=== PATIENT | female | born 1945 | race Caucasian/White ===

== ENCOUNTER 2017-09-06 18:35 | Emergency (ER) | payer MEDICARE, OTHER, SELFPAY | END 2017-09-06 20:39 | disposition home or self-care (01) | PROVIDERS: Emergency Provider Emergency Medicine; PCP Internal Medicine; Visit Provider Emergency Medicine | DX: S20.219A Contusion of unspecified front wall of thorax, initial encounter (principal); W22.8XXA Striking against or struck by other objects, initial encounter | CPT/HCPCS: 71010; 71045; 80053; 81003; 82150; 83690; 83735; 84484; 85025; 85610; 85730; 93005; 93010; 99058; 99284 ==

== ENCOUNTER → 2017-11-24 09:29 | Outpatient (CLI) | payer MEDICARE, OTHER, SELFPAY ==
--- NOTE | 2017-11-24 | DI.RAD.S_ITS ---
PROCEDURE: XR CHEST 2V INDICATIONS: COUGH TECHNIQUE: 2 views of the chest were acquired. [facility]2017, 19[facility]08[facility], 04/08/2017, 16:46[facility] CHEST 2 [facility], 08/24/2014, 20:48. FINDINGS: Surgical changes and devices: Sternotomy wires, surgical clips upper anterior sternal notch area on the left. Lungs and pleura: No pleural effusions or pneumothorax. Lungs are clear. Mediastinum: Mediastinal contours are normal. Heart size is normal. Bones and chest wall: No suspicious bony abnormalities. Soft tissues appear unremarkable. IMPRESSION: Postsurgical changes with sternotomy as discussed above, no pneumonia found. Relatively large lung volumes, possibly reflecting COPD but aggressive inspiratory effort also could produce this appearance. Dictated by: Dayron Sweeney M.D. on 11/24/2017 at 9:53 Approved by: Dayron Sweeney M.D. on 11/24/2017 at 9:54
[2017-11-24 11:00] LABS: Add Manual Diff / Slide Review NO; Basophils Percent Auto 1.2 % (0-2); Eosinophils Percent Auto 4.3 % (2-4); Hemoglobin 13.1 g/dL (12.0-16.0); Mean Corpuscular HGB Conc 33.5 % (30-36); Mean Corpuscular Hemoglobin 29.8 PG (26-34); Mean Corpuscular Volume 89.1 fL (80-100); Monocytes Percent Auto 9.1 % (3-14); Neutrophils Absolute Auto 3600 /uL (3000-5900); Neutrophils Percent Auto 60.4 % (50-75); Platelet Count 232 X10^3/uL (150-400); Red Blood Cell Count 4.38 X10^6/uL (4.0-5.2)
[2017-11-24 11:20] LABS: Alanine Aminotransferase 26 IU/L (9-52); Albumin 4.2 g/dL (3.5-5.0); Albumin Globulin Ratio 1.4 (1.0-2.8); Alkaline Phosphatase 75 U/L (38-126); Aspartate Aminotransferase 25 IU/L (14-36); Bilirubin Total 0.6 mg/dL (0.2-1.3); Blood Urea Nitrogen 12 mg/dL (7-17); Calcium 9.1 mg/dL (8.4-10.2); Carbon Dioxide 28 mmol/L (22-32); Chloride 103 mmol/L (98-107); Estimated Glomerular Filt Rate > 60.0 mL/min (>60); Globulin 3.1 g/dL (1.7-4.1); Glucose 100 mg/dL (80-110); HEMOLYSIS < 15 (0-50); Potassium 4.2 mmol/L (3.4-5.1); Sodium 142 mmol/L (137-145); Total Protein 7.3 g/dL (6.3-8.2)
[2017-11-24 11:49] LABS: Thyroid Stimulating Hormone 0.99 uIU/mL (0.47-4.68)
== END ==
PROVIDERS: PCP Internal Medicine; Visit Provider Internal Medicine
DX: R05 Cough (principal); I10 Essential (primary) hypertension; E78.00 Pure hypercholesterolemia, unspecified
CPT/HCPCS: 36415; 71046; 80053; 84443; 85025

== ENCOUNTER → 2018-01-12 07:44 | Outpatient (CLI) | payer MEDICARE, OTHER, SELFPAY ==
--- NOTE | 2018-01-12 | DI.US.S_ITS ---
PROCEDURE: US THYROID INDICATIONS: THYROID NODULE TECHNIQUE: Real-time scanning was performed of the thyroid gland, with image documentation. COMPARISON: [facility], US, THYROID, 10/15/2015, 14:32. FINDINGS: Right: Right thyroid lobe measures 3.6 x 1.8 x 1.4 cm in size. At least 2 nodules are again seen in lower pole of right thyroid lobe measures up to 9 mm in size unchanged from previous study. Left: Left thyroid lobe measures 4.3 x 1.7 x 1.5 cm in size. Numerous left thyroid lobe nodules are again seen with the largest one seen in upper pole of left thyroid lobe measures 9 mm in size, also unchanged from previous study. Isthmus: Isthmus measures 3 mm in thickness. No gross abnormality is seen. IMPRESSION: Multiple subcentimeter bilateral thyroid nodules as described above, unchanged in size and appearance since 2016 study. Dictated by: aLm Ann M.D. on 01/12/2018 at 12:47 Approved by: Lam Ann M.D. on 01/12/2018 at 12:50
== END ==
PROVIDERS: Family Provider Internal Medicine; PCP Internal Medicine; Visit Provider Internal Medicine
DX: E04.2 Nontoxic multinodular goiter (principal)
CPT/HCPCS: 76536

== ENCOUNTER → 2018-02-01 09:54 | Outpatient (CLI) | payer MEDICARE, OTHER, SELFPAY ==
--- NOTE | 2018-02-01 | DI.ECHO.S_ITS ---
[facility]---------+ [facility] +---------+ : : [address] [place] : : : : [id number] : : : : Phone: [phone] Echocardiogram Report + + :Name: MAYA MORENO Study Date: 02/01/2018 Height: 62 in : :[facility] Exam Location: IS Weight: 114 lb : : Gender: Female BSA: 1.5 m2 : :: 1945 Age: 72 yrs BP: 125/70 mmHg: :Reason For Study: Hypertension : :Ordering Physician: Daja : :Jayshree Performed By: Sisi Page : + + Interpretation Summary There is borderline concentric left ventricular hypertrophy. The ejection fraction is estimated to be 60-65%. There is mild to moderate tricuspid regurgitation. The right ventricular systolic pressure is estimated at 21 mmHg assuming a right atrial pressure of 3 mm Hg. Procedure: A two-dimensional transthoracic echocardiogram with color flow and Doppler was performed. The study quality was technically good. Comparison is made with the echocardiogram of 06/10/2015. The patient was in normal sinus rhythm during the exam. Left Ventricle: There is borderline concentric left ventricular hypertrophy. The left ventricle is normal in size. The ejection fraction is estimated to be 60-65%. Left ventricular wall motion is normal. Right Ventricle: The right ventricle is normal in size and function. Atria: The left atrium is moderately dilated. The right atrium is borderline dilated. There is no Doppler evidence for an interatrial shunt. Mitral Valve: The mitral valve is normal in structure and function. There is trace mitral regurgitation. Aortic Valve: The aortic valve is trileaflet. The aortic valve opens well. The aortic valve is slightly calcified. There is no hemodynamically significant valvular aortic stenosis. There is trace aortic regurgitation. Tricuspid Valve: The tricuspid valve is normal in structure and function. There is mild to moderate tricuspid regurgitation. The right ventricular systolic pressure is estimated at 21 mmHg assuming a right atrial pressure of 3 mm Hg. Pulmonic Valve: The pulmonic valve is not well visualized. There is a trace or physiologic amount of pulmonic regurgitation. Great Vessels: The aortic root is normal size. The ascending aorta is normal in size. The aortic arch is normal in size. The pulmonary artery is not well visualized, but is probably normal size. The IVC is of normal diameter and collapses greater than 50% with a sniff. This suggests a low right atrial pressure of 3 mm Hg. Pericardium/ Pleura There is no pericardial effusion. There is no pleural effusion. MMode/2D Measurements & Calculations LVIDd: 3.7 cm LVOT diam: 2.0 cm LVIDs: 2.0 cm Ao root diam: 3.2 cm FS: 45.6 % asc Aorta Diam: 2.8 cm EPSS: 0.50 cm Ao Arch Diam (Prox Trans): 3.2 cm IVSd: 0.68 cm LVPWd: 0.89 cm LV milton. diameter/BSA (cm/m^2): 2.4 LV sys. diameter/BSA (cm/m^2): 1.3 LA A2 area: 23.1 cm2 RA long axis: 4.5 cm LA A4 area: 18.9 cm2 RA area: 15.7 cm2 LA length (vol): 5.2 cm RA vol: 46.7 ml LA vol: 71.3 ml RA : 31.0 ml/m2 LA vol index: 47.3 ml/m2 IVC diam: 1.3 cm RVD1 (basal): 3.2 cm TAPSE: 1.9 cm Doppler Measurements & Calculations Ao V2 max: 137.2 cm/sec LVOT Max Tj: 100.4 cm/sec Ao V2 mean: 98.0 cm/sec LV V1 max P.0 mmHg Ao max P.5 mmHg LV V1 VTI: 20.3 cm Ao mean P.2 mmHg MAKI(I,D): 2.5 cm2 Ao V2 VTI: 26.1 cm MAKI(V,D): 2.3 cm2 sev ratio: 0.78 MAKI indexed to BSA (cm^2/m^2): 1.7 MV E max tj: 53.5 cm/sec TR max tj: 213.4 cm/sec MV A max tj: 63.1 cm/sec TR max P.2 mmHg MV E/A: 0.85 PA V2 max: 73.1 cm/sec Med Peak E' Tj: 5.9 cm/sec PA V2 mean: 47.6 cm/sec E/E' med: 9.1 PA mean P.1 mmHg Lat Peak E' Tj: 9.2 cm/sec PA Accel Time: 0.14 sec E/E' lat: 5.8 E/e' average: 7.5 MV dec time: 0.31 sec MV P1/2t: 92.6 msec MV P1/2t max tj: 53.1 cm/sec MVA(P1/2t): 2.4 cm2 Reading Physician:05:19 PM
[2018-02-01 11:17] LABS: Cholesterol 150 mg/dL (140-199); HDL Cholesterol 49 mg/dL (40-60); LDL Cholesterol Calculated 90 mg/dL (<100); Triglycerides 56 mg/dL (35-150)
== END ==
PROVIDERS: Family Provider Internal Medicine; PCP Internal Medicine; Visit Provider Internal Medicine
DX: I07.1 Rheumatic tricuspid insufficiency (principal); I11.9 Hypertensive heart disease without heart failure; E78.5 Hyperlipidemia, unspecified
CPT/HCPCS: 36415; 80061; 93306

== ENCOUNTER 2018-02-22 13:00 | Emergency (ER) | payer MEDICARE, OTHER, SELFPAY ==
[2018-02-22 13:16] VITALS: BP 163/84; PULSE 87; RESP 17; TEMP 36.6; O2SAT 94; BMI 21.0
--- NOTE | 2018-02-22 13:26 | DI.RAD.S_ITS ---
PROCEDURE: XR CHEST 1V INDICATIONS: chest pain TECHNIQUE: One view of the chest was acquired. COMPARISON: [facility], CR, XR CHEST 2V, 11/24/2017, 9:41. FINDINGS: Surgical changes and devices: Postoperative changes related to prior median sternotomy are evident. Electronic apparatus is seen overlying the anterior left chest. Clips within the right upper quadrant are suggestive of prior cholecystectomy. Lungs and pleura: No pleural effusions or pneumothorax. Lungs are clear. Mediastinum: Mediastinal contours appear normal. Heart size is normal. Bones and chest wall: No suspicious bony lesions. Overlying soft tissues appear unremarkable. IMPRESSION: No acute cardiopulmonary process is evident. Dictated by: Esau Lewis M.D. on 02/22/2018 at 13:09 Approved by: Esau Lewis M.D. on 02/22/2018 at 13:09
--- NOTE | 2018-02-22 13:47 | DI.US.S_ITS ---
PROCEDURE: US CAROTID DOPPLER BI INDICATIONS: HISTORY STENT TECHNIQUE: Color and pulse Doppler interrogation was performed of both carotid systems, with image documentation and velocity measurements. COMPARISON: None. FINDINGS: Stenosis calculations are based on SRU (Society of Radiologists in Ultrasound) criteria. The flow velocities and the arterial waveforms are normal within both carotid arterial systems. A left proximal internal carotid artery stent is seen. The estimated degree of internal carotid artery stenosis is less than 50%. Antegrade flow is confirmed within both vertebral arteries. IMPRESSION: No hemodynamically significant stenosis is seen. There is a left proximal internal carotid artery stent again seen. Dictated by: Mehran Diaz M.D. on 02/22/2018 at 13:48 Approved by: Mehran Diaz M.D. on 02/22/2018 at 13:49
--- NOTE | 2018-02-22 13:56 | PC.NURSE ---
Pt denies pain at this time. Pt states she feels weak & tired. pt denies anyy other symptoms at this time.
[2018-02-22 13:59] LABS: Add Manual Diff / Slide Review NO; Basophils Percent Auto 0.9 % (0-2); Eosinophils Percent Auto 2.5 % (2-4); Hematocrit 37.9 % (36-46); Hemoglobin 13.1 g/dL (12.0-16.0); Lymphocytes Percent Auto 23.2 % (25-40); Mean Corpuscular HGB Conc 34.7 % (30-36); Mean Corpuscular Hemoglobin 30.3 PG (26-34); Mean Corpuscular Volume 87.4 fL (80-100); Monocytes Percent Auto 9.4 % (3-14); Neutrophils Absolute Auto 3200 /uL (3000-5900); Platelet Count 195 X10^3/uL (150-400); Red Blood Cell Count 4.34 X10^6/uL (4.0-5.2); Red Cell Distribution Width 14.1 % (11.6-14.8)
[2018-02-22 14:05] LABS: INR 1.1 (0.9-1.3)
[2018-02-22 14:08] LABS: PTT Partial Thromboplastin Tim 23 SECONDS (26.4-36.2)
[2018-02-22 14:09] LABS: Alanine Aminotransferase 32 IU/L (9-52); Albumin 4.4 g/dL (3.5-5.0); Albumin Globulin Ratio 1.5 (1.0-2.8); Alkaline Phosphatase 71 U/L (38-126); Aspartate Aminotransferase 25 IU/L (14-36); BUN Creatinine Ratio 21.7 (6-22); Bilirubin Total 0.5 mg/dL (0.2-1.3); Blood Urea Nitrogen 13 mg/dL (7-17); Calcium 9.3 mg/dL (8.4-10.2); Carbon Dioxide 30 mmol/L (22-32); Chloride 102 mmol/L (98-107); Creatine Kinase 40 U/L (30-135); Estimated Glomerular Filt Rate > 60.0 mL/min (>60); Globulin 2.9 g/dL (1.7-4.1); Glucose 129 mg/dL (80-110); HEMOLYSIS 19 (0-50); Lipase 79 U/L (23-300); Sodium 140 mmol/L (137-145); Total Protein 7.3 g/dL (6.3-8.2)
[2018-02-22 14:10] VITALS: BP 121/67; PULSE 77; RESP 75; O2SAT 98
[2018-02-22 14:21] LABS: Troponin I < 0.012 ng/mL (0.01-0.034)
--- NOTE | 2018-02-22 14:36 | ED.DIZZY ---
HPI - Dizziness General Chief Complaint: Syncope Stated Complaint: blacked out, h/o of heart/neuro problems Time Seen by Provider: 02/22/18 13:30 Source: patient Mode of arrival: ambulatory Limitations: no limitations History of Present Illness HPI Narrative: 72-year-old female with long complicated cardiac and vascular history presents to the emergency department today a brief episode the sense of impending doom and near syncope that happened a few hours ago. She states that she was working in her bathroom and had a sudden onset very nonspecific complaints but she felt terrible, briefly. She denies that she had provocation or palliation of her symptoms. She denies any chest pain or shortness of breath. She denies blurred vision or any focal neurologic findings such as numbness, tingling or weakness. Her vascular surgeon sent her here for evaluation. Her symptoms had long since resolved prior to her arrival MD complaint: near syncope Onset (ago): hour(s) Timing: sudden onset Description: near-syncope History of similar episodes: No History of trauma: No Severity: moderate Relieving factors: nothing Exacerbating factors: nothing Associated symptoms: denies other symptoms Related Data Home Medications Medication Instructions Recorded Confirmed aspirin 81 mg PO DAILY #0 02/03/09 02/22/18 clopidogrel 75 mg PO Q DAY #0 02/03/09 02/22/18 atorvastatin [Lipitor] 20 mg PO Q DAY #0 02/23/13 02/22/18 losartan [Cozaar] 100 mg PO QDAY #0 tab 02/23/13 02/22/18 multivitamin 1 tab PO QDAY #0 tab 02/23/13 02/22/18 amlodipine 5 mg tablet 5 mg PO DAILY 01/19/18 02/22/18 Allergies Allergy/AdvReac Type Severity Reaction Status Date / Time erythromycin base Allergy Mild Verified 02/22/18 13:16 [ERYTHROMYCIN BASE] prochlorperazine Allergy Mild Verified 02/22/18 13:16 [PROCHLORPERAZINE] oxycodone [OXYCODONE] Allergy Unknown Verified 02/22/18 13:16 Review of Systems Review of Systems All systems reviewed & are unremarkable except as noted in HPI and below Constitutional Denies chills, Denies fever(s), Denies lethargy and Denies weakness Eyes Denies change in vision, Denies eye discharge, Denies irritation and Denies loss of vision ENT Ears, Nose, Mouth, and Throat: Denies change in voice, Denies neck pain and Denies sore throat Cardiovascular Denies chest pain, Denies irregular heart rhythm, Denies lightheadedness, Denies palpitations, Denies dyspnea, Denies dyspnea on exertion and Denies orthopnea Comments: Near syncope, sense doom Respiratory Denies cough, Denies dyspnea, Denies dyspnea on exertion and Denies wheezing Gastrointestinal Gastrointestinal: Denies abdominal pain, Denies change in bowel habits, Denies diarrhea, Denies nausea and Denies vomiting Genitourinary Denies hematuria, Denies flank pain, Denies urinary incontinence and Denies urinary urgency Musculoskeletal Denies neck pain Integumentary/Breasts Denies pruritus, Denies erythema, Denies rash and Denies wounds Neurologic Denies confusion, Denies loss of vision and Denies weakness Psychiatric Denies anxiety, Denies confusion, Denies depression, Denies homicidal ideation and Denies suicidal ideation Endocrine Denies palpitations Hematologic/Lymphatic Denies easy bruising Allergic/Immunologic Denies wheezing PFSH Medical History Carotid artery disease (Chronic) Heart disease (Chronic) Hypertension (Chronic) Multinodular thyroid (Chronic) SVT (supraventricular tachycardia) (Chronic) Stroke (Resolved) Surgical History History of cholecystectomy (Resolved) History of eye surgery (Resolved) History of left common carotid artery stent placement (Resolved) History of surgery (Resolved 05/05/08) Social History Smoking Status: Never smoker Exam Narrative Exam Narrative: GENERAL: This is a well-nourished, well-developed patient, in mild distress. HEAD: Atraumatic. Normocephalic. No temporal or scalp tenderness. EYES: Pupils equal round and reactive. Extraocular motions intact. No scleral icterus. No injection or drainage. ENT: Nose without bleeding, purulent drainage or septal hematoma. Throat without erythema, tonsillar hypertrophy or exudate. Uvula midline. Airway patent. NECK: Trachea midline. No JVD or lymphadenopathy. Supple, nontender, no meningeal signs. CARDIOVASCULAR: Regular rate and rhythm without murmurs, gallops, or rubs. RESPIRATORY: Clear to auscultation. Breath sounds equal bilaterally. No wheezes, rales, or rhonchi. GASTROINTESTINAL: Abdomen soft, non-tender, nondistended. No hepato-splenomegaly, or palpable masses. No guarding. EXTREMITIES: No clubbing, cyanosis, or edema. No joint tenderness, effusion, or edema noted. BACK: Nontender without deformity or crepitance. No flank tenderness. NEURO: AOx3. SKIN: No rash or erythema. Initial Vital Signs Initial Vital Signs: Vital Signs Temperature 97.9 F 02/22/18 13:16 Pulse Rate 87 02/22/18 13:16 Respiratory Rate 17 02/22/18 13:16 Blood Pressure 163/84 H 02/22/18 13:16 Pulse Oximetry 94 02/22/18 13:16 Scores HEART Score Heart Score history: Slightly Suspicious Heart Score EKG: Normal Heart Score Age: > or = 65 years old Heart Score risk factors: > 3 risk factors or hx of atherosclerotic disease Heart Score troponin: < or = to normal limit Heart Score Total: 4 Course Orders Ordered: ED Orders 02/22/18 13:26 XR chest 1V Stat 02/22/18 13:47 US carotid doppler BI Stat Complete Blood Count AUTO DIFF Stat Comprehensive Metabolic Panel Stat Lipase Stat Partial Thromboplastin Time Stat Prothrombin Time INR Stat Troponin & CK Cardiac Panel Stat 02/22/18 15:40 Troponin I Stat 02/22/18 15:41 EKG-12 Lead Stat 02/22/18 16:05 CT angio chest PE protocol Stat Vital Signs - 8 hr 02/22/18 14:10 02/22/18 17:05 Pulse Rate 77 80 Respiratory Rate 75 H 20 Blood Pressure [Left Arm] 121/67 132/64 Pulse Oximetry 98 94 MDM - Dizziness Differential Diagnosis Likely adverse reaction to drug, benign paroxysmal positional vertigo, orthostatic hypotension, vertebral basilar insufficiency, cerebrovascular accident, acute vestibular neuronitis and transient cerebral ischemia Medical Records Attestation: I reviewed the patient's medical records. Lab Data Attestation: I reviewed the patient's lab results. Result diagrams: 02/22/18 13:47 02/22/18 13:47 Lab Results 02/22/18 02/22/18 02/22/18 Range/Units 13:47 13:47 13:47 WBC 5.0 (4.5-11.0) X10^3/uL RBC 4.34 (4.0-5.2) X10^6/uL Hgb 13.1 (12.0-16.0) g/dL Hct 37.9 (36-46) % MCV 87.4 (80-100) fL MCH 30.3 (26-34) PG MCHC 34.7 (30-36) % RDW 14.1 (11.6-14.8) % Plt Count 195 (150-400) X10^3/uL Neut % (Auto) 64.0 (50-75) % Lymph % (Auto) 23.2 L (25-40) % [place] % (Auto) 9.4 (3-14) % Eos % (Auto) 2.5 (2-4) % Baso % (Auto) 0.9 (0-2) % Neut # (Auto) 3200 (9277-0799) /uL PT 12.0 (10.1-12.7) SECONDS INR 1.1 (0.9-1.3) APTT 23 L (26.4-36.2) SECONDS Sodium 140 (137-145) mmol/L Potassium 4.0 (3.4-5.1) mmol/L Chloride 102 (98-107) mmol/L Carbon Dioxide 30 (22-32) mmol/L BUN 13 (7-17) mg/dL Creatinine 0.60 (0.52-1.04) mg/dL Estimated GFR > 60.0 (>60) mL/min BUN/Creatinine Ratio 21.7 (6-22) Glucose 129 H (80-110) mg/dL Calcium 9.3 (8.4-10.2) mg/dL Total Bilirubin 0.5 (0.2-1.3) mg/dL AST 25 (14-36) IU/L ALT 32 (9-52) IU/L Alkaline Phosphatase 71 (38-126) U/L Total Creatine Kinase 40 (30-135) U/L CK-MB (CK-2) TNP CK-MB (CK-2) Rel Index TNP Troponin I < 0.012 (0.01-0.034) ng/mL Total Protein 7.3 (6.3-8.2) g/dL Albumin 4.4 (3.5-5.0) g/dL Globulin 2.9 (1.7-4.1) g/dL Albumin/Globulin Ratio 1.5 (1.0-2.8) Lipase 79 (23-300) U/L 02/22/18 Range/Units 15:40 WBC (4.5-11.0) X10^3/uL RBC (4.0-5.2) X10^6/uL Hgb (12.0-16.0) g/dL Hct (36-46) % MCV (80-100) fL MCH (26-34) PG MCHC (30-36) % RDW (11.6-14.8) % Plt Count (150-400) X10^3/uL Neut % (Auto) (50-75) % Lymph % (Auto) (25-40) % [place] % (Auto) (3-14) % Eos % (Auto) (2-4) % Baso % (Auto) (0-2) % Neut # (Auto) (2364-7831) /uL PT (10.1-12.7) SECONDS INR (0.9-1.3) APTT (26.4-36.2) SECONDS Sodium (137-145) mmol/L Potassium (3.4-5.1) mmol/L Chloride (98-107) mmol/L Carbon Dioxide (22-32) mmol/L BUN (7-17) mg/dL Creatinine (0.52-1.04) mg/dL Estimated GFR (>60) mL/min BUN/Creatinine Ratio (6-22) Glucose (80-110) mg/dL Calcium (8.4-10.2) mg/dL Total Bilirubin (0.2-1.3) mg/dL AST (14-36) IU/L ALT (9-52) IU/L Alkaline Phosphatase (38-126) U/L Total Creatine Kinase (30-135) U/L CK-MB (CK-2) CK-MB (CK-2) Rel Index Troponin I < 0.012 (0.01-0.034) ng/mL Total Protein (6.3-8.2) g/dL Albumin (3.5-5.0) g/dL Globulin (1.7-4.1) g/dL Albumin/Globulin Ratio (1.0-2.8) Lipase (23-300) U/L Imaging Data Carotid Doppler: Radiologist's impression: [address] [address] Ultrasound Report Signed Patient: Yi Seay#: [id number] : 5Acct:[id number] Age/Sex: 72 / FDate of Service: 02/22/18 Loc: ED Accession Number: [id number] Procedure: US carotid doppler BI Ordering Provider: Ata Schuler D.O. PROCEDURE: US CAROTID DOPPLER BI INDICATIONS: HISTORY STENT TECHNIQUE: Color and pulse Doppler interrogation was performed of both carotid systems, with image documentation and velocity measurements. COMPARISON: None. FINDINGS: Stenosis calculations are based on SRU (Society of Radiologists in Ultrasound) criteria. The flow velocities and the arterial waveforms are normal within both carotid arterial systems. A left proximal internal carotid artery stent is seen. The estimated degree of internal carotid artery stenosis is less than 50%. Antegrade flow is confirmed within both vertebral arteries. IMPRESSION: No hemodynamically significant stenosis is seen. There is a left proximal internal carotid artery stent again seen. Dictated by: Mehran Diaz M.D. on 02/22/2018 at 13:48 Approved by: Mehran Diaz M.D. on 02/22/2018 at 13:49 CT scan - chest: Radiologist's impression: [place] [address] CT Scan Report Signed Patient: Yi Seay JMR#: [id number] : 5Acct:[id number] Age/Sex: 72 / FDate of Service: 02/22/18 Loc: ED Accession Number: [id number] Procedure: CT angio chest PE protocol Ordering Provider: Ata Schuler D.O. PROCEDURE: CT ANGIO CHEST PE PROTOCOL INDICATIONS: near syncope, chest pressure, hx cardiac/vascular TECHNIQUE: After the administration of intravenous contrast, 2 mm thick sections acquired from the pulmonary apices to the posterior costophrenic angles. 3-dimensional maximum intensity projection (MIP) coronal and sagittal reformats were then acquired through the thorax. For radiation dose reduction, the following was used: automated exposure control, adjustment of mA and/or kV according to patient size. COMPARISON: None. FINDINGS: Image quality: Excellent. Pulmonary arteries: Pulmonary arteries are normal in size, and demonstrate no intraluminal filling defects to suggest central pulmonary embolism. Lungs and pleura: Atelectasis is noted in the dependent portion of the lungs. Small calcified granulomas noted in the lungs compatible sequela prior granulomatous disease. No pleural effusions or pneumothorax. Central and peripheral airways are patent. Mediastinum: Heart size is normal, without pericardial effusion. Atherosclerotic calcifications noted in the coronary vasculature. No mediastinal or hilar adenopathy. Calcified mediastinal and right hilar lymph nodes noted compatible sequela prior granulomatous disease. Thoracic aorta is normal in caliber and enhancement. Scattered atherosclerotic calcifications noted in the aorta. Esophagus is normal in caliber, without hiatal hernia. Bones and chest wall: Median sternotomy wires are noted. Temporary heart monitor noted in the anterior chest wall. No suspicious bony lesions. Ribs and thoracic spine appear intact throughout. Thyroid gland contains a 1.1 cm hypoattenuating nodule in the right lobe.. No axillary or supraclavicular adenopathy. Abdomen: Gallbladder surgically absent. 3.2 cm left renal cyst is noted. Visualized upper abdominal solid organs appear normal in the early arterial phase of enhancement. IMPRESSION: 1. No pulmonary embolus. 2. No lung consolidation. 3. No pleural effusions. 4. Atherosclerosis including left coronary vasculature. 5. 1.1 cm right thyroid nodule. Recommend thyroid ultrasound when clinically feasible for definitive characterization. Dictated by: Ana Laura Barahona MD, PhD on 02/22/2018 at 16:30 Approved by: Ana Laura Barahona MD, PhD on 02/22/2018 at 16:36 ECG Data Attestation: I personally reviewed and interpreted this ECG as follows: Prior ECG tracings: not available for review MDM Narrative Medical decision making narrative: Patient has been asymptomatic for multiple hours, including the entire duration of her stay. Her symptoms only lasted a few seconds and though dramatic have not returned. She has multiple troponins which are unremarkable and EKG is demonstrating no concerning rhythm abnormalities or ischemic change. She has had imaging of her carotids as well as angiography of the chest which are unremarkable. I have discussed this case with a timber management specialist representing her group whom after discussion of history, physical and diagnostic findings soler equally comfortable allowing this patient to go home. She is already wearing a Zio patch. Patient has had extensive bedside teaching with significant time spent on return precautions. Patient has a medical background and is quite comfortable with these instructions and verbalizes her understanding. She has had her questions answered to her apparent satisfaction Discharge Plan Departure Patient Disposition: Home Clinical Impression: Near syncope Discharge Date/Time: 02/22/18 17:39 Interventions: ED Discharge Assessment Last Done: 02/22/18 17:38 Instructions: DI for Syncope in Adults (Fainting) Activity Restrictions/Additional Instructions: *You have been diagnosed with [ near syncope ] *What to do: *Take medications as directed *Follow up with your primary care provider in 2-3 days, call for an appointment. Let them know you were seen in the Emergency Department and that we ask that you be seen in follow up *Return to ER if you should have any new, worsening or concerning symptoms Prescriptions: No Action clopidogrel 75 mg Tablet 75 mg PO Q DAY Qty: 0 RF: 0 aspirin 81 mg Tablet,Delayed Release (Dr/Ec) 81 mg PO DAILY Qty: 0 RF: 0 losartan [Cozaar] 100 MG tablet 100 mg PO QDAY Qty: 0 RF: 0 atorvastatin [Lipitor] 20 MG tablet 20 mg PO Q DAY Qty: 0 RF: 0 multivitamin Tablet 1 tab PO QDAY Qty: 0 RF: 0 amlodipine 5 mg tablet 5 mg PO DAILY RF: 0 Referrals: Javier Yung MD [Primary Care Provider] - Daja Martell MD [Physician] -
--- NOTE | 2018-02-22 14:39 | ED_ITS ---
HPI - Dizziness General Chief Complaint: Syncope Stated Complaint: blacked out, h/o of heart/neuro problems Time Seen by Provider: 02/22/18 13:30 Source: patient Mode of arrival: ambulatory Limitations: no limitations History of Present Illness HPI Narrative: 72-year-old female with long complicated cardiac and vascular history presents to the emergency department today a brief episode the sense of impending doom and near syncope that happened a few hours ago. She states that she was working in her bathroom and had a sudden onset very nonspecific complaints but she felt terrible, briefly. She denies that she had provocation or palliation of her symptoms. She denies any chest pain or shortness of breath. She denies blurred vision or any focal neurologic findings such as numbness, tingling or weakness. Her vascular surgeon sent her here for evaluation. Her symptoms had long since resolved prior to her arrival MD complaint: near syncope Onset (ago): hour(s) Timing: sudden onset Description: near-syncope History of similar episodes: No History of trauma: No Severity: moderate Relieving factors: nothing Exacerbating factors: nothing Associated symptoms: denies other symptoms Related Data Home Medications Medication Instructions Recorded Confirmed aspirin 81 mg PO DAILY #0 02/03/09 02/22/18 clopidogrel 75 mg PO Q DAY #0 02/03/09 02/22/18 atorvastatin [Lipitor] 20 mg PO Q DAY #0 02/23/13 02/22/18 losartan [Cozaar] 100 mg PO QDAY #0 tab 02/23/13 02/22/18 multivitamin 1 tab PO QDAY #0 tab 02/23/13 02/22/18 amlodipine 5 mg tablet 5 mg PO DAILY 01/19/18 02/22/18 Allergies Allergy/AdvReac Type Severity Reaction Status Date / Time erythromycin base Allergy Mild Verified 02/22/18 13:16 [ERYTHROMYCIN BASE] prochlorperazine Allergy Mild Verified 02/22/18 13:16 [PROCHLORPERAZINE] oxycodone [OXYCODONE] Allergy Unknown Verified 02/22/18 13:16 Review of Systems Review of Systems All systems reviewed & are unremarkable except as noted in HPI and below Constitutional Denies chills, Denies fever(s), Denies lethargy and Denies weakness Eyes Denies change in vision, Denies eye discharge, Denies irritation and Denies loss of vision ENT Ears, Nose, Mouth, and Throat: Denies change in voice, Denies neck pain and Denies sore throat Cardiovascular Denies chest pain, Denies irregular heart rhythm, Denies lightheadedness, Denies palpitations, Denies dyspnea, Denies dyspnea on exertion and Denies orthopnea Comments: Near syncope, sense doom Respiratory Denies cough, Denies dyspnea, Denies dyspnea on exertion and Denies wheezing Gastrointestinal Gastrointestinal: Denies abdominal pain, Denies change in bowel habits, Denies diarrhea, Denies nausea and Denies vomiting Genitourinary Denies hematuria, Denies flank pain, Denies urinary incontinence and Denies urinary urgency Musculoskeletal Denies neck pain Integumentary/Breasts Denies pruritus, Denies erythema, Denies rash and Denies wounds Neurologic Denies confusion, Denies loss of vision and Denies weakness Psychiatric Denies anxiety, Denies confusion, Denies depression, Denies homicidal ideation and Denies suicidal ideation Endocrine Denies palpitations Hematologic/Lymphatic Denies easy bruising Allergic/Immunologic Denies wheezing PFSH Medical History Carotid artery disease (Chronic) Heart disease (Chronic) Hypertension (Chronic) Multinodular thyroid (Chronic) SVT (supraventricular tachycardia) (Chronic) Stroke (Resolved) Surgical History History of cholecystectomy (Resolved) History of eye surgery (Resolved) History of left common carotid artery stent placement (Resolved) History of surgery (Resolved 05/05/08) Social History Smoking Status: Never smoker Exam Narrative Exam Narrative: GENERAL: This is a well-nourished, well-developed patient, in mild distress. HEAD: Atraumatic. Normocephalic. No temporal or scalp tenderness. EYES: Pupils equal round and reactive. Extraocular motions intact. No scleral icterus. No injection or drainage. ENT: Nose without bleeding, purulent drainage or septal hematoma. Throat without erythema, tonsillar hypertrophy or exudate. Uvula midline. Airway patent. NECK: Trachea midline. No JVD or lymphadenopathy. Supple, nontender, no meningeal signs. CARDIOVASCULAR: Regular rate and rhythm without murmurs, gallops, or rubs. RESPIRATORY: Clear to auscultation. Breath sounds equal bilaterally. No wheezes , rales, or rhonchi. GASTROINTESTINAL: Abdomen soft, non-tender, nondistended. No hepato-splenomegaly , or palpable masses. No guarding. EXTREMITIES: No clubbing, cyanosis, or edema. No joint tenderness, effusion, or edema noted. BACK: Nontender without deformity or crepitance. No flank tenderness. NEURO: AOx3. SKIN: No rash or erythema. Initial Vital Signs Initial Vital Signs: Vital Signs Temperature 97.9 F 02/22/18 13:16 Pulse Rate 87 02/22/18 13:16 Respiratory Rate 17 02/22/18 13:16 Blood Pressure 163/84 H 02/22/18 13:16 Pulse Oximetry 94 02/22/18 13:16 Scores HEART Score Heart Score history: Slightly Suspicious Heart Score EKG: Normal Heart Score Age: > or = 65 years old Heart Score risk factors: > 3 risk factors or hx of atherosclerotic disease Heart Score troponin: < or = to normal limit Heart Score Total: 4 Course Orders Ordered: ED Orders 02/22/18 13:26 XR chest 1V Stat 02/22/18 13:47 US carotid doppler BI Stat Complete Blood Count AUTO DIFF Stat Comprehensive Metabolic Panel Stat Lipase Stat Partial Thromboplastin Time Stat Prothrombin Time INR Stat Troponin & CK Cardiac Panel Stat 02/22/18 15:40 Troponin I Stat 02/22/18 15:41 EKG-12 Lead Stat 02/22/18 16:05 CT angio chest PE protocol Stat Vital Signs - 8 hr 02/22/18 14:10 02/22/18 17:05 Pulse Rate 77 80 Respiratory Rate 75 H 20 Blood Pressure [Left Arm] 121/67 132/64 Pulse Oximetry 98 94 MDM - Dizziness Differential Diagnosis Likely adverse reaction to drug, benign paroxysmal positional vertigo, orthostatic hypotension, vertebral basilar insufficiency, cerebrovascular accident, acute vestibular neuronitis and transient cerebral ischemia Medical Records Attestation: I reviewed the patient's medical records. Lab Data Attestation: I reviewed the patient's lab results. Result diagrams: 02/22/18 13:47 02/22/18 13:47 Lab Results 02/22/18 02/22/18 02/22/18 Range/Units 13:47 13:47 13:47 WBC 5.0 (4.5-11.0) X10^3/uL RBC 4.34 (4.0-5.2) X10^6/uL Hgb 13.1 (12.0-16.0) g/dL Hct 37.9 (36-46) % MCV 87.4 (80-100) fL MCH 30.3 (26-34) PG MCHC 34.7 (30-36) % RDW 14.1 (11.6-14.8) % Plt Count 195 (150-400) X10^3/uL Neut % (Auto) 64.0 (50-75) % Lymph % (Auto) 23.2 L (25-40) % [place] % (Auto) 9.4 (3-14) % Eos % (Auto) 2.5 (2-4) % Baso % (Auto) 0.9 (0-2) % Neut # (Auto) 3200 (5956-6978) /uL PT 12.0 (10.1-12.7) SECONDS INR 1.1 (0.9-1.3) APTT 23 L (26.4-36.2) SECONDS Sodium 140 (137-145) mmol/L Potassium 4.0 (3.4-5.1) mmol/L Chloride 102 (98-107) mmol/L Carbon Dioxide 30 (22-32) mmol/L BUN 13 (7-17) mg/dL Creatinine 0.60 (0.52-1.04) mg/dL Estimated GFR > 60.0 (>60) mL/min BUN/Creatinine Ratio 21.7 (6-22) Glucose 129 H (80-110) mg/dL Calcium 9.3 (8.4-10.2) mg/dL Total Bilirubin 0.5 (0.2-1.3) mg/dL AST 25 (14-36) IU/L ALT 32 (9-52) IU/L Alkaline Phosphatase 71 (38-126) U/L Total Creatine Kinase 40 (30-135) U/L CK-MB (CK-2) TNP CK-MB (CK-2) Rel Index TNP Troponin I < 0.012 (0.01-0.034) ng/mL Total Protein 7.3 (6.3-8.2) g/dL Albumin 4.4 (3.5-5.0) g/dL Globulin 2.9 (1.7-4.1) g/dL Albumin/Globulin Ratio 1.5 (1.0-2.8) Lipase 79 (23-300) U/L 02/22/18 Range/Units 15:40 WBC (4.5-11.0) X10^3/uL RBC (4.0-5.2) X10^6/uL Hgb (12.0-16.0) g/dL Hct (36-46) % MCV (80-100) fL MCH (26-34) PG MCHC (30-36) % RDW (11.6-14.8) % Plt Count (150-400) X10^3/uL Neut % (Auto) (50-75) % Lymph % (Auto) (25-40) % [place] % (Auto) (3-14) % Eos % (Auto) (2-4) % Baso % (Auto) (0-2) % Neut # (Auto) (6337-2713) /uL PT (10.1-12.7) SECONDS INR (0.9-1.3) APTT (26.4-36.2) SECONDS Sodium (137-145) mmol/L Potassium (3.4-5.1) mmol/L Chloride (98-107) mmol/L Carbon Dioxide (22-32) mmol/L BUN (7-17) mg/dL Creatinine (0.52-1.04) mg/dL Estimated GFR (>60) mL/min BUN/Creatinine Ratio (6-22) Glucose (80-110) mg/dL Calcium (8.4-10.2) mg/dL Total Bilirubin (0.2-1.3) mg/dL AST (14-36) IU/L ALT (9-52) IU/L Alkaline Phosphatase (38-126) U/L Total Creatine Kinase (30-135) U/L CK-MB (CK-2) CK-MB (CK-2) Rel Index Troponin I < 0.012 (0.01-0.034) ng/mL Total Protein (6.3-8.2) g/dL Albumin (3.5-5.0) g/dL Globulin (1.7-4.1) g/dL Albumin/Globulin Ratio (1.0-2.8) Lipase (23-300) U/L Imaging Data Carotid Doppler: Radiologist's impression: [address] [address] Ultrasound Report Signed Patient: Yi Seay#: [id number] : 5Acct:[id number] Age/Sex: 72 / FDate of Service: 02/22/18 Loc: ED Accession Number: [id number] Procedure: US carotid doppler BI Ordering Provider: Ata Schuler D.O. PROCEDURE: US CAROTID DOPPLER BI INDICATIONS: HISTORY STENT TECHNIQUE: Color and pulse Doppler interrogation was performed of both carotid systems, with image documentation and velocity measurements. COMPARISON: None. FINDINGS: Stenosis calculations are based on SRU (Society of Radiologists in Ultrasound) criteria. The flow velocities and the arterial waveforms are normal within both carotid arterial systems. A left proximal internal carotid artery stent is seen. The estimated degree of internal carotid artery stenosis is less than 50%. Antegrade flow is confirmed within both vertebral arteries. IMPRESSION: No hemodynamically significant stenosis is seen. There is a left proximal internal carotid artery stent again seen. Dictated by: Mehran Diaz M.D. on 02/22/2018 at 13:48 Approved by: Mehran Diaz M.D. on 02/22/2018 at 13:49 CT scan - chest: Radiologist's impression: [place] [address] CT Scan Report Signed Patient: Yi Seay JMR#: [id number] : 5Acct:[id number] Age/Sex: 72 / FDate of Service: 02/22/18 Loc: ED Accession Number: [id number] Procedure: CT angio chest PE protocol Ordering Provider: Ata Schuler D.O. PROCEDURE: CT ANGIO CHEST PE PROTOCOL INDICATIONS: near syncope, chest pressure, hx cardiac/vascular TECHNIQUE: After the administration of intravenous contrast, 2 mm thick sections acquired from the pulmonary apices to the posterior costophrenic angles. 3-dimensional maximum intensity projection (MIP) coronal and sagittal reformats were then acquired through the thorax. For radiation dose reduction, the following was used: automated exposure control, adjustment of mA and/or kV according to patient size. COMPARISON: None. FINDINGS: Image quality: Excellent. Pulmonary arteries: Pulmonary arteries are normal in size, and demonstrate no intraluminal filling defects to suggest central pulmonary embolism. Lungs and pleura: Atelectasis is noted in the dependent portion of the lungs. Small calcified granulomas noted in the lungs compatible sequela prior granulomatous disease. No pleural effusions or pneumothorax. Central and peripheral airways are patent. Mediastinum: Heart size is normal, without pericardial effusion. Atherosclerotic calcifications noted in the coronary vasculature. No mediastinal or hilar adenopathy. Calcified mediastinal and right hilar lymph nodes noted compatible sequela prior granulomatous disease. Thoracic aorta is normal in caliber and enhancement. Scattered atherosclerotic calcifications noted in the aorta. Esophagus is normal in caliber, without hiatal hernia. Bones and chest wall: Median sternotomy wires are noted. Temporary heart monitor noted in the anterior chest wall. No suspicious bony lesions. Ribs and thoracic spine appear intact throughout. Thyroid gland contains a 1.1 cm hypoattenuating nodule in the right lobe.. No axillary or supraclavicular adenopathy. Abdomen: Gallbladder surgically absent. 3.2 cm left renal cyst is noted. Visualized upper abdominal solid organs appear normal in the early arterial phase of enhancement. IMPRESSION: 1. No pulmonary embolus. 2. No lung consolidation. 3. No pleural effusions. 4. Atherosclerosis including left coronary vasculature. 5. 1.1 cm right thyroid nodule. Recommend thyroid ultrasound when clinically feasible for definitive characterization. Dictated by: Ana Laura Barahona MD, PhD on 02/22/2018 at 16:30 Approved by: Ana Laura Barahona MD, PhD on 02/22/2018 at 16:36 ECG Data Attestation: I personally reviewed and interpreted this ECG as follows: Prior ECG tracings: not available for review MDM Narrative Medical decision making narrative: Patient has been asymptomatic for multiple hours, including the entire duration of her stay. Her symptoms only lasted a few seconds and though dramatic have not returned. She has multiple troponins which are unremarkable and EKG is demonstrating no concerning rhythm abnormalities or ischemic change. She has had imaging of her carotids as well as angiography of the chest which are unremarkable. I have discussed this case with a senior data developer representing her group whom after discussion of history, physical and diagnostic findings soler equally comfortable allowing this patient to go home. She is already wearing a Zio patch. Patient has had extensive bedside teaching with significant time spent on return precautions. Patient has a medical background and is quite comfortable with these instructions and verbalizes her understanding. She has had her questions answered to her apparent satisfaction Discharge Plan Departure Patient Disposition: Home Clinical Impression: Near syncope Discharge Date/Time: 02/22/18 17:39 Interventions: ED Discharge Assessment Last Done: 02/22/18 17:38 Instructions: DI for Syncope in Adults (Fainting) Activity Restrictions/Additional Instructions: *You have been diagnosed with [ near syncope ] *What to do: *Take medications as directed *Follow up with your primary care provider in 2-3 days, call for an appointment. Let them know you were seen in the Emergency Department and that we ask that you be seen in follow up *Return to ER if you should have any new, worsening or concerning symptoms Prescriptions: No Action clopidogrel 75 mg Tablet 75 mg PO Q DAY Qty: 0 RF: 0 aspirin 81 mg Tablet,Delayed Release (Dr/Ec) 81 mg PO DAILY Qty: 0 RF: 0 losartan [Cozaar] 100 MG tablet 100 mg PO QDAY Qty: 0 RF: 0 atorvastatin [Lipitor] 20 MG tablet 20 mg PO Q DAY Qty: 0 RF: 0 multivitamin Tablet 1 tab PO QDAY Qty: 0 RF: 0 amlodipine 5 mg tablet 5 mg PO DAILY RF: 0 Referrals: Javier Yung MD [Primary Care Provider] - Daja Martell MD [Physician] -
--- NOTE | 2018-02-22 16:05 | DI.CT.S_ITS ---
PROCEDURE: CT ANGIO CHEST PE PROTOCOL INDICATIONS: near syncope, chest pressure, hx cardiac/vascular TECHNIQUE: After the administration of intravenous contrast, 2 mm thick sections acquired from the pulmonary apices to the posterior costophrenic angles. 3-dimensional maximum intensity projection (MIP) coronal and sagittal reformats were then acquired through the thorax. For radiation dose reduction, the following was used: automated exposure control, adjustment of mA and/or kV according to patient size. COMPARISON: None. FINDINGS: Image quality: Excellent. Pulmonary arteries: Pulmonary arteries are normal in size, and demonstrate no intraluminal filling defects to suggest central pulmonary embolism. Lungs and pleura: Atelectasis is noted in the dependent portion of the lungs. Small calcified granulomas noted in the lungs compatible sequela prior granulomatous disease. No pleural effusions or pneumothorax. Central and peripheral airways are patent. Mediastinum: Heart size is normal, without pericardial effusion. Atherosclerotic calcifications noted in the coronary vasculature. No mediastinal or hilar adenopathy. Calcified mediastinal and right hilar lymph nodes noted compatible sequela prior granulomatous disease. Thoracic aorta is normal in caliber and enhancement. Scattered atherosclerotic calcifications noted in the aorta. Esophagus is normal in caliber, without hiatal hernia. Bones and chest wall: Median sternotomy wires are noted. Temporary heart monitor noted in the anterior chest wall. No suspicious bony lesions. Ribs and thoracic spine appear intact throughout. Thyroid gland contains a 1.1 cm hypoattenuating nodule in the right lobe.. No axillary or supraclavicular adenopathy. Abdomen: Gallbladder surgically absent. 3.2 cm left renal cyst is noted. Visualized upper abdominal solid organs appear normal in the early arterial phase of enhancement. IMPRESSION: 1. No pulmonary embolus. 2. No lung consolidation. 3. No pleural effusions. 4. Atherosclerosis including left coronary vasculature. 5. 1.1 cm right thyroid nodule. Recommend thyroid ultrasound when clinically feasible for definitive characterization. Dictated by: Ana Laura Barahona MD, PhD on 02/22/2018 at 16:30 Approved by: Ana Laura Barahona MD, PhD on 02/22/2018 at 16:36
[2018-02-22 16:09] LABS: Troponin I < 0.012 ng/mL (0.01-0.034)
[2018-02-22 17:05] VITALS: BP 132/64; PULSE 80; RESP 20; O2SAT 94
== END 2018-02-22 17:39 | disposition home or self-care (01) ==
PROVIDERS: Emergency Provider Emergency Medicine; PCP Internal Medicine
DX: R55 Syncope and collapse (principal)
CPT/HCPCS: 36415; 36591; 71045; 71275; 80053; 82550; 83690; 84484; 85025; 85610; 85730; 93005; 93880; 99283; 99285; Q9967

== ENCOUNTER → 2018-05-16 12:34 | Outpatient (CLI) | payer MEDICARE, OTHER, SELFPAY ==
[2018-05-16 13:12] LABS: C-Reactive Protein Quant 1.4 mg/dL (<1.0)
[2018-05-16 13:13] LABS: Erythrocyte Sedimentation Rate 31 MM/HR (0-20)
== END ==
PROVIDERS: Family Provider Internal Medicine; PCP Internal Medicine; Visit Provider Surgery Vascular Surgery
DX: H53.452 Other localized visual field defect, left eye (principal); H53.8 Other visual disturbances
CPT/HCPCS: 36415; 85651; 86140

== ENCOUNTER → 2018-07-02 12:56 | Outpatient (CLI) | payer MEDICARE, OTHER, SELFPAY ==
[2018-07-02 14:11] LABS: C-Reactive Protein Quant < 0.5 mg/dL (<1.0)
== END ==
PROVIDERS: PCP Internal Medicine; Visit Provider Ophthalmology Neuro-ophthalmology
DX: H54.7 Unspecified visual loss (principal)
CPT/HCPCS: 36415; 86140

== ENCOUNTER → 2018-07-03 09:39 | Outpatient (CLI) | payer MEDICARE, OTHER, SELFPAY ==
[2018-07-03 12:01] LABS: Erythrocyte Sedimentation Rate 6 MM/HR (0-20)
== END ==
PROVIDERS: PCP Internal Medicine; Visit Provider Ophthalmology Neuro-ophthalmology
DX: H54.7 Unspecified visual loss (principal)
CPT/HCPCS: 85651

== ENCOUNTER 2018-07-03 21:49 | Emergency (ER) | payer MEDICARE, OTHER, SELFPAY ==
[2018-07-03 21:55] VITALS: BP 169/77; PULSE 67; RESP 15; TEMP 37.1; O2SAT 98; BMI 21.9
--- NOTE | 2018-07-03 23:00 | ED_ITS ---
HPI - Skin/Abscess/Foreign Bdy General Chief complaint: Skin/Abscess/Foreign Body Stated complaint: soreness in back of head Time Seen by Provider: 07/03/18 22:29 Source: patient Mode of arrival: ambulatory Limitations: no limitations History of Present Illness HPI narrative: Patient is a 72-year-old female who presents with extremely sensitive scalp and hair. She says it has been ongoing for the last 4 days ev aniya time she touches her scalp removed her hair she has extreme pain. His her daughter noticed some redness. She has no facial pain is or new visual changes. She says that she has had some right visual changes which she has been seen by a neuro auto body builder apprentice for any times in [place]. She denies any changes in this. She also has was being worked up for temporal arteritis. She actually had ESR and CRP drawn at this hospital yesterday and today. She has not had any fever or chills. Related Data Home Medications Medication Instructions Recorded Confirmed aspirin 81 mg PO DAILY #0 02/03/09 02/22/18 clopidogrel 75 mg PO Q DAY #0 02/03/09 02/22/18 atorvastatin [Lipitor] 20 mg PO Q DAY #0 02/23/13 02/22/18 losartan [Cozaar] 100 mg PO QDAY #0 tab 02/23/13 02/22/18 multivitamin 1 tab PO QDAY #0 tab 02/23/13 02/22/18 amlodipine 5 mg tablet 5 mg PO DAILY 01/19/18 02/22/18 Allergies Allergy/AdvReac Type Severity Reaction Status Date / Time erythromycin base Allergy Mild Verified 07/03/18 21:59 [ERYTHROMYCIN BASE] prochlorperazine Allergy Mild Verified 07/03/18 21:59 [PROCHLORPERAZINE] oxycodone [OXYCODONE] Allergy Unknown Verified 07/03/18 21:59 Review of Systems Review of Systems GENERAL: Denies chills, fatigue, malaise, fever, sweats, travel HEENT: Denies sinus pain, ear pain, sore throat, difficulty swallowing, neck pain RESPIRATORY: Denies dyspnea, cough, wheezing, hemoptysis, sputum. CARDIOVASCULAR: Denies chest pain, palpitations, orthopnea, edema GASTROINTESTINAL: Denies nausea, vomiting, abdominal pain, diarrhea, constipation, melena. : Denies dysuria, frequency, incontinence, hematuria, urinary retention, flank pain. MUSCULOSKELETAL: Denies weakness, joint pain, or bony pain SKIN: Extremely sensitive scalp NEUROLOGIC: Denies weakness, dizziness, headache, numbness, change in speech, confusion PSYCHIATRIC: No concerning psychosocial issues. 12 point review of systems is negative except for those stated above and HPI PFSH Medical History Carotid artery disease (Chronic) Heart disease (Chronic) Hypertension (Chronic) Multinodular thyroid (Chronic) SVT (supraventricular tachycardia) (Chronic) Stroke (Resolved) Surgical History History of cholecystectomy (Resolved) History of eye surgery (Resolved) History of left common carotid artery stent placement (Resolved) History of surgery (Resolved 05/05/08) Social History Smoking Status: Never smoker Social History Smoking Status: Never smoker Exam Initial Vital Signs Initial Vital Signs: Vital Signs Temperature 98.7 F 07/03/18 21:55 Pulse Rate 67 07/03/18 21:55 Respiratory Rate 15 07/03/18 21:55 Blood Pressure 169/77 H 07/03/18 21:55 Pulse Oximetry 98 07/03/18 21:55 Const General: cooperative and well developed Nutritional Appearance: well nourished Orientation: alert, awake and oriented x3 HENMT Head: normal to inspection, No hematoma, No laceration, No scalp lesion, scalp tenderness ( extremely sensitive scalp to palpation and movement of hair. No rash, ) and No temporal artery tenderness Nose: external nose normal Eyes General: appearance normal, both eyes and all related structures Neck Neck: normal visual inspection Chest Chest: normal inspection of the chest Resp Effort & Inspection: normal respiratory effort, able to speak in complete sentences and no respiratory distress Auscultation: clear to auscultation bilaterally, no rales, no rhonchi and no wheezes Cardio Rate: regular rate Rhythm: regular rhythm Heart Sounds: no click, no gallops, no murmurs and no rubs Pulses: normal peripheral pulses Skin General: no rashes or lesions noted, No dry skin, No ecchymosis, No erythema, No purpura and No warm Lesions: no lesions Rashes: rash noted Hair: normal Neuro General: alert, oriented x3, gait normal and no focal motor deficits Speech: speech normal Course Vital Signs - 8 hr 07/03/18 21:55 07/03/18 23:14 Temperature 98.7 F Pulse Rate 67 76 Respiratory Rate 15 16 Blood Pressure 169/77 H 177/86 H Pulse Oximetry 98 99 MDM - Skin/Abscess/Foreign Bdy Lab Data Attestation: I reviewed the patient's lab results. CRP from 07/02/2018 less than 5, ESR from 07/03/2018 6 previously 31 MDM Narrative Medical decision making narrative: I suspect that due to patient's high sensitivity she may be the early stages of shingles though I have looked at her scalp I do not see any erythema or vesicles yet. Patient is offered Tylenol or ibuprofen for pain however she refuses at this time. She is not tender over her temporal arteries and does not have elevated inflammatory markers at this time I have very low suspicion for temporal arteritis. patient is extremely worried she has been unimmunized grandchild at home with 6 years old. Long discussion about how it is transferred is in contagiousness. All questions answered to the best of my ability. Patient is also given information. Patient is afebrile does not appear toxic or septic. Discharge Plan Departure Patient Disposition: Home Clinical Impression: Scalp irritation Discharge Date/Time: 07/03/18 23:16 Interventions: ED Discharge Assessment Last Done: 07/03/18 23:14 Instructions: Shingles Activity Restrictions/Additional Instructions: *You have been diagnosed with Scalp irritation *What to do: at this time I do not see signs of infection or shingles though I do suspect shingles may be coming. If this is shingles expect to see a rash on scalp and or face in the next 5-7 days. if you do developed a rash you will require medication *Continue to take medications as directed Tylenol 650 mg every 4-6 hours if needed for pain ibuprofen 600 mg every 8 hr if needed for pain *Follow up with your primary care provider in 2-3 days *Return to ER if you should have rash, worsening pain, change in headaches or vision or any new, worsening or concerning symptoms Prescriptions: No Action clopidogrel 75 mg Tablet 75 mg PO Q DAY Qty: 0 RF: 0 aspirin 81 mg Tablet,Delayed Release (Dr/Ec) 81 mg PO DAILY Qty: 0 RF: 0 losartan [Cozaar] 100 MG tablet 100 mg PO QDAY Qty: 0 RF: 0 atorvastatin [Lipitor] 20 MG tablet 20 mg PO Q DAY Qty: 0 RF: 0 multivitamin Tablet 1 tab PO QDAY Qty: 0 RF: 0 amlodipine 5 mg tablet 5 mg PO DAILY RF: 0 Referrals: Javier Yung MD [Primary Care Provider] -
[2018-07-03 23:14] VITALS: BP 177/86; PULSE 76; RESP 16; O2SAT 99
== END 2018-07-03 23:16 | disposition home or self-care (01) ==
PROVIDERS: Emergency Provider Emergency Medicine; PCP Internal Medicine
DX: R23.8 Other skin changes (principal)
CPT/HCPCS: 85651; 99283

== ENCOUNTER → 2018-07-16 11:00 | Outpatient (CLI) | payer MEDICARE, OTHER, SELFPAY ==
--- NOTE | 2018-07-16 | DI.RAD.S_ITS ---
PROCEDURE: XR KNEE RT 3V INDICATIONS: KNEE PAIN TECHNIQUE: 3 views of the knee were acquired. COMPARISON: None. FINDINGS: Bones: No fractures or dislocations. No suspicious bony lesions. Degenerative spurring. Joint space is not well visualized Soft tissues: No joint effusion. No suspicious soft tissue calcifications. IMPRESSION: Mild degenerative changes as above Dictated by: Noah Downey M.D. on 07/16/2018 at 12:46 Approved by: Noah Downey M.D. on 07/16/2018 at 12:47
--- NOTE | 2018-07-16 | DI.RAD.S_ITS ---
PROCEDURE: XR KNEE LT 3V INDICATIONS: KNEE PAIN TECHNIQUE: 3 views of the knee were acquired. COMPARISON: None. FINDINGS: Bones: No fractures or dislocations. No suspicious bony lesions. Degenerative spurring and subchondral sclerosis with mild narrowing of the medial joint space. Soft tissues: No joint effusion. No suspicious soft tissue calcifications. IMPRESSION: Mild left knee joint degeneration. Dictated by: Noah Downey M.D. on 07/16/2018 at 12:45 Approved by: Noah Downey M.D. on 07/16/2018 at 12:46
== END ==
PROVIDERS: PCP Internal Medicine; Visit Provider Internal Medicine
DX: M25.562 Pain in left knee (principal); M25.561 Pain in right knee; M17.0 Bilateral primary osteoarthritis of knee
CPT/HCPCS: 73562

== ENCOUNTER 2018-10-04 13:30 | Outpatient (RCR) | payer MEDICARE, OTHER, SELFPAY ==
--- NOTE | 2018-09-20 17:39 | ST.OPIE ---
Provider Information Visit Care Team Role Provider Type Javier Yung MD Primary Care Provider Physician Specialty: Internal Medicine Address: [address] [place] [address], [id number] Email: Curt Perkins MD Attending Provider Physician Specialty: Ear, Nose, Throat Address: [address] [place] [address], [id number] Email: Speech-Language Pathology Initial Evaluation HOURLY SHIFT Voice Resonance Evaluation Start: 09/20/18 15:05 Freq: Status: Active Protocol: Document 09/20/18 15:16 LNK (Rec: 09/20/18 15:26 LNK [id number]) Voice and Resonance Assessment Session Time Visit Start Time 13:30 Visit Stop Time 14:25 Total Visit Minutes 55 Next Note Type Next Note Type Re-Evaluation Referral Referring Physician Dr. Perkins Reason for Referral Laryngospasm Setting Setting Outpatient Care Patient History General Information Pt presented for a voice assessment at the referral of Dr. Perkins. Dr. Perkins had evaluated the pt and diagnosed laryngospasm. 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 He discussed LPR with the pt who, at the time adamantly denied the possibility of reflux. Dr Perkins offered the pt literature on reflux and encouraged her to read the handout. During our interview the pt described a complicated medical history that included her CTA. She also described GI history that occurred when she lived in [place] when she was in her early 60s'. Her doctor at the time (GI specialist, Dr. Jeong) assessed her for excessive burping and had discussed reflux at that time. The pt also noted that in her 50s she had been diagnosed with a hiatal hernia. Regarding her current symptoms, the pt described her spasm as sudden airway obstruction and hoarseness not related to eating or drinking. She described that she could not breath despite clearing her throat several times. Upon further questioning, the pt describes her voice as not my voice, hoarse and rough. She further noted that she feels a 'burning sensation with recent pain in her throat . She also admitted that after researching her symptoms, she is convinced she has LPR. Pt reported that she investigated the medications(PPIs) that Dr. Perkins had listed in his handout. She explained that she has not taken these medications because she believes that interfere with her baby aspirin and Plavix. She did, however, start taking Pepsid and/or Mylanta but she is worried about side effect of diarrhea. Hearing Auditory History WFL Previous Therapy Previous Speech-Language Therapy No Oral Motor Assessment Source: [place] [employer] (MAGDIEL). Oral-Motor Assessment Informal observation of OM structures and function indicated skills to be WFL Subjective Subjective Pt appeared a bit anxious. She was very talkative as she described her medical history. The entire session was used to review her medical history and observations of her vocal characteristics. - Laryngeal Performance CAPE-V Overall Severity 60% Roughness 80% Breathiness 15% Strain 80% Pitch 66% Low pitch Loudness 50% Normal Resonance? Yes Additional Features Diplophonia Glottal Benitez Other Features Observed very frequent throat clearing - some aggressive clearing observed Muscle Tension Assessment Muscle Tension Assessment Other Muscle Tension Assessment Comments pt sitting forward, with shoulders and neck tension observed Breath Support Speaks on Room Air Yes Postural Alignment Neck Static Shoulders Both High Voice Pitch Range Norms: Women (100-300 Hz) Men (70-250 Hz) Fundamental Frequency Norms: Women (Mean: 225 Hz; Range: 155-334 Hz) Men ( Mean: 128 Hz; Range: 85-196 Hz) Paradoxical Vocal Fold Movement No Indications Resonance Oral Resonance Normal Other Observations Aggressive Personality Throat Clearing Findings Findings Moderate Impairment Observations Yi Seay presented with a medical history and clinical observation consistent with reflux, more likely LPR. Symptoms she listed/demonstrated included, throat-clearing, frequent burping, hx of hiatal hernia, greater throat-clearing in a reclined position at night, laryngospasm (likely secondary to reflux) and burning sensation with pain in her throat area. Pt's voice was observed to be harsh (rough and hoarse) as well as strained. This may be a compensatory strategy she has learned in response to her unilateral vocal fold paralysis. It may also be a response to the LPR in that the vocal folds are irritated by the LPR/acidic mist. A referral to a GI specialist for further evaluation is strongly recommended. - Recommendations Treatment Recommended Yes Treatment Frequency/Duration Vocal therapy may be indicated following assessment and treatment by GI. Therapy Recommendations Referral to GI for GERD/LPR evaluation Follow up with speech pathology following GI Referrals Referrals GI Patient/Caregiver Education Patient/Family Education Described results of evaluation Patient Understanding
--- NOTE | 2018-09-21 13:00 | ST.OPIE ---
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 Perkins Reason for Referral Laryngospasm Setting Setting Outpatient Care Patient History General Information Pt presented for a voice assessment at the referral of Dr. Perkins. Dr. Perkins had evaluated the pt and diagnosed laryngospasm. 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 He discussed LPR with the pt who, at the time adamently denied the possibility of reflux. Dr Grey offerred the pt literature on reflux and encouraged her to read the handout. During our interview the pt described a complicated medical history that included her CTA. She also described GI history that occurred when she lived in [facility] in her early 60s'. Her doctor at the time (GI specialist, Dr. Jeong) assessed her for excessive burping and had discussed reflux at that time. The pt also noted that in her 50s she had been diagnosed with a hiatal hernia. Regardng her current symptoms, the pt described her spasm as sudden airway obstruction and hoarseness not related to eating or drinking. She described that she could not breath despite clearing her throat several times. Upon further questioning, the pt describes her voice as not my voice, hoarse and rough. She further noted that she feels a 'burning sensation with recent pain in her throat . She also admitted that after researching her symptomolgy, she is convinced she has LPR. Pt reported that she investigated the medications(PPIs) that Dr. Perkins had listed in his handout. She explsined that she has not taken these medications because she believes that interfere with her baby aspirin and Plavix. She did, however, start taking Pepsid and/or Mylanta but she is worried about side effect of diarrhea. Hearing Auditory History WFL Previous Therapy Previous Speech-Language Therapy No Oral Motor Assessment Source: [employer] [employer] (MAGDIEL). Oral-Motor Assessment Informal observation of OM structures and function indicated skills to be WFL Subjective Subjective Pt appeared a bit anxious. She was very talkative as she described her medical history. The entire session was used to review her medical history and observations of her vocal characteristics. - Laryngeal Performance CAPE-V Overall Severity 60% Roughness 80% Breathiness 15% Strain 80% Pitch 66% Low pitch Loudness 50% Normal Resonance? Yes Additional Features Diplophonia Glottal Benitez Other Features Observed very frequent throat clearing - some aggressive clearing observed Muscle Tension Assessment Muscle Tension Assessment Other Muscle Tension Assessment Comments pt sitting forward, with shoulders and neck tension observed Breath Support Speaks on Room Air Yes Postural Alignment Neck Static Shoulders Both High Voice Pitch Range Norms: Women (100-300 Hz) Men (70-250 Hz) Fundamental Frequency Norms: Women (Mean: 225 Hz; Range: 155-334 Hz) Men ( Mean: 128 Hz; Range: 85-196 Hz) Paradoxical Vocal Fold Movement No Indications Resonance Oral Resonance Normal Other Observations Aggressive Personality Throat Clearing Findings Findings Moderate Impairment Observations Yi Seay presented with a medical history and clinical observarion consistent with reflux, more likely LPR. Symptoms she listed/demonstrated included, throat-clearing, frequent burping, hx of hiatal hernia, greater throat-clearing in a reclined position at night, laryngospasm (likely secondary to reflux) and burning sensation with pain in her throat area. Pt's voice was observed to be harsh (rough and hoarse) as well as strained. This may be a compensatory strategy she has learned in response to her unilateral vocal fold paralysis. It may also be a response to the LPR in that the vocal folds are irritated by the LPR/acidic mist. A referral to a GI specialist for further evaluation is strongly recommended. - Recommendations Treatment Recommended Yes Treatment Frequency/Duration Vocal therapy may be indicated following assessment and treatment by GI. Therapy Recommendations Referral to GI for GERD/LPR evaluation Follow up with speech pathology following GI Referrals Referrals GI Patient/Caregiver Education Patient/Family Education Described results of evaluation Patient Understanding
--- NOTE | 2018-10-04 16:47 | ST.OPRE ---
Care Team Visit Care Team Role Provider Type Javier Yung MD Primary Care Provider Physician Specialty: Internal Medicine Address: [address] [place] [address], [id number] Email: Curt Perkins MD Attending Provider Physician Specialty: Ear, Nose, Throat Address: [address] [place] [address], [id number] Email: Speech-Language Pathology Evaluation/Summary GROUP PRODUCT MANAGER Clinical Instructor Line Start: 10/04/18 16:04 Freq: Status: Active Protocol: Document 10/04/18 16:05 LNK (Rec: 10/04/18 16:07 LNK [id number]) Clinical Instructor Signature Clinical Instructor Clinical Instructor Yes: Kailyn Mendoza, PhD , [facility]-GROUP PRODUCT MANAGER GROUP PRODUCT MANAGER Voice Resonance Evaluation Start: 09/20/18 15:05 Freq: Status: Active Protocol: Document 10/04/18 15:03 MG (Rec: 10/04/18 15:14 MG [id number]) Voice and Resonance Assessment Session Time Visit Start Time 13:30 Visit Stop Time 14:25 Total Visit Minutes 55 Next Note Type Next Note Type Re-Evaluation Referral Referring Physician Dr. Perkins Reason for Referral Laryngospasm Setting Setting Outpatient Care Patient History General Information Pt presented for a voice assessment at the referral of Dr. Perkins. Dr. Perkins had evaluated the pt and diagnosed laryngospasm. 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 He discussed LPR with the pt who, at the time adamantly denied the possibility of reflux. Dr Perkins offered the pt literature on reflux and encouraged her to read the handout. During our interview the pt described a complicated medical history that included her CTA. She also described GI history that occurred when she lived in [place] when she was in her early 60s'. Her doctor at the time (GI specialist, Dr. Jeong) assessed her for excessive burping and had discussed reflux at that time. The pt also noted that in her 50s she had been diagnosed with a hiatal hernia. Regarding her current symptoms, the pt described her spasm as sudden airway obstruction and hoarseness not related to eating or drinking. She described that she could not breath despite clearing her throat several times. Upon further questioning, the pt describes her voice as not my voice, hoarse and rough. She further noted that she feels a 'burning sensation with recent pain in her throat . She also admitted that after researching her symptomology, she is convinced she has LPR. Pt reported that she investigated the medications(PPIs) that Dr. Perkins had listed in his handout. She explained that she has not taken these medications because she believes that interfere with her baby aspirin and Plavix. She did, however, start taking Pepsid and/or Mylanta but she is worried about side effect of diarrhea. Hearing Auditory History WFL - Yi wears bilateral hearing aids. Previous Therapy Previous Speech-Language Therapy No Oral Motor Assessment Source: [place] [employer] (MAGDIEL). Oral-Motor Assessment Informal observation of OM structures and function indicated skills to be WFL. Subjective Subjective Pt appeared a bit anxious. Discussed episodes of not being able to breath. Inquired about next steps, strategies, and plan of care going forward. - Laryngeal Performance Voice Handicap Index Function Subtotal 18 Physical Subtotal 18 Emotional Subtotal 9 Total Score 45 Severity Moderate (31-60) Maximum Phonation Time MPT Norms: Women (15-25) Men (25-35) Loudness (50-60 dB); Speaking Rate: Oral Reading of Sentences (190 Words Per Minute); Oral Reading of Paragraphs (160-170 WPM); Speaking Rate in Conversation (150-250 WPM) Maximum Phonation Time 13.2 Maximum Phonation Time Adequate for Speech Jitter/Shimmer Norms: Jitter (Less than or equal to 1.040% - Frequency) Norms: Shimmer (Less than or equal to 3.810% - Amplitude) Jitter 2.59 Shimmer 7.26 Pitch Gruver Pitch Gruver Reduced Range Pitch Gruver Comments Pitch Gruver range from 109-322 while singing is noted to be reduced. Pitch while reading range from 67-614 is noted to be WFL. Muscle Tension Assessment Muscle Tension Assessment Other Muscle Tension Assessment Comments pt sitting forward, with shoulders and neck tension observed Breath Support Speaks on Room Air Yes Postural Alignment Neck Static Shoulders Both High Voice Pitch Range Norms: Women (100-300 Hz) Men (70-250 Hz) Fundamental Frequency Norms: Women (Mean: 225 Hz; Range: 155-334 Hz) Men ( Mean: 128 Hz; Range: 85-196 Hz) Voice Pitch Mildly Low Voice Loudness Normal Voice Phonatory-based Quality Harsh Hoarse Fundamental Frequency 180.3 Hz Paradoxical Vocal Fold Movement No Indications Resonance Oral Resonance Normal Other Observations Aggressive Personality Throat Clearing Findings Findings Moderate Impairment Observations Yi Seay presented with a medical history and clinical observation consistent with reflux, more likely LPR. Symptoms she listed/demonstrated included, throat-clearing, frequent burping, hx of hiatal hernia, greater throat-clearing in a reclined position at night, laryngospasm (likely secondary to reflux) and burning sensation with pain in her throat area. Pt's voice was observed to be harsh (rough and hoarse) as well as strained. This may be a compensatory strategy she has learned in response to her unilateral vocal fold paralysis. It may also be a response to the LPR in that the vocal folds are irritated by the LPR/acidic mist. A referral to a GI specialist for further evaluation is strongly recommended. - Recommendations Treatment Recommended Yes Treatment Frequency/Duration Vocal therapy may be indicated following assessment and treatment by GI. Therapy Recommendations Referral to GI for GERD/LPR evaluation Follow up with speech pathology following GI evaluation and acid management . Referrals Referrals GI Patient/Caregiver Education Patient/Family Education Described results of evaluation Patient Understanding
--- NOTE | 2018-12-10 17:50 | ST.OPDS ---
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 ENVIRONMENTAL CONSTRUCTION ENGINEER Clinical Instructor Line Start: 10/04/18 16:04 Freq: Status: Active Protocol: Document 10/04/18 16:05 LNK (Rec: 10/04/18 16:07 LNK [id number]) Clinical Instructor Signature Clinical Instructor Clinical Instructor Yes: Kailyn Mendoza, PhD , [facility]-ENVIRONMENTAL CONSTRUCTION ENGINEER ENVIRONMENTAL CONSTRUCTION ENGINEER Treatment Note Start: 09/20/18 15:05 Freq: Status: Active Protocol: Document 12/10/18 17:39 LNK (Rec: 12/10/18 17:48 LNK [id number]) Speech Pathology Treatment Note Visit Type Note Type Discharge Summary General Information General Information Pt was seen 2x for voice evaluation and therapy. She was initially referred by Dr. Perkins. Pt has not been seen since 10/04/18. No further appointments were made. Pt appeared a bit anxious. She was very talkative as she described her medical history. The entire session was used to review her medical history and observations of her vocal characteristics. 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 Vocal therapy was defered until the pt saw her GI specialist. She was seen 1x more then she was discharged from therapy Plan Provided Patient/Caregiver Instruction Other Therapy Recommendations Discharge from Speech Therapy
== END 2018-12-14 14:05 | disposition home or self-care (01) ==
LOC: SP 13:30
PROVIDERS: PCP Internal Medicine; Visit Provider Otolaryngology
DX: J38.5 Laryngeal spasm (principal)
CPT/HCPCS: 92520; 92524

== ENCOUNTER → 2018-10-26 07:55 | Outpatient (CLI) | payer MEDICARE, OTHER, SELFPAY ==
--- NOTE | 2018-10-26 | DI.US.S_ITS ---
PROCEDURE: US SOFT TISSUE HEAD AND NECK INDICATIONS: UNSPECIFIED VOICE/RESONANCE DISORDER TECHNIQUE: Real-time scanning was performed of the neck region of interest, with image documentation. COMPARISON: None. FINDINGS: No neck abnormality seen sonographically. IMPRESSION: 1. No sonographic neck abnormality seen bilaterally. If indicated, contrast-enhanced soft tissue neck CT could be performed. Dictated by: Rajesh SINGH Interpreted: Ayana Montanez MD on 10/26/2018 at 8:54 Approved by: Ayana Montanez M.D. on 10/26/2018 at 11:42
== END ==
PROVIDERS: PCP Internal Medicine; Visit Provider Physician Assistant
DX: R49.9 Unspecified voice and resonance disorder (principal)
CPT/HCPCS: 76536

== ENCOUNTER 2018-12-14 10:36 | Emergency (ER) | payer MEDICARE, OTHER, SELFPAY ==
[2018-12-14 10:48] VITALS: BP 197/113; PULSE 80; RESP 19; TEMP 36.9; O2SAT 100; BMI 19.6
--- NOTE | 2018-12-14 10:51 | ED.CHESTPAIN ---
HPI - Chest Pain General Chief Complaint: Chest Pain Stated Complaint: not feeling good Time Seen by Provider: 12/14/18 10:46 Source: patient Mode of arrival: ambulatory Limitations: no limitations History of Present Illness HPI narrative: Patient is a 73-year-old very anxious female presenting with not feeling well. She said she was eating her breakfast she only took 1 of her blood pressure medications losartan this morning and she felt like something was happening in her head. She is shaking quite uncontrollably. Demanding that she take her home blood pressure medication including Norvasc aspirin and Plavix. He does have a history of a left carotid endarterectomy with stent. She has no weakness in any of her extremities no numbness or tingling no speech difficulty no facial drooping no visual changes. She denies any chest pain or heart palpitations. She is afraid that something is happening in her brain. She denies nausea vomiting or shortness of breath. Duration: constant Related Data Home Medications Medication Instructions Recorded Confirmed aspirin 81 mg PO DAILY #0 02/03/09 12/14/18 clopidogrel 75 mg PO DAILY #0 02/03/09 12/14/18 atorvastatin [Lipitor] 20 mg PO DAILY #0 02/23/13 12/14/18 losartan [Cozaar] 100 mg PO DAILY #0 tab 02/23/13 12/14/18 multivitamin 1 tab PO QDAY #0 tab 02/23/13 12/14/18 Calcium 1 tab PO DAILY 12/14/18 12/14/18 amlodipine 2.5 mg PO BID 12/14/18 12/14/18 Allergies Allergy/AdvReac Type Severity Reaction Status Date / Time erythromycin base Allergy Mild Verified 07/07/18 09:31 [ERYTHROMYCIN BASE] prochlorperazine Allergy Mild Verified 07/07/18 09:31 [PROCHLORPERAZINE] Review of Systems Review of Systems ROS Unobtainable: All systems reviewed & are unremarkable except as noted in HPI and below Constitutional Denies chills, Denies fatigue, Denies fever(s), Reports headache(s), Denies lethargy and Denies weakness Eyes Denies change in vision, Denies eye discharge, Denies irritation and Denies loss of vision ENT Ears, Nose, Mouth, and Throat: Denies change in voice, Reports headache(s), Denies neck pain and Denies sore throat Cardiovascular Denies chest pain, Denies lightheadedness, Denies dyspnea and Denies dyspnea on exertion Respiratory Denies cough, Denies dyspnea, Denies dyspnea on exertion and Denies wheezing Gastrointestinal Gastrointestinal: Denies abdominal pain, Denies change in bowel habits, Denies diarrhea, Denies nausea and Denies vomiting Genitourinary Denies hematuria, Denies flank pain, Denies urinary incontinence and Denies urinary urgency Musculoskeletal Denies neck pain Integumentary/Breasts Denies pruritus, Denies erythema, Denies rash and Denies wounds Neurologic Denies confusion, Reports headache(s), Denies loss of vision and Denies weakness Psychiatric Denies anxiety, Denies confusion, Denies depression, Denies homicidal ideation and Denies suicidal ideation Endocrine Denies fatigue and Denies flushing Allergic/Immunologic Denies wheezing [facility] Medical History Carotid artery disease (Chronic) Heart disease (Chronic) Hypertension (Chronic) Multinodular thyroid (Chronic) SVT (supraventricular tachycardia) (Chronic) Stroke (Resolved) Surgical History History of cholecystectomy (Resolved) History of eye surgery (Resolved) History of left common carotid artery stent placement (Resolved) History of surgery (Resolved 05/05/08) Social History Smoking Status: Never smoker Social History Smoking Status: Never smoker Exam Initial Vital Signs Initial Vital Signs: Vital Signs Temperature 98.4 F 12/14/18 10:48 Pulse Rate 80 12/14/18 10:48 Respiratory Rate 19 12/14/18 10:48 Blood Pressure 197/113 H 12/14/18 10:48 Pulse Oximetry 100 12/14/18 10:48 GENERAL: Very anxious elderly female obviously shaking and in no acute distress. HEENT: Head atraumatic,EOMI, pupils reactive, face symmetric, CARDIOVASCULAR: Regular rate and rhythm without murmurs, rubs or gallops. RESPIRATORY: Breath sounds equal bilaterally, no wheezes rales or rhonchi. ABDOMEN: Soft, nontender. Normoactive bowel sounds all 4 quadrants. No guarding or rebound. EXTREMITIES: Normal range of motion, no clubbing or edema. Neurovascularly intact NEUROLOGICAL: Alert and oriented x4.Normal gait and speech. Cranial nerves II through XII grossly intact. Good [id number], good [id number], strength equal bilaterally, no dysarthria or aphasia, sensation in tact to soft touch bilaterally, no visual changes, no facial droop SKIN: Warm, dry, no laceration, no petechiae, no rashes or lesions. Scores NIH Stroke Scale Level of Conciousness: Alert, keenly responsive Ask month/age: Answers both questions correctly. Open/close eyes, close hand: Performs both tasks correctly Best gaze horizontal: Normal Visual soler: No visual loss Facial palsy: Normal symetrical movement Left arm drift: No drift for full 10 sec Right arm drift: No drift for full 10 sec Left leg drift: No drift for full 10 sec Right leg drift: No drift for full 10 sec Limb ataxia: Absent Sensory on face/arms/legs: Normal, no sensory loss Best language: No aphasia, normal Dysarthria: Normal Extinction or inattention: No abnormality Total NIH Stroke scale score: 0 Course Orders Ordered: ED Orders 12/14/18 10:41 EKG-12 Lead Routine 12/14/18 10:45 Complete Blood Count AUTO DIFF Stat Comprehensive Metabolic Panel Stat Lipase Stat Partial Thromboplastin Time Stat Prothrombin Time INR Stat Troponin & CK Cardiac Panel Stat 12/14/18 11:02 CT head/brain wo con Stat XR chest 1V Stat Discontinued Medications Sodium Chloride (Normal Saline 0.9%) 1,000 mls @ 150 mls/hr IV CONT JT Last Infusion: 12/14/18 12:06 Dose: 0 mls/hr Admin: 12/14/18 11:42 Dose: 150 mls/hr Vital Signs - 8 hr 12/14/18 12:00 12/14/18 12:11 Pulse Rate 70 73 Respiratory Rate 19 18 Blood Pressure 130/60 Blood Pressure [Left Arm] 153/64 H Pulse Oximetry 100 95 MDM - Chest Pain Lab Data Attestation: I reviewed the patient's lab results. Result diagrams: 12/14/18 10:45 12/14/18 10:45 Lab Results 12/14/18 12/14/18 12/14/18 Range/Units 10:45 10:45 10:45 WBC 6.1 (4.5-11.0) X10^3/uL RBC 4.51 (4.0-5.2) X10^6/uL Hgb 13.5 (12.0-16.0) g/dL Hct 39.4 (36-46) % MCV 87.3 (80-100) fL MCH 29.9 (26-34) PG MCHC 34.2 (30-36) % RDW 13.8 (11.6-14.8) % Plt Count 194 (150-400) X10^3/uL Neut % (Auto) 47.2 L (50-75) % Lymph % (Auto) 38.6 (25-40) % Nance % (Auto) 8.8 (3-14) % Eos % (Auto) 4.2 H (2-4) % Baso % (Auto) 1.2 (0-2) % Neut # (Auto) 2900 (1459-8668) /uL Lymph # (Auto) 2400 (2312-2189) /uL Nance # (Auto) 500 (0-900) /uL Eos # (Auto) 300 (0-450) /uL Baso # (Auto) 100 (0-100) /uL PT 12.1 (10.1-12.7) SECONDS INR 1.1 (0.9-1.3) APTT 31 D (26.4-36.2) SECONDS Sodium 138 (137-145) mmol/L Potassium 3.9 (3.4-5.1) mmol/L Chloride 101 (98-107) mmol/L Carbon Dioxide 26 (22-32) mmol/L BUN 10 (7-17) mg/dL Creatinine 0.60 (0.52-1.04) mg/dL Estimated GFR > 60.0 (>60) mL/min BUN/Creatinine Ratio 16.7 (6-22) Glucose 158 H (80-110) mg/dL Calcium 9.1 (8.4-10.2) mg/dL Total Bilirubin 0.6 (0.2-1.3) mg/dL AST 27 (14-36) IU/L ALT 20 (9-52) IU/L Alkaline Phosphatase 90 (38-126) U/L Total Creatine Kinase 47 (30-135) U/L CK-MB (CK-2) TNP CK-MB (CK-2) Rel Index TNP Troponin I < 0.012 (0.01-0.034) ng/mL Total Protein 7.7 (6.3-8.2) g/dL Albumin 4.5 (3.5-5.0) g/dL Globulin 3.2 (1.7-4.1) g/dL Albumin/Globulin Ratio 1.4 (1.0-2.8) Lipase 82 (23-300) U/L Imaging Data CT scan - head: Radiologist's impression: PROCEDURE: CT HEAD/BRAIN WO CON INDICATIONS: headache HTN TECHNIQUE: Noncontrast 4.5 mm thick angled axial sections acquired from the foramen magnum to the vertex, with coronal and sagittal reformats. For radiation dose reduction, the following was used: automated exposure control, adjustment of mA and/or kV according to patient size. COMPARISON: [facility], CT, HEAD WITHOUT CONTRAST, 04/08/2017, 17:05. FINDINGS: Image quality: Excellent. CSF spaces: Basal cisterns are patent. No extra-axial fluid collections. The ventricles are symmetric in size and shape. Brain: No intracranial bleeds or masses. There is mild cerebral volume loss for age, with resultant ventricular and sulcal prominence. There are mild periventricular and deep white matter chronic small vessel ischemic changes. There is intracranial internal carotid artery atherosclerosis. Partially visualized endovascular stent noted in the high cervical left internal carotid artery Skull and face: Calvarium and visualized facial bones appear intact, without suspicious lesions. Sinuses: Scattered mucosal thickening noted in the ethmoid air cells bilaterally. The mastoids are clear. IMPRESSION: No acute intracranial disease process. Dictated by: Ana Laura Barahona MD, PhD on 12/14/2018 at 11:26 Chest x-ray: Radiologist's impression: PROCEDURE: XR CHEST 1V INDICATIONS: chest pain TECHNIQUE: One view of the chest was acquired. COMPARISON: [facility], CR, XR CHEST 1V, 02/22/2018, 13:29. [facility], CR, XR CHEST 2V, 11/24/2017, 9:41. FINDINGS: Surgical changes and devices: Sternotomy wires, presumed prior CABG. Lungs and pleura: Lungs are clear. No pleural effusions or pneumothorax. Mediastinum: Mediastinal contours appear normal. Heart size is normal. Bones and chest wall: No suspicious bony lesions. Overlying soft tissues appear unremarkable. IMPRESSION: Sternotomy wires, no acute disease, no source of no chest pain is found. Dictated by: Dayron Sweeney M.D. on 12/14/2018 at 11:34 ECG Data Attestation: I personally reviewed and interpreted this ECG as follows: Prior ECG tracings: available for review Interpretation: Normal sinus rhythm rate [address] changes no T-wave inversions right bundle-branch block noted similar from previous MDM Narrative Medical decision making narrative: Patient's blood pressure decreased significantly overall her symptoms have improved drastically. Head CT is negative. She says that she was eating breakfast at [facility] she got very full and nauseous and got herself worked up. She at no time had any chest pain. I strongly recommended that she have a repeat troponin however patient is adamant that is not her heart and that she feels ready and able to go home. No history of coronary artery disease. She did take her aspirin and Plavix after results of head CT. I discussed all findings with the patient and daughter, Education has been performed regarding treatment plan, diagnosis, warning signs and symptoms and all concerns have been addressed. Verbally agree with and understood all of the above. Discharge Plan Departure Patient Disposition: Home Clinical Impression: Anxiety Discharge Date/Time: 12/14/18 12:12 Interventions: ED Discharge Assessment Last Done: 12/14/18 12:11 Instructions: DI for Atypical Chest Pain Activity Restrictions/Additional Instructions: *You have been diagnosed with anxiety *What to do: At this time head CT is negative no signs or symptoms consistent with stroke. Any heart issues have not yet been ruled out, it was recommended to have repeat blood work. If you should what further evaluation or a should have any further chest pain or nausea or shortness of breath with exertion is strongly recommended he return to the emergency department immediately for further evaluation *Continue to take medications as directed *Follow up with your primary care provider in 2-3 days *Return to ER if you should have chest pain, shortness of breath, headache, weakness, numbness, tingling, confusion, facial droop or any new, worsening or concerning symptoms Prescriptions: No Action clopidogrel 75 mg Tablet 75 mg PO DAILY Qty: 0 RF: 0 aspirin 81 mg Tablet,Delayed Release (Dr/Ec) 81 mg PO DAILY Qty: 0 RF: 0 losartan [Cozaar] 100 MG tablet 100 mg PO DAILY Qty: 0 RF: 0 atorvastatin [Lipitor] 20 MG tablet 20 mg PO DAILY Qty: 0 RF: 0 multivitamin Tablet 1 tab PO QDAY Qty: 0 RF: 0 amlodipine 2.5 mg tablet 2.5 mg PO BID RF: 0 Calcium 1 tab PO DAILY RF: 0 Referrals: Javier Yung MD [Primary Care Provider] -
--- NOTE | 2018-12-14 10:54 | PC.NURSE ---
Pt extremely anxious. States feels like throat is closing. Ekg done. MD at bedside
--- NOTE | 2018-12-14 11:02 | DI.CT.S_ITS ---
PROCEDURE: CT HEAD/BRAIN WO CON INDICATIONS: headache HTN TECHNIQUE: Noncontrast 4.5 mm thick angled axial sections acquired from the foramen magnum to the vertex, with coronal and sagittal reformats. For radiation dose reduction, the following was used: automated exposure control, adjustment of mA and/or kV according to patient size. COMPARISON: [facility], CT, HEAD WITHOUT CONTRAST, 04/08/2017, 17:05. FINDINGS: Image quality: Excellent. CSF spaces: Basal cisterns are patent. No extra-axial fluid collections. The ventricles are symmetric in size and shape. Brain: No intracranial bleeds or masses. There is mild cerebral volume loss for age, with resultant ventricular and sulcal prominence. There are mild periventricular and deep white matter chronic small vessel ischemic changes. There is intracranial internal carotid artery atherosclerosis. Partially visualized endovascular stent noted in the high cervical left internal carotid artery Skull and face: Calvarium and visualized facial bones appear intact, without suspicious lesions. Sinuses: Scattered mucosal thickening noted in the ethmoid air cells bilaterally. The mastoids are clear. IMPRESSION: No acute intracranial disease process. Dictated by: Ana Laura Barahona MD, PhD on 12/14/2018 at 11:26 Approved by: Ana Laura Barahona MD, PhD on 12/14/2018 at 11:33
--- NOTE | 2018-12-14 11:02 | DI.RAD.S_ITS ---
PROCEDURE: XR CHEST 1V INDICATIONS: chest pain TECHNIQUE: One view of the chest was acquired. COMPARISON: [facility], CR, XR CHEST 1V, 02/22/2018, 13:29. [facility], CR, XR CHEST 2V, 11/24/2017, 9:41. FINDINGS: Surgical changes and devices: Sternotomy wires, presumed prior CABG. Lungs and pleura: Lungs are clear. No pleural effusions or pneumothorax. Mediastinum: Mediastinal contours appear normal. Heart size is normal. Bones and chest wall: No suspicious bony lesions. Overlying soft tissues appear unremarkable. IMPRESSION: Sternotomy wires, no acute disease, no source of no chest pain is found. Dictated by: Dayron Sweeney M.D. on 12/14/2018 at 11:34 Approved by: Dayron Sweeney M.D. on 12/14/2018 at 11:34
[2018-12-14 11:17] LABS: Add Manual Diff / Slide Review NO; Basophils Absolute Auto 100 /uL (0-100); Basophils Percent Auto 1.2 % (0-2); Eosinophils Absolute Auto 300 /uL (0-450); Eosinophils Percent Auto 4.2 % (2-4); Hematocrit 39.4 % (36-46); Hemoglobin 13.5 g/dL (12.0-16.0); Lymphocytes Absolute Auto 2400 /uL (1100-4500); Lymphocytes Percent Auto 38.6 % (25-40); Mean Corpuscular HGB Conc 34.2 % (30-36); Mean Corpuscular Hemoglobin 29.9 PG (26-34); Mean Corpuscular Volume 87.3 fL (80-100); Monocytes Absolute Auto 500 /uL (0-900); Monocytes Percent Auto 8.8 % (3-14); Neutrophils Absolute Auto 2900 /uL (1500-7000); Neutrophils Percent Auto 47.2 % (50-75); Platelet Count 194 X10^3/uL (150-400); Red Blood Cell Count 4.51 X10^6/uL (4.0-5.2); Red Cell Distribution Width 13.8 % (11.6-14.8); White Blood Cell Count 6.1 X10^3/uL (4.5-11.0)
[2018-12-14 11:18] LABS: INR 1.1 (0.9-1.3); Prothrombin Time 12.1 SECONDS (10.1-12.7)
[2018-12-14 11:20] LABS: Alanine Aminotransferase 20 IU/L (9-52); Albumin 4.5 g/dL (3.5-5.0); Albumin Globulin Ratio 1.4 (1.0-2.8); Alkaline Phosphatase 90 U/L (38-126); Aspartate Aminotransferase 27 IU/L (14-36); BUN Creatinine Ratio 16.7 (6-22); Bilirubin Total 0.6 mg/dL (0.2-1.3); Blood Urea Nitrogen 10 mg/dL (7-17); Calcium 9.1 mg/dL (8.4-10.2); Carbon Dioxide 26 mmol/L (22-32); Chloride 101 mmol/L (98-107); Creatine Kinase 47 U/L (30-135); Estimated Glomerular Filt Rate > 60.0 mL/min (>60); Globulin 3.2 g/dL (1.7-4.1); Glucose 158 mg/dL (80-110); HEMOLYSIS 27 (0-50); Lipase 82 U/L (23-300); Potassium 3.9 mmol/L (3.4-5.1); Sodium 138 mmol/L (137-145); Total Protein 7.7 g/dL (6.3-8.2)
[2018-12-14 11:21] LABS: PTT Partial Thromboplastin Tim 31 SECONDS (26.4-36.2)
[2018-12-14 11:32] LABS: Troponin I < 0.012 ng/mL (0.01-0.034)
[2018-12-14] MEDS: SODIUM CHLORIDE 0.9% 1,000 ML 150 ML IV (11:42)
--- NOTE | 2018-12-14 11:46 | ED_ITS ---
HPI - Chest Pain General Chief Complaint: Chest Pain Stated Complaint: not feeling good Time Seen by Provider: 12/14/18 10:46 Source: patient Mode of arrival: ambulatory Limitations: no limitations History of Present Illness HPI narrative: Patient is a 73-year-old very anxious female presenting with not feeling well. She said she was eating her breakfast she only took 1 of her blood pressure medications losartan this morning and she felt like something was happening in her head. She is shaking quite uncontrollably. Demanding that she take her home blood pressure medication including Norvasc aspirin and Plavix. He does have a history of a left carotid endarterectomy with stent. She has no weakness in any of her extremities no numbness or tingling no speech difficulty no facial drooping no visual changes. She denies any chest pain or heart palpitations. She is afraid that something is happening in her brain. She denies nausea vomiting or shortness of breath. Duration: constant Related Data Home Medications Medication Instructions Recorded Confirmed aspirin 81 mg PO DAILY #0 02/03/09 12/14/18 clopidogrel 75 mg PO DAILY #0 02/03/09 12/14/18 atorvastatin [Lipitor] 20 mg PO DAILY #0 02/23/13 12/14/18 losartan [Cozaar] 100 mg PO DAILY #0 tab 02/23/13 12/14/18 multivitamin 1 tab PO QDAY #0 tab 02/23/13 12/14/18 Calcium 1 tab PO DAILY 12/14/18 12/14/18 amlodipine 2.5 mg PO BID 12/14/18 12/14/18 Allergies Allergy/AdvReac Type Severity Reaction Status Date / Time erythromycin base Allergy Mild Verified 07/07/18 09:31 [ERYTHROMYCIN BASE] prochlorperazine Allergy Mild Verified 07/07/18 09:31 [PROCHLORPERAZINE] Review of Systems Review of Systems ROS Unobtainable: All systems reviewed & are unremarkable except as noted in HPI and below Constitutional Denies chills, Denies fatigue, Denies fever(s), Reports headache(s), Denies lethargy and Denies weakness Eyes Denies change in vision, Denies eye discharge, Denies irritation and Denies loss of vision ENT Ears, Nose, Mouth, and Throat: Denies change in voice, Reports headache(s), Denies neck pain and Denies sore throat Cardiovascular Denies chest pain, Denies lightheadedness, Denies dyspnea and Denies dyspnea on exertion Respiratory Denies cough, Denies dyspnea, Denies dyspnea on exertion and Denies wheezing Gastrointestinal Gastrointestinal: Denies abdominal pain, Denies change in bowel habits, Denies diarrhea, Denies nausea and Denies vomiting Genitourinary Denies hematuria, Denies flank pain, Denies urinary incontinence and Denies urinary urgency Musculoskeletal Denies neck pain Integumentary/Breasts Denies pruritus, Denies erythema, Denies rash and Denies wounds Neurologic Denies confusion, Reports headache(s), Denies loss of vision and Denies weakness Psychiatric Denies anxiety, Denies confusion, Denies depression, Denies homicidal ideation and Denies suicidal ideation Endocrine Denies fatigue and Denies flushing Allergic/Immunologic Denies wheezing [facility] Medical History Carotid artery disease (Chronic) Heart disease (Chronic) Hypertension (Chronic) Multinodular thyroid (Chronic) SVT (supraventricular tachycardia) (Chronic) Stroke (Resolved) Surgical History History of cholecystectomy (Resolved) History of eye surgery (Resolved) History of left common carotid artery stent placement (Resolved) History of surgery (Resolved 05/05/08) Social History Smoking Status: Never smoker Social History Smoking Status: Never smoker Exam Initial Vital Signs Initial Vital Signs: Vital Signs Temperature 98.4 F 12/14/18 10:48 Pulse Rate 80 12/14/18 10:48 Respiratory Rate 19 12/14/18 10:48 Blood Pressure 197/113 H 12/14/18 10:48 Pulse Oximetry 100 12/14/18 10:48 GENERAL: Very anxious elderly female obviously shaking and in no acute distress. HEENT: Head atraumatic,EOMI, pupils reactive, face symmetric, CARDIOVASCULAR: Regular rate and rhythm without murmurs, rubs or gallops. RESPIRATORY: Breath sounds equal bilaterally, no wheezes rales or rhonchi. ABDOMEN: Soft, nontender. Normoactive bowel sounds all 4 quadrants. No guarding or rebound. EXTREMITIES: Normal range of motion, no clubbing or edema. Neurovascularly int act NEUROLOGICAL: Alert and oriented x4.Normal gait and speech. Cranial nerves II through XII grossly intact. Good [id number], good [id number], strength equal bilaterally, no dysarthria or aphasia, sensation in tact to soft touch bilaterally, no visual changes, no facial droop SKIN: Warm, dry, no laceration, no petechiae, no rashes or lesions. Scores NIH Stroke Scale Level of Conciousness: Alert, keenly responsive Ask month/age: Answers both questions correctly. Open/close eyes, close hand: Performs both tasks correctly Best gaze horizontal: Normal Visual soler: No visual loss Facial palsy: Normal symetrical movement Left arm drift: No drift for full 10 sec Right arm drift: No drift for full 10 sec Left leg drift: No drift for full 10 sec Right leg drift: No drift for full 10 sec Limb ataxia: Absent Sensory on face/arms/legs: Normal, no sensory loss Best language: No aphasia, normal Dysarthria: Normal Extinction or inattention: No abnormality Total NIH Stroke scale score: 0 Course Orders Ordered: ED Orders 12/14/18 10:41 EKG-12 Lead Routine 12/14/18 10:45 Complete Blood Count AUTO DIFF Stat Comprehensive Metabolic Panel Stat Lipase Stat Partial Thromboplastin Time Stat Prothrombin Time INR Stat Troponin & CK Cardiac Panel Stat 12/14/18 11:02 CT head/brain wo con Stat XR chest 1V Stat Discontinued Medications Sodium Chloride (Normal Saline 0.9%) 1,000 mls @ 150 mls/hr IV CONT JT Last Infusion: 12/14/18 12:06 Dose: 0 mls/hr Admin: 12/14/18 11:42 Dose: 150 mls/hr Vital Signs - 8 hr 12/14/18 12:00 12/14/18 12:11 Pulse Rate 70 73 Respiratory Rate 19 18 Blood Pressure 130/60 Blood Pressure [Left Arm] 153/64 H Pulse Oximetry 100 95 MDM - Chest Pain Lab Data Attestation: I reviewed the patient's lab results. Result diagrams: 12/14/18 10:45 12/14/18 10:45 Lab Results 12/14/18 12/14/18 12/14/18 Range/Units 10:45 10:45 10:45 WBC 6.1 (4.5-11.0) X10^3/uL RBC 4.51 (4.0-5.2) X10^6/uL Hgb 13.5 (12.0-16.0) g/dL Hct 39.4 (36-46) % MCV 87.3 (80-100) fL MCH 29.9 (26-34) PG MCHC 34.2 (30-36) % RDW 13.8 (11.6-14.8) % Plt Count 194 (150-400) X10^3/uL Neut % (Auto) 47.2 L (50-75) % Lymph % (Auto) 38.6 (25-40) % [place] % (Auto) 8.8 (3-14) % Eos % (Auto) 4.2 H (2-4) % Baso % (Auto) 1.2 (0-2) % Neut # (Auto) 2900 (1051-8275) /uL Lymph # (Auto) 2400 (0011-1512) /uL [place] # (Auto) 500 (0-900) /uL Eos # (Auto) 300 (0-450) /uL Baso # (Auto) 100 (0-100) /uL PT 12.1 (10.1-12.7) SECONDS INR 1.1 (0.9-1.3) APTT 31 D (26.4-36.2) SECONDS Sodium 138 (137-145) mmol/L Potassium 3.9 (3.4-5.1) mmol/L Chloride 101 (98-107) mmol/L Carbon Dioxide 26 (22-32) mmol/L BUN 10 (7-17) mg/dL Creatinine 0.60 (0.52-1.04) mg/dL Estimated GFR > 60.0 (>60) mL/min BUN/Creatinine Ratio 16.7 (6-22) Glucose 158 H (80-110) mg/dL Calcium 9.1 (8.4-10.2) mg/dL Total Bilirubin 0.6 (0.2-1.3) mg/dL AST 27 (14-36) IU/L ALT 20 (9-52) IU/L Alkaline Phosphatase 90 (38-126) U/L Total Creatine Kinase 47 (30-135) U/L CK-MB (CK-2) TNP CK-MB (CK-2) Rel Index TNP Troponin I < 0.012 (0.01-0.034) ng/mL Total Protein 7.7 (6.3-8.2) g/dL Albumin 4.5 (3.5-5.0) g/dL Globulin 3.2 (1.7-4.1) g/dL Albumin/Globulin Ratio 1.4 (1.0-2.8) Lipase 82 (23-300) U/L Imaging Data CT scan - head: Radiologist's impression: PROCEDURE: CT HEAD/BRAIN WO CON INDICATIONS: headache HTN TECHNIQUE: Noncontrast 4.5 mm thick angled axial sections acquired from the foramen magnum to the vertex, with coronal and sagittal reformats. For radiation dose reduction, the following was used: automated exposure control, adjustment of mA and/or kV according to patient size. COMPARISON: [facility], CT, HEAD WITHOUT CONTRAST, 04/08/2017, 17:05. FINDINGS: Image quality: Excellent. CSF spaces: Basal cisterns are patent. No extra-axial fluid collections. The ventricles are symmetric in size and shape. Brain: No intracranial bleeds or masses. There is mild cerebral volume loss for age, with resultant ventricular and sulcal prominence. There are mild periventricular and deep white matter chronic small vessel ischemic changes. There is intracranial internal carotid artery atherosclerosis. Partially visualized endovascular stent noted in the high cervical left internal carotid artery Skull and face: Calvarium and visualized facial bones appear intact, without suspicious lesions. Sinuses: Scattered mucosal thickening noted in the ethmoid air cells bilaterally. The mastoids are clear. IMPRESSION: No acute intracranial disease process. Dictated by: Ana Laura Barahona MD, PhD on 12/14/2018 at 11:26 Chest x-ray: Radiologist's impression: PROCEDURE: XR CHEST 1V INDICATIONS: chest pain TECHNIQUE: One view of the chest was acquired. COMPARISON: [facility], CR, XR CHEST 1V, 02/22/2018, 13:29. [facility], CR, XR CHEST 2V, 11/24/2017, 9:41. FINDINGS: Surgical changes and devices: Sternotomy wires, presumed prior CABG. Lungs and pleura: Lungs are clear. No pleural effusions or pneumothorax. Mediastinum: Mediastinal contours appear normal. Heart size is normal. Bones and chest wall: No suspicious bony lesions. Overlying soft tissues appear unremarkable. IMPRESSION: Sternotomy wires, no acute disease, no source of no chest pain is found. Dictated by: Dayron Sweeney M.D. on 12/14/2018 at 11:34 ECG Data Attestation: I personally reviewed and interpreted this ECG as follows: Prior ECG tracings: available for review Interpretation: Normal sinus rhythm rate [address] changes no T-wave inversions right bundle-branch block noted similar from previous MDM Narrative Medical decision making narrative: Patient's blood pressure decreased significantly overall her symptoms have improved drastically. Head CT is negative. She says that she was eating breakfast at [employer] she got very full and nauseous and got herself worked up. She at no time had any chest pain. I strongly recommended that she have a repeat troponin however patient is adamant that is not her heart and that she feels ready and able to go home. No history of coronary artery disease. She did take her aspirin and Plavix after results of head CT. I discussed all findings with the patient and daughter, Education has been performed regarding treatment plan, diagnosis, warning signs and symptoms and all concerns have been addressed. Verbally agree with and understood all of the above. Discharge Plan Departure Patient Disposition: Home Clinical Impression: Anxiety Discharge Date/Time: 12/14/18 12:12 Interventions: ED Discharge Assessment Last Done: 12/14/18 12:11 Instructions: DI for Atypical Chest Pain Activity Restrictions/Additional Instructions: *You have been diagnosed with anxiety *What to do: At this time head CT is negative no signs or symptoms consistent with stroke. Any heart issues have not yet been ruled out, it was recommended to have repeat blood work. If you should what further evaluation or a should have any further chest pain or nausea or shortness of breath with exertion is strongly recommended he return to the emergency department immediately for fu rther evaluation *Continue to take medications as directed *Follow up with your primary care provider in 2-3 days *Return to ER if you should have chest pain, shortness of breath, headache, weakness, numbness, tingling, confusion, facial droop or any new, worsening or concerning symptoms Prescriptions: No Action clopidogrel 75 mg Tablet 75 mg PO DAILY Qty: 0 RF: 0 aspirin 81 mg Tablet,Delayed Release (Dr/Ec) 81 mg PO DAILY Qty: 0 RF: 0 losartan [Cozaar] 100 MG tablet 100 mg PO DAILY Qty: 0 RF: 0 atorvastatin [Lipitor] 20 MG tablet 20 mg PO DAILY Qty: 0 RF: 0 multivitamin Tablet 1 tab PO QDAY Qty: 0 RF: 0 amlodipine 2.5 mg tablet 2.5 mg PO BID RF: 0 Calcium 1 tab PO DAILY RF: 0 Referrals: Javier Yung MD [Primary Care Provider] -
[2018-12-14 12:00] VITALS: BP 153/64; PULSE 70; RESP 19; O2SAT 100
[2018-12-14 12:11] VITALS: BP 130/60; PULSE 73; RESP 18; O2SAT 95
== END 2018-12-14 12:12 | disposition home or self-care (01) ==
PROVIDERS: Emergency Provider Emergency Medicine; PCP Internal Medicine
DX: F41.9 Anxiety disorder, unspecified (principal); R51 Headache; I10 Essential (primary) hypertension; Z79.01 Long term (current) use of anticoagulants; Z95.5 Presence of coronary angioplasty implant and graft
CPT/HCPCS: 36591; 70450; 71045; 80053; 82550; 83690; 84484; 85025; 85610; 85730; 93005; 99283; 99285

== ENCOUNTER → 2019-02-16 08:33 | Outpatient (CLI) | payer MEDICARE, OTHER, SELFPAY ==
[2019-02-16 10:07] LABS: Alanine Aminotransferase 25 IU/L (9-52); Albumin 4.2 g/dL (3.5-5.0); Albumin Globulin Ratio 1.5 (1.0-2.8); Alkaline Phosphatase 91 U/L (38-126); Aspartate Aminotransferase 24 IU/L (14-36); Bilirubin Total 0.6 mg/dL (0.2-1.3); Blood Urea Nitrogen 12 mg/dL (7-17); Calcium 9.4 mg/dL (8.4-10.2); Carbon Dioxide 27 mmol/L (22-32); Chloride 104 mmol/L (98-107); Cholesterol 142 mg/dL (140-199); Estimated Glomerular Filt Rate > 60.0 mL/min (>60); Globulin 2.8 g/dL (1.7-4.1); Glucose 101 mg/dL (80-110); HDL Cholesterol 45 mg/dL (40-60); HEMOLYSIS < 15 (0-50); LDL Cholesterol Calculated 66 mg/dL (<100); Potassium 4.2 mmol/L (3.4-5.1); Sodium 139 mmol/L (137-145); Triglycerides 155 mg/dL (35-150)
[2019-02-16 10:38] LABS: Thyroid Stimulating Hormone 1.27 uIU/mL (0.47-4.68)
== END ==
PROVIDERS: PCP Internal Medicine; Visit Provider Internal Medicine
DX: I10 Essential (primary) hypertension (principal); E78.00 Pure hypercholesterolemia, unspecified; E87.6 Hypokalemia; M35.3 Polymyalgia rheumatica
CPT/HCPCS: 36415; 80053; 80061; 84443

== ENCOUNTER → 2019-03-13 13:57 | Outpatient (CLI) | payer MEDICARE, OTHER, SELFPAY ==
--- NOTE | 2019-03-13 14:00 | DIET.PN ---
Dietary Progress Note Assessment: Diagnosed c GERD in November, started protonix 1w ago, expressed strongly not wanting to continue this medication r/t side effects. 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 Nutrition Diagnosis: undesirable food choices r/t burping and reflux secondary to new onset unmanaged GERD c esophagitis aeb pt enjoys pasta in cooked tomato sauce, occasionally waits too long to eat leading to overeating, and has difficulty recalling usual food pattern. Interventions: Educated pt with handout on foods which tend to aggrevate GERD, techniques to reduce overnight sx including exercise, waiting 3 hours after a meal to lay down, elevating head of bed, avoiding aggravating foods after 4pm and potentially cutting out specific foods identified as triggers. Instructed pt on anti-inflammatory diet with meal options to help with overall body inflammation including moderate amounts of MUFA fats, 7-10 servings F/V per day and relaxation exercises. Pt will keep a 2 week food log to associate sx with potential trigger foods. Pt was eager for a restrictive diet plan as she read online foods which should be avoided. We worked together to identify potential trigger foods for her with the knowledge that not all foods known to aggravate GERD need to be avoided at all costs. Pt will avoid likely triggering foods after 4pm and will stop eating by 7pm as she generally goes to sleep at 11pm. Monitoring/Evaluations: Pt will schedule f/u as necessary for additional support.
== END ==
PROVIDERS: PCP Internal Medicine; Visit Provider Internal Medicine
DX: K21.0 Gastro-esophageal reflux disease with esophagitis (principal); Z71.3 Dietary counseling and surveillance; E78.00 Pure hypercholesterolemia, unspecified
CPT/HCPCS: 97802

== ENCOUNTER → 2019-04-25 09:25 | Outpatient (CLI) | payer MEDICARE, OTHER, SELFPAY ==
[2019-04-25 11:10] LABS: Magnesium 2.2 mg/dL (1.6-2.3)
[2019-04-25 11:52] LABS: Vitamin B12 631 pg/mL (239-931)
== END ==
PROVIDERS: PCP Internal Medicine; Visit Provider Internal Medicine
DX: K21.0 Gastro-esophageal reflux disease with esophagitis (principal); I67.89 Other cerebrovascular disease; M15.0 Primary generalized (osteo)arthritis; M35.3 Polymyalgia rheumatica; I10 Essential (primary) hypertension
CPT/HCPCS: 36415; 82607; 83735

== ENCOUNTER 2019-05-23 21:22 | Emergency (ER) | payer MEDICARE, OTHER, SELFPAY ==
--- NOTE | 2019-05-23 21:30 | DI.RAD.S_ITS ---
PROCEDURE: XR CHEST 1V INDICATIONS: chest pain TECHNIQUE: One view of the chest was acquired. COMPARISON: [facility], CR, XR CHEST 1V, 12/14/2018, 11:10. FINDINGS: Surgical changes and devices: Remote midline sternotomy Lungs and pleura: Lungs are clear. No pleural effusions or pneumothorax. Mediastinum: Mediastinal contours appear normal. Heart size is normal. Bones and chest wall: No suspicious bony lesions. Overlying soft tissues appear unremarkable. IMPRESSION: No evidence acute pulmonary process. Dictated by: Daniel Pollard M.D. on 05/23/2019 at 22:11 Approved by: Daniel Pollard M.D. on 05/23/2019 at 22:12
[2019-05-23 21:39] VITALS: BP 159/77; PULSE 103; RESP 22; TEMP 37.2; O2SAT 100; BMI 21.4
[2019-05-23 21:40] LABS: Add Manual Diff / Slide Review NO; Basophils Absolute Auto 100 /uL (0-100); Basophils Percent Auto 1.2 % (0-2); Eosinophils Absolute Auto 400 /uL (0-450); Eosinophils Percent Auto 5.6 % (2-4); Hematocrit 38.3 % (36-46); Hemoglobin 13.3 g/dL (12.0-16.0); Lymphocytes Absolute Auto 3000 /uL (1100-4500); Lymphocytes Percent Auto 42.6 % (25-40); Mean Corpuscular HGB Conc 34.6 % (30-36); Mean Corpuscular Hemoglobin 30.3 PG (26-34); Mean Corpuscular Volume 87.7 fL (80-100); Monocytes Absolute Auto 700 /uL (0-900); Monocytes Percent Auto 9.9 % (3-14); Neutrophils Absolute Auto 2800 /uL (1500-7000); Neutrophils Percent Auto 40.7 % (50-75); Platelet Count 212 X10^3/uL (150-400); Red Blood Cell Count 4.37 X10^6/uL (4.0-5.2); Red Cell Distribution Width 13.4 % (11.6-14.8)
[2019-05-23 21:44] LABS: Alanine Aminotransferase 25 IU/L (<35); Albumin 4.5 g/dL (3.5-5.0); Albumin Globulin Ratio 1.5 (1.0-2.8); Alkaline Phosphatase 97 U/L (38-126); Aspartate Aminotransferase 31 IU/L (14-36); BUN Creatinine Ratio 18.6 (6-22); Bilirubin Total 0.3 mg/dL (0.2-1.3); Blood Urea Nitrogen 13 mg/dL (7-17); Calcium 9.3 mg/dL (8.4-10.2); Carbon Dioxide 26 mmol/L (22-32); Chloride 100 mmol/L (98-107); Creatine Kinase 60 U/L (30-135); Estimated Glomerular Filt Rate > 60.0 mL/min (>60); Glucose 137 mg/dL (80-110); HEMOLYSIS 32 (0-50); Lipase 157 U/L (23-300); Potassium 3.4 mmol/L (3.4-5.1); Sodium 136 mmol/L (137-145); Total Protein 7.5 g/dL (6.3-8.2)
[2019-05-23] MEDS: SODIUM CHLORIDE 0.9% 1,000 ML 150 ML IV (21:51)
[2019-05-23 21:56] LABS: Troponin I < 0.012 ng/mL (0.01-0.034)
[2019-05-23 22:04] LABS: B Type Natriuretic Peptide < 100 (<100)
[2019-05-23 22:32] VITALS: BP 117/68; PULSE 76; RESP 19; O2SAT 99
[2019-05-23 23:52] VITALS: BP 115/64; PULSE 71; O2SAT 99
--- NOTE | 2019-05-24 04:18 | ED_ITS ---
HPI - SOB/Dyspnea General Chief Complaint: Shortness of Breath/Dyspnea Stated Complaint: SOB Time Seen by Provider: 05/23/19 21:25 Source: patient and EMS Mode of arrival: EMS Limitations: no limitations History of Present Illness HPI Narrative: 73-year-old female nonsmoker with history of GERD and hypertension presents with a chief complaint of a sudden onset difficulty swallowing, choking and difficulty breathing started suddenly after drinking some hot chocolate peppermint. She states that she felt like she could not take a deep breath in the symptoms lasted perhaps a 1/2 hour and had largely resolved prior to her arrival. She denies chest pain and is not dizzy nor weak or lightheaded. She denies any palpitations. She denies provocation, palliation or radiation of her symptoms. She states that she has a chronic history of reflux and has recently had an EGD noting Brooks goodman MD Complaint: shortness of breath Onset (ago): minute(s) Severity: mild Consistency/Duration: intermittent and now resolved Relieving factors: nothing Exacerbating factors: inspiration Associated symptoms: sputum production Treatment prior to arrival: none Related Data Home Medications Medication Instructions Recorded Confirmed aspirin 81 mg PO DAILY #0 02/03/09 12/14/18 clopidogrel 75 mg PO DAILY #0 02/03/09 12/14/18 atorvastatin [Lipitor] 20 mg PO DAILY #0 02/23/13 12/14/18 losartan [Cozaar] 100 mg PO DAILY #0 tab 02/23/13 12/14/18 multivitamin 1 tab PO QDAY #0 tab 02/23/13 12/14/18 Calcium 1 tab PO DAILY 12/14/18 12/14/18 amlodipine 2.5 mg PO BID 12/14/18 12/14/18 Allergies Allergy/AdvReac Type Severity Reaction Status Date / Time erythromycin base Allergy Mild Verified 07/07/18 09:31 [ERYTHROMYCIN BASE] prochlorperazine Allergy Mild Verified 07/07/18 09:31 [PROCHLORPERAZINE] Review of Systems Constitutional Constitutional: Denies chills, Denies fatigue, Denies fever(s), Denies frequent falls, Denies lethargy and Denies weakness Eyes Eyes: Denies change in vision, Denies eye discharge, Denies irritation and Denies loss of vision ENT Ears, Nose, Mouth, and Throat: Denies change in voice, Denies dizziness, Denies neck pain, Denies sore throat and Denies throat swelling Comments: choking sensation with difficulty catching a fullbreath Cardiovascular Cardiovascular: Denies chest pain, Denies irregular heart rhythm, Denies lightheadedness, Denies palpitations, Denies dyspnea, Denies dyspnea on exertion and Denies orthopnea Respiratory Respiratory: Denies cough, Denies dyspnea, Denies dyspnea on exertion and Denies wheezing Gastrointestinal Gastrointestinal: Denies abdominal pain, Denies change in bowel habits, Denies diarrhea, Denies nausea and Denies vomiting Genitourinary Genitourinary: Denies hematuria, Denies flank pain, Denies urinary incontinence and Denies urinary urgency Musculoskeletal Musculoskeletal: Denies back pain, Denies muscle weakness, Denies neck pain, Denies numbness and Denies tingling Integumentary/Breasts Skin/Breast: Denies pruritus, Denies erythema, Denies rash and Denies wounds Neurologic Neurologic: Denies behavioral changes, Denies confusion, Denies dizziness, Denies frequent falls, Denies loss of vision, Denies numbness, Denies tingling and Denies weakness Psychiatric Psychiatric: Denies anxiety, Denies behavioral changes, Denies confusion, Denies depression, Denies homicidal ideation and Denies suicidal ideation Endocrine Endocrine: Denies fatigue, Denies flushing and Denies palpitations Hematologic/Lymphatic Hematologic/Lymphatic: Denies easy bruising Allergic/Immunologic Allergic/Immunologic: Denies urticaria, Denies throat swelling and Denies wheezing Patient History Medical History Carotid artery disease (Chronic) Heart disease (Chronic) Hypertension (Chronic) Multinodular thyroid (Chronic) Stroke (Resolved) SVT (supraventricular tachycardia) (Chronic) Surgical History History of cholecystectomy (Resolved) History of eye surgery (Resolved) History of left common carotid artery stent placement (Resolved) History of surgery (Resolved 05/05/08) Social History Smoking Status: Never smoker Smoking Status: Never smoker alcohol intake frequency: 0-2 drinks per day Substance Use Type: does not use Exam Narrative Exam Narrative: GENERAL: [73] year old patient appears stated age. Well- nourished, well-developed patient, in mild distress. HEAD: Atraumatic. Normocephalic. EYES: Pupils equal round and reactive. Extraocular motions intact. No scleral icterus. No injection or drainage. ENT: Nose without bleeding, purulent drainage. Throat without erythema, tonsillar hypertrophy or exudate. Airway patent. Frequently coughing and clearing her through, which she says has become chronic for her for many months. NECK: Trachea midline. Non tender CARDIOVASCULAR: Regular rate and rhythm without murmurs, gallops, or rubs. RESPIRATORY: Clear to auscultation. Breath sounds equal bilaterally. No wheezes, rales, or rhonchi. GASTROINTESTINAL: Abdomen soft, non-tender, nondistended. EXTREMITIES: No edema or joint tenderness. BACK: Nontender without deformity or crepitance. No flank tenderness. NEURO: AOx3. SKIN: No rash or erythema of visible areas Initial Vital Signs Initial Vital Signs: Vital Signs Temperature 98.9 F 05/23/19 21:39 Pulse Rate 103 H 05/23/19 21:39 Respiratory Rate 22 05/23/19 21:39 Blood Pressure 159/77 H 05/23/19 21:39 Pulse Oximetry 100 05/23/19 21:39 Course Course Course Narrative: patient largely asymptomatic for duration of her stay. Exam, labs, EKG, and CXR all very reassuring. I strongly encouraged a repeat troponin at the 3 hour alejandra and despite discussion of risks and benefits she insisted on leaving because she felt so good. She understand that she may return immediately for any worsening or concerning symptoms. Orders Ordered: ED Orders 05/23/19 21:15 B Type Natriuretic Peptide Stat Complete Blood Count AUTO DIFF Stat Comprehensive Metabolic Panel Stat Lipase Stat Troponin & CK Cardiac Panel Stat 05/23/19 21:29 EKG-12 Lead Stat 05/23/19 21:30 XR chest 1V Stat Discontinued Medications Aspirin (Aspirin Chew) 324 mg PO NOW ONE Stop: 05/23/19 21:31 Last Admin: 05/23/19 21:48 Dose: Not Given Documented by: ELY Sodium Chloride (Normal Saline 0.9%) 1,000 mls @ 150 mls/hr IV CONT JT Last Infusion: 05/23/19 23:52 Dose: 0 mls/hr Documented by: Admin: 05/23/19 21:51 Dose: 150 mls/hr Documented by: ELY Vital Signs Vital signs: Vital Signs - 8 hr 05/23/19 21:39 05/23/19 22:32 05/23/19 23:52 Temperature 98.9 F Pulse Rate 103 H 76 71 Respiratory Rate 22 19 Blood Pressure 159/77 H 115/64 Blood Pressure [Left Arm] 117/68 Pulse Oximetry 100 99 99 MDM - SOB/Dyspnea Lab Data Result diagrams: 05/23/19 21:15 05/23/19 21:15 Labs: Lab Results 05/23/19 05/23/19 Range/Units 21:15 21:15 WBC 7.0 (4.5-11.0) X10^3/uL RBC 4.37 (4.0-5.2) X10^6/uL Hgb 13.3 (12.0-16.0) g/dL Hct 38.3 (36-46) % MCV 87.7 (80-100) fL MCH 30.3 (26-34) PG MCHC 34.6 (30-36) % RDW 13.4 (11.6-14.8) % Plt Count 212 (150-400) X10^3/uL Neut % (Auto) 40.7 L (50-75) % Lymph % (Auto) 42.6 H (25-40) % [place] % (Auto) 9.9 (3-14) % Eos % (Auto) 5.6 H (2-4) % Baso % (Auto) 1.2 (0-2) % Neut # (Auto) 2800 (3206-7973) /uL Lymph # (Auto) 3000 (8270-3209) /uL [place] # (Auto) 700 (0-900) /uL Eos # (Auto) 400 (0-450) /uL Baso # (Auto) 100 (0-100) /uL Sodium 136 L (137-145) mmol/L Potassium 3.4 (3.4-5.1) mmol/L Chloride 100 (98-107) mmol/L Carbon Dioxide 26 (22-32) mmol/L BUN 13 (7-17) mg/dL Creatinine 0.70 (0.52-1.04) mg/dL Estimated GFR > 60.0 (>60) mL/min BUN/Creatinine Ratio 18.6 (6-22) Glucose 137 H (80-110) mg/dL Calcium 9.3 (8.4-10.2) mg/dL Total Bilirubin 0.3 (0.2-1.3) mg/dL AST 31 (14-36) IU/L ALT 25 (<35) IU/L Alkaline Phosphatase 97 (38-126) U/L Total Creatine Kinase 60 (30-135) U/L CK-MB (CK-2) TNP CK-MB (CK-2) Rel Index TNP Troponin I < 0.012 (0.01-0.034) ng/mL B-Natriuretic Peptide < 100 (<100) Total Protein 7.5 (6.3-8.2) g/dL Albumin 4.5 (3.5-5.0) g/dL Globulin 3.0 (1.7-4.1) g/dL Albumin/Globulin Ratio 1.5 (1.0-2.8) Lipase 157 (23-300) U/L MDM Narrative Medical decision making narrative: Multiple etiologies for patient's symptoms considered including: [Ischemic cardiac disease versus GERD versus esophageal spasm versus choking episode versus other] Patient's symptoms improved or duration of stay with above-stated therapies. Findings and discharge diagnosis discussed with patient/family followed by verbalization of understanding Return precautions discussed with patient/family whom verbalize understanding. Discharge Plan Departure Patient Disposition: Home Clinical Impression: Abdominal pain, acute, epigastric Discharge Date/Time: 05/23/19 23:54 Instructions: DI for Abdominal Pain-Adult Activity Restrictions/Additional Instructions: *You have been diagnosed with [acute epigastric pain resolved, most likely GERD or esophageal spasm but cardiac considered] *What to do: *Take medications as directed *Follow up with your primary care provider in 2-3 days, call for an appointment. Let them know you were seen in the Emergency Department and that we ask that you be seen in follow up *Return to ER if you should have any new, worsening or concerning symptoms Prescriptions: No Action clopidogrel 75 mg Tablet 75 mg PO DAILY Qty: 0 RF: 0 aspirin 81 mg Tablet,Delayed Release (Dr/Ec) 81 mg PO DAILY Qty: 0 RF: 0 losartan [Cozaar] 100 MG tablet 100 mg PO DAILY Qty: 0 RF: 0 atorvastatin [Lipitor] 20 MG tablet 20 mg PO DAILY Qty: 0 RF: 0 multivitamin Tablet 1 tab PO QDAY Qty: 0 RF: 0 amlodipine 2.5 mg tablet 2.5 mg PO BID RF: 0 Calcium 1 tab PO DAILY RF: 0 Referrals: Javier Yung MD [Primary Care Provider] -
== END 2019-05-23 23:54 | disposition home or self-care (01) ==
PROVIDERS: Emergency Provider Emergency Medicine; PCP Internal Medicine
DX: R06.00 Dyspnea, unspecified (principal); R10.13 Epigastric pain; I10 Essential (primary) hypertension
CPT/HCPCS: 71045; 80053; 82550; 83690; 83880; 84484; 85025; 93005; 96360; 96361; 99284; 99285

== ENCOUNTER 2019-08-09 21:00 | Emergency (ER) | payer MEDICARE, OTHER, SELFPAY ==
[2019-08-09 21:05] VITALS: BP 187/97; PULSE 117; RESP 18; TEMP 36.7; O2SAT 100
--- NOTE | 2019-08-09 21:08 | DI.RAD.S_ITS ---
PROCEDURE: XR CHEST 1V INDICATIONS: chest pain TECHNIQUE: One view of the chest was acquired. COMPARISON: [facility], CR, XR CHEST 1V, 05/23/2019, 21:35. FINDINGS: Surgical changes and devices: Multiple median sternotomy wires are intact. Surgical clips in the lower neck are again noted. Lungs and pleura: Lungs are clear. Stable appearance of chronic interstitial prominence. No pleural effusions or pneumothorax. Mediastinum: Mediastinal contours appear normal. Heart size is normal. Bones and chest wall: No suspicious bony lesions. Overlying soft tissues appear unremarkable. IMPRESSION: Stable radiographic evaluation of the chest without acute cardiopulmonary abnormalities or focal airspace disease. Dictated by: Uday Davis M.D. on 08/09/2019 at 21:53 Approved by: Uday Davis M.D. on 08/09/2019 at 21:56
--- NOTE | 2019-08-09 21:16 | PC.NURSE ---
patient ambulated self into ED. reports two days of increasing chest pressure, states it is hard to take a full breath. Patient is noticably concerned about her contdition causing her to tremble in anxiety and causing difficulty tracking triage questions. Her thinking is tangential and piece meal. She is answering questions in short disconnected pieces. Patient placed on monitor, ekg performed, IV placed with labs drawn. Provider aware.
[2019-08-09 21:19] LABS: Add Manual Diff / Slide Review NO; Basophils Absolute Auto 0 /uL (0-100); Basophils Percent Auto 0.3 % (0-2); Eosinophils Absolute Auto 0 /uL (0-450); Hematocrit 39.9 % (36-46); Hemoglobin 13.5 g/dL (12.0-16.0); Lymphocytes Absolute Auto 1700 /uL (1100-4500); Lymphocytes Percent Auto 19.1 % (25-40); Mean Corpuscular HGB Conc 33.8 % (30-36); Mean Corpuscular Hemoglobin 30.1 PG (26-34); Monocytes Absolute Auto 200 /uL (0-900); Neutrophils Absolute Auto 7100 /uL (1500-7000); Neutrophils Percent Auto 78.6 % (50-75); Platelet Count 258 X10^3/uL (150-400); Red Blood Cell Count 4.48 X10^6/uL (4.0-5.2); Red Cell Distribution Width 14.2 % (11.6-14.8)
[2019-08-09 21:25] LABS: Prothrombin Time 11.7 SECONDS (10.1-12.7)
[2019-08-09 21:28] LABS: PTT Partial Thromboplastin Tim 27 SECONDS (26.4-36.2)
[2019-08-09] MEDS: MAG HYDROX/ALUMINUM/SIMETH SUS 40 ML, LIDOCAINE VISCOUS 2% 15 ML PO (21:44)
[2019-08-09 21:46] LABS: Magnesium 2.2 mg/dL (1.6-2.3)
[2019-08-09 21:47] LABS: Albumin Globulin Ratio 1.4 (1.0-2.8); Alkaline Phosphatase 119 U/L (38-126); Aspartate Aminotransferase 45 IU/L (14-36); BUN Creatinine Ratio 27.4 (6-22); Bilirubin Total 0.4 mg/dL (0.2-1.3); Blood Urea Nitrogen 17 mg/dL (7-17); Calcium 9.9 mg/dL (8.4-10.2); Carbon Dioxide 21 mmol/L (22-32); Chloride 98 mmol/L (98-107); Creatine Kinase 116 U/L (30-135); Estimated Glomerular Filt Rate > 60.0 mL/min (>60); Globulin 3.5 g/dL (1.7-4.1); Glucose 343 mg/dL (80-110); HEMOLYSIS < 15 (0-50); Lipase 130 U/L (23-300); Potassium 3.6 mmol/L (3.4-5.1); Sodium 133 mmol/L (137-145); Total Protein 8.5 g/dL (6.3-8.2)
[2019-08-09 21:55] LABS: Alanine Aminotransferase 36 IU/L (<35); D Dimer < 200 ng/mL (<230)
[2019-08-09 21:56] LABS: NT-proBNP (BNP-Adult 18+) 266 pg/mL (<125)
--- NOTE | 2019-08-09 21:56 | PC.NURSE ---
patient refused ativan, provider notified.
[2019-08-09 21:59] LABS: Troponin I < 0.012 ng/mL (0.01-0.034)
--- NOTE | 2019-08-09 21:59 | ED.CHESTPAIN ---
HPI - Chest Pain General Chief Complaint: Chest Pain Stated Complaint: CHEST PAIN Time Seen by Provider: 08/09/19 21:11 Source: patient Mode of arrival: Ambulatory Limitations: no limitations History of Present Illness HPI narrative: CC: The patient is a 73-year-old female who was signed in is having chest pain. However, the patient is vehemently denying that she is having any chest pain. She is complaining that she is short of breath and cannot did a deep enough good breath. She states that it has gradually gotten worse all day today. As she is stating that she is very short of breath she is on room air and her oxygen saturation monitor reveals that she is 100% saturated. She states that she is exhausted and worn out and has no energy. During the exam she is signing breathing deeply and hyperventilating. She it appears mildly agitated and extremely anxious. She denies any pain on deep breathing or coughing. She denies any significant cough or sputum production. She complains of discomfort a crossed her thoracic back which is chronic. She denies any fall or injury. Her discomfort is dull and achy. She admits to a history of hypertension but denies diabetes mellitus pancreatitis myocardial infarction or asthma. She states that she had questionable coronary artery bypass graft surgery and open heart surgery after complications of an ablation for atrial fibrillation in 2013. She denies any fever chills sweats headache cough chest pain palpitations dizziness nausea vomiting diarrhea or urinary symptoms. She complains that she has had sore throat and shortness of breath and backache. She does not smoke cigarettes drink alcohol or use any drugs. Related Data Home Medications Medication Instructions Recorded Confirmed aspirin 81 mg PO DAILY #0 02/03/09 08/09/19 clopidogrel 75 mg PO DAILY #0 02/03/09 08/09/19 atorvastatin [Lipitor] 20 mg PO DAILY #0 02/23/13 08/09/19 losartan [Cozaar] 100 mg PO DAILY #0 tab 02/23/13 08/09/19 multivitamin 1 tab PO QDAY #0 tab 02/23/13 08/09/19 Calcium 1 tab PO DAILY 12/14/18 08/09/19 amlodipine 2.5 mg PO BID 12/14/18 08/09/19 Previous Rx's Medication Instructions Recorded cyclobenzaprine 10 mg PO TID PRN #15 tab 08/10/19 naproxen [Naprosyn] 500 mg PO BID PRN #20 tab 08/10/19 Allergies Allergy/AdvReac Type Severity Reaction Status Date / Time erythromycin base Allergy Mild Verified 08/09/19 21:09 [ERYTHROMYCIN BASE] prochlorperazine Allergy Mild Verified 08/09/19 21:09 [PROCHLORPERAZINE] Review of Systems Review of Systems Narrative: Review of systems are negative except for those mentioned in the history of present illness. Patient History Medical History Carotid artery disease (Chronic) Heart disease (Chronic) Hypertension (Chronic) Multinodular thyroid (Chronic) Stroke (Resolved) SVT (supraventricular tachycardia) (Chronic) Surgical History History of cholecystectomy (Resolved) History of eye surgery (Resolved) History of left common carotid artery stent placement (Resolved) History of surgery (Resolved 05/05/08) Social History Smoking Status: Never smoker Smoking Status: Never smoker alcohol intake frequency: 0-2 drinks per day Substance Use Type: does not use Exam Narrative Exam Narrative: PHYSICAL EXAM: CONSTITUTIONAL: Awake, Alert, Oriented, mildly agitated hyperventilating and very anxious. HEAD: AT/NC EENT: PERRL, FROM of eyes, no discharge, No epistaxis or nasal drainage Oral mucosa is moist and pink, posterior pharynx is without erythema or exudate. NECK: Supple, no obvious JVD, Trachea is midline without stridor, no palpable LN . SPINE: No gross deformity, no palpable tenderness of the cervical, thoracic, lumbar or sacral spine. No CVA tenderness. THORAX: No deformity, retractions, chest wall tenderness,. No tenderness to palpation over the ribs of the posterior thorax. LUNGS: Clear with symmetrical breath sounds . There is no appreciable wheezing or rhonchi appreciated. The patient is hyperventilating and sighing. HEART: Normal heart tones, regular rhythm and rate without murmur. ABDOMEN: Soft, non-tender, without guarding, rebound, rigidity or palpable mass. EXTREMITIES: No edema, cyanosis, deformity or tenderness. SKIN: No rash, bruising, petechiae or purpura. NEURO: Awake, alert, oriented, conversive, cranial nerves II-XII are symmetrical and normal, moves all 4 extremities and is ambulatory. Throughout the patient's hospitalization she declined Ativan on multiple medications to make her feel more comfortable. However at as she calmed down arm her symptoms resolved. Initial Vital Signs Initial Vital Signs: Vital Signs Temperature 98.1 F 08/09/19 21:05 Pulse Rate 117 H 08/09/19 21:05 Respiratory Rate 18 08/09/19 21:05 Blood Pressure 187/97 H 08/09/19 21:05 Pulse Oximetry 100 08/09/19 21:05 Course Course Course Narrative: 215. The patient's blood gases reveal that her pH is 7.442. Her pCO2 is 28.0 is with respiratory alkalosis. Her PO2 on room air is 102. Her oxygen saturation is 98%. The patient is acutely hyperventilating and she refused the Ativan. 1 mg of Ativan was ordered for the patient. 2202: The patient's chest x-ray by my review reveals no acute cardiopulmonary pathology. There is evidence of a previous sternotomy surgery with sternal wires in place. 2220 The radiologist read the patient's chest x-ray is stable radiograph of the chest without any acute cardiopulmonary pathology or airspace disease. The patient's troponin is normal at less than 0.012. 2311 the patient's 2nd troponin remains pending at this time. She is having no discomfort. She declined the Flexeril and Toradol for her back discomfort. She however said she would take oral medicines when she is discharged for any discomfort. She told this to the nurse. 0000 her repeat 2nd troponin is less than 0.012. The patient is much improved and will be discharged home. She will be given a prescription for Naprosyn 500 mg twice a day with meals and cyclobenzaprine 5 mg 3 times a day as needed for muscle spasms. Orders Ordered: Discontinued Medications Al Hydrox/Mg Hydrox/Simethicone 40 ml/ Lidocaine HCl 15 ml 0 ml PO NOW ONE Stop: 08/09/19 21:33 Last Admin: 08/09/19 21:44 Dose: 55 ml Documented by: HUSSEIN Cyclobenzaprine HCl (Flexeril) 10 mg PO NOW ONE Stop: 08/09/19 22:56 Ketorolac Tromethamine (Toradol) 15 mg IV NOW ONE Stop: 08/09/19 22:56 Lorazepam (Ativan) 1 mg IV NOW ONE Stop: 08/09/19 21:33 Vital Signs Vital signs: Vital Signs - 8 hr 08/09/19 21:05 08/09/19 22:50 08/09/19 23:31 Temperature 98.1 F Pulse Rate 117 H 72 75 Respiratory Rate 18 18 Blood Pressure 187/97 H Blood Pressure [Left Arm] 135/64 140/69 Pulse Oximetry 100 99 MDM - Chest Pain Medical Records Data Attestation: I reviewed the patient's medical records. Lab Data Attestation: I reviewed the patient's lab results. Result diagrams: 08/09/19 21:10 08/09/19 21:10 Labs: Lab Results 08/09/19 08/09/19 08/09/19 Range/Units 21:10 21:10 21:10 WBC 9.0 (4.5-11.0) X10^3/uL RBC 4.48 (4.0-5.2) X10^6/uL Hgb 13.5 (12.0-16.0) g/dL Hct 39.9 (36-46) % MCV 89.0 (80-100) fL MCH 30.1 (26-34) PG MCHC 33.8 (30-36) % RDW 14.2 (11.6-14.8) % Plt Count 258 (150-400) X10^3/uL Neut % (Auto) 78.6 H (50-75) % Lymph % (Auto) 19.1 L (25-40) % [place] % (Auto) 2.0 L (3-14) % Eos % (Auto) 0.0 L (2-4) % Baso % (Auto) 0.3 (0-2) % Neut # (Auto) 7100 H (3450-6380) /uL Lymph # (Auto) 1700 (2183-0957) /uL [place] # (Auto) 200 (0-900) /uL Eos # (Auto) 0 (0-450) /uL Baso # (Auto) 0 (0-100) /uL PT 11.7 (10.1-12.7) SECONDS INR 1.0 (0.9-1.3) APTT 27 D (26.4-36.2) SECONDS D-Dimer (<230) ng/mL ABG pH (7.35-7.45) ABG pCO2 (35-45) mmHg ABG pO2 (80-100) mmHg ABG HCO3 (22-26) mmol/L ABG Total CO2 (21-31) mmol/L ABG O2 Saturation (95-100) % ABG Base Excess (-2-2) mmol/L FiO2 Sodium 133 L (137-145) mmol/L Potassium 3.6 (3.4-5.1) mmol/L Chloride 98 (98-107) mmol/L Carbon Dioxide 21 L (22-32) mmol/L BUN 17 (7-17) mg/dL Creatinine 0.62 (0.52-1.04) mg/dL Estimated GFR > 60.0 (>60) mL/min BUN/Creatinine Ratio 27.4 H (6-22) Glucose 343 H (80-110) mg/dL Calcium 9.9 (8.4-10.2) mg/dL Magnesium (1.6-2.3) mg/dL Total Bilirubin 0.4 (0.2-1.3) mg/dL AST 45 H (14-36) IU/L ALT 36 H (<35) IU/L Alkaline Phosphatase 119 (38-126) U/L Total Creatine Kinase 116 (30-135) U/L CK-MB (CK-2) 1.63 (<2.37) ng/mL CK-MB (CK-2) Rel Index 1.4 L (1.5-5.0) % Troponin I < 0.012 (0.01-0.034) ng/mL NT-Pro-B Natriuret Pep (<125) pg/mL Total Protein 8.5 H (6.3-8.2) g/dL Albumin 5.0 (3.5-5.0) g/dL Globulin 3.5 (1.7-4.1) g/dL Albumin/Globulin Ratio 1.4 (1.0-2.8) Lipase 130 (23-300) U/L 08/09/19 08/09/19 08/09/19 Range/Units 21:10 21:10 21:42 WBC (4.5-11.0) X10^3/uL RBC (4.0-5.2) X10^6/uL Hgb (12.0-16.0) g/dL Hct (36-46) % MCV (80-100) fL MCH (26-34) PG MCHC (30-36) % RDW (11.6-14.8) % Plt Count (150-400) X10^3/uL Neut % (Auto) (50-75) % Lymph % (Auto) (25-40) % [place] % (Auto) (3-14) % Eos % (Auto) (2-4) % Baso % (Auto) (0-2) % Neut # (Auto) (1071-3572) /uL Lymph # (Auto) (2709-1015) /uL [place] # (Auto) (0-900) /uL Eos # (Auto) (0-450) /uL Baso # (Auto) (0-100) /uL PT (10.1-12.7) SECONDS INR (0.9-1.3) APTT (26.4-36.2) SECONDS D-Dimer < 200 (<230) ng/mL ABG pH 7.44 (7.35-7.45) ABG pCO2 28.0 L (35-45) mmHg ABG pO2 102 H (80-100) mmHg ABG HCO3 19 L (22-26) mmol/L ABG Total CO2 20 L (21-31) mmol/L ABG O2 Saturation 98 (95-100) % ABG Base Excess -5.0 L (-2-2) mmol/L FiO2 21 Sodium (137-145) mmol/L Potassium (3.4-5.1) mmol/L Chloride (98-107) mmol/L Carbon Dioxide (22-32) mmol/L BUN (7-17) mg/dL Creatinine (0.52-1.04) mg/dL Estimated GFR (>60) mL/min BUN/Creatinine Ratio (6-22) Glucose (80-110) mg/dL Calcium (8.4-10.2) mg/dL Magnesium 2.2 (1.6-2.3) mg/dL Total Bilirubin (0.2-1.3) mg/dL AST (14-36) IU/L ALT (<35) IU/L Alkaline Phosphatase (38-126) U/L Total Creatine Kinase (30-135) U/L CK-MB (CK-2) (<2.37) ng/mL CK-MB (CK-2) Rel Index (1.5-5.0) % Troponin I (0.01-0.034) ng/mL NT-Pro-B Natriuret Pep 266 H (<125) pg/mL Total Protein (6.3-8.2) g/dL Albumin (3.5-5.0) g/dL Globulin (1.7-4.1) g/dL Albumin/Globulin Ratio (1.0-2.8) Lipase (23-300) U/L 03/20/20 Range/Units 23:20 WBC (4.5-11.0) X10^3/uL RBC (4.0-5.2) X10^6/uL Hgb (12.0-16.0) g/dL Hct (36-46) % MCV (80-100) fL MCH (26-34) PG MCHC (30-36) % RDW (11.6-14.8) % Plt Count (150-400) X10^3/uL Neut % (Auto) (50-75) % Lymph % (Auto) (25-40) % [place] % (Auto) (3-14) % Eos % (Auto) (2-4) % Baso % (Auto) (0-2) % Neut # (Auto) (7613-4959) /uL Lymph # (Auto) (8777-3670) /uL [place] # (Auto) (0-900) /uL Eos # (Auto) (0-450) /uL Baso # (Auto) (0-100) /uL PT (10.1-12.7) SECONDS INR (0.9-1.3) APTT (26.4-36.2) SECONDS D-Dimer (<230) ng/mL ABG pH (7.35-7.45) ABG pCO2 (35-45) mmHg ABG pO2 (80-100) mmHg ABG HCO3 (22-26) mmol/L ABG Total CO2 (21-31) mmol/L ABG O2 Saturation (95-100) % ABG Base Excess (-2-2) mmol/L FiO2 Sodium (137-145) mmol/L Potassium (3.4-5.1) mmol/L Chloride (98-107) mmol/L Carbon Dioxide (22-32) mmol/L BUN (7-17) mg/dL Creatinine (0.52-1.04) mg/dL Estimated GFR (>60) mL/min BUN/Creatinine Ratio (6-22) Glucose (80-110) mg/dL Calcium (8.4-10.2) mg/dL Magnesium (1.6-2.3) mg/dL Total Bilirubin (0.2-1.3) mg/dL AST (14-36) IU/L ALT (<35) IU/L Alkaline Phosphatase (38-126) U/L Total Creatine Kinase (30-135) U/L CK-MB (CK-2) (<2.37) ng/mL CK-MB (CK-2) Rel Index (1.5-5.0) % Troponin I < 0.012 (0.01-0.034) ng/mL NT-Pro-B Natriuret Pep (<125) pg/mL Total Protein (6.3-8.2) g/dL Albumin (3.5-5.0) g/dL Globulin (1.7-4.1) g/dL Albumin/Globulin Ratio (1.0-2.8) Lipase (23-300) U/L ECG Data Attestation: I personally reviewed and interpreted this ECG as follows: Interpretation: The patient's EKG obtained on August 08 at 21:0 5:47 a.m. reveals atrial fibrillation with a rapid ventricular rate of 116. QRS is slightly prolonged. QTC is 431 milliseconds , left axis deviation. The patient has a lot artifact and noise in the baseline. The patient has of right bundle branch block type pattern with ST segment depressions in leads V1 V2 and V3 V4 and V5 which may be rate dependent. A repeat EKG will be obtained when her rate has slowed down. 2331 The patient's 2nd EKG obtained at 11:11 p.m.: 1 9 reveals a sinus rhythm with a [place] interval of 196. Her QTC is slightly prolonged at 475 milliseconds. She has a left axis deviation. She has a right bundle branch block. Her heart rate has significantly slowed from admission. She has an inverted T-wave in lead III flat T-waves in lead AVF inverted T-wave in V1 no other diagnostic ST segment changes. Her EKG has significantly improved. Discharge Plan Departure Patient Disposition: Home Clinical Impression: Shortness of breath, Back pain of thoracolumbar region, Acute hyperventilation, Acute anxiety Discharge Date/Time: 08/10/19 00:24 Instructions: DI for Atypical Chest Pain, DI for Hyperventilation, DI for Thoracic Back Pain Activity Restrictions/Additional Instructions: 1. Your laboratory chemistries were negative for D-dimer showing a blood clot in your chest or injury to your heart. This 2 serial troponins were negative. Your chest x-ray was negative as well as the rest of your laboratory chemistries. You need to be re-evaluated by your family physician in 48-72 hours. 2. If you develop worsening pain discomfort shortness of breath you need to return to the emergency department. 3. Take the Naprosyn 500 mg twice a day with your meals for any pain and discomfort. For any tightness spasms muscle cramps in your back take the cyclobenzaprine 5 mg 3 times a day. 4. If you develop racing of your heart, palpitations, associated with chest pain and worsening shortness of breath, dizziness, passing-out you need to return to the emergency department or proceed to the nearest emergency department were you are. Prescriptions: New naproxen [Naprosyn] 500 mg tablet 500 mg PO BID PRN (Reason: pain) Qty: 20 RF: 0 cyclobenzaprine 5 mg tablet 10 mg PO TID PRN (Reason: muscle spasm) Qty: 15 RF: 0 No Action clopidogrel 75 mg Tablet 75 mg PO DAILY Qty: 0 RF: 0 aspirin 81 mg Tablet,Delayed Release (Dr/Ec) 81 mg PO DAILY Qty: 0 RF: 0 losartan [Cozaar] 100 MG tablet 100 mg PO DAILY Qty: 0 RF: 0 atorvastatin [Lipitor] 20 MG tablet 20 mg PO DAILY Qty: 0 RF: 0 multivitamin Tablet 1 tab PO QDAY Qty: 0 RF: 0 amlodipine 2.5 mg tablet 2.5 mg PO BID RF: 0 Calcium 1 tab PO DAILY RF: 0 Referrals: Javier Yung MD [Primary Care Provider] - ED Sign-out [facility] ED Attending Cosaaronature Attestation: I was immediately available in the department for consultation. This documentation has been reviewed and I agree with assessment and plan. Supervised by Bronson Quiñones MD
[2019-08-09 22:02] LABS: pH ABG 7.44 (7.35-7.45)
[2019-08-09 22:02] LABS: CKMB % Relative Index 1.4 % (1.5-5.0); Creatine Kinase MB 1.63 ng/mL (<2.37)
[2019-08-09 22:03] LABS: Fractionated Inspired Oxygen 21; HCO3 ABG 19 mmol/L (22-26); Oxygen Saturation ABG 98 % (95-100); PO2 ABG 102 mmHg (80-100); TCO2 ABG 20 mmol/L (21-31)
--- NOTE | 2019-08-09 22:15 | PC.NURSE ---
patient states she does not want the ativan. She reports the GI cocktail is making it feel like her throat is numb and she is concerned due to previous throat surgeries. Provider notified and aware.
[2019-08-09 22:50] VITALS: BP 135/64; PULSE 72
[2019-08-09 23:31] VITALS: BP 140/69; PULSE 75; RESP 18; O2SAT 99
--- NOTE | 2019-08-09 23:45 | PC.NURSE ---
patient refused flexeril and toradol. Stated they would be ok taking them a po prescriptions for home. Provider notified and aware.
[2019-08-09 23:56] LABS: Troponin I < 0.012 ng/mL (0.01-0.034)
[2019-08-10 00:22] VITALS: BP 141/72; PULSE 72; RESP 16; O2SAT 99
== END 2019-08-10 00:24 | disposition home or self-care (01) ==
PROVIDERS: Emergency Provider Emergency Medicine; PCP Internal Medicine
DX: R06.02 Shortness of breath (principal); M54.5 Low back pain; R06.4 Hyperventilation; F41.9 Anxiety disorder, unspecified; R07.89 Other chest pain; I48.20 Chronic atrial fibrillation, unspecified
CPT/HCPCS: 36415; 36600; 71045; 80053; 82550; 82553; 82805; 83690; 83735; 83880; 84484; 85025; 85379; 85610; 85730; 93005; 99284; J2060

== ENCOUNTER → 2019-08-16 11:42 | Outpatient (CLI) | payer MEDICARE, OTHER, SELFPAY ==
[2019-08-16 12:26] LABS: Add Manual Diff / Slide Review NO; Basophils Absolute Auto 100 /uL (0-100); Basophils Percent Auto 1.1 % (0-2); Eosinophils Absolute Auto 200 /uL (0-450); Eosinophils Percent Auto 2.6 % (2-4); Hematocrit 39.4 % (36-46); Hemoglobin 13.4 g/dL (12.0-16.0); Lymphocytes Absolute Auto 1300 /uL (1100-4500); Lymphocytes Percent Auto 21.1 % (25-40); Mean Corpuscular Hemoglobin 30.3 PG (26-34); Mean Corpuscular Volume 89.1 fL (80-100); Monocytes Absolute Auto 600 /uL (0-900); Monocytes Percent Auto 9.1 % (3-14); Neutrophils Absolute Auto 4100 /uL (1500-7000); Neutrophils Percent Auto 66.1 % (50-75); Platelet Count 236 X10^3/uL (150-400); Red Blood Cell Count 4.42 X10^6/uL (4.0-5.2); Red Cell Distribution Width 13.8 % (11.6-14.8); White Blood Cell Count 6.2 X10^3/uL (4.5-11.0)
[2019-08-16 12:38] LABS: Alanine Aminotransferase 22 IU/L (<35); Albumin 4.5 g/dL (3.5-5.0); Albumin Globulin Ratio 1.4 (1.0-2.8); Alkaline Phosphatase 91 U/L (38-126); Aspartate Aminotransferase 29 IU/L (14-36); BUN Creatinine Ratio 22.4 (6-22); Bilirubin Total 0.4 mg/dL (0.2-1.3); Blood Urea Nitrogen 15 mg/dL (7-17); Calcium 9.9 mg/dL (8.4-10.2); Carbon Dioxide 29 mmol/L (22-32); Chloride 102 mmol/L (98-107); Cholesterol 163 mg/dL (140-199); Estimated Glomerular Filt Rate > 60.0 mL/min (>60); Globulin 3.2 g/dL (1.7-4.1); Glucose 96 mg/dL (80-110); HDL Cholesterol 45 mg/dL (40-60); HEMOLYSIS < 15 (0-50); LDL Cholesterol Calculated 93 mg/dL (<100); Magnesium 2.1 mg/dL (1.6-2.3); Potassium 4.3 mmol/L (3.4-5.1); Sodium 138 mmol/L (137-145); Total Protein 7.7 g/dL (6.3-8.2); Triglycerides 125 mg/dL (35-150)
[2019-08-16 13:26] LABS: Vitamin B12 777 pg/mL (239-931)
== END ==
PROVIDERS: PCP Internal Medicine; Referring Provider Internal Medicine; Visit Provider Internal Medicine
DX: I67.89 Other cerebrovascular disease (principal); M15.0 Primary generalized (osteo)arthritis; M35.3 Polymyalgia rheumatica; I10 Essential (primary) hypertension
CPT/HCPCS: 36415; 80053; 80061; 82607; 83735; 85025

== ENCOUNTER → 2019-08-17 08:37 | Outpatient (CLI) | payer MEDICARE, OTHER, SELFPAY ==
[2019-08-17 10:32] LABS: Adenovirus F 40/41 Not Detected (Not Detect); Astrovirus Not Detected (Not Detect); Campylobacter Not Detected (Not Detect); Clostridium difficile toxin AB Not Detected (Not Detect); Cryptosporidium Not Detected (Not Detect); Cyclospora cayetanensis Not Detected (Not Detect); Entamoeba histolytica Not Detected (Not Detect); Enteroaggregative E.coli Not Detected (Not Detect); Enteropathogenic E.coli Not Detected (Not Detect); Enterotoxigenic E.coli It/st Not Detected (Not Detect); Giardia lamblia Not Detected (Not Detect); Norovirus GI/GII Not Detected (Not Detect); Plesiomonsa shigelloides Not Detected (Not Detect); Rotavirus A Not Detected (Not Detect); Salmonella Not Detected (Not Detect); Sapovirus Not Detected (Not Detect); Shiga-like toxin-prod E.coli Not Detected (Not Detect); Shigella/Enteroinvasive E.coli Not Detected (Not Detect); Vibrio Not Detected (Not Detect); Vibrio cholerae Not Detected (Not Detect); Yersinia enterocolitica Not Detected (Not Detect)
[2019-08-18 11:43] LABS: Fats, Neutral Normal (.); Fats, Total Normal (.)
== END ==
PROVIDERS: PCP Internal Medicine; Referring Provider Internal Medicine Gastroenterology; Visit Provider Internal Medicine Gastroenterology
DX: R19.5 Other fecal abnormalities (principal)
CPT/HCPCS: 82705; 87177; 87205; 87329; 87507

== ENCOUNTER 2019-09-14 17:04 | Emergency (ER) | payer MEDICARE, OTHER, SELFPAY ==
[2019-09-14 17:18] VITALS: BP 118/82; PULSE 94; RESP 16; TEMP 36.9; O2SAT 100; BMI 21.9
[2019-09-14 17:31] LABS: Add Manual Diff / Slide Review NO; Basophils Absolute Auto 0 /uL (0-100); Basophils Percent Auto 0.3 % (0-2); Eosinophils Absolute Auto 100 /uL (0-450); Eosinophils Percent Auto 1.1 % (2-4); Hematocrit 39.6 % (36-46); Hemoglobin 13.6 g/dL (12.0-16.0); Lymphocytes Absolute Auto 1000 /uL (1100-4500); Mean Corpuscular HGB Conc 34.4 % (30-36); Mean Corpuscular Hemoglobin 30.8 PG (26-34); Mean Corpuscular Volume 89.4 fL (80-100); Monocytes Absolute Auto 400 /uL (0-900); Monocytes Percent Auto 3.9 % (3-14); Neutrophils Absolute Auto 8300 /uL (1500-7000); Neutrophils Percent Auto 84.7 % (50-75); Platelet Count 230 X10^3/uL (150-400); Red Blood Cell Count 4.43 X10^6/uL (4.0-5.2); Red Cell Distribution Width 13.8 % (11.6-14.8); White Blood Cell Count 9.8 X10^3/uL (4.5-11.0)
--- NOTE | 2019-09-14 17:35 | ED_ITS ---
HPI - Abdominal Pain <Samantha EasonKALPESH - Last Filed: 09/14/19 21:40> General Chief Complaint: Abdominal Pain Stated Complaint: diarrhea,vomiting Time Seen by Provider: 09/14/19 17:18 Source: patient Mode of arrival: Ambulatory History of Present Illness HPI narrative: 73yo female with a history of Schatzki's ring, GERD, and HTN, presents emergency department for an episode of projectile vomiting about 45 minutes ago. She states she woke up having 4-5 episodes of diarrhea this morning and then ?out of nowhere ?, she projectile vomited about 5 times. Patient states I do not have a fever but I feel like an burning up ?. She denies being in contact with any other sick contacts. She does live with her s on and children. Patient denies any abdominal pain but feels like her abdomen has been distended for the past week. She states she has been seen by a allergist/pediatric pulmonologist and diagnosed with Schatzki's ring after a scope. She has was put on Prilosec which she has taken this morning. After she was treated for this, she developed a bout of diarrhea a few weeks ago, stool samples were taken which she was told were negative. Her diarrhea spontaneously resolved before this incident. Her primary care provider call the emergency department reporting that she was anxious about derick COVID-19. She denies any contact with confirmed positives. Patient states ?this came on suddenly and I usually do not get sick. Patient denies any other sick contacts with similar symptoms. Patient also denies chills, chest pain, shortness of breath, abdominal pain, nausea at this time, dizziness, or any other concerns. Related Data Home Medications Medication Instructions Recorded Confirmed aspirin 81 mg PO DAILY #0 02/03/09 09/14/19 clopidogrel 75 mg PO DAILY #0 02/03/09 09/14/19 atorvastatin [Lipitor] 20 mg PO DAILY #0 02/23/13 08/09/19 losartan [Cozaar] 100 mg PO DAILY #0 tab 02/23/13 09/14/19 multivitamin 1 tab PO QDAY #0 tab 02/23/13 08/09/19 Calcium 1 tab PO DAILY 12/14/18 08/09/19 amlodipine 2.5 mg PO BID 12/14/18 09/14/19 Previous Rx's Medication Instructions Recorded cyclobenzaprine 10 mg PO TID PRN #15 tab 08/10/19 naproxen [Naprosyn] 500 mg PO BID PRN #20 tab 08/10/19 ondansetron 4 mg PO Q6H PRN #14 tab 09/14/19 Allergies Allergy/AdvReac Type Severity Reaction Status Date / Time erythromycin base Allergy Mild Verified 09/14/19 17:21 [ERYTHROMYCIN BASE] prochlorperazine Allergy Mild Verified 09/14/19 17:21 [PROCHLORPERAZINE] Review of Systems <KALPESH Morton - Last Filed: 09/14/19 21:40> Review of Systems Narrative: REVIEW OF SYSTEMS: GENERAL: Denies fever, chills, malaise, or wt. loss. HENT: No head trauma or sore throat. EYES: No vision changes. CARDIOVASCULAR: No chest pain, palpitations, or orthopnea. RESPIRATORY: No shortness of breath or cough. GASTROINTESTINAL: Complains vomiting and abdominal bloating, see HPI GENITOURINARY: No flank pain or dysuria. MUSCULOSKELETAL: No pain, weakness, or trauma. INTEGUMENTARY: No rash, lesions, or pruritus. NEURO: No headaches. PSYCH: No behavior or mood changes. Patient History <KALPESH Morton - Last Filed: 09/14/19 21:40> Social History Smoking Status: Never smoker Smoking Status: Never smoker alcohol intake frequency: 0-2 drinks per day Substance Use Type: does not use Exam <KALPESH Morton - Last Filed: 09/14/19 21:40> Initial Vital Signs Initial Vital Signs: Vital Signs Temperature 98.4 F 09/14/19 17:18 Pulse Rate 94 H 09/14/19 17:18 Respiratory Rate 16 09/14/19 17:18 Blood Pressure 118/82 09/14/19 17:18 Pulse Oximetry 100 09/14/19 17:18 PHYSICAL EXAMINATION: GENERAL: Well groomed, alert, and cooperative. Answers questions promptly and appropriately. Vital signs noted. HENT: Normocephalic, atraumatic. Hearing intact. Oral mucosa is pink and moist. EYES: Conjunctiva pink, sclera white, no periorbital swelling. CARDIOVASCULAR: S1 and S2 sounds normal. Regular rate and rhythm, no murmurs, clicks, or bruits. No pedal edema. RESPIRATORY: Normal respiratory rate, trachea midline, airway patent. No stridor, nasal flaring or accessory muscle use. Lungs are clear in all soler without wheeze, rhonchi, or crackles. GASTROINTESTINAL: Bowel sounds normoactive. Abdomen is soft and non-tender. No organomegaly, no palpable masses. GENITALURINARY: No flank tenderness. MUSCULOSKELETAL: Normal gait and coordination. Equal tone and mass bilaterally. EXTREMITIES: CMS intact, no pedal edema. SKIN: Warm, dry, soft, appropriate color for ethnicity. No lesions, rashes, or wounds to visualized areas. NEURO: Alert and Oriented X 3. Good coordination. No ataxia, or sensory deficits, or cognitive issues. PSYCH: Appropriate affect and mood. <Lucas Powell DO - Last Filed: 09/14/19 21:53> Initial Vital Signs Initial Vital Signs: Vital Signs Temperature 98.4 F 09/14/19 17:18 Pulse Rate 94 H 09/14/19 17:18 Respiratory Rate 16 09/14/19 17:18 Blood Pressure 118/82 09/14/19 17:18 Pulse Oximetry 100 09/14/19 17:18 Course <KALPESH Morton - Last Filed: 09/14/19 21:40> Course Course Narrative: 1956: Re-evaluated patient, patient reports ?I still feel icky stating that maite arreaga feels like she has to throw up but I do not have anything left to vomit. Patient has not vomited since she was admitted to the emergency department. She refused Zofran, Protonix, and a GI cocktail. Patient states ?I would like you to check a magnesium level because sometimes my magnesium is low. Explained to patient that this would not cause vomiting it would not change our plan of care. Patient states she is having some epigastric burning. After much discussion, patient agreed to try p.o. Zofran and a p.o. trial with crackers. We discussed her labs were non-remarkable. 2049: Patient was feeling better after Zofran, was able to eat crackers and drink water without vomiting. Requesting to be discharged. Orders Ordered: ED Orders 09/14/19 17:15 Complete Blood Count AUTO DIFF Stat Comprehensive Metabolic Panel Stat Lactate (Lactic Acid) Stat Lipase Stat Partial Thromboplastin Time Stat Prothrombin Time INR Stat 09/14/19 17:22 EKG-12 Lead Stat 09/14/19 17:42 Troponin & CK Cardiac Panel Stat Discontinued Medications Al Hydrox/Mg Hydrox/Simethicone 20 ml/ Lidocaine HCl 15 ml 0 ml PO NOW ONE Stop: 09/14/19 18:50 Last Admin: 09/14/19 20:10 Dose: Not Given Documented by: MICHAEL Sodium Chloride (Normal Saline 0.9%) 1,000 mls @ 1,000 mls/hr IV BOLUS ONE Stop: 09/14/19 18:32 Last Infusion: 09/14/19 19:16 Dose: 0 mls/hr Documented by: Admin: 09/14/19 17:44 Dose: 1,000 mls/hr Documented by: MICHAEL Ondansetron HCl (Zofran) 4 mg IV NOW ONE Stop: 09/14/19 17:22 Last Admin: 09/14/19 17:50 Dose: Not Given Documented by: MICHAEL Ondansetron HCl (Zofran Odt) 4 mg SL NOW ONE Stop: 09/14/19 19:52 Last Admin: 09/14/19 19:55 Dose: 4 mg Documented by: MICHAEL Ondansetron HCl (Zofran Odt Prepack) 1 bottle MISC SEEINSTR ONE Stop: 09/14/19 20:47 Last Admin: 09/14/19 20:49 Dose: Not Given Documented by: JACKY Consultations Consultation #1: Patient staffed with Dr. Powell, discussed testing, laboratory results, plan of care, conversation she had with patient. Discussed patient was resistant to medications. Discussed that her condition does not indicate a need for the CT scan. Vital Signs Vital signs: Vital Signs - 8 hr 09/14/19 17:18 09/14/19 18:30 09/14/19 19:55 Temperature 98.4 F Pulse Rate 94 H 82 Respiratory Rate 16 16 Blood Pressure 118/82 Blood Pressure [Right Arm] 151/66 H 151/66 H Pulse Oximetry 100 98 09/14/19 19:59 Temperature Pulse Rate Respiratory Rate Blood Pressure Blood Pressure [Right Arm] 141/67 H Pulse Oximetry <Lucas Powell, - Last Filed: 04/25/20 21:53> Orders Ordered: ED Orders 09/14/19 17:15 Complete Blood Count AUTO DIFF Stat Comprehensive Metabolic Panel Stat Lactate (Lactic Acid) Stat Lipase Stat Partial Thromboplastin Time Stat Prothrombin Time INR Stat 09/14/19 17:22 EKG-12 Lead Stat 09/14/19 17:42 Troponin & CK Cardiac Panel Stat Discontinued Medications Al Hydrox/Mg Hydrox/Simethicone 20 ml/ Lidocaine HCl 15 ml 0 ml PO NOW ONE Stop: 09/14/19 18:50 Last Admin: 09/14/19 20:10 Dose: Not Given Documented by: MICHAEL Sodium Chloride (Normal Saline 0.9%) 1,000 mls @ 1,000 mls/hr IV BOLUS ONE Stop: 09/14/19 18:32 Last Infusion: 09/14/19 19:16 Dose: 0 mls/hr Documented by: Admin: 09/14/19 17:44 Dose: 1,000 mls/hr Documented by: MICHAEL Ondansetron HCl (Zofran) 4 mg IV NOW ONE Stop: 09/14/19 17:22 Last Admin: 09/14/19 17:50 Dose: Not Given Documented by: MICHAEL Ondansetron HCl (Zofran Odt) 4 mg SL NOW ONE Stop: 09/14/19 19:52 Last Admin: 09/14/19 19:55 Dose: 4 mg Documented by: MICHAEL Ondansetron HCl (Zofran Odt Prepack) 1 bottle MISC SEEINSTR ONE Stop: 09/14/19 20:47 Last Admin: 09/14/19 20:49 Dose: Not Given Documented by: JACKY Vital Signs Vital signs: Vital Signs - 8 hr 09/14/19 17:18 09/14/19 18:30 09/14/19 19:55 Temperature 98.4 F Pulse Rate 94 H 82 Respiratory Rate 16 16 Blood Pressure 118/82 Blood Pressure [Right Arm] 151/66 H 151/66 H Pulse Oximetry 100 98 09/14/19 19:59 Temperature Pulse Rate Respiratory Rate Blood Pressure Blood Pressure [Right Arm] 141/67 H Pulse Oximetry MDM - Abdominal Pain <KALPESH Morton - Last Filed: 09/14/19 21:40> Medical Records Attestation: I reviewed the patient's medical records. Lab Data Attestation: I reviewed the patient's lab results. Result diagrams: 09/14/19 17:15 09/14/19 17:15 Labs: Lab Results 09/14/19 09/14/19 09/14/19 Range/Units 17:15 17:15 17:15 WBC 9.8 (4.5-11.0) X10^3/uL RBC 4.43 (4.0-5.2) X10^6/uL Hgb 13.6 (12.0-16.0) g/dL Hct 39.6 (36-46) % MCV 89.4 (80-100) fL MCH 30.8 (26-34) PG MCHC 34.4 (30-36) % RDW 13.8 (11.6-14.8) % Plt Count 230 (150-400) X10^3/uL Neut % (Auto) 84.7 H (50-75) % Lymph % (Auto) 10.0 L (25-40) % [place] % (Auto) 3.9 (3-14) % Eos % (Auto) 1.1 L (2-4) % Baso % (Auto) 0.3 (0-2) % Neut # (Auto) 8300 H (1615-2675) /uL Lymph # (Auto) 1000 L (8695-1176) /uL [place] # (Auto) 400 (0-900) /uL Eos # (Auto) 100 (0-450) /uL Baso # (Auto) 0 (0-100) /uL PT 12.1 (10.1-12.7) SECONDS INR 1.0 (0.9-1.3) APTT 24 L D (26.4-36.2) SECONDS Sodium 133 L (137-145) mmol/L Potassium 4.8 (3.4-5.1) mmol/L Chloride 101 (98-107) mmol/L Carbon Dioxide 23 (22-32) mmol/L BUN 14 (7-17) mg/dL Creatinine 0.69 (0.52-1.04) mg/dL Estimated GFR > 60.0 (>60) mL/min BUN/Creatinine Ratio 20.3 (6-22) Glucose 114 H (80-110) mg/dL Lactate (0.7-2.1) mmol/L Calcium 9.3 (8.4-10.2) mg/dL Total Bilirubin 0.8 (0.2-1.3) mg/dL AST TNP ALT 22 (<35) IU/L Alkaline Phosphatase 89 (38-126) U/L Total Creatine Kinase (30-135) U/L CK-MB (CK-2) CK-MB (CK-2) Rel Index Troponin I (0.01-0.034) ng/mL Total Protein 8.3 H (6.3-8.2) g/dL Albumin 4.5 (3.5-5.0) g/dL Globulin 3.8 (1.7-4.1) g/dL Albumin/Globulin Ratio 1.2 (1.0-2.8) Lipase 134 (23-300) U/L 09/14/19 09/14/19 Range/Units 17:15 17:42 WBC (4.5-11.0) X10^3/uL RBC (4.0-5.2) X10^6/uL Hgb (12.0-16.0) g/dL Hct (36-46) % MCV (80-100) fL MCH (26-34) PG MCHC (30-36) % RDW (11.6-14.8) % Plt Count (150-400) X10^3/uL Neut % (Auto) (50-75) % Lymph % (Auto) (25-40) % [place] % (Auto) (3-14) % Eos % (Auto) (2-4) % Baso % (Auto) (0-2) % Neut # (Auto) (3447-3378) /uL Lymph # (Auto) (6378-1096) /uL [place] # (Auto) (0-900) /uL Eos # (Auto) (0-450) /uL Baso # (Auto) (0-100) /uL PT (10.1-12.7) SECONDS INR (0.9-1.3) APTT (26.4-36.2) SECONDS Sodium (137-145) mmol/L Potassium (3.4-5.1) mmol/L Chloride (98-107) mmol/L Carbon Dioxide (22-32) mmol/L BUN (7-17) mg/dL Creatinine (0.52-1.04) mg/dL Estimated GFR (>60) mL/min BUN/Creatinine Ratio (6-22) Glucose (80-110) mg/dL Lactate 1.7 (0.7-2.1) mmol/L Calcium (8.4-10.2) mg/dL Total Bilirubin (0.2-1.3) mg/dL AST ALT (<35) IU/L Alkaline Phosphatase (38-126) U/L Total Creatine Kinase 74 (30-135) U/L CK-MB (CK-2) TNP CK-MB (CK-2) Rel Index TNP Troponin I < 0.012 (0.01-0.034) ng/mL Total Protein (6.3-8.2) g/dL Albumin (3.5-5.0) g/dL Globulin (1.7-4.1) g/dL Albumin/Globulin Ratio (1.0-2.8) Lipase (23-300) U/L Point of care testing: Urine Dip Bedside Urine Glucose Negative Bedside Urine Bilirubin - Negative Bedside Urine Ketone - Negative Urine Specific Uneeda 1.015 Bedside Urine Occult Blood - Negative Bedside Urine pH 6.0 Bedside Urine Protein - Negative Bedside Urine Urobilinogen - Negative Bedside Urine Nitrite - Negative Bedside Urine Leukocytes - Negative Esterase ECG Data Interpretation: Normal sinus rhythm, rate 79, WI interval 170, QTC 458. No ST elevation or ST depression. No T-wave abnormality. No acute changes. Right bundle branch block noted. EKG also viewed by Dr. Quiñones. [facility] Narrative Medical decision making narrative: 73-year-old female with a history of anxiety and GERD, presents emergency department for sudden onset of vomiting with a few episodes of diarrhea previously today. Patient's laboratory work is non-remarkable other than slightly decreased sodium of 133 before administration of fluids. Lactate 1.6 before administration of fluids. Patient initially denied ondansetron but reported feeling much better after she agreed to taking sublingual ondansetron. She did not vomit in the emergency department, remained hemodynamically stable, abdominal exam was nontender, and patient was able to eat crackers and water without vomiting. Patient was tested for coronavirus due to increasing concerns and sudden onset of symptoms. She was informed she received test results in 2-6 days. I suspect patient's symptoms are most likely caused by viral gastroenteritis or food poisoning due to the nature of symptoms without abdominal pain, or elevated white blood cell count or other systemic symptoms such as fever tachycardia. Less likely acute abdominal etiology due to reasons listed above. No CT indicated due to lack of pain and resolution of symptoms with minimal intervention. Additionally, multiple conversations with patient feel that she had a lot of anxiety. She requested magnesium testing, informed that this will not cause vomiting or change plan of care and is not warranted at this time. Patient understood. I spoke with patient explaining that I had very little concern for gallbladder, pancreatitis, liver, or kidney dysfunction due to normal labs and lack of pain or other symptoms. Patient understood. Patient was given a prescription for Zofran, she was encouraged to follow up with her primary care provider in the next few weeks for further evaluation. She was given very strict return precautions for new or worsening symptoms such as pain, uncontrollable vomiting, high fevers, or any other concerns. Patient agreed to plan of care verbalized understanding. <Lucas Powell, DO - Last Filed: 09/14/19 21:53> Lab Data Labs: Lab Results 09/14/19 09/14/19 09/14/19 Range/Units 17:15 17:15 17:15 WBC 9.8 (4.5-11.0) X10^3/uL RBC 4.43 (4.0-5.2) X10^6/uL Hgb 13.6 (12.0-16.0) g/dL Hct 39.6 (36-46) % MCV 89.4 (80-100) fL MCH 30.8 (26-34) PG MCHC 34.4 (30-36) % RDW 13.8 (11.6-14.8) % Plt Count 230 (150-400) X10^3/uL Neut % (Auto) 84.7 H (50-75) % Lymph % (Auto) 10.0 L (25-40) % [place] % (Auto) 3.9 (3-14) % Eos % (Auto) 1.1 L (2-4) % Baso % (Auto) 0.3 (0-2) % Neut # (Auto) 8300 H (5871-2970) /uL Lymph # (Auto) 1000 L (3846-8776) /uL [place] # (Auto) 400 (0-900) /uL Eos # (Auto) 100 (0-450) /uL Baso # (Auto) 0 (0-100) /uL PT 12.1 (10.1-12.7) SECONDS INR 1.0 (0.9-1.3) APTT 24 L D (26.4-36.2) SECONDS Sodium 133 L (137-145) mmol/L Potassium 4.8 (3.4-5.1) mmol/L Chloride 101 (98-107) mmol/L Carbon Dioxide 23 (22-32) mmol/L BUN 14 (7-17) mg/dL Creatinine 0.69 (0.52-1.04) mg/dL Estimated GFR > 60.0 (>60) mL/min BUN/Creatinine Ratio 20.3 (6-22) Glucose 114 H (80-110) mg/dL Lactate (0.7-2.1) mmol/L Calcium 9.3 (8.4-10.2) mg/dL Total Bilirubin 0.8 (0.2-1.3) mg/dL AST TNP ALT 22 (<35) IU/L Alkaline Phosphatase 89 (38-126) U/L Total Creatine Kinase (30-135) U/L CK-MB (CK-2) CK-MB (CK-2) Rel Index Troponin I (0.01-0.034) ng/mL Total Protein 8.3 H (6.3-8.2) g/dL Albumin 4.5 (3.5-5.0) g/dL Globulin 3.8 (1.7-4.1) g/dL Albumin/Globulin Ratio 1.2 (1.0-2.8) Lipase 134 (23-300) U/L 09/14/19 09/14/19 Range/Units 17:15 17:42 WBC (4.5-11.0) X10^3/uL RBC (4.0-5.2) X10^6/uL Hgb (12.0-16.0) g/dL Hct (36-46) % MCV (80-100) fL MCH (26-34) PG MCHC (30-36) % RDW (11.6-14.8) % Plt Count (150-400) X10^3/uL Neut % (Auto) (50-75) % Lymph % (Auto) (25-40) % [place] % (Auto) (3-14) % Eos % (Auto) (2-4) % Baso % (Auto) (0-2) % Neut # (Auto) (9341-3232) /uL Lymph # (Auto) (0960-4927) /uL [place] # (Auto) (0-900) /uL Eos # (Auto) (0-450) /uL Baso # (Auto) (0-100) /uL PT (10.1-12.7) SECONDS INR (0.9-1.3) APTT (26.4-36.2) SECONDS Sodium (137-145) mmol/L Potassium (3.4-5.1) mmol/L Chloride (98-107) mmol/L Carbon Dioxide (22-32) mmol/L BUN (7-17) mg/dL Creatinine (0.52-1.04) mg/dL Estimated GFR (>60) mL/min BUN/Creatinine Ratio (6-22) Glucose (80-110) mg/dL Lactate 1.7 (0.7-2.1) mmol/L Calcium (8.4-10.2) mg/dL Total Bilirubin (0.2-1.3) mg/dL AST ALT (<35) IU/L Alkaline Phosphatase (38-126) U/L Total Creatine Kinase 74 (30-135) U/L CK-MB (CK-2) TNP CK-MB (CK-2) Rel Index TNP Troponin I < 0.012 (0.01-0.034) ng/mL Total Protein (6.3-8.2) g/dL Albumin (3.5-5.0) g/dL Globulin (1.7-4.1) g/dL Albumin/Globulin Ratio (1.0-2.8) Lipase (23-300) U/L Point of care testing: Urine Dip Bedside Urine Glucose Negative Bedside Urine Bilirubin - Negative Bedside Urine Ketone - Negative Urine Specific [place] 1.015 Bedside Urine Occult Blood - Negative Bedside Urine pH 6.0 Bedside Urine Protein - Negative Bedside Urine Urobilinogen - Negative Bedside Urine Nitrite - Negative Bedside Urine Leukocytes - Negative Esterase Discharge Plan Departure Patient Disposition: Home Clinical Impression: Vomiting Qualifiers: Vomiting type: unspecified Vomiting Intractability: non-intractable Nausea presence: without nausea Qualified Code(s): R11.11 - Vomiting without nausea Discharge Date/Time: 09/14/19 20:51 Instructions: DI for Vomiting -- Adult Activity Restrictions/Additional Instructions: Thank you for entrusting me with your care today. As discussed, your laboratory work is reassuring, your sodium was low initially like it has been the past at 133. We have given you a L saline which increases your sodium. Your liver, kidney, and pancreas enzymes are within normal limits. Your symptoms are most likely caused by a virus or food poisoning. I prescribed you Zofran, this will help with nausea. Please take this if you feel nauseated or vomited again. I recommend following up with your primary care provider in the next few days for re-evaluation if symptoms continue. Return emergency department for any new or worsening symptoms such as severe pain, uncontrollable vomiting, high fevers, syncope, or any other concerns. [facility] [place]. You have been tested for COVID-19. This test may take 2-6 days for results to return, we will call you with these results. Please remain in quarantine with self isolation at home for 3 days after your symptoms have completely resolved. Drink lots of fluids, take Tylenol for fever, get extra rest, clean all surfaces, cover your cough, wash your hands frequently, and avoid sharing any personal items. If you need to seek medical care, please call the clinic or the emergency department before your arrival. Prescriptions: New ondansetron 4 mg tablet,disintegrating 4 mg PO Q6H PRN (Reason: nausea and vomiting) Qty: 14 RF: 0 No Action clopidogrel 75 mg Tablet 75 mg PO DAILY Qty: 0 RF: 0 aspirin 81 mg Tablet,Delayed Release (Dr/Ec) 81 mg PO DAILY Qty: 0 RF: 0 losartan [Cozaar] 100 MG tablet 100 mg PO DAILY Qty: 0 RF: 0 atorvastatin [Lipitor] 20 MG tablet 20 mg PO DAILY Qty: 0 RF: 0 multivitamin Tablet 1 tab PO QDAY Qty: 0 RF: 0 amlodipine 2.5 mg tablet 2.5 mg PO BID RF: 0 Calcium 1 tab PO DAILY RF: 0 naproxen [Naprosyn] 500 mg tablet 500 mg PO BID PRN (Reason: pain) Qty: 20 RF: 0 cyclobenzaprine 5 mg tablet 10 mg PO TID PRN (Reason: muscle spasm) Qty: 15 RF: 0 Referrals: Javier Yung MD [Primary Care Provider] - <Lucas Powell, - Last Filed: 09/14/19 21:53> Cosign ED Attending Cosignature Attestation: Dr Powell Co-Sign Statement: I was available for consultation during this patient's emergency department visit. This chart is signed by myself for administrative purposes only. I did not have direct contact with this patient during this visit. They were seen independently by the APC.
[2019-09-14 17:37] LABS: Prothrombin Time 12.1 SECONDS (10.1-12.7)
[2019-09-14 17:39] LABS: PTT Partial Thromboplastin Tim 24 SECONDS (26.4-36.2)
[2019-09-14 17:41] LABS: Alanine Aminotransferase 22 IU/L (<35); Albumin 4.5 g/dL (3.5-5.0); Albumin Globulin Ratio 1.2 (1.0-2.8); Alkaline Phosphatase 89 U/L (38-126); BUN Creatinine Ratio 20.3 (6-22); Bilirubin Total 0.8 mg/dL (0.2-1.3); Blood Urea Nitrogen 14 mg/dL (7-17); Calcium 9.3 mg/dL (8.4-10.2); Carbon Dioxide 23 mmol/L (22-32); Chloride 101 mmol/L (98-107); Estimated Glomerular Filt Rate > 60.0 mL/min (>60); Globulin 3.8 g/dL (1.7-4.1); Glucose 114 mg/dL (80-110); Lactate (Lactic Acid) 1.7 mmol/L (0.7-2.1); Lipase 134 U/L (23-300); Potassium 4.8 mmol/L (3.4-5.1); Sodium 133 mmol/L (137-145); Total Protein 8.3 g/dL (6.3-8.2)
[2019-09-14] MEDS: SODIUM CHLORIDE 0.9% 1,000 ML 1000 ML IV (17:44)
[2019-09-14 17:45] LABS: HEMOLYSIS 102 (0-50)
--- NOTE | 2019-09-14 17:54 | PC.NURSE ---
patient requesting COVID 19 test. Swab collected
[2019-09-14 17:55] LABS: Creatine Kinase 74 U/L (30-135)
[2019-09-14 18:08] LABS: Troponin I < 0.012 ng/mL (0.01-0.034)
[2019-09-14 18:30] VITALS: BP 151/66; PULSE 82; RESP 16; O2SAT 98
[2019-09-14 19:55] VITALS: BP 151/66
[2019-09-14] MEDS: ONDANSETRON 4 MG ODT SL (19:55)
[2019-09-14 19:59] VITALS: BP 141/67
[2019-09-18 11:08] LABS: COVID19 Sendout Not Detected (Not Detected)
== END 2019-09-14 20:51 | disposition home or self-care (01) ==
PROVIDERS: Emergency Provider Nurse Practitioner; PCP Internal Medicine
DX: R11.10 Vomiting, unspecified (principal); F41.9 Anxiety disorder, unspecified; I10 Essential (primary) hypertension; R19.7 Diarrhea, unspecified
CPT/HCPCS: 36415; 80053; 81003; 82550; 83605; 83690; 84484; 85025; 85610; 85730; 87635; 93005; 93010; 96360; 96361; 99284

== ENCOUNTER → 2019-09-30 09:35 | Outpatient (CLI) | payer MEDICARE, OTHER, SELFPAY ==
[2019-09-30 10:37] LABS: BUN Creatinine Ratio 23.3 (6-22); Blood Urea Nitrogen 14 mg/dL (7-17); Calcium 9.1 mg/dL (8.4-10.2); Carbon Dioxide 28 mmol/L (22-32); Chloride 104 mmol/L (98-107); Estimated Glomerular Filt Rate > 60.0 mL/min (>60); Glucose 99 mg/dL (80-110); HEMOLYSIS < 15 (0-50); Potassium 3.9 mmol/L (3.4-5.1); Sodium 137 mmol/L (137-145)
[2019-09-30 11:37] LABS: Free T4, Direct Thyroxine 0.91 ng/dL (0.78-2.19)
[2019-09-30 11:51] LABS: Thyroid Stimulating Hormone 1.31 uIU/mL (0.47-4.68)
== END ==
PROVIDERS: PCP Internal Medicine; Referring Provider Internal Medicine; Visit Provider Internal Medicine
DX: R60.0 Localized edema (principal)
CPT/HCPCS: 36415; 80048; 84439; 84443

== ENCOUNTER 2019-10-16 12:26 | Emergency (ER) | payer MEDICARE, OTHER, SELFPAY ==
[2019-10-16] VITALS (10 sets, daily range): BP systolic 124–176; BP diastolic 65–92; PULSE 68–104; RESP 16–27; TEMP 37.1; O2SAT 95–100
--- NOTE | 2019-10-16 12:42 | DI.RAD.S_ITS ---
PROCEDURE: XR CHEST 1V INDICATIONS: palpitations TECHNIQUE: One view of the chest was acquired. COMPARISON: [facility], CR, XR CHEST 1V, 08/09/2019, 21:23. [facility], CR, XR CHEST 1V, 05/23/2019, 21:35. 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 Surgical clips in the left thyroid region.. Lungs and pleura: Lungs are clear. No pleural effusions or pneumothorax. Mediastinum: Mediastinal contours appear normal. Heart size is normal. Bones and chest wall: No suspicious bony lesions. Overlying soft tissues appear unremarkable. IMPRESSION: No pneumonia found. No cardiomegaly or CHF seen. Sternotomy wires, probable prior thyroid surgery on the left. Dictated by: Dayron Sweeney M.D. on 10/16/2019 at 13:37 Approved by: Dayron Sweeney M.D. on 10/16/2019 at 13:37
[2019-10-16 12:50] LABS: Add Manual Diff / Slide Review NO; Basophils Absolute Auto 100 /uL (0-100); Basophils Percent Auto 1.5 % (0-2); Eosinophils Absolute Auto 300 /uL (0-450); Eosinophils Percent Auto 3.8 % (2-4); Hematocrit 38.4 % (36-46); Hemoglobin 13.3 g/dL (12.0-16.0); Lymphocytes Absolute Auto 2600 /uL (1100-4500); Lymphocytes Percent Auto 38.2 % (25-40); Mean Corpuscular HGB Conc 34.7 % (30-36); Mean Corpuscular Hemoglobin 30.7 PG (26-34); Mean Corpuscular Volume 88.5 fL (80-100); Monocytes Absolute Auto 600 /uL (0-900); Monocytes Percent Auto 9.7 % (3-14); Neutrophils Absolute Auto 3100 /uL (1500-7000); Neutrophils Percent Auto 46.8 % (50-75); Platelet Count 235 X10^3/uL (150-400); Red Blood Cell Count 4.34 X10^6/uL (4.0-5.2); Red Cell Distribution Width 13.6 % (11.6-14.8); White Blood Cell Count 6.7 X10^3/uL (4.5-11.0)
[2019-10-16 12:56] LABS: Prothrombin Time 11.9 SECONDS (10.1-12.7)
[2019-10-16 12:59] LABS: PTT Partial Thromboplastin Tim 30 SECONDS (26.4-36.2)
[2019-10-16 13:00] LABS: Alanine Aminotransferase 24 IU/L (<35); Albumin Globulin Ratio 1.4 (1.0-2.8); Alkaline Phosphatase 95 U/L (38-126); Aspartate Aminotransferase 32 IU/L (14-36); BUN Creatinine Ratio 20.9 (6-22); Bilirubin Total 0.6 mg/dL (0.2-1.3); Blood Urea Nitrogen 14 mg/dL (7-17); Calcium 9.5 mg/dL (8.4-10.2); Carbon Dioxide 26 mmol/L (22-32); Chloride 102 mmol/L (98-107); Creatine Kinase 58 U/L (30-135); Estimated Glomerular Filt Rate > 60.0 mL/min (>60); Globulin 3.5 g/dL (1.7-4.1); Glucose 146 mg/dL (80-110); HEMOLYSIS < 15 (0-50); Magnesium 2.1 mg/dL (1.6-2.3); Potassium 3.4 mmol/L (3.4-5.1); Sodium 137 mmol/L (137-145); Total Protein 8.5 g/dL (6.3-8.2)
[2019-10-16 13:12] LABS: NT-proBNP (BNP-Adult 18+) 289 pg/mL (<125); Troponin I < 0.012 ng/mL (0.01-0.034)
[2019-10-16] MEDS: AMLODIPINE 2.5 MG TABLET PO (13:14)
[2019-10-16 13:38] LABS: NT-proBNP (BNP-Adult 18+) 282 pg/mL (<125)
--- NOTE | 2019-10-16 13:49 | ED_ITS ---
HPI - Arrhythmia/Palpitations <Syeda Christiansonmer, VIDEO TAPE DUPLICATOR-BC - Last Filed: 10/16/19 19:12> General Chief Complaint: Arrhythmia/Palpitations Stated Complaint: Heart [place]ed [place] Time Seen by Provider: 10/16/19 13:02 Source: patient Mode of arrival: Ambulatory Limitations: no limitations History of Present Illness HPI narrative: The patient is a 73-year-old female nonsmoker with history of hypertension, hyperlipidemia, SVT with ablation and subsequent open heart surge ry who presents with a chief complaint of ?my heart started acting up.She denies any chest pain. She states that she felt like ?something was wrong but I do not know what and then states that she went into trigeminy. She states she felt like she was in trigeminy, for several minutes while taking her pulse while parked. She felt short of breath and very anxious at that time. She denies any fevers. She denies any abdominal pain nausea vomiting or diarrhea. She states that she also has issues with ?anxiety.She states that she sees Dr. Martell for her trap puller with [facility] Cardiology Related Data Home Medications Medication Instructions Recorded Confirmed aspirin 81 mg PO DAILY #0 02/03/09 09/14/19 clopidogrel 75 mg PO DAILY #0 02/03/09 09/14/19 atorvastatin [Lipitor] 20 mg PO DAILY #0 02/23/13 08/09/19 losartan [Cozaar] 100 mg PO DAILY #0 tab 02/23/13 09/14/19 multivitamin 1 tab PO QDAY #0 tab 02/23/13 08/09/19 Calcium 1 tab PO DAILY 12/14/18 08/09/19 amlodipine 2.5 mg PO BID 12/14/18 09/14/19 Previous Rx's Medication Instructions Recorded cyclobenzaprine 10 mg PO TID PRN #15 tab 08/10/19 naproxen [Naprosyn] 500 mg PO BID PRN #20 tab 08/10/19 ondansetron 4 mg PO Q6H PRN #14 tab 09/14/19 metoprolol succinate 25 mg PO DAILY #14 tab 10/16/19 Allergies Allergy/AdvReac Type Severity Reaction Status Date / Time erythromycin base Allergy Mild Verified 09/14/19 17:21 [ERYTHROMYCIN BASE] prochlorperazine Allergy Mild Verified 09/14/19 17:21 [PROCHLORPERAZINE] Review of Systems <KELLY Gomez - Last Filed: 10/16/19 19:12> Review of Systems Narrative: GENERAL: Denies chills, fatigue, malaise, fever, sweats. HEENT: Denies sinus pain, ear pain, sore throat, difficulty swallowing, dizziness. RESPIRATORY: Denies dyspnea, cough, wheezing, hemoptysis, sputum. CARDIOVASCULAR: See HPI GASTROINTESTINAL: Denies nausea, vomiting, abdominal pain, diarrhea, consti pation, melena. : Denies dysuria, frequency, incontinence, hematuria, urinary retention. MUSCULOSKELETAL: denies weakness, joint pain, or bony pain SKIN: Denies rash, skin lesions, or other NEUROLOGIC: Denies weakness, headache, numbness, change in speech, confusion, seizures, incoordination. PSYCHIATRIC: No concerning psychosocial issues. 12 point review of systems is negative except for those stated above Patient History <KELLY Gomez - Last Filed: 10/16/19 19:12> Medical History Carotid artery disease (Chronic) Heart disease (Chronic) Hypertension (Chronic) Multinodular thyroid (Chronic) Stroke (Resolved) SVT (supraventricular tachycardia) (Chronic) Surgical History History of cholecystectomy (Resolved) History of eye surgery (Resolved) History of left common carotid artery stent placement (Resolved) History of surgery (Resolved 05/05/08) Social History Smoking Status: Never smoker Smoking Status: Never smoker alcohol intake frequency: 0-2 drinks per day Substance Use Type: does not use Exam <KELLY Gomez - Last Filed: 10/16/19 19:12> Narrative Exam Narrative: GENERAL: This is a well-nourished, well-developed patient, appears teary and anxious HEAD: Atraumatic. Normocephalic. No temporal or scalp tenderness. EYES: Pupils equal round and reactive. Extraocular motions intact. No scleral icterus. No injection or drainage. ENT: Nose without bleeding, purulent drainage or septal hematoma. Throat without erythema, tonsillar hypertrophy or exudate. Uvula midline. Airway patent. NECK: Trachea midline. No JVD or lymphadenopathy. Supple, nontender, no meningeal signs. CARDIOVASCULAR: Regular rate and rhythm RESPIRATORY: Clear to auscultation. Breath sounds equal bilaterally. No wheezes, rales, or rhonchi. No cough. No increased respiratory effort. No accessory muscle use. GASTROINTESTINAL: Abdomen soft, non-tender, nondistended. No hepato- splenomegaly, or palpable masses. No guarding. EXTREMITIES: No clubbing, cyanosis, or edema. No joint tenderness, effusion, or edema noted. BACK: Nontender without deformity or crepitance. No flank tenderness. NEURO: AOx3. Stable gait. No gross cranial nerve deficit. SKIN: No rash or erythema on visible skin Initial Vital Signs Initial Vital Signs: Vital Signs Temperature 98.8 F 10/16/19 12:30 Pulse Rate 104 H 10/16/19 12:30 Respiratory Rate 18 10/16/19 12:30 Blood Pressure 129/91 H 10/16/19 12:30 Pulse Oximetry 100 10/16/19 12:30 <Brnoson Quiñones MD - Last Filed: 10/17/19 07:19> Initial Vital Signs Initial Vital Signs: Vital Signs Temperature 98.8 F 10/16/19 12:30 Pulse Rate 104 H 10/16/19 12:30 Respiratory Rate 18 10/16/19 12:30 Blood Pressure 129/91 H 10/16/19 12:30 Pulse Oximetry 100 10/16/19 12:30 Scores <KELLY Gomez - Last Filed: 10/16/19 19:12> GCS Jr coma scale eye opening: Spontaneous [place] coma scale verbal response: Orientated [place] coma scale motor response: Obey commands Jr coma scale total score: 15 Course <KELLY Gomez - Last Filed: 10/16/19 19:12> Orders Ordered: Discontinued Medications Amlodipine Besylate (Norvasc) 2.5 mg PO NOW ONE Stop: 10/16/19 13:10 Last Admin: 10/16/19 13:14 Dose: 2.5 mg Documented by: BTONER Vital Signs Vital signs: Vital Signs - 8 hr 10/16/19 12:30 10/16/19 12:45 10/16/19 13:15 Temperature 98.8 F Pulse Rate 104 H 80 80 Respiratory Rate 18 16 27 H Blood Pressure 129/91 H Blood Pressure [Right Arm] 176/92 H 171/81 H Pulse Oximetry 100 99 100 10/16/19 13:30 10/16/19 14:00 10/16/19 14:30 Temperature Pulse Rate 72 69 71 Respiratory Rate 18 16 21 Blood Pressure Blood Pressure [Right Arm] 148/70 H 131/69 125/65 Pulse Oximetry 95 96 97 10/16/19 15:00 10/16/19 15:45 10/16/19 16:15 Temperature Pulse Rate 71 68 68 Respiratory Rate 22 20 16 Blood Pressure Blood Pressure [Right Arm] 124/66 125/73 136/72 Pulse Oximetry 96 96 97 10/16/19 17:44 Temperature Pulse Rate 70 Respiratory Rate 17 Blood Pressure Blood Pressure [Right Arm] 124/70 Pulse Oximetry 99 <Bronson Quiñones MD - Last Filed: 10/17/19 07:19> Orders Ordered: Discontinued Medications Amlodipine Besylate (Norvasc) 2.5 mg PO NOW ONE Stop: 10/16/19 13:10 Last Admin: 10/16/19 13:14 Dose: 2.5 mg Documented by: BTONEDago Vital Signs Vital signs: Vital Signs - 8 hr 10/16/19 12:30 10/16/19 12:45 10/16/19 13:15 Temperature 98.8 F Pulse Rate 104 H 80 80 Respiratory Rate 18 16 27 H Blood Pressure 129/91 H Blood Pressure [Right Arm] 176/92 H 171/81 H Pulse Oximetry 100 99 100 10/16/19 13:30 10/16/19 14:00 10/16/19 14:30 Temperature Pulse Rate 72 69 71 Respiratory Rate 18 16 21 Blood Pressure Blood Pressure [Right Arm] 148/70 H 131/69 125/65 Pulse Oximetry 95 96 97 10/16/19 15:00 10/16/19 15:45 10/16/19 16:15 Temperature Pulse Rate 71 68 68 Respiratory Rate 22 20 16 Blood Pressure Blood Pressure [Right Arm] 124/66 125/73 136/72 Pulse Oximetry 96 96 97 10/16/19 17:44 Temperature Pulse Rate 70 Respiratory Rate 17 Blood Pressure Blood Pressure [Right Arm] 124/70 Pulse Oximetry 99 MDM - Arrhythmia/Palpitations <Syeda Paz, VIDEO TAPE DUPLICATOR- - Last Filed: 10/16/19 19:12> Differential Diagnosis Differential diagnosis: Likely palpitations and anxiety Lab Data Result diagrams: 10/16/19 12:37 10/16/19 12:37 Labs: Lab Results 10/16/19 10/16/19 10/16/19 Range/Units 12:37 12:37 12:37 WBC 6.7 (4.5-11.0) X10^3/uL RBC 4.34 (4.0-5.2) X10^6/uL Hgb 13.3 (12.0-16.0) g/dL Hct 38.4 (36-46) % MCV 88.5 (80-100) fL MCH 30.7 (26-34) PG MCHC 34.7 (30-36) % RDW 13.6 (11.6-14.8) % Plt Count 235 (150-400) X10^3/uL Neut % (Auto) 46.8 L (50-75) % Lymph % (Auto) 38.2 (25-40) % [place] % (Auto) 9.7 (3-14) % Eos % (Auto) 3.8 (2-4) % Baso % (Auto) 1.5 (0-2) % Neut # (Auto) 3100 (0245-0048) /uL Lymph # (Auto) 2600 (7291-6417) /uL [place] # (Auto) 600 (0-900) /uL Eos # (Auto) 300 (0-450) /uL Baso # (Auto) 100 (0-100) /uL PT 11.9 (10.1-12.7) SECONDS INR 1.0 (0.9-1.3) APTT 30 D (26.4-36.2) SECONDS Sodium 137 (137-145) mmol/L Potassium 3.4 (3.4-5.1) mmol/L Chloride 102 (98-107) mmol/L Carbon Dioxide 26 (22-32) mmol/L BUN 14 (7-17) mg/dL Creatinine 0.67 (0.52-1.04) mg/dL Estimated GFR > 60.0 (>60) mL/min BUN/Creatinine Ratio 20.9 (6-22) Glucose 146 H (80-110) mg/dL Calcium 9.5 (8.4-10.2) mg/dL Magnesium 2.1 (1.6-2.3) mg/dL Total Bilirubin 0.6 (0.2-1.3) mg/dL AST 32 (14-36) IU/L ALT 24 (<35) IU/L Alkaline Phosphatase 95 (38-126) U/L Total Creatine Kinase 58 (30-135) U/L CK-MB (CK-2) TNP CK-MB (CK-2) Rel Index TNP Troponin I < 0.012 (0.01-0.034) ng/mL NT-Pro-B Natriuret Pep 289 H (<125) pg/mL Total Protein 8.5 H (6.3-8.2) g/dL Albumin 5.0 (3.5-5.0) g/dL Globulin 3.5 (1.7-4.1) g/dL Albumin/Globulin Ratio 1.4 (1.0-2.8) TSH 10/16/19 10/16/19 10/16/19 Range/Units 12:37 12:37 12:37 WBC (4.5-11.0) X10^3/uL RBC (4.0-5.2) X10^6/uL Hgb (12.0-16.0) g/dL Hct (36-46) % MCV (80-100) fL MCH (26-34) PG MCHC (30-36) % RDW (11.6-14.8) % Plt Count (150-400) X10^3/uL Neut % (Auto) (50-75) % Lymph % (Auto) (25-40) % [place] % (Auto) (3-14) % Eos % (Auto) (2-4) % Baso % (Auto) (0-2) % Neut # (Auto) (0039-6094) /uL Lymph # (Auto) (9883-1626) /uL [place] # (Auto) (0-900) /uL Eos # (Auto) (0-450) /uL Baso # (Auto) (0-100) /uL PT (10.1-12.7) SECONDS INR (0.9-1.3) APTT (26.4-36.2) SECONDS Sodium (137-145) mmol/L Potassium (3.4-5.1) mmol/L Chloride (98-107) mmol/L Carbon Dioxide (22-32) mmol/L BUN (7-17) mg/dL Creatinine (0.52-1.04) mg/dL Estimated GFR (>60) mL/min BUN/Creatinine Ratio (6-22) Glucose (80-110) mg/dL Calcium (8.4-10.2) mg/dL Magnesium Cancelled (1.6-2.3) mg/dL Total Bilirubin (0.2-1.3) mg/dL AST (14-36) IU/L ALT (<35) IU/L Alkaline Phosphatase (38-126) U/L Total Creatine Kinase Cancelled (30-135) U/L CK-MB (CK-2) Cancelled CK-MB (CK-2) Rel Index Cancelled Troponin I Cancelled (0.01-0.034) ng/mL NT-Pro-B Natriuret Pep 282 H (<125) pg/mL Total Protein (6.3-8.2) g/dL Albumin (3.5-5.0) g/dL Globulin (1.7-4.1) g/dL Albumin/Globulin Ratio (1.0-2.8) TSH Cancelled 10/16/19 10/16/19 10/16/19 Range/Units 13:31 15:45 16:39 WBC (4.5-11.0) X10^3/uL RBC (4.0-5.2) X10^6/uL Hgb (12.0-16.0) g/dL Hct (36-46) % MCV (80-100) fL MCH (26-34) PG MCHC (30-36) % RDW (11.6-14.8) % Plt Count (150-400) X10^3/uL Neut % (Auto) (50-75) % Lymph % (Auto) (25-40) % [place] % (Auto) (3-14) % Eos % (Auto) (2-4) % Baso % (Auto) (0-2) % Neut # (Auto) (8598-5557) /uL Lymph # (Auto) (5312-0733) /uL [place] # (Auto) (0-900) /uL Eos # (Auto) (0-450) /uL Baso # (Auto) (0-100) /uL PT (10.1-12.7) SECONDS INR (0.9-1.3) APTT (26.4-36.2) SECONDS Sodium (137-145) mmol/L Potassium (3.4-5.1) mmol/L Chloride (98-107) mmol/L Carbon Dioxide (22-32) mmol/L BUN (7-17) mg/dL Creatinine (0.52-1.04) mg/dL Estimated GFR (>60) mL/min BUN/Creatinine Ratio (6-22) Glucose (80-110) mg/dL Calcium (8.4-10.2) mg/dL Magnesium (1.6-2.3) mg/dL Total Bilirubin (0.2-1.3) mg/dL AST (14-36) IU/L ALT (<35) IU/L Alkaline Phosphatase (38-126) U/L Total Creatine Kinase 58 47 (30-135) U/L CK-MB (CK-2) TNP TNP CK-MB (CK-2) Rel Index TNP TNP Troponin I < 0.012 < 0.012 (0.01-0.034) ng/mL NT-Pro-B Natriuret Pep (<125) pg/mL Total Protein (6.3-8.2) g/dL Albumin (3.5-5.0) g/dL Globulin (1.7-4.1) g/dL Albumin/Globulin Ratio (1.0-2.8) TSH 0.99 D Urine Dip Bedside Urine Glucose Negative Bedside Urine Bilirubin - Negative Bedside Urine Ketone - Negative Urine Specific [place] 1.015 Bedside Urine Occult Blood - Negative Bedside Urine pH 6.5 Bedside Urine Protein - Negative Bedside Urine Urobilinogen - Negative Bedside Urine Nitrite - Negative Bedside Urine Leukocytes - Negative Esterase Imaging Data Chest x-ray: Radiologist's Impresson: [facility] [address] [place] [id number] XRay Report Signed Patient: Yi Seay BOLIVARR#: [id number] : 5Acct:[id number] Age/Sex: 73 / FDate of Service: 10/16/19 Loc: ED Accession Number: [id number] Procedure: XR chest 1V Ordering Provider: Bronson Quiñones MD PROCEDURE: XR CHEST 1V INDICATIONS: palpitations TECHNIQUE: One view of the chest was acquired. COMPARISON: [facility], CR, XR CHEST 1V, 08/09/2019, 21:23. [facility], CR, XR CHEST 1V, 05/23/2019, 21:35. 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 Surgical clips in the left thyroid region.. Lungs and pleura: Lungs are clear. No pleural effusions or pneumothorax. Mediastinum: Mediastinal contours appear normal. Heart size is normal. Bones and chest wall: No suspicious bony lesions. Overlying soft tissues appear unremarkable. IMPRESSION: No pneumonia found. No cardiomegaly or CHF seen. Sternotomy wires, probable prior thyroid surgery on the left. Dictated by: Dayron Sweeney M.D. on 10/16/2019 at 13:37 Approved by: Dayron Sweeney M.D. on 10/16/2019 at 13:37 ECG Data Attestation: I personally reviewed and interpreted this ECG as follows: Interpretation: Sinus rhythm. Ventricular 81. P.r. interval 173. QRS 129. viewed by Dr Ishmael SABA Narrative Medical decision making narrative: The patient is a 73-year-old female with history of SVT who presents with a chief complaint of palpitations and [place]def[place] She denies any chest pain. Her initial troponin is negative, chest x-ray is no acute findings. Her repeat troponin is negative. Her magnesium level electrolytes are within normal limits. Her TSH is within normal limits. The patient appeared very anxious throughout her stay in the emergency department, teary at times. I spoke with Dr. Serna regarding the patient, who states that she can be started on 25 mg p.o. metoprolol succinate daily. He discussed follow-up with Dr. Martell as well as the possibility of a Holter monitor as an outpatient. I conveyed this to the patient, and she immediately stated she was very nervous about adding more blood pressure medication. I discussed that her blood pressures in the 150s, heart rate in the 80 her vital signs could support this medication at this point time. I discussed at length the importance of following up with primary care provider as well as Cardiology. Patient states understanding of return precautions of any acute concerns, concern of heart or stroke as well as follow- up care with Cardiology and PCP. No questions or concerns upon discharge. <Bronson Quiñones MD - Last Filed: 10/17/19 07:19> Lab Data Labs: Lab Results 10/16/19 10/16/19 10/16/19 Range/Units 12:37 12:37 12:37 WBC 6.7 (4.5-11.0) X10^3/uL RBC 4.34 (4.0-5.2) X10^6/uL Hgb 13.3 (12.0-16.0) g/dL Hct 38.4 (36-46) % MCV 88.5 (80-100) fL MCH 30.7 (26-34) PG MCHC 34.7 (30-36) % RDW 13.6 (11.6-14.8) % Plt Count 235 (150-400) X10^3/uL Neut % (Auto) 46.8 L (50-75) % Lymph % (Auto) 38.2 (25-40) % [place] % (Auto) 9.7 (3-14) % Eos % (Auto) 3.8 (2-4) % Baso % (Auto) 1.5 (0-2) % Neut # (Auto) 3100 (1933-0784) /uL Lymph # (Auto) 2600 (5150-4687) /uL [place] # (Auto) 600 (0-900) /uL Eos # (Auto) 300 (0-450) /uL Baso # (Auto) 100 (0-100) /uL PT 11.9 (10.1-12.7) SECONDS INR 1.0 (0.9-1.3) APTT 30 D (26.4-36.2) SECONDS Sodium 137 (137-145) mmol/L Potassium 3.4 (3.4-5.1) mmol/L Chloride 102 (98-107) mmol/L Carbon Dioxide 26 (22-32) mmol/L BUN 14 (7-17) mg/dL Creatinine 0.67 (0.52-1.04) mg/dL Estimated GFR > 60.0 (>60) mL/min BUN/Creatinine Ratio 20.9 (6-22) Glucose 146 H (80-110) mg/dL Calcium 9.5 (8.4-10.2) mg/dL Magnesium 2.1 (1.6-2.3) mg/dL Total Bilirubin 0.6 (0.2-1.3) mg/dL AST 32 (14-36) IU/L ALT 24 (<35) IU/L Alkaline Phosphatase 95 (38-126) U/L Total Creatine Kinase 58 (30-135) U/L CK-MB (CK-2) TNP CK-MB (CK-2) Rel Index TNP Troponin I < 0.012 (0.01-0.034) ng/mL NT-Pro-B Natriuret Pep 289 H (<125) pg/mL Total Protein 8.5 H (6.3-8.2) g/dL Albumin 5.0 (3.5-5.0) g/dL Globulin 3.5 (1.7-4.1) g/dL Albumin/Globulin Ratio 1.4 (1.0-2.8) TSH 10/16/19 10/16/19 10/16/19 Range/Units 12:37 12:37 12:37 WBC (4.5-11.0) X10^3/uL RBC (4.0-5.2) X10^6/uL Hgb (12.0-16.0) g/dL Hct (36-46) % MCV (80-100) fL MCH (26-34) PG MCHC (30-36) % RDW (11.6-14.8) % Plt Count (150-400) X10^3/uL Neut % (Auto) (50-75) % Lymph % (Auto) (25-40) % [place] % (Auto) (3-14) % Eos % (Auto) (2-4) % Baso % (Auto) (0-2) % Neut # (Auto) (6646-7547) /uL Lymph # (Auto) (4408-5574) /uL [place] # (Auto) (0-900) /uL Eos # (Auto) (0-450) /uL Baso # (Auto) (0-100) /uL PT (10.1-12.7) SECONDS INR (0.9-1.3) APTT (26.4-36.2) SECONDS Sodium (137-145) mmol/L Potassium (3.4-5.1) mmol/L Chloride (98-107) mmol/L Carbon Dioxide (22-32) mmol/L BUN (7-17) mg/dL Creatinine (0.52-1.04) mg/dL Estimated GFR (>60) mL/min BUN/Creatinine Ratio (6-22) Glucose (80-110) mg/dL Calcium (8.4-10.2) mg/dL Magnesium Cancelled (1.6-2.3) mg/dL Total Bilirubin (0.2-1.3) mg/dL AST (14-36) IU/L ALT (<35) IU/L Alkaline Phosphatase (38-126) U/L Total Creatine Kinase Cancelled (30-135) U/L CK-MB (CK-2) Cancelled CK-MB (CK-2) Rel Index Cancelled Troponin I Cancelled (0.01-0.034) ng/mL NT-Pro-B Natriuret Pep 282 H (<125) pg/mL Total Protein (6.3-8.2) g/dL Albumin (3.5-5.0) g/dL Globulin (1.7-4.1) g/dL Albumin/Globulin Ratio (1.0-2.8) TSH Cancelled 10/16/19 10/16/19 10/16/19 Range/Units 13:31 15:45 16:39 WBC (4.5-11.0) X10^3/uL RBC (4.0-5.2) X10^6/uL Hgb (12.0-16.0) g/dL Hct (36-46) % MCV (80-100) fL MCH (26-34) PG MCHC (30-36) % RDW (11.6-14.8) % Plt Count (150-400) X10^3/uL Neut % (Auto) (50-75) % Lymph % (Auto) (25-40) % [place] % (Auto) (3-14) % Eos % (Auto) (2-4) % Baso % (Auto) (0-2) % Neut # (Auto) (3028-1061) /uL Lymph # (Auto) (6167-9072) /uL [place] # (Auto) (0-900) /uL Eos # (Auto) (0-450) /uL Baso # (Auto) (0-100) /uL PT (10.1-12.7) SECONDS INR (0.9-1.3) APTT (26.4-36.2) SECONDS Sodium (137-145) mmol/L Potassium (3.4-5.1) mmol/L Chloride (98-107) mmol/L Carbon Dioxide (22-32) mmol/L BUN (7-17) mg/dL Creatinine (0.52-1.04) mg/dL Estimated GFR (>60) mL/min BUN/Creatinine Ratio (6-22) Glucose (80-110) mg/dL Calcium (8.4-10.2) mg/dL Magnesium (1.6-2.3) mg/dL Total Bilirubin (0.2-1.3) mg/dL AST (14-36) IU/L ALT (<35) IU/L Alkaline Phosphatase (38-126) U/L Total Creatine Kinase 58 47 (30-135) U/L CK-MB (CK-2) TNP TNP CK-MB (CK-2) Rel Index TNP TNP Troponin I < 0.012 < 0.012 (0.01-0.034) ng/mL NT-Pro-B Natriuret Pep (<125) pg/mL Total Protein (6.3-8.2) g/dL Albumin (3.5-5.0) g/dL Globulin (1.7-4.1) g/dL Albumin/Globulin Ratio (1.0-2.8) TSH 0.99 D Urine Dip Bedside Urine Glucose Negative Bedside Urine Bilirubin - Negative Bedside Urine Ketone - Negative Urine Specific [place] 1.015 Bedside Urine Occult Blood - Negative Bedside Urine pH 6.5 Bedside Urine Protein - Negative Bedside Urine Urobilinogen - Negative Bedside Urine Nitrite - Negative Bedside Urine Leukocytes - Negative Esterase Discharge Plan Departure Patient Disposition: Home Clinical Impression: Palpitations Discharge Date/Time: 10/16/19 17:54 Instructions: DI for Arrhythmias Activity Restrictions/Additional Instructions: Thank you for trusting us with your care today As I discussed, your cardiac workup came back well I spoke with Dr. Serna from [facility]. He suggested a medication to help control your heart rate I sent this to [facility]. He also suggested that you follow-up with Dr. Martell tomorrow. He stated that an outpatient monitor might be helpful. Please come back to the emergency department for any acute concerns. Prescriptions: New metoprolol succinate 25 mg tablet extended release 24 hr 25 mg PO DAILY Qty: 14 RF: 0 No Action clopidogrel 75 mg Tablet 75 mg PO DAILY Qty: 0 RF: 0 aspirin 81 mg Tablet,Delayed Release (Dr/Ec) 81 mg PO DAILY Qty: 0 RF: 0 losartan [Cozaar] 100 MG tablet 100 mg PO DAILY Qty: 0 RF: 0 atorvastatin [Lipitor] 20 MG tablet 20 mg PO DAILY Qty: 0 RF: 0 multivitamin Tablet 1 tab PO QDAY Qty: 0 RF: 0 amlodipine 2.5 mg tablet 2.5 mg PO BID RF: 0 Calcium 1 tab PO DAILY RF: 0 naproxen [Naprosyn] 500 mg tablet 500 mg PO BID PRN (Reason: pain) Qty: 20 RF: 0 cyclobenzaprine 5 mg tablet 10 mg PO TID PRN (Reason: muscle spasm) Qty: 15 RF: 0 ondansetron 4 mg tablet,disintegrating 4 mg PO Q6H PRN (Reason: nausea and vomiting) Qty: 14 RF: 0 Referrals: Javier Yung MD [Primary Care Provider] - Daja Martell MD [Physician] -
[2019-10-16 13:50] LABS: Creatine Kinase 58 U/L (30-135)
[2019-10-16 14:03] LABS: Troponin I < 0.012 ng/mL (0.01-0.034)
[2019-10-16 16:00] LABS: Creatine Kinase 47 U/L (30-135)
[2019-10-16 16:12] LABS: Troponin I < 0.012 ng/mL (0.01-0.034)
[2019-10-16 17:20] LABS: Thyroid Stimulating Hormone 0.99 uIU/mL (0.47-4.68)
== END 2019-10-16 17:54 | disposition home or self-care (01) ==
PROVIDERS: Emergency Medicine; Emergency Provider Nurse Practitioner Family; PCP Internal Medicine
DX: R00.2 Palpitations (principal); I10 Essential (primary) hypertension; E78.5 Hyperlipidemia, unspecified; F41.9 Anxiety disorder, unspecified
CPT/HCPCS: 36415; 71045; 80053; 81003; 82550; 83735; 83880; 84443; 84484; 85025; 85610; 85730; 93005; 99284

== ENCOUNTER 2019-10-19 19:47 | Emergency (ER) | payer MEDICARE, OTHER, SELFPAY ==
--- NOTE | 2019-10-19 19:53 | ED.GENADULT ---
HPI - General Adult General Chief complaint: Arrhythmia/Palpitations Stated complaint: states an irregular heart beat Time Seen by Provider: 10/19/19 19:53 History of Present Illness HPI narrative: 73-year-old woman with a history of hypertension, hyperlipidemia status post SVT ablation and an open heart surgery presents with a recurrent episode of arrhythmia. She was initially seen on October 15 and was noted to have trigeminy and sinus arrhythmia. She was started on metoprolol and followed up with Dr. Martell her fun house attendant. Zio patch was placed on the and she had a couple of episodes with her heart rate dropping into the low 40s on 25 mg of metoprolol. She has stop this in the interim and added a low dose of potassium as her potassium level had been at 3.4. Today she notes increased of arrhythmia with a sense of palpitations, bigeminy, trigeminy, bradycardia down into the 40s with which she is dizzy and feels like she is going to pass out and a sinus tachycardia as high as the 120s. She is extraordinarily symptomatic and anxious with any of the arrhythmias and the bigeminy and trigeminy despite being physically asymptomatic are dramatically psychiatrically symptomatic. She denies fevers, cough, chest pain she does note dyspnea with the of bradycardia, she does not lay flat due to reflux symptoms so it is unclear she has been having any orthopnea, she notes no lower extremity edema, no abdominal pain, no change to bowel or bladder habits. She does note significant anxiety Related Data Home Medications Medication Instructions Recorded Confirmed aspirin 81 mg PO DAILY #0 02/03/09 09/14/19 clopidogrel 75 mg PO DAILY #0 02/03/09 09/14/19 atorvastatin [Lipitor] 20 mg PO DAILY #0 02/23/13 08/09/19 losartan [Cozaar] 100 mg PO DAILY #0 tab 02/23/13 09/14/19 multivitamin 1 tab PO QDAY #0 tab 02/23/13 08/09/19 Calcium 1 tab PO DAILY 12/14/18 08/09/19 amlodipine 2.5 mg PO BID 12/14/18 09/14/19 Previous Rx's Medication Instructions Recorded cyclobenzaprine 10 mg PO TID PRN #15 tab 08/10/19 naproxen [Naprosyn] 500 mg PO BID PRN #20 tab 08/10/19 ondansetron 4 mg PO Q6H PRN #14 tab 09/14/19 metoprolol succinate 25 mg PO DAILY #14 tab 10/16/19 acebutolol 200 mg PO BID #60 cap 10/19/19 lorazepam 0.5 mg PO BID PRN #10 tab 10/19/19 Allergies Allergy/AdvReac Type Severity Reaction Status Date / Time erythromycin base Allergy Mild Verified 09/14/19 17:21 [ERYTHROMYCIN BASE] prochlorperazine Allergy Mild Verified 09/14/19 17:21 [PROCHLORPERAZINE] Review of Systems Review of Systems Narrative: Remainder of review of systems is otherwise entirely unremarkable Patient History Medical History Carotid artery disease (Chronic) Heart disease (Chronic) Hypertension (Chronic) Multinodular thyroid (Chronic) Stroke (Resolved) SVT (supraventricular tachycardia) (Chronic) Surgical History History of cholecystectomy (Resolved) History of eye surgery (Resolved) History of left common carotid artery stent placement (Resolved) History of surgery (Resolved 05/05/08) Social History Smoking Status: Never smoker Smoking Status: Never smoker alcohol intake frequency: 0-2 drinks per day Substance Use Type: does not use Exam Narrative Exam Narrative: General: Healthy appearing, in no acute distress. Able to give a complete and and somewhat circumferential history. Well-nourished well-developed HEENT: Moist mucous membranes, normal sclera with reactive pupils, Neck: No JVD, supple Respiratory: Lungs are clear to auscultation, no wheezing no rales no rhonchi. Full and symmetrical air movement Cardiac: Regular rate and rhythm no murmurs no bruits Abdomen: Soft nontender good bowel tones, no flank pain Skin: Warm and dry, no rashes Neurologic: Grossly neurologically intact with no obvious asymmetries or abnormalities Extremities: No trauma, well perfused Psych: Cooperative, appropriate insight and affect Initial Vital Signs Initial Vital Signs: Vital Signs Temperature 97.7 F 10/19/19 19:55 Pulse Rate 103 H 10/19/19 19:55 Respiratory Rate 29 H 10/19/19 19:55 Blood Pressure 218/115 H 10/19/19 19:55 Pulse Oximetry 96 10/19/19 19:55 Course Orders Ordered: ED Orders 10/19/19 19:52 EKG-12 Lead Routine 10/19/19 20:00 Complete Blood Count AUTO DIFF Stat Comprehensive Metabolic Panel Stat D Dimer Stat Magnesium Stat NT-proBNP (BNP-Adult 18+) Stat Troponin I Stat 10/19/19 20:20 XR chest 1V Stat Discontinued Medications Acebutolol HCl (Sectral) 200 mg PO NOW ONE Stop: 10/19/19 21:28 Vital Signs Vital signs: Vital Signs - 8 hr 10/19/19 19:55 10/19/19 20:00 10/19/19 20:33 Temperature 97.7 F Pulse Rate 103 H 87 82 Respiratory Rate 29 H 29 H 27 H Blood Pressure 218/115 H Blood Pressure [Right Arm] 193/86 H 163/78 H Pulse Oximetry 96 98 96 10/19/19 21:00 10/19/19 21:30 10/19/19 21:58 Temperature Pulse Rate 74 72 79 Respiratory Rate 28 H 22 29 H Blood Pressure Blood Pressure [Right Arm] 144/67 H 135/68 140/67 Pulse Oximetry 97 96 99 Medical Decision Making Medical Records Medical records reviewed: Yes I reviewed the patient's medical records. Lab Data Lab results reviewed: Yes I reviewed the patient's lab results. Result diagrams: 10/19/19 20:00 10/19/19 20:00 Labs: Lab Results 10/19/19 10/19/19 10/19/19 Range/Units 20:00 20:00 20:00 WBC 8.7 (4.5-11.0) X10^3/uL RBC 4.53 (4.0-5.2) X10^6/uL Hgb 13.8 (12.0-16.0) g/dL Hct 40.0 (36-46) % MCV 88.2 (80-100) fL MCH 30.3 (26-34) PG MCHC 34.4 (30-36) % RDW 13.4 (11.6-14.8) % Plt Count 231 (150-400) X10^3/uL Neut % (Auto) 48.4 L (50-75) % Lymph % (Auto) 37.4 (25-40) % [place] % (Auto) 9.2 (3-14) % Eos % (Auto) 3.8 (2-4) % Baso % (Auto) 1.2 (0-2) % Neut # (Auto) 4200 (3966-3858) /uL Lymph # (Auto) 3300 (1695-4125) /uL [place] # (Auto) 800 (0-900) /uL Eos # (Auto) 300 (0-450) /uL Baso # (Auto) 100 (0-100) /uL D-Dimer < 200 (<230) ng/mL Sodium 137 (137-145) mmol/L Potassium 4.0 (3.4-5.1) mmol/L Chloride 102 (98-107) mmol/L Carbon Dioxide 24 (22-32) mmol/L BUN 12 (7-17) mg/dL Creatinine 0.77 (0.52-1.04) mg/dL Estimated GFR > 60.0 (>60) mL/min BUN/Creatinine Ratio 15.6 (6-22) Glucose 144 H (80-110) mg/dL Calcium 9.8 (8.4-10.2) mg/dL Magnesium (1.6-2.3) mg/dL Total Bilirubin 0.4 (0.2-1.3) mg/dL AST 38 H (14-36) IU/L ALT 21 (<35) IU/L Alkaline Phosphatase 113 (38-126) U/L Troponin I (0.01-0.034) ng/mL NT-Pro-B Natriuret Pep (<125) pg/mL Total Protein 8.1 (6.3-8.2) g/dL Albumin 4.7 (3.5-5.0) g/dL Globulin 3.4 (1.7-4.1) g/dL Albumin/Globulin Ratio 1.4 (1.0-2.8) 05/30/20 Range/Units 20:00 WBC (4.5-11.0) X10^3/uL RBC (4.0-5.2) X10^6/uL Hgb (12.0-16.0) g/dL Hct (36-46) % MCV (80-100) fL MCH (26-34) PG MCHC (30-36) % RDW (11.6-14.8) % Plt Count (150-400) X10^3/uL Neut % (Auto) (50-75) % Lymph % (Auto) (25-40) % [place] % (Auto) (3-14) % Eos % (Auto) (2-4) % Baso % (Auto) (0-2) % Neut # (Auto) (4070-4892) /uL Lymph # (Auto) (6200-5732) /uL [place] # (Auto) (0-900) /uL Eos # (Auto) (0-450) /uL Baso # (Auto) (0-100) /uL D-Dimer (<230) ng/mL Sodium (137-145) mmol/L Potassium (3.4-5.1) mmol/L Chloride (98-107) mmol/L Carbon Dioxide (22-32) mmol/L BUN (7-17) mg/dL Creatinine (0.52-1.04) mg/dL Estimated GFR (>60) mL/min BUN/Creatinine Ratio (6-22) Glucose (80-110) mg/dL Calcium (8.4-10.2) mg/dL Magnesium 2.1 (1.6-2.3) mg/dL Total Bilirubin (0.2-1.3) mg/dL AST (14-36) IU/L ALT (<35) IU/L Alkaline Phosphatase (38-126) U/L Troponin I < 0.012 (0.01-0.034) ng/mL NT-Pro-B Natriuret Pep 444 H (<125) pg/mL Total Protein (6.3-8.2) g/dL Albumin (3.5-5.0) g/dL Globulin (1.7-4.1) g/dL Albumin/Globulin Ratio (1.0-2.8) Normal potassium, magnesium, renal function, troponin. No significantly elevated BNP. Normal D-dimer suggesting no pulmonary embolism. TSH on September 29 was 1.3 and free T4 was 0.91 both within normal limits Imaging Data Chest x-ray: Radiologist's Impression: IMPRESSION: No acute cardiopulmonary disease process. Dictated by: Ana Laura Barahona MD, PhD on 10/19/2019 at 20:33 ECG Data Attestation: I personally reviewed and interpreted this ECG as follows: Interpretation: Sinus arrhythmia at a rate of 98 with frequent PVCs Left axis deviation Right bundle branch block. MDM Narrative Medical decision making narrative: 73-year-old woman with increasingly symptomatic PVCs and sinus arrhythmia. Symptomatic bradycardia spells with heart rates noted in the 40s for brief periods of time. Tachycardia with bigeminy and trigeminy as fast as 120 beats per minute. Currently has a Zio patch in place. No evidence of infection, electrolyte abnormalities, thyroid issues, PE, acute coronary syndrome or other life-threatening diagnoses at this time. She tried metoprolol and had increased periods of bradycardia and was told by Dr. Martell to discontinue the metoprolol. She continues with amlodipine 2.5 mg twice a day. We briefly discussed the possibility that a pacemaker might be needed to allow appropriate medications to control her symptomatic arrhythmias. She is adamantly opposed to this idea. I also broached the idea of an anxiolytic in the form of Valium or Ativan as the arrhythmia makes her dramatically more anxious with Jen exacerbates the arrhythmia. Again, she is not interested at all in using and anxiolytics. Cases briefly reviewed with Dr. Kellogg, on-call Cardiology. He recommended a trial of acebutolol, noting that it can decrease PVCs but is going to have less overall fact on rate and will be less likely to cause bradycardia. She is willing to consider this. Will give the 1st dose of 200 mg here in the emergency department. Prescription for 200 mg twice a day will be written and will have her keep her scheduled follow-up with Dr. Martell next week. Encouraged her to return to the emergency department if she is having increasing episodes of symptomatic bradycardia with any dyspnea, near-syncope or chest pain. Patient is safe for home discharge at this time Discharge Plan Departure Patient Disposition: Home Clinical Impression: Sinus arrhythmia Discharge Date/Time: 10/19/19 22:20 Instructions: Arrhythmias Activity Restrictions/Additional Instructions: Thank you for coming in today You have a very frustrating problem and unfortunately you are particularly sensitive to abnormal heart rhythms. You are having multiple early heartbeats and sinus abnormalities. This is resulting in brief beds of slow heart rate(bradycardia), bigeminy, trigeminy and moderate tachycardia. As your sensing these abnormal heartbeats, your becoming more anxious which sends more epinephrine into her blood stream which exacerbates the abnormal heartbeats. The workup that was done on Monday and repeated again today suggests that you are not having any life-threatening rhythms. Your kidney function, electrolytes(including potassium calcium and magnesium) are all normal. There is no sign of blood clots to her lungs, abnormal thyroid issues or heart attack or heart attack like syndromes. When you tried metoprolol you had more episodes of bradycardia. In reviewing your care with Dr. Kellogg, fun house attendant on-call and one of Dr. Jacobo partners, he recommended trying Acebutolol. This is one of the 1st beta kalani medications that came out and can be helpful in suppressing the extra heartbeats with out causing significant bradycardia. The lowest starting dose for this is 200 mg twice a day. We do not have this on the formulary in the hospital so I am unable to give you a dose this evening. I have electronically transmitted a prescription to [facility] in [place] so you can begin the medication tomorrow. You do need to follow-up with Dr. Martell later this week. Having the Zio patch in place with these medication changes will help Dr. Martell make the best evidence based medical decisions for you. I have offered a mild anxiolytic, lorazepam. You declined this in the emergency room. I have still included a prescription if you change your mind. This medicine will help so that the arrhythmia is less troublesome to you. It will not prevent you from noticing if the rhythm has change and is causing problems. If it is too slow you will still notice that you are short of breath, you may be dizzy standing up or feel like you are going to pass out. On initial arrival in the emergency department you were having a quite erratic heart rate however after resting for a bit and being in a safe and monitored place your heart rate has slowed and stabilized to a regular sinus rhythm in the 70s. It is safe for you to go home. Again, I do want to stress that even though the irregular heart rate is very distressing it is not life-threatening. If you are noticing a very slow heart rate associated with dizziness, a sense that your going to pass out or shortness of breath, you do need to return to the emergency department I wish you the best Prescriptions: New lorazepam 0.5 mg tablet 0.5 mg PO BID PRN (Reason: arrythmia) Qty: 10 RF: 0 acebutolol 200 mg capsule 200 mg PO BID Qty: 60 RF: 0 No Action clopidogrel 75 mg Tablet 75 mg PO DAILY Qty: 0 RF: 0 aspirin 81 mg Tablet,Delayed Release (Dr/Ec) 81 mg PO DAILY Qty: 0 RF: 0 losartan [Cozaar] 100 MG tablet 100 mg PO DAILY Qty: 0 RF: 0 atorvastatin [Lipitor] 20 MG tablet 20 mg PO DAILY Qty: 0 RF: 0 multivitamin Tablet 1 tab PO QDAY Qty: 0 RF: 0 amlodipine 2.5 mg tablet 2.5 mg PO BID RF: 0 Calcium 1 tab PO DAILY RF: 0 naproxen [Naprosyn] 500 mg tablet 500 mg PO BID PRN (Reason: pain) Qty: 20 RF: 0 cyclobenzaprine 5 mg tablet 10 mg PO TID PRN (Reason: muscle spasm) Qty: 15 RF: 0 ondansetron 4 mg tablet,disintegrating 4 mg PO Q6H PRN (Reason: nausea and vomiting) Qty: 14 RF: 0 metoprolol succinate 25 mg tablet extended release 24 hr 25 mg PO DAILY Qty: 14 RF: 0 Referrals: Javier Yung MD [Primary Care Provider] -
[2019-10-19 19:55] VITALS: BP 218/115; PULSE 103; RESP 29; TEMP 36.5; O2SAT 96; BMI 21.9
[2019-10-19 20:00] VITALS: BP 193/86; PULSE 87; RESP 29; O2SAT 98
--- NOTE | 2019-10-19 20:20 | DI.RAD.S_ITS ---
PROCEDURE: XR CHEST 1V INDICATIONS: cardiac arrythmia TECHNIQUE: One view of the chest was acquired. COMPARISON: [facility], , XR CHEST 1V, 10/16/2019, 13:08. FINDINGS: Surgical changes and devices: Median sternotomy wires. 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 Cholecystectomy clips. Lungs and pleura: Lungs are clear. No pleural effusions or pneumothorax. Mediastinum: Mediastinal contours appear normal. Heart size is normal. Bones and chest wall: No suspicious bony lesions. Overlying soft tissues appear unremarkable. IMPRESSION: No acute cardiopulmonary disease process. Dictated by: Ana Laura Barahona MD, PhD on 10/19/2019 at 20:33 Approved by: Ana Laura Barahona MD, PhD on 10/19/2019 at 20:34
[2019-10-19 20:27] LABS: Add Manual Diff / Slide Review NO; Basophils Absolute Auto 100 /uL (0-100); Basophils Percent Auto 1.2 % (0-2); Eosinophils Absolute Auto 300 /uL (0-450); Eosinophils Percent Auto 3.8 % (2-4); Hemoglobin 13.8 g/dL (12.0-16.0); Lymphocytes Absolute Auto 3300 /uL (1100-4500); Lymphocytes Percent Auto 37.4 % (25-40); Mean Corpuscular HGB Conc 34.4 % (30-36); Mean Corpuscular Hemoglobin 30.3 PG (26-34); Mean Corpuscular Volume 88.2 fL (80-100); Monocytes Absolute Auto 800 /uL (0-900); Monocytes Percent Auto 9.2 % (3-14); Neutrophils Absolute Auto 4200 /uL (1500-7000); Neutrophils Percent Auto 48.4 % (50-75); Platelet Count 231 X10^3/uL (150-400); Red Blood Cell Count 4.53 X10^6/uL (4.0-5.2); Red Cell Distribution Width 13.4 % (11.6-14.8); White Blood Cell Count 8.7 X10^3/uL (4.5-11.0)
[2019-10-19 20:33] VITALS: BP 163/78; PULSE 82; RESP 27; O2SAT 96
[2019-10-19 20:34] LABS: Magnesium 2.1 mg/dL (1.6-2.3)
[2019-10-19 20:35] LABS: Alanine Aminotransferase 21 IU/L (<35); Albumin 4.7 g/dL (3.5-5.0); Albumin Globulin Ratio 1.4 (1.0-2.8); Alkaline Phosphatase 113 U/L (38-126); Aspartate Aminotransferase 38 IU/L (14-36); BUN Creatinine Ratio 15.6 (6-22); Bilirubin Total 0.4 mg/dL (0.2-1.3); Blood Urea Nitrogen 12 mg/dL (7-17); Calcium 9.8 mg/dL (8.4-10.2); Carbon Dioxide 24 mmol/L (22-32); Chloride 102 mmol/L (98-107); Estimated Glomerular Filt Rate > 60.0 mL/min (>60); Globulin 3.4 g/dL (1.7-4.1); Glucose 144 mg/dL (80-110); HEMOLYSIS < 15 (0-50); Sodium 137 mmol/L (137-145); Total Protein 8.1 g/dL (6.3-8.2)
[2019-10-19 20:46] LABS: NT-proBNP (BNP-Adult 18+) 444 pg/mL (<125); Troponin I < 0.012 ng/mL (0.01-0.034)
[2019-10-19 20:52] LABS: D Dimer < 200 ng/mL (<230)
[2019-10-19 21:00] VITALS: BP 144/67; PULSE 74; RESP 28; O2SAT 97
[2019-10-19 21:30] VITALS: BP 135/68; PULSE 72; RESP 22; O2SAT 96
[2019-10-19 21:58] VITALS: BP 140/67; PULSE 79; RESP 29; O2SAT 99
--- NOTE | 2019-10-19 21:59 | PC.NURSE ---
Recommended medication not available from pharmacy. Night pharmacist contacted by Coordinator.
--- NOTE | 2019-10-19 22:02 | PC.NURSE ---
Pt has opted to remove all monitoring devices.
== END 2019-10-19 22:20 | disposition home or self-care (01) ==
PROVIDERS: Emergency Provider Emergency Medicine; PCP Internal Medicine
DX: I49.8 Other specified cardiac arrhythmias (principal); I10 Essential (primary) hypertension; E78.5 Hyperlipidemia, unspecified
CPT/HCPCS: 36415; 71045; 80053; 83735; 83880; 84484; 85025; 85379; 93005; 93010; 99284

== ENCOUNTER 2019-10-31 22:22 | Emergency (ER) | payer MEDICARE, OTHER, SELFPAY ==
[2019-10-31 22:25] VITALS: BP 178/80; PULSE 76; RESP 20; TEMP 36.8; O2SAT 99
--- NOTE | 2019-10-31 22:47 | ED.GENADULT ---
HPI - General Adult General Chief complaint: Upper Respiratory Symptoms Stated complaint: SOB Time Seen by Provider: 10/31/19 22:44 Source: patient Mode of arrival: Ambulatory Limitations: no limitations History of Present Illness HPI narrative: 73-year-old woman with a history of hypertension, hyperlipidemia, open heart surgery and SVT ablation comes in complaining of acute dyspnea starting at 9:00 p.m. tonartemio. She states that she typically sleeps sitting well prop up due to her reflux and presence of a Schatzki ring. She was sitting on the couch watching TV and all of a sudden had significant laryngospasm and upper airway constriction and had difficulty catching her breath. She does not describe a significant episode of burning as if she was having a reflux episode and she also notes that she does take proton pump inhibitors. She denies previous fevers, chills, cough, any history of pulmonary issues whatsoever, no abdominal pain, no lower extremity edema. She was seen in the ER recently with trigeminy and discharged home with a prescription for acebutolol. She had a episode similar to the 1 she experienced this evening after taking the 2nd pill of acebutolol, she looked up and saw that there were contraindications with bronchospasm so she is soon to that it was causing the symptoms. The trigeminy resolved spontaneously and she has been doing fine in the interval week until presentation today. Related Data Home Medications Medication Instructions Recorded Confirmed aspirin 81 mg PO DAILY #0 02/03/09 09/14/19 clopidogrel 75 mg PO DAILY #0 02/03/09 09/14/19 atorvastatin [Lipitor] 20 mg PO DAILY #0 02/23/13 08/09/19 losartan [Cozaar] 100 mg PO DAILY #0 tab 02/23/13 09/14/19 multivitamin 1 tab PO QDAY #0 tab 02/23/13 08/09/19 Calcium 1 tab PO DAILY 12/14/18 08/09/19 amlodipine 2.5 mg PO BID 12/14/18 09/14/19 Previous Rx's Medication Instructions Recorded cyclobenzaprine 10 mg PO TID PRN #15 tab 08/10/19 naproxen [Naprosyn] 500 mg PO BID PRN #20 tab 08/10/19 ondansetron 4 mg PO Q6H PRN #14 tab 09/14/19 metoprolol succinate 25 mg PO DAILY #14 tab 10/16/19 acebutolol 200 mg PO BID #60 cap 10/19/19 lorazepam 0.5 mg PO BID PRN #10 tab 10/19/19 Allergies Allergy/AdvReac Type Severity Reaction Status Date / Time erythromycin base Allergy Mild Verified 09/14/19 17:21 [ERYTHROMYCIN BASE] prochlorperazine Allergy Mild Verified 09/14/19 17:21 [PROCHLORPERAZINE] Review of Systems Review of Systems Narrative: Pertinent positive and negative findings as per HPI Remainder of review of systems is otherwise unremarkable for Constitutional: Fevers, chills, weakness ENT: No sore throat, neck pain, ear pain GI: Nausea, vomiting, diarrhea, change in bowel habits, black or bloody stools : Dysuria, hematuria, flank pain MS: Muscle weakness, numbness, joint swelling or warmth Skin: Rashes, nonhealing lesions Neuro: Syncope, dizziness, tingling Patient History Medical History (Updated 11/01/19 @ 00:41 by Tasha Anand MD) Carotid artery disease (Chronic) Heart disease (Chronic) Hypertension (Chronic) Multinodular thyroid (Chronic) Stroke (Resolved) SVT (supraventricular tachycardia) (Chronic) Surgical History History of cholecystectomy (Resolved) History of eye surgery (Resolved) History of left common carotid artery stent placement (Resolved) History of surgery (Resolved 05/05/08) Social History Smoking Status: Never smoker Smoking Status: Never smoker alcohol intake frequency: 0-2 drinks per day Substance Use Type: does not use Exam Narrative Exam Narrative: General: Healthy appearing, in moderate distress due to coughing and upper airway sound in restriction. Able to give a complete and coherent history while speaking in full extended sentences. Well-nourished well-developed HEENT: Moist mucous membranes, normal sclera with reactive pupils, Neck: No JVD, supple Respiratory: Significant upper airway noise and rhonchi worse in the right mid axillary area with scattered wheeze throughout. Full and symmetrical air movement Cardiac: Regular rate and rhythm no murmurs no bruits Abdomen: Soft nontender good bowel tones, no flank pain Skin: Warm and dry, no rashes Neurologic: Grossly neurologically intact with no obvious asymmetries or abnormalities Extremities: No trauma, well perfused Psych: Cooperative, appropriate insight and affect Initial Vital Signs Initial Vital Signs: Vital Signs Temperature 98.3 F 10/31/19 22:25 Pulse Rate 76 10/31/19 22:25 Respiratory Rate 20 10/31/19 22:25 Blood Pressure 178/80 H 10/31/19 22:25 Pulse Oximetry 99 10/31/19 22:25 Course Orders Ordered: ED Orders 10/31/19 22:15 Complete Blood Count AUTO DIFF Stat Comprehensive Metabolic Panel Stat D Dimer Stat NT-proBNP (BNP-Adult 18+) Stat Troponin I Stat 10/31/19 23:05 XR chest 1V Stat EKG-12 Lead Stat Discontinued Medications Albuterol (Ventolin) 2.5 mg INH NOW ONE Stop: 10/31/19 23:05 Last Admin: 10/31/19 23:21 Dose: 2.5 mg Documented by: DEVON Aspirin (Aspirin Chew) 324 mg PO NOW ONE Stop: 10/31/19 23:05 Last Admin: 10/31/19 23:50 Dose: Not Given Documented by: RAJENDRA Vital Signs Vital signs: Vital Signs - 8 hr 10/31/19 22:25 10/31/19 23:21 Temperature 98.3 F Pulse Rate 76 73 Respiratory Rate 20 20 Blood Pressure 178/80 H Pulse Oximetry 99 99 Medical Decision Making Medical Records Medical records reviewed: Yes I reviewed the patient's medical records. Lab Data Lab results reviewed: Yes I reviewed the patient's lab results. Result diagrams: 10/31/19 22:15 10/31/19 22:15 Labs: Lab Results 10/31/19 10/31/19 10/31/19 Range/Units 22:15 22:15 22:15 WBC 7.3 (4.5-11.0) X10^3/uL RBC 4.40 (4.0-5.2) X10^6/uL Hgb 13.4 (12.0-16.0) g/dL Hct 38.7 (36-46) % MCV 87.8 (80-100) fL MCH 30.4 (26-34) PG MCHC 34.7 (30-36) % RDW 13.4 (11.6-14.8) % Plt Count 225 (150-400) X10^3/uL Neut % (Auto) 50.2 (50-75) % Lymph % (Auto) 32.7 (25-40) % Fajardo % (Auto) 10.7 (3-14) % Eos % (Auto) 6.1 H (2-4) % Baso % (Auto) 0.3 (0-2) % Neut # (Auto) 3600 (3373-4599) /uL Lymph # (Auto) 2400 (9093-1231) /uL Fajardo # (Auto) 800 (0-900) /uL Eos # (Auto) 400 (0-450) /uL Baso # (Auto) 0 (0-100) /uL D-Dimer < 200 (<230) ng/mL Sodium 135 L (137-145) mmol/L Potassium 3.5 (3.4-5.1) mmol/L Chloride 102 (98-107) mmol/L Carbon Dioxide 27 (22-32) mmol/L BUN 13 (7-17) mg/dL Creatinine 0.73 (0.52-1.04) mg/dL Estimated GFR > 60.0 (>60) mL/min BUN/Creatinine Ratio 17.8 (6-22) Glucose 118 H (80-110) mg/dL Calcium 9.4 (8.4-10.2) mg/dL Total Bilirubin 0.4 (0.2-1.3) mg/dL AST 30 (14-36) IU/L ALT 20 (<35) IU/L Alkaline Phosphatase 92 (38-126) U/L Troponin I < 0.012 (0.01-0.034) ng/mL NT-Pro-B Natriuret Pep 182 H (<125) pg/mL Total Protein 8.0 (6.3-8.2) g/dL Albumin 4.7 (3.5-5.0) g/dL Globulin 3.3 (1.7-4.1) g/dL Albumin/Globulin Ratio 1.4 (1.0-2.8) Imaging Data Chest x-ray: Attestation: I personally reviewed and interpreted this imaging study as follows: My Impression: No obvious infiltrate, no pleural effusion, stable cardiac silhouette. Similar to prior chest which x-rays when exposure taken into account ECG Data Attestation: I personally reviewed and interpreted this ECG as follows: Interpretation: Sinus rhythm at a rate of 71 Left axis deviation Right bundle branch block No acute STT wave changes No evidence of bigeminy or trigeminy MDM Narrative Medical decision making narrative: No evidence of acute coronary syndrome, pneumonia/pneumothorax/pleural effusion, no heart failure, and D-dimer is low suggesting no evidence pulmonary embolism. She has cleared nicely still has some rhonchorous noises in the right axillary line with a nonproductive cough. Most likely this is bronchospasm and irritation after a slight bit of reflux of gastric contents into her trachea and probably in to the right mainstem bronchus. Reviewed signs and symptoms of developing pneumonia. No indication for prophylactic antibiotics at this time. She will be discharged home. Questions are answered. She is safe for discharge Discharge Plan Departure Patient Disposition: Home Clinical Impression: Bronchospasm, acute Acid reflux Qualifiers: Esophagitis presence: esophagitis presence not specified Qualified Code(s): K21.9 - Gastro-esophageal reflux disease without esophagitis Instructions: DI for Gastroesophageal Reflux Disease (GERD) Activity Restrictions/Additional Instructions: Thank you for coming in today It is terrifying when you do have that laryngospasm and bronchospasm and are unable to breathe. With thorough workup today there is no evidence of heart attack, acute pneumonia, pneumothorax, pleural effusion, pulmonary embolism, or other life-threatening events. I suspect that you had an episode of refluxed gastric fluid in to the upper part of your trachea. Any time your lungs are exposed to acid, there is a dramatic reaction, as you have experienced. I do not have additional options to offer at this time. I would expect the coughing and bronchospasm to diminish significantly over the next 12 hours. You may find that moist air like what you would find while taking a hot shower helps relieve some of the cough. If you are developing fevers, feeling more short of breath, beginning to feel sick, or notice that your cough is now productive I would recommend re-evaluation. In the meantime, please continue all of your current medications including your pantoprazole. Prescriptions: No Action clopidogrel 75 mg Tablet 75 mg PO DAILY Qty: 0 RF: 0 aspirin 81 mg Tablet,Delayed Release (Dr/Ec) 81 mg PO DAILY Qty: 0 RF: 0 losartan [Cozaar] 100 MG tablet 100 mg PO DAILY Qty: 0 RF: 0 atorvastatin [Lipitor] 20 MG tablet 20 mg PO DAILY Qty: 0 RF: 0 multivitamin Tablet 1 tab PO QDAY Qty: 0 RF: 0 amlodipine 2.5 mg tablet 2.5 mg PO BID RF: 0 Calcium 1 tab PO DAILY RF: 0 naproxen [Naprosyn] 500 mg tablet 500 mg PO BID PRN (Reason: pain) Qty: 20 RF: 0 cyclobenzaprine 5 mg tablet 10 mg PO TID PRN (Reason: muscle spasm) Qty: 15 RF: 0 ondansetron 4 mg tablet,disintegrating 4 mg PO Q6H PRN (Reason: nausea and vomiting) Qty: 14 RF: 0 metoprolol succinate 25 mg tablet extended release 24 hr 25 mg PO DAILY Qty: 14 RF: 0 lorazepam 0.5 mg tablet 0.5 mg PO BID PRN (Reason: arrythmia) Qty: 10 RF: 0 acebutolol 200 mg capsule 200 mg PO BID Qty: 60 RF: 0 Referrals: Javier Yung MD [Primary Care Provider] -
--- NOTE | 2019-10-31 23:05 | DI.RAD.S_ITS ---
PROCEDURE: XR CHEST 1V INDICATIONS: cough, chest pain. TECHNIQUE: One view of the chest was acquired. COMPARISON: [facility], CR, XR CHEST 1V, 10/19/2019, 20:16. FINDINGS: Surgical changes and devices: Sternotomy wires Lungs and pleura: Mild diffuse interstitial prominence. No pleural effusions or pneumothorax. Mediastinum: Mediastinal contours appear normal. Heart size is normal. Bones and chest wall: No suspicious bony lesions. Overlying soft tissues appear unremarkable. IMPRESSION: Mild diffuse interstitial prominence. Dictated by: Daniel Pollard M.D. on 11/01/2019 at 8:23 Approved by: Daniel Pollard M.D. on 11/01/2019 at 8:24
[2019-10-31 23:21] VITALS: PULSE 73; RESP 20; O2SAT 99
[2019-10-31] MEDS: ALBUTEROL 2.5 MG/3 ML NEB (ADULT) INH (23:21)
[2019-10-31 23:32] LABS: Add Manual Diff / Slide Review NO; Basophils Absolute Auto 0 /uL (0-100); Basophils Percent Auto 0.3 % (0-2); Eosinophils Absolute Auto 400 /uL (0-450); Eosinophils Percent Auto 6.1 % (2-4); Hematocrit 38.7 % (36-46); Hemoglobin 13.4 g/dL (12.0-16.0); Lymphocytes Absolute Auto 2400 /uL (1100-4500); Lymphocytes Percent Auto 32.7 % (25-40); Mean Corpuscular HGB Conc 34.7 % (30-36); Mean Corpuscular Hemoglobin 30.4 PG (26-34); Mean Corpuscular Volume 87.8 fL (80-100); Monocytes Absolute Auto 800 /uL (0-900); Monocytes Percent Auto 10.7 % (3-14); Neutrophils Absolute Auto 3600 /uL (1500-7000); Neutrophils Percent Auto 50.2 % (50-75); Platelet Count 225 X10^3/uL (150-400); Red Cell Distribution Width 13.4 % (11.6-14.8); White Blood Cell Count 7.3 X10^3/uL (4.5-11.0)
[2019-10-31 23:42] LABS: Alanine Aminotransferase 20 IU/L (<35); Albumin 4.7 g/dL (3.5-5.0); Albumin Globulin Ratio 1.4 (1.0-2.8); Alkaline Phosphatase 92 U/L (38-126); Aspartate Aminotransferase 30 IU/L (14-36); BUN Creatinine Ratio 17.8 (6-22); Bilirubin Total 0.4 mg/dL (0.2-1.3); Blood Urea Nitrogen 13 mg/dL (7-17); Calcium 9.4 mg/dL (8.4-10.2); Carbon Dioxide 27 mmol/L (22-32); Chloride 102 mmol/L (98-107); Estimated Glomerular Filt Rate > 60.0 mL/min (>60); Globulin 3.3 g/dL (1.7-4.1); Glucose 118 mg/dL (80-110); HEMOLYSIS < 15 (0-50); Potassium 3.5 mmol/L (3.4-5.1); Sodium 135 mmol/L (137-145)
[2019-10-31] MEDS: ASPIRIN 81 MG CHEW TAB 324 MG PO (23:43)
[2019-10-31 23:44] LABS: D Dimer < 200 ng/mL (<230)
--- NOTE | 2019-10-31 23:50 | PC.NURSE ---
Pt took dose of baby aspirin and plavix this evening at home. Provider okay for pt to not take 324mg of aspirin
[2019-10-31 23:54] LABS: NT-proBNP (BNP-Adult 18+) 182 pg/mL (<125); Troponin I < 0.012 ng/mL (0.01-0.034)
[2019-11-01 00:56] VITALS: BP 183/78; PULSE 78; RESP 15; O2SAT 98
== END 2019-11-01 01:00 | disposition home or self-care (01) ==
PROVIDERS: Emergency Provider Emergency Medicine; PCP Internal Medicine
DX: J98.01 Acute bronchospasm (principal); K21.9 Gastro-esophageal reflux disease without esophagitis; I10 Essential (primary) hypertension; E78.5 Hyperlipidemia, unspecified
CPT/HCPCS: 36415; 71045; 80053; 83880; 84484; 85025; 85379; 93005; 94640; 99284; J7613

== ENCOUNTER 2019-11-02 11:10 | Emergency (ER) | payer MEDICARE, OTHER, SELFPAY ==
[2019-11-02 11:24] VITALS: BP 151/88; PULSE 86; RESP 17; TEMP 36.4; O2SAT 95; BMI 21.9
--- NOTE | 2019-11-02 11:51 | DI.RAD.S_ITS ---
PROCEDURE: XR CHEST 2V INDICATIONS: coughing, aspiration? TECHNIQUE: 2 views of the chest were acquired. COMPARISON: [facility], CT, CT ANGIO CHEST PE PROTOCOL, 02/22/2018, 16:08. [facility], CR, XR CHEST 1V, 10/16/2019, 13:08. [facility], CR, XR CHEST 1V, 10/19/2019, 20:16. [facility], CR, XR CHEST 1V, 10/31/2019, 23:23. FINDINGS: Surgical changes and devices: Post CABG changes are seen. Cholecystectomy clips are seen. Lungs and pleura: Lungs are clear. No pleural effusions or pneumothorax. Mediastinum: The cardiac contours are within normal limits. The aorta demonstrates calcification and tortuosity. Bones and chest wall: No suspicious bony abnormalities. Mild dextroconvex scoliotic curvature is seen. Age-appropriate bony degenerative changes are seen. Soft tissues appear unremarkable. IMPRESSION: No focal infiltrates are seen. If there is strong clinical concern for developing aspiration pneumonia in this patient, please consider a short term followup examination, as aspiration pneumonia can have a delayed radiographic appearance. Postoperative and degenerative changes are seen. Dictated by: Mehran Diaz M.D. on 11/02/2019 at 11:13 Approved by: Mehran Diaz M.D. on 11/02/2019 at 11:14
[2019-11-02] MEDS: MAG HYDROX/ALUMINUM/SIMETH SUS 20 ML, LIDOCAINE VISCOUS 2% 15 ML PO (12:11)
--- NOTE | 2019-11-02 12:11 | ED_ITS ---
HPI - URI/Sore Throat <KALPESH Davalos - Last Filed: 11/02/19 22:04> General Chief Complaint: Upper Respiratory Symptoms Stated Complaint: cough, chills, weakness, fatigue x2days Time Seen by Provider: 11/02/19 11:32 Source: patient Mode of arrival: Ambulatory Limitations: no limitations History of Present Illness HPI Narrative: This is a 73-year-old female, nonsmoker, who presents to ED with frequent nonproductive cough, frequent belching, acid reflux symptoms. She was here couple of days ago and evaluated with extensive tests to rule out cardiac disease and discharged to home with GERD with bronchospasm and possible aspiration. Patient reports she may need prednisone therapy for frequent cough. Patient denies history of asthma, postnasal drips, facial sinus pain. Patient denies fever, chills, nausea or vomiting. Patient started taking increasing pantoprazole 40 mg twice a day since last night from once a day. Patient set up in a chair and trying to get sleep last night and did not sleep well and reports feeling tired. Patient states she had endoscopies done and her GI specialist she has Shatzki's ring and she will require to take PPI. Patient reports her vo ice seems changed with her symptoms. Patient denies chest pain, dyspnea. Patient is currently taking Plavix and baby aspirin after the carotid stent and has history of hypertension. Related Data Home Medications Medication Instructions Recorded Confirmed aspirin 81 mg PO DAILY #0 02/03/09 09/14/19 clopidogrel 75 mg PO DAILY #0 02/03/09 09/14/19 atorvastatin [Lipitor] 20 mg PO DAILY #0 02/23/13 08/09/19 losartan [Cozaar] 100 mg PO DAILY #0 tab 02/23/13 09/14/19 multivitamin 1 tab PO QDAY #0 tab 02/23/13 08/09/19 Calcium 1 tab PO DAILY 12/14/18 08/09/19 amlodipine 2.5 mg PO BID 12/14/18 09/14/19 Previous Rx's Medication Instructions Recorded cyclobenzaprine 10 mg PO TID PRN #15 tab 08/10/19 naproxen [Naprosyn] 500 mg PO BID PRN #20 tab 08/10/19 ondansetron 4 mg PO Q6H PRN #14 tab 09/14/19 metoprolol succinate 25 mg PO DAILY #14 tab 10/16/19 acebutolol 200 mg PO BID #60 cap 10/19/19 lorazepam 0.5 mg PO BID PRN #10 tab 10/19/19 prednisone 40 mg PO DAILY 4 Days #8 tab 11/02/19 sucralfate [Carafate] 1 gram PO Q6H #420 ml 11/02/19 Allergies Allergy/AdvReac Type Severity Reaction Status Date / Time erythromycin base Allergy Mild Verified 09/14/19 17:21 [ERYTHROMYCIN BASE] prochlorperazine Allergy Mild Verified 09/14/19 17:21 [PROCHLORPERAZINE] Review of Systems <KALPESH Davalos - Last Filed: 11/02/19 22:04> Review of Systems Narrative: General: Denies fever, chills, fatigue (+) , malaise, sweats. HEENT: Denies sinus pain, ear pain, sore throat, difficulty swallowing, dizzine ss. Respiratory: See HPI Cardiovascular: Denies chest pain, palpitations, orthopnea, edema. Gastrointestinal: See HPI : Denies dysuria, frequency, incontinence, hematuria, urinary retention. Musculoskeletal: Denies weakness, joint pain or bony pain. Skin: Denies rash, skin lesions, or other. Neurologic: Denies weakness, headache, numbness, change in speech, confusion, seizures, incoordination. Psychiatric: No concerning psychosocial issues. 12-point review of systems is negative except for those stated above. Patient History <KALPESH Davalos - Last Filed: 11/02/19 22:04> Medical History Carotid artery disease (Chronic) Heart disease (Chronic) Hypertension (Chronic) Multinodular thyroid (Chronic) Stroke (Resolved) SVT (supraventricular tachycardia) (Chronic) Surgical History History of cholecystectomy (Resolved) History of eye surgery (Resolved) History of left common carotid artery stent placement (Resolved) History of surgery (Resolved 05/05/08) Social History Smoking Status: Never smoker Smoking Status: Never smoker alcohol intake frequency: 0-2 drinks per day Substance Use Type: does not use Exam <Tadeo KALPESH Pillai - Last Filed: 11/02/19 22:04> Narrative Exam Narrative: GEN: Alert, oriented x 3, appears to be tired but well nourished, and in no acute distress. Head: Normal cephalic, atraumatic. No scalp or temporal tenderness, palpable mass or rash. EYES: Pupils are equal, round, and reactive to light and accommodation. Extraocular muscles are intact bilaterally. There is no subconjunctival hemorrhage, exudate and sclera non-icteric. ENT: Bilateral auditory canals and tympanic membranes clear. Hearing difficulty. Nose without bleeding, purulent discharge or deviation. Facial sinuses nontender to palpate. Mucous membrane moist, no mucosal lesion. Throat without erythema, tonsillar hypertrophy or exudate. Uvula in midline, airway patent. Neck: Trachea in midline. No JVD, non-tender without lymphadenopathy. No masses or thyroid megaly. Supple, non-tender and no meningeal signs. CARDIAC: Normal regular rate and rhythm without murmurs, gallops, or rubs. No chest wall tenderness. No peripheral edema, cyanosis or pallor. Capillary refill is less than 2 seconds. RESPIRATORY: Very mild wheezing on ALEK cleared after taking several deep breaths. Frequent nonproductive cough without rales or rhonchi. No stridor, respiratory distress, increase work of breathing, or accessary muscle used. ABD: Abdomen soft, nontender and non-distended. No guarding or rebound tenderness to palpate. Bowel sounds are normal in all 4 quadrants. There is no palpable masses or organomegaly. EXT: Full painless ROM of all extremities with no loss of sensation, strength, effusion or edema. SKIN: Warm, dry, normal color for patient. No erythema, lesions or rash over visible areas. BACK: Nontender without deformity or crepitance. No flank tenderness. NEUROLOGICAL: Alert and oriented to place, time and person. Sensation and motor function intact bilaterally. No facial droops, dysphasia. PSYCHIATRIC: Good judgement and reason, without hallucinations, abnormal affect or abnormal behaviors during the examination. Patient is not suicidal. Initial Vital Signs Initial Vital Signs: Vital Signs Temperature 97.6 F 11/02/19 11:24 Pulse Rate 86 11/02/19 11:24 Respiratory Rate 17 11/02/19 11:24 Blood Pressure 151/88 H 11/02/19 11:24 Pulse Oximetry 95 11/02/19 11:24 <Bronson Quiñones MD - Last Filed: 11/03/19 07:44> Initial Vital Signs Initial Vital Signs: Vital Signs Temperature 97.6 F 11/02/19 11:24 Pulse Rate 86 11/02/19 11:24 Respiratory Rate 17 11/02/19 11:24 Blood Pressure 151/88 H 11/02/19 11:24 Pulse Oximetry 95 11/02/19 11:24 Scores <[facility] - Last Filed: 11/02/19 22:04> GCS [place] coma scale eye opening: Spontaneous Jr coma scale verbal response: Orientated Jr coma scale motor response: Obey commands [place] coma scale total score: 15 Course <[facility] - Last Filed: 11/02/19 22:04> Orders Ordered: Discontinued Medications Albuterol (Ventolin) 2.5 mg INH NOW ONE Stop: 11/02/19 13:00 Last Admin: 11/02/19 13:42 Dose: 2.5 mg Documented by: RRALSTO Al Hydrox/Mg Hydrox/Simethicone 20 ml/ Lidocaine HCl 15 ml 0 ml PO NOW ONE Stop: 11/02/19 11:52 Last Admin: 11/02/19 12:11 Dose: 45 ml Documented by: MICHAEL Vital Signs Vital signs: Vital Signs - 8 hr 11/02/19 13:49 Pulse Rate 70 Respiratory Rate 18 <Bronson Quiñones MD - Last Filed: 11/03/19 07:44> Orders Ordered: Discontinued Medications Albuterol (Ventolin) 2.5 mg INH NOW ONE Stop: 11/02/19 13:00 Last Admin: 11/02/19 13:42 Dose: 2.5 mg Documented by: RRALSTO Al Hydrox/Mg Hydrox/Simethicone 20 ml/ Lidocaine HCl 15 ml 0 ml PO NOW ONE Stop: 11/02/19 11:52 Last Admin: 11/02/19 12:11 Dose: 45 ml Documented by: MICHAEL Vital Signs Vital signs: Vital Signs - 8 hr 11/02/19 13:49 Pulse Rate 70 Respiratory Rate 18 MDM - URI/Sore Throat <KALPESH Davalos - Last Filed: 11/02/19 22:04> Differential Diagnosis Differential diagnosis: Likely bronchitis and other (Bronchial spasm, GERD, esophagitis) Medical Records Attestation: I reviewed the patient's medical records. Imaging Data Chest x-ray: Radiologist's Impression: [address] [address] XRay Report Signed Patient: Yi Seay JMR#: [id number] : 5Acct:[id number] Age/Sex: 73 / FDate of Service: 11/02/19 Loc: ED Accession Number: [id number] Procedure: XR chest 2V Ordering Provider: Tadeo Pillai PROCEDURE: XR CHEST 2V INDICATIONS: coughing, aspiration? TECHNIQUE: 2 views of the chest were acquired. COMPARISON: [facility], CT, CT ANGIO CHEST PE PROTOCOL, 02/22/2018, 16:08. [facility], CR, XR CHEST 1V, 10/16/2019, 13:08. [facility], CR, XR CHEST 1V, 10/19/2019, 20:16. [facility], CR, XR CHEST 1V, 10/31/2019, 23:23. FINDINGS: Surgical changes and devices: Post CABG changes are seen. Cholecystectomy clips are seen. Lungs and pleura: Lungs are clear. No pleural effusions or pneumothorax. Mediastinum: The cardiac contours are within normal limits. The aorta demonstrates calcification and tortuosity. Bones and chest wall: No suspicious bony abnormalities. Mild dextroconvex scoliotic curvature is seen. Age-appropriate bony degenerative changes are seen. Soft tissues appear unremarkable. IMPRESSION: No focal infiltrates are seen. If there is strong clinical concern for developing aspiration pneumonia in this patient, please consider a short term followup examination, as aspiration pneumonia can have a delayed radiographic appearance. Postoperative and degenerative changes are seen. Dictated by: Mehran Diaz M.D. on 11/02/2019 at 11:13 Approved by: Mehran Diaz M.D. on 11/02/2019 at 11:14 MDM Narrative Medical decision making narrative: This is a 73 year female who presents to ED with a request of prednisone. She has been seen multiple times since May this year with dysplasia, choking, anxiety symptom, vomiting, palpitations, with most recent visit 2 days ago with dyspnea and coughing. She had multiple extensive workup done including cardiac enzymes, EKG, x-ray, D-dimer, BNP, CBC and CMP with negative testings. Patient states she has history of GERD, Schatzki's ring and trying to sleep sitting up right in a recliner for her symptoms last night. Since last night her PPI pantoprazole has been increased and now takes 40 mg b.i.d. dose. Patient states she continues to have nonproductive cough and feeling fatigued without good rest last night, frequent belching. Her daughter has asthma and she suggested to be re-evaluated for need for prednisone for her symptoms. Chest XR test again obtained today to rule out aspirated pneumonia. There was no focal infiltrate appreciated without pleural effusion or pneumothorax. Patient's O2 sat is 97-100% in room air without increased work of breathing. Auscultated wheezing once but this has been cleared with taking several deep breaths. Patient had frequent nonproductive cough while in ED. since patient had taken pantoprazole 40 mg before coming into ED, patient provided with GI cocktail with minimal improvement. Patient also provided with albuterol neb treatment with minimal improvement. Patient is afebrile with Within normal limit blood pressure and heart rate during ED stay. Patient discharged to home with sucralfate for GERD symptoms and prednisone 40 mg for 4 days course to decrease airway inflammation. Other lab tests were deferred since patient had multiple workup done in the past last 1 as 2 days ago with negative findings. Return precautions were discussed with patient and patient advised to follow-up with her ela teacher as scheduled and PCP and GI specialist. Patient verbalized understanding and agreement with the treatment plan. Discharge Plan Departure Patient Disposition: Home Clinical Impression: Bronchospasm, acute Acid reflux Qualifiers: Esophagitis presence: esophagitis presence not specified Qualified Code(s): K21.9 - Gastro-esophageal reflux disease without esophagitis Discharge Date/Time: 11/02/19 14:26 Instructions: DI for Gastroesophageal Reflux Disease (GERD), DI for Cough -- Adult Activity Restrictions/Additional Instructions: You have been diagnosed with [GERD symptoms and frequent coughing likely from acid reflux. X-ray test today does not show acute findings such as pneumonia at this time.]. What to do: *Take your medications as directed. Please star prednisone 40 mg once a day for next 4 days for frequent coughing and possible irritation to her airway. Please add sucralfate before meal in empty stomach for 4 times a day to protect your stomach *Follow up with your primary care provider in 2-3 days, call for an appointment. Let them know you were seen in the ED and that we asked you to be seen in follow up. *Return to ED if you have any new, worsening, or concerning symptoms, such as [chest pain, breathing difficulty, unable to tolerate fluids, fever, productive cough, or any acute concerns]. Prescriptions: New sucralfate [Carafate] 100 mg/mL suspension 1 gram PO Q6H Qty: 420 RF: 0 prednisone 20 mg tablet 40 mg PO DAILY 4 Days Qty: 8 RF: 0 No Action clopidogrel 75 mg Tablet 75 mg PO DAILY Qty: 0 RF: 0 aspirin 81 mg Tablet,Delayed Release (Dr/Ec) 81 mg PO DAILY Qty: 0 RF: 0 losartan [Cozaar] 100 MG tablet 100 mg PO DAILY Qty: 0 RF: 0 atorvastatin [Lipitor] 20 MG tablet 20 mg PO DAILY Qty: 0 RF: 0 multivitamin Tablet 1 tab PO QDAY Qty: 0 RF: 0 amlodipine 2.5 mg tablet 2.5 mg PO BID RF: 0 Calcium 1 tab PO DAILY RF: 0 naproxen [Naprosyn] 500 mg tablet 500 mg PO BID PRN (Reason: pain) Qty: 20 RF: 0 cyclobenzaprine 5 mg tablet 10 mg PO TID PRN (Reason: muscle spasm) Qty: 15 RF: 0 ondansetron 4 mg tablet,disintegrating 4 mg PO Q6H PRN (Reason: nausea and vomiting) Qty: 14 RF: 0 metoprolol succinate 25 mg tablet extended release 24 hr 25 mg PO DAILY Qty: 14 RF: 0 lorazepam 0.5 mg tablet 0.5 mg PO BID PRN (Reason: arrythmia) Qty: 10 RF: 0 acebutolol 200 mg capsule 200 mg PO BID Qty: 60 RF: 0 Referrals: Javier Yung MD [Primary Care Provider] -
--- NOTE | 2019-11-02 12:14 | PC.NURSE ---
Obtained patient care. Sitting at edge of bed. Call light in reach. Patient drinking GI Cocktail but reports she does not like the way it has numbed her mouth. Explained that sensation will be temporary.
[2019-11-02 13:35] VITALS: BP 118/71; PULSE 66; O2SAT 99
[2019-11-02] MEDS: ALBUTEROL 2.5 MG/3 ML NEB (ADULT) INH (13:42)
[2019-11-02 13:49] VITALS: PULSE 70; RESP 18
== END 2019-11-02 14:26 | disposition home or self-care (01) ==
PROVIDERS: Emergency Provider Nurse Practitioner Family; PCP Internal Medicine
DX: J98.01 Acute bronchospasm (principal); K21.9 Gastro-esophageal reflux disease without esophagitis
CPT/HCPCS: 71046; 94640; 99283; J7613

== ENCOUNTER → 2019-11-13 12:13 | Outpatient (CLI) | payer MEDICARE, OTHER, SELFPAY ==
[2019-11-13 13:36] LABS: Magnesium 2.1 mg/dL (1.6-2.3)
== END ==
PROVIDERS: PCP Internal Medicine; Referring Provider Internal Medicine; Visit Provider Internal Medicine
DX: E83.42 Hypomagnesemia (principal)
CPT/HCPCS: 36415; 83735

== ENCOUNTER → 2019-12-13 08:39 | Outpatient (CLI) | payer MEDICARE, OTHER, SELFPAY ==
[2019-12-13 10:19] LABS: BUN Creatinine Ratio 22.9 (6-22); Blood Urea Nitrogen 16 mg/dL (7-17); Calcium 9.6 mg/dL (8.4-10.2); Carbon Dioxide 26 mmol/L (22-32); Chloride 101 mmol/L (98-107); Estimated Glomerular Filt Rate > 60.0 mL/min (>60); Glucose 109 mg/dL (80-110); HEMOLYSIS < 15 (0-50); Potassium 4.4 mmol/L (3.4-5.1); Sodium 134 mmol/L (137-145)
== END ==
PROVIDERS: PCP Internal Medicine; Referring Provider Internal Medicine; Visit Provider Internal Medicine
DX: E83.42 Hypomagnesemia (principal)
CPT/HCPCS: 36415; 80048; 83735

== ENCOUNTER → 2019-12-24 15:08 | Outpatient (CLI) | payer MEDICARE, OTHER, SELFPAY ==
[2019-12-25 18:12] LABS: COVID19 Sendout Not Detected (Not Detect)
== END ==
PROVIDERS: PCP Internal Medicine; Visit Provider Physician Assistant
DX: Z11.59 Encounter for screening for other viral diseases (principal)
CPT/HCPCS: 87635

== ENCOUNTER → 2019-12-27 06:57 | Outpatient (CLI) | payer MEDICARE, OTHER, SELFPAY ==
--- NOTE | 2019-12-30 09:29 | PM.PFT.1 ---
Pulmonary Function Test Referral & Results Date Patient Seen: 12/27/19 Requesting provider: Javier Yung Indication: Cough Results: The spirometry demonstrates an FVC of 2.49 L which is 96% of predicted. The FEV1 was measured at 1.88 L which is 97% of predicted. The FEV1/FVC ratio was 75 which is 100% of predicted. Following the administration of bronchodilator there was no appreciable change to above normal numbers. Lung volumes show an SVC of 2.54 L which is 99% of predicted. The diffusing capacity was measured at 15.35 which is 71% of predicted. No hemoglobin value was provided, so no correction for potential anemia could be made, if appropriate. The maximum voluntary ventilation was reduced Interpretation: This study demonstrates probably normal spirometry. There is minimal reduction in diffusing capacity suggesting potential for disease at the capillary alveolar level
== END ==
PROVIDERS: PCP Internal Medicine; Referring Provider Internal Medicine; Visit Provider Internal Medicine
DX: R05 Cough (principal); J98.8 Other specified respiratory disorders
CPT/HCPCS: 94060; 94726; 94729

== ENCOUNTER → 2020-01-04 09:58 | Outpatient (CLI) | payer MEDICARE, OTHER, SELFPAY ==
--- NOTE | 2020-01-04 10:00 | DI.RAD.S_ITS ---
PROCEDURE: XR CHEST 2V INDICATIONS: cough TECHNIQUE: 2 views of the chest were acquired. COMPARISON: [facility], CT, CT ANGIO CHEST PE PROTOCOL, 02/22/2018, 16:08. [facility], CR, XR CHEST 1V, 10/31/2019, 23:23. [facility], CR, XR CHEST 1V, 10/19/2019, 20:16. [facility], CR, XR CHEST 1V, 10/16/2019, 13:08. [facility], CR, XR CHEST 1V, 08/09/2019, 21:23. [facility], CR, XR CHEST 1V, 05/23/2019, 21:35. [facility], CR, XR CHEST 1V, 12/14/2018, 11:10. [facility], CR, XR CHEST 2V, 11/02/2019, 11:48. FINDINGS: Surgical changes and devices: Left lower neck clips are seen. Sternotomy wires are seen. Cholecystectomy clips are seen. Lungs and pleura: Lungs are clear. No pleural effusions or pneumothorax. Mediastinum: The cardiac contours are within normal limits. The aorta demonstrates calcification and tortuosity. Bones and chest wall: Age-appropriate bony degenerative changes are seen. No suspicious bony abnormalities. Soft tissues appear unremarkable. IMPRESSION: Hyperexpanded lungs, without an acute cardiopulmonary process identified. No focal infiltrates are seen. Postoperative and degenerative changes are seen. Dictated by: Mehran Diaz M.D. on 01/04/2020 at 9:30 Approved by: Mehran Diaz M.D. on 01/04/2020 at 9:32
== END ==
PROVIDERS: PCP Internal Medicine; Referring Provider Physician Assistant; Visit Provider Physician Assistant
DX: R05 Cough (principal)
CPT/HCPCS: 71046

== ENCOUNTER → 2020-01-16 08:59 | Outpatient (CLI) | payer MEDICARE, OTHER, SELFPAY ==
[2020-01-16 10:47] LABS: BUN Creatinine Ratio 12.9 (6-22); Blood Urea Nitrogen 9 mg/dL (7-17); Calcium 8.9 mg/dL (8.4-10.2); Carbon Dioxide 26 mmol/L (22-32); Chloride 103 mmol/L (98-107); Estimated Glomerular Filt Rate > 60.0 mL/min (>60); Glucose 99 mg/dL (80-110); HEMOLYSIS < 15 (0-50); Magnesium 2.1 mg/dL (1.6-2.3); Potassium 4.3 mmol/L (3.4-5.1); Sodium 134 mmol/L (137-145)
== END ==
PROVIDERS: PCP Internal Medicine; Referring Provider Internal Medicine; Visit Provider Internal Medicine
DX: E83.42 Hypomagnesemia (principal)
CPT/HCPCS: 36415; 80048; 83735

== ENCOUNTER → 2020-02-13 10:47 | Outpatient (CLI) | payer MEDICARE, OTHER, SELFPAY ==
[2020-02-13 12:56] LABS: BUN Creatinine Ratio 13.4 (6-22); Blood Urea Nitrogen 9 mg/dL (7-17); Calcium 9.2 mg/dL (8.4-10.2); Carbon Dioxide 28 mmol/L (22-32); Chloride 99 mmol/L (98-107); Estimated Glomerular Filt Rate > 60.0 mL/min (>60); Glucose 96 mg/dL (80-110); HEMOLYSIS < 15 (0-50); Magnesium 2.1 mg/dL (1.6-2.3); Potassium 4.3 mmol/L (3.4-5.1); Sodium 133 mmol/L (137-145)
== END ==
PROVIDERS: PCP Internal Medicine; Referring Provider Internal Medicine; Visit Provider Internal Medicine
DX: E83.42 Hypomagnesemia (principal)
CPT/HCPCS: 36415; 80048; 83735

== ENCOUNTER 2020-02-28 09:46 | Emergency (ER) | payer MEDICARE, OTHER, SELFPAY ==
[2020-02-28 09:56] VITALS: BP 165/78; PULSE 82; RESP 18; TEMP 36.7; O2SAT 100
--- NOTE | 2020-02-28 10:02 | DI.CT.S_ITS ---
PROCEDURE: CT HEAD/BRAIN WO CON INDICATIONS: fall w/ injury to right side of face, on Plavix and ASA TECHNIQUE: Noncontrast 4.5 mm thick angled axial sections acquired from the foramen magnum to the vertex, with coronal and sagittal reformats. For radiation dose reduction, the following was used: automated exposure control, adjustment of mA and/or kV according to patient size. COMPARISON: [facility], CT, CT HEAD/BRAIN WO CON, 12/14/2018, 11:06. FINDINGS: Image quality: Excellent. CSF spaces: Basal cisterns are patent. No extra-axial fluid collections. The ventricles are symmetric in size and shape. Brain: No intracranial bleeds or masses. There is cerebral volume loss for age, with resultant ventricular and sulcal prominence. There are periventricular and deep white matter chronic small vessel ischemic changes. There is intracranial internal carotid artery atherosclerosis. Skull and face: Calvarium and visualized facial bones appear intact, without suspicious lesions. Sinuses: Bilateral maxillary, ethmoid and left frontal sinus disease. There is also mild left sphenoid sinus disease. IMPRESSION: No acute intracranial process. Dictated by: Noah Downey M.D. on 02/28/2020 at 10:48 Approved by: Noah Downey M.D. on 02/28/2020 at 10:53
--- NOTE | 2020-02-28 10:02 | DI.CT.S_ITS ---
PROCEDURE: CT FACIAL BONES WO CON INDICATIONS: fall w/ injury to right side of face, on Plavix and ASA TECHNIQUE: Noncontrast 2.5 mm thick axial images acquired from the mandible through the frontal sinuses, with coronal and sagittal reformatting. For radiation dose reduction, the following was used: automated exposure control, adjustment of mA and/or kV according to patient size. COMPARISON: None. FINDINGS: Image quality: Excellent. Bones and teeth: Orbital eddy are intact. Sinus eddy show no fracture or deformity. Nasal bones and septum are intact. Visualized portions of the mandible demonstrate no fractures or subluxation. Zygomatic arches are intact. Pterygoid plates are intact. Visualized portions of the skull base and auditory canals are intact. Sinuses: Pansinus disease. Mastoid air cells within normal limits. Soft tissues: No edema, masses, or fluid collections. No enlarged lymph nodes. No soft tissue lacerations or debris. Vascular: Left-sided ICA vascular stent. IMPRESSION: No fracture. Pansinus disease Dictated by: Noah Downey M.D. on 02/28/2020 at 10:53 Approved by: Noah Downey M.D. on 02/28/2020 at 10:59
--- NOTE | 2020-02-28 10:35 | ED_ITS ---
HPI - General Adult General Chief complaint: Trauma Stated complaint: Tripped and fell, hit her face Time Seen by Provider: 02/28/20 09:57 Source: patient Mode of arrival: Ambulatory Limitations: no limitations History of Present Illness HPI narrative: Patient is a 74-year-old female. On aspirin and Plavix here for evaluation of injuries that she sustained when she tripped while on her walk. She states that she felt like she tripped over some rocks. She felt like her left foot slipped on rocks. She then landed on an outstretched left hand and then fell forward hitting the right side of her face on the ground. There was no loss of consciousness. She was able to get up afterwards. She does have bruising around her right eye an abrasion on her chin. No other injuries reported from the event by the patient Related Data Home Medications Medication Instructions Recorded Confirmed aspirin 81 mg PO DAILY #0 02/03/09 09/14/19 clopidogrel 75 mg PO DAILY #0 02/03/09 09/14/19 atorvastatin [Lipitor] 20 mg PO DAILY #0 02/23/13 08/09/19 losartan [Cozaar] 100 mg PO DAILY #0 tab 02/23/13 09/14/19 multivitamin 1 tab PO QDAY #0 tab 02/23/13 08/09/19 Calcium 1 tab PO DAILY 12/14/18 08/09/19 amlodipine 2.5 mg PO BID 12/14/18 09/14/19 Previous Rx's Medication Instructions Recorded cyclobenzaprine 10 mg PO TID PRN #15 tab 08/10/19 naproxen [Naprosyn] 500 mg PO BID PRN #20 tab 08/10/19 ondansetron 4 mg PO Q6H PRN #14 tab 09/14/19 metoprolol succinate 25 mg PO DAILY #14 tab 10/16/19 acebutolol 200 mg PO BID #60 cap 10/19/19 lorazepam 0.5 mg PO BID PRN #10 tab 10/19/19 sucralfate [Carafate] 1 gram PO Q6H #420 ml 11/02/19 Allergies Allergy/AdvReac Type Severity Reaction Status Date / Time prochlorperazine Allergy Severe Anaphylaxis Verified 02/28/20 09:59 [PROCHLORPERAZINE] erythromycin base Allergy Mild Verified 02/28/20 09:59 [ERYTHROMYCIN BASE] Review of Systems Constitutional Constitutional: Denies chills, Denies fever(s) and Denies headache(s) Eyes Comments: Bruising around the right eye ENT Ears, Nose, Mouth, and Throat: Denies vertigo, Denies headache(s), Denies neck pain, Denies disequilibrium, Denies sinus pressure and Denies sore throat Comments: No dental pain Cardiovascular Cardiovascular: Denies chest pain and Denies dyspnea Respiratory Respiratory: Denies dyspnea Gastrointestinal Gastrointestinal: Denies abdominal pain, Denies nausea and Denies vomiting Genitourinary Genitourinary: Denies dysuria Genitourinary: Denies dysuria Musculoskeletal Musculoskeletal: Denies arthralgias, Denies myalgias and Denies neck pain Integumentary/Breasts Comments: Bruising around the left thumb and bruising around the right eye Neurologic Neurologic: Denies behavioral changes, Denies vertigo, Denies headache(s) and Denies disequilibrium Psychiatric Psychiatric: Denies behavioral changes Hematologic/Lymphatic Comments: On aspirin and Plavix Allergic/Immunologic Allergic/Immunologic: Denies urticaria Patient History Medical History Carotid artery disease (Chronic) Heart disease (Chronic) Hypertension (Chronic) Multinodular thyroid (Chronic) Stroke (Resolved) SVT (supraventricular tachycardia) (Chronic) Surgical History History of cholecystectomy (Resolved) History of eye surgery (Resolved) History of left common carotid artery stent placement (Resolved) History of surgery (Resolved 05/05/08) Social History Smoking Status: Never smoker Smoking Status: Never smoker alcohol intake frequency: 0-2 drinks per day Substance Use Type: does not use Exam Initial Vital Signs Initial Vital Signs: Vital Signs Temperature 98.1 F 02/28/20 09:56 Pulse Rate 82 02/28/20 09:56 Respiratory Rate 18 02/28/20 09:56 Blood Pressure 165/78 H 02/28/20 09:56 Pulse Oximetry 100 02/28/20 09:56 Const General: cooperative and comfortable Limitations: mental status not altered HENCT Head: contusion (Around right eye) Nose: external nose normal Mouth: oral mucosae normal Teeth and gingiva: dentition normal Eyes Periorbital: periorbital findings abnormal right periorbital swelling and periorbital ecchymosis; no crepitus Pupils: PERRL EOM: EOM intact bilaterally Chest Chest: No crepitus and No tenderness Resp Effort & Inspection: normal respiratory effort Auscultation: clear to auscultation bilaterally Cardio Rate: regular rate Rhythm: regular rhythm Back/Spine/Pelvis Cervical Spine: cervical ROM normal, No collar present, No cervical spasm and No cervical spinal tenderness Skin Other: Small contusion at the base of the left thumb and contusion around the right eye Extrem Other: Patient has no tenderness over the anatomic snuffbox or with axial loading of the left thumb. No other upper extremity or lower extremity injuries found on exam or reported by patient Psych Appearance: grossly normal and well kempt Scores GCS Isabella coma scale eye opening: Spontaneous Isabella coma scale verbal response: Orientated Jr coma scale motor response: Obey commands Jr coma scale total score: 15 Nexus Score for C-Spine Focal Neurologic deficit present: No Midline spinal tenderness present: No Altered level of conciousness present: No Intoxication present: No Distracting Injury Present: No Nexus Criteria for C-spine: 0 Course Orders Ordered: ED Orders 02/28/20 10:02 CT facial bones wo con Stat CT head/brain wo con Stat Discontinued Medications Bacitracin (Bacitracin) 1 applic TOP NOW ONE Stop: 02/28/20 11:03 Last Admin: 02/28/20 11:20 Dose: 1 applic Documented by: DANNA Diphtheria/Tetanus/Acell Pertussis (Adacel) 0.5 ml IM .ONCE ONE Stop: 02/28/20 10:08 Last Admin: 02/28/20 10:20 Dose: Not Given Documented by: DANNA Vital Signs Vital signs: Vital Signs - 8 hr 02/28/20 09:56 02/28/20 11:04 Temperature 98.1 F Pulse Rate 82 67 Respiratory Rate 18 17 Blood Pressure 165/78 H 148/77 H Pulse Oximetry 100 99 Medical Decision Making Imaging Data CT scan - head: Radiologist's Impression: [address] [address] [address] Scan Report Signed Patient: DawoodYi JMR#: [id number] : 5Acct:[id number] Age/Sex: 74 / FDate of Service: 02/28/20 Loc: ED Accession Number: [id number] Procedure: CT head/brain wo con Ordering Provider: Lucas Powell D.O. PROCEDURE: CT HEAD/BRAIN WO CON INDICATIONS: fall w/ injury to right side of face, on Plavix and ASA TECHNIQUE: Noncontrast 4.5 mm thick angled axial sections acquired from the foramen magnum to the vertex, with coronal and sagittal reformats. For radiation dose reduction, the following was used: automated exposure control, adjustment of mA and/or kV according to patient size. COMPARISON: [facility], CT, CT HEAD/BRAIN WO CON, 12/14/2018, 11:06. FINDINGS: Image quality: Excellent. CSF spaces: Basal cisterns are patent. No extra-axial fluid collections. The ventricles are symmetric in size and shape. Brain: No intracranial bleeds or masses. There is cerebral volume loss for age, with resultant ventricular and sulcal prominence. There are periventricular and deep white matter chronic small vessel ischemic changes. There is intracranial internal carotid artery atherosclerosis. Skull and face: Calvarium and visualized facial bones appear intact, without suspicious lesions. Sinuses: Bilateral maxillary, ethmoid and left frontal sinus disease. There is also mild left sphenoid sinus disease. IMPRESSION: No acute intracranial process. Dictated by: Noah Downey M.D. on 02/28/2020 at 10:48 Approved by: Noah Downey M.D. on 02/28/2020 at 10:53 CT face: Radiologist's Impression: [place] [address] CT Scan Report Signed Patient: Yi Seay JMR#: [id number] : 5Acct:[id number] Age/Sex: 74 / FDate of Service: 02/28/20 Loc: ED Accession Number: [id number] Procedure: CT facial bones wo con Ordering Provider: Lucas Powell D.O. PROCEDURE: CT FACIAL BONES WO CON INDICATIONS: fall w/ injury to right side of face, on Plavix and ASA TECHNIQUE: Noncontrast 2.5 mm thick axial images acquired from the mandible through the frontal sinuses, with coronal and sagittal reformatting. For radiation dose reduction, the following was used: automated exposure control, adjustment of mA and/or kV according to patient size. COMPARISON: None. FINDINGS: Image quality: Excellent. Bones and teeth: Orbital eddy are intact. Sinus eddy show no fracture or deformity. Nasal bones and septum are intact. Visualized portions of the mandible demonstrate no fractures or subluxation. Zygomatic arches are intact. Pterygoid plates are intact. Visualized portions of the skull base and auditory canals are intact. Sinuses: Pansinus disease. Mastoid air cells within normal limits. Soft tissues: No edema, masses, or fluid collections. No enlarged lymph nodes. No soft tissue lacerations or debris. Vascular: Left-sided ICA vascular stent. IMPRESSION: No fracture. Pansinus disease Dictated by: Noah Downey M.D. on 02/28/2020 at 10:53 Approved by: Noah Downey M.D. on 02/28/2020 at 10:59 MDM Narrative Medical decision making narrative: This was a mechanical fall. She does have a contusion to her left thumb however this needs no intervention. I feel we can hold on x-rays given her physical exam. She has an abrasion to her chin which was cleaned and bacitracin was placed over the area. She has contusion around her right eye. Her head CT and facial CT unremarkable. Upon re-evaluation patient was saying that she was having blurry vision in her right eye. She has had a retinal tear in the past and this I and does have some visual deficits however this is new to her. Her visual acuities 29/200 in the right eye. She is not complaining of any foreign body sensations. I did discuss the case with Dr. Lynn with Ophthalmology who agreed to see the patient upon discharge from the emergency department. Patient will be sent to the ophthalmology clinic. She was given care instructions and return precautions. She expressed understanding and agreement. Discharge Plan Departure Patient Disposition: Home Clinical Impression: Blurred vision, right eye Fall Qualifiers: Encounter type: initial encounter Qualified Code(s): W19.XXXA - Unspecified fall, initial encounter Contusion of hand Qualifiers: Encounter type: initial encounter Laterality: left Qualified Code(s): S60.222A - Contusion of left hand, initial encounter Abrasion of chin Qualifiers: Encounter type: initial encounter Qualified Code(s): S00.81XA - Abrasion of other part of head, initial encounter Contusion of eyelid, right Qualifiers: Encounter type: initial encounter Qualified Code(s): S00.11XA - Contusion of right eyelid and periocular area, initial encounter Instructions: DI for Eye Contusion, How to Prevent Falls Activity Restrictions/Additional Instructions: Upon discharge from the emergency department please head directly over to the [facility] here at the hospital. You will be evaluated by Dr. Lynn from the ophthalmology clinic. Recommend that you place ice over your hand and over your right eye. The day bruising around your right eye I may worsen over the next couple days. You can take Tylenol and/or ibuprofen for any discomfort. Contact your primary provider for follow-up. Please follow all instructions given to by the salesperson furniture. Return to the emergency department for any new or worsening symptoms Prescriptions: No Action clopidogrel 75 mg Tablet 75 mg PO DAILY Qty: 0 RF: 0 aspirin 81 mg Tablet,Delayed Release (Dr/Ec) 81 mg PO DAILY Qty: 0 RF: 0 losartan [Cozaar] 100 MG tablet 100 mg PO DAILY Qty: 0 RF: 0 atorvastatin [Lipitor] 20 MG tablet 20 mg PO DAILY Qty: 0 RF: 0 multivitamin Tablet 1 tab PO QDAY Qty: 0 RF: 0 amlodipine 2.5 mg tablet 2.5 mg PO BID RF: 0 Calcium 1 tab PO DAILY RF: 0 naproxen [Naprosyn] 500 mg tablet 500 mg PO BID PRN (Reason: pain) Qty: 20 RF: 0 cyclobenzaprine 5 mg tablet 10 mg PO TID PRN (Reason: muscle spasm) Qty: 15 RF: 0 ondansetron 4 mg tablet,disintegrating 4 mg PO Q6H PRN (Reason: nausea and vomiting) Qty: 14 RF: 0 metoprolol succinate 25 mg tablet extended release 24 hr 25 mg PO DAILY Qty: 14 RF: 0 lorazepam 0.5 mg tablet 0.5 mg PO BID PRN (Reason: arrythmia) Qty: 10 RF: 0 acebutolol 200 mg capsule 200 mg PO BID Qty: 60 RF: 0 sucralfate [Carafate] 100 mg/mL suspension 1 gram PO Q6H Qty: 420 RF: 0 Referrals: Javier Yung MD [Primary Care Provider] -
[2020-02-28 11:04] VITALS: BP 148/77; PULSE 67; RESP 17; O2SAT 99
[2020-02-28] MEDS: BACITRACIN OINT 0.9 GM PCKT 1 APPLIC TOP (11:20)
== END 2020-02-28 12:03 | disposition home or self-care (01) ==
PROVIDERS: Emergency Provider Emergency Medicine; PCP Internal Medicine
DX: S00.81XA Abrasion of other part of head, initial encounter (principal); S60.222A Contusion of left hand, initial encounter; S00.11XA Contusion of right eyelid and periocular area, initial encounter; H53.8 Other visual disturbances; Z79.82 Long term (current) use of aspirin; Z79.01 Long term (current) use of anticoagulants; W19.XXXA Unspecified fall, initial encounter
CPT/HCPCS: 70450; 70486; 99284

== ENCOUNTER → 2020-03-04 09:19 | Outpatient (CLI) | payer MEDICARE, OTHER, SELFPAY ==
[2020-03-04 09:59] LABS: Erythrocyte Sedimentation Rate 7 MM/HR (0-20)
== END ==
PROVIDERS: PCP Internal Medicine; Referring Provider Internal Medicine; Visit Provider Internal Medicine
DX: M35.3 Polymyalgia rheumatica (principal)
CPT/HCPCS: 36415; 85651

== ENCOUNTER → 2020-03-06 16:20 | Outpatient (CLI) | payer MEDICARE, OTHER, SELFPAY ==
[2020-03-07 21:39] LABS: COVID19 Sendout Not Detected (Not Detect)
== END ==
PROVIDERS: PCP Internal Medicine; Visit Provider Physician Assistant
DX: Z11.59 Encounter for screening for other viral diseases (principal)
CPT/HCPCS: 87635

== ENCOUNTER → 2020-03-06 16:57 | Outpatient (CLI) | payer MEDICARE, OTHER, SELFPAY ==
--- NOTE | 2020-03-06 16:59 | DI.RAD.S_ITS ---
PROCEDURE: XR CHEST 2V INDICATIONS: cough TECHNIQUE: 2 views of the chest were acquired. COMPARISON: [facility], CR, XR CHEST 2V, 01/04/2020, 9:06. FINDINGS: Surgical changes and devices: Remote CABG. Lungs and pleura: Lungs are clear. No pleural effusions or pneumothorax. Mediastinum: Mediastinal contours are normal. Heart size is normal. Bones and chest wall: No suspicious bony abnormalities. Soft tissues appear unremarkable. IMPRESSION: No evidence acute pulmonary process. Dictated by: Daniel Pollard M.D. on 03/06/2020 at 17:17 Approved by: Daniel Pollard M.D. on 03/06/2020 at 17:18
== END ==
PROVIDERS: PCP Internal Medicine; Referring Provider Physician Assistant; Visit Provider Physician Assistant
DX: R05 Cough (principal)
CPT/HCPCS: 71046; 87635

== ENCOUNTER → 2020-03-17 09:28 | Outpatient (CLI) | payer MEDICARE, OTHER, SELFPAY ==
[2020-03-17 10:46] LABS: BUN Creatinine Ratio 22.1 (6-22); Blood Urea Nitrogen 15 mg/dL (7-17); Calcium 9.4 mg/dL (8.4-10.2); Carbon Dioxide 32 mmol/L (22-32); Chloride 101 mmol/L (98-107); Estimated Glomerular Filt Rate > 60.0 mL/min (>60); Glucose 102 mg/dL (80-110); HEMOLYSIS < 15 (0-50); Magnesium 2.2 mg/dL (1.6-2.3); Potassium 4.5 mmol/L (3.4-5.1); Sodium 137 mmol/L (137-145)
== END ==
PROVIDERS: PCP Internal Medicine; Referring Provider Internal Medicine; Visit Provider Internal Medicine
DX: E83.42 Hypomagnesemia (principal)
CPT/HCPCS: 36415; 80048; 83735

== ENCOUNTER 2020-04-09 11:13 | Emergency (ER) | payer MEDICARE, OTHER, SELFPAY ==
[2020-04-09 11:26] VITALS: BP 191/88; PULSE 56; RESP 24; TEMP 36.9; O2SAT 98; BMI 21.9
--- NOTE | 2020-04-09 11:33 | ED.URI ---
HPI - URI/Sore Throat General Chief Complaint: Upper Respiratory Symptoms Stated Complaint: cough Time Seen by Provider: 04/09/20 11:33 Source: patient Mode of arrival: Ambulatory Limitations: no limitations History of Present Illness HPI Narrative: Patient is a 74-year-old female who presents with increasing shortness of breath. She says she has been tested for COVID multiple times she saw online project manager a few months back who gave her an albuterol inhaler. She has been using her albuterol inhaler only as needed. However this morning she woke up and overall feels like she cannot breathe and does not feel good. She says she was up all night coughing. She has some shortness of breath with exertion she denies any fever or chills. She says that she does sleep sitting upright due to GERD. She has no lower extremity swelling. MD Complaint: cough Severity: mild Relieving factors: nothing Related Data Home Medications Medication Instructions Recorded Confirmed aspirin 81 mg PO DAILY #0 02/03/09 03/06/20 clopidogrel 75 mg PO DAILY #0 02/03/09 03/06/20 atorvastatin [Lipitor] 20 mg PO DAILY #0 02/23/13 03/06/20 losartan [Cozaar] 100 mg PO DAILY #0 tab 02/23/13 03/06/20 multivitamin 1 tab PO QDAY #0 tab 02/23/13 03/06/20 Calcium 1 tab PO DAILY 12/14/18 03/06/20 amlodipine 2.5 mg PO BID 12/14/18 03/06/20 Previous Rx's Medication Instructions Recorded cyclobenzaprine 10 mg PO TID PRN #15 tab 08/10/19 naproxen [Naprosyn] 500 mg PO BID PRN #20 tab 08/10/19 ondansetron 4 mg PO Q6H PRN #14 tab 09/14/19 metoprolol succinate 25 mg PO DAILY #14 tab 10/16/19 acebutolol 200 mg PO BID #60 cap 10/19/19 lorazepam 0.5 mg PO BID PRN #10 tab 10/19/19 sucralfate [Carafate] 1 gram PO Q6H #420 ml 11/02/19 Allergies Allergy/AdvReac Type Severity Reaction Status Date / Time prochlorperazine Allergy Severe Anaphylaxis Verified 04/09/20 11:26 [PROCHLORPERAZINE] erythromycin base Allergy Mild Verified 04/09/20 11:26 [ERYTHROMYCIN BASE] Review of Systems Review of Systems ROS Unobtainable: All systems reviewed & are unremarkable except as noted in HPI and below Constitutional Constitutional: Denies body ache(s), Denies chills, Reports fatigue, Denies fever(s) and Denies poor appetite Eyes Eyes: Denies change in vision, Denies eye discharge, Denies irritation and Denies loss of vision ENT Ears, Nose, Mouth, and Throat: Denies vertigo and Denies dizziness Cardiovascular Cardiovascular: Denies chest pain, Denies irregular heart rhythm, Denies lightheadedness, Denies palpitations, Reports dyspnea on exertion and Denies orthopnea Respiratory Respiratory: Reports as per HPI, Reports chest congestion, Reports cough, Denies pain on inspiration, Denies pain with cough and Reports dyspnea on exertion Gastrointestinal Gastrointestinal: Denies abdominal pain, Denies change in bowel habits, Denies diarrhea, Denies nausea and Denies vomiting Musculoskeletal Musculoskeletal: Denies back pain and Denies myalgias Integumentary/Breasts Skin/Breast: Denies pruritus, Denies erythema, Denies rash and Denies wounds Neurologic Neurologic: Denies vertigo, Denies dizziness and Denies loss of vision Endocrine Endocrine: Reports fatigue and Denies palpitations Patient History Medical History (Updated 04/09/20 @ 13:46 by Corinna Siu DO) Carotid artery disease Heart disease Hypertension Multinodular thyroid Stroke SVT (supraventricular tachycardia) Surgical History History of cholecystectomy History of eye surgery History of left common carotid artery stent placement History of surgery (05/05/08) Social History Smoking Status: Never smoker Smoking Status: Never smoker alcohol intake frequency: 0-2 drinks per day Substance Use Type: does not use Exam Initial Vital Signs Initial Vital Signs: Vital Signs Temperature 98.4 F 04/09/20 11:26 Pulse Rate 56 L 04/09/20 11:26 Respiratory Rate 24 04/09/20 11:26 Blood Pressure 191/88 H 04/09/20 11:26 Pulse Oximetry 98 04/09/20 11:26 GENERAL: Alert well-appearing elderly female and in no acute distress. HEENT: Head atraumatic,EOMI, pupils reactive, face symmetric, moist mucous membranes CARDIOVASCULAR: Regular rate and rhythm without murmurs, rubs or gallops. RESPIRATORY: Breath sounds equal bilaterally, no wheezes rales or rhonchi. Speaks in full sentences without difficulty ABDOMEN: Soft, nontender. Normoactive bowel sounds all 4 quadrants. No guarding or rebound. EXTREMITIES: Normal range of motion, no clubbing or edema. Neurovascularly intact NEUROLOGICAL: Alert and oriented x4.Normal gait and speech. SKIN: Warm, dry, no laceration, no petechiae, no rashes or lesions. Course Orders Ordered: ED Orders 04/09/20 11:58 Consult to Respiratory Therapy Evaluate & Treat XR chest 1V Stat EKG-12 Lead Stat 04/09/20 12:42 Complete Blood Count AUTO DIFF Stat Comprehensive Metabolic Panel Stat Magnesium Stat NT-proBNP (BNP-Adult 18+) Stat Partial Thromboplastin Time Stat Procalcitonin Stat Prothrombin Time INR Stat Troponin & CK Cardiac Panel Stat 04/09/20 12:48 COVID19 Stat Vital Signs Vital signs: Vital Signs - 8 hr 04/09/20 12:46 04/09/20 13:00 04/09/20 13:48 Pulse Rate 78 74 79 Respiratory Rate 17 Blood Pressure 132/69 137/70 138/76 Pulse Oximetry 97 96 98 04/09/20 14:00 Pulse Rate 74 Respiratory Rate Blood Pressure 131/65 Pulse Oximetry 95 MDM - URI/Sore Throat Lab Data Attestation: I reviewed the patient's lab results. Result diagrams: 04/09/20 12:42 04/09/20 12:42 Labs: Lab Results 04/09/20 04/09/20 04/09/20 Range/Units 12:42 12:42 12:42 WBC 6.5 (4.5-11.0) X10^3/uL RBC 4.37 (4.0-5.2) X10^6/uL Hgb 13.1 (12.0-16.0) g/dL Hct 38.6 (36-46) % MCV 88.2 (80-100) fL MCH 30.0 (26-34) PG MCHC 34.0 (30-36) % RDW 13.7 (11.6-14.8) % Plt Count 230 (150-400) X10^3/uL Neut % (Auto) 62.9 (50-75) % Lymph % (Auto) 20.7 L (25-40) % [place] % (Auto) 10.9 (3-14) % Eos % (Auto) 4.4 H (2-4) % Baso % (Auto) 1.1 (0-2) % Neut # (Auto) 4100 (3214-8635) /uL Lymph # (Auto) 1400 (9753-9839) /uL [place] # (Auto) 700 (0-900) /uL Eos # (Auto) 300 (0-450) /uL Baso # (Auto) 100 (0-100) /uL PT 12.1 (10.1-12.7) SECONDS INR 1.1 (0.9-1.3) APTT 29 (26.4-36.2) SECONDS Sodium 136 L (137-145) mmol/L Potassium 3.7 (3.4-5.1) mmol/L Chloride 103 (98-107) mmol/L Carbon Dioxide 29 (22-32) mmol/L BUN 10 (7-17) mg/dL Creatinine 0.52 (0.52-1.04) mg/dL Estimated GFR > 60.0 (>60) mL/min BUN/Creatinine Ratio 19.2 (6-22) Glucose 108 (80-110) mg/dL Calcium 9.2 (8.4-10.2) mg/dL Magnesium 2.0 (1.6-2.3) mg/dL Total Bilirubin 0.4 (0.2-1.3) mg/dL AST 27 (14-36) IU/L ALT 19 (<35) IU/L Alkaline Phosphatase 94 (38-126) U/L Total Creatine Kinase 48 (30-135) U/L CK-MB (CK-2) TNP CK-MB (CK-2) Rel Index TNP Troponin I < 0.012 (0.01-0.034) ng/mL NT-Pro-B Natriuret Pep 207 (<450) pg/mL Total Protein 7.9 (6.3-8.2) g/dL Albumin 4.5 (3.5-5.0) g/dL Globulin 3.4 (1.7-4.1) g/dL Albumin/Globulin Ratio 1.3 (1.0-2.8) Procalcitonin (<0.5) ng/mL COVID-19 PCR (Negative) 04/09/20 04/09/20 Range/Units 12:42 12:48 WBC (4.5-11.0) X10^3/uL RBC (4.0-5.2) X10^6/uL Hgb (12.0-16.0) g/dL Hct (36-46) % MCV (80-100) fL MCH (26-34) PG MCHC (30-36) % RDW (11.6-14.8) % Plt Count (150-400) X10^3/uL Neut % (Auto) (50-75) % Lymph % (Auto) (25-40) % [place] % (Auto) (3-14) % Eos % (Auto) (2-4) % Baso % (Auto) (0-2) % Neut # (Auto) (0504-2640) /uL Lymph # (Auto) (5744-1449) /uL [place] # (Auto) (0-900) /uL Eos # (Auto) (0-450) /uL Baso # (Auto) (0-100) /uL PT (10.1-12.7) SECONDS INR (0.9-1.3) APTT (26.4-36.2) SECONDS Sodium (137-145) mmol/L Potassium (3.4-5.1) mmol/L Chloride (98-107) mmol/L Carbon Dioxide (22-32) mmol/L BUN (7-17) mg/dL Creatinine (0.52-1.04) mg/dL Estimated GFR (>60) mL/min BUN/Creatinine Ratio (6-22) Glucose (80-110) mg/dL Calcium (8.4-10.2) mg/dL Magnesium (1.6-2.3) mg/dL Total Bilirubin (0.2-1.3) mg/dL AST (14-36) IU/L ALT (<35) IU/L Alkaline Phosphatase (38-126) U/L Total Creatine Kinase (30-135) U/L CK-MB (CK-2) CK-MB (CK-2) Rel Index Troponin I (0.01-0.034) ng/mL NT-Pro-B Natriuret Pep (<450) pg/mL Total Protein (6.3-8.2) g/dL Albumin (3.5-5.0) g/dL Globulin (1.7-4.1) g/dL Albumin/Globulin Ratio (1.0-2.8) Procalcitonin < 0.05 (<0.5) ng/mL COVID-19 PCR Negative (Negative) Imaging Data Chest x-ray: Radiologist's Impression: PROCEDURE: XR CHEST 1V INDICATIONS: Short of breath TECHNIQUE: One view of the chest was acquired. COMPARISON: [facility], CT, CT ANGIO CHEST PE PROTOCOL, 02/22/2018, 16:08. [facility], CR, XR CHEST 1V, 10/31/2019, 23:23. FINDINGS: Surgical changes and devices: Median sternotomy wires and surgical clips are stable. Lungs and pleura: Interstitial prominence stable. No pleural effusions or pneumothorax. Mediastinum: Mediastinal contours appear normal. Heart size is normal. Bones and chest wall: No suspicious bony lesions. Overlying soft tissues appear unremarkable. IMPRESSION: Stable interstitial prominence which could represent chronic interstitial lung disease versus recurrent pulmonary edema or atypical pneumonia. Dictated by: Ana Laura Barahona MD, PhD on 04/09/2020 at 13:35 ECG Data Attestation: I personally reviewed and interpreted this ECG as follows: Prior ECG tracings: available for review Interpretation: Normal sinus rhythm rate 77 p.r. interval [address] changes similar to previous EKG right bundle branch block noted previously seen as well MDM Narrative Medical decision making narrative: Patient has been seen multiple times for lung issues by pulmonology. She states that her of utero inhaler does not seem to be helping. No other cause of her of her shortness of breath. She has upper respiratory like symptoms including a cough and fatigue. At this time I do not believe her to have PE she is not hypoxic or tachycardic. She is given albuterol nebulizer which seems to help and a spacer as well. At this time no sign of infection and no need for antibiotics COVID-19 is negative. Discharge Plan Departure Patient Disposition: Home Clinical Impression: Acute upper respiratory infection Instructions: DI for Viral Upper Respiratory Infection -- Adult Activity Restrictions/Additional Instructions: *You have been diagnosed with upper respiratory infection *What to do: At this time there is no indication for antibiotics. Her COVID is negative. No pneumonia identified *Continue to take medications as directed Albuterol inhaler 1-2 puffs every 4 hours if needed for cough or shortness of breath take as previously prescribed *Follow up with your primary care provider in 2-3 days *Return to ER if you should have increasing shortness of breath chest pain fever not controlled or any new, worsening or concerning symptoms Prescriptions: No Action clopidogrel 75 mg Tablet 75 mg PO DAILY Qty: 0 RF: 0 aspirin 81 mg Tablet,Delayed Release (Dr/Ec) 81 mg PO DAILY Qty: 0 RF: 0 losartan [Cozaar] 100 MG tablet 100 mg PO DAILY Qty: 0 RF: 0 atorvastatin [Lipitor] 20 MG tablet 20 mg PO DAILY Qty: 0 RF: 0 multivitamin Tablet 1 tab PO QDAY Qty: 0 RF: 0 amlodipine 2.5 mg tablet 2.5 mg PO BID RF: 0 Calcium 1 tab PO DAILY RF: 0 naproxen [Naprosyn] 500 mg tablet 500 mg PO BID PRN (Reason: pain) Qty: 20 RF: 0 cyclobenzaprine 5 mg tablet 10 mg PO TID PRN (Reason: muscle spasm) Qty: 15 RF: 0 ondansetron 4 mg tablet,disintegrating 4 mg PO Q6H PRN (Reason: nausea and vomiting) Qty: 14 RF: 0 metoprolol succinate 25 mg tablet extended release 24 hr 25 mg PO DAILY Qty: 14 RF: 0 lorazepam 0.5 mg tablet 0.5 mg PO BID PRN (Reason: arrythmia) Qty: 10 RF: 0 acebutolol 200 mg capsule 200 mg PO BID Qty: 60 RF: 0 sucralfate [Carafate] 100 mg/mL suspension 1 gram PO Q6H Qty: 420 RF: 0 Referrals: Javier Yung MD [Primary Care Provider] -
--- NOTE | 2020-04-09 11:58 | DI.RAD.S_ITS ---
PROCEDURE: XR CHEST 1V INDICATIONS: Short of breath TECHNIQUE: One view of the chest was acquired. COMPARISON: [facility], CT, CT ANGIO CHEST PE PROTOCOL, 02/22/2018, 16:08. [facility], CR, XR CHEST 1V, 10/31/2019, 23:23. FINDINGS: Surgical changes and devices: Median sternotomy wires and surgical clips are stable. Lungs and pleura: Interstitial prominence stable. No pleural effusions or pneumothorax. Mediastinum: Mediastinal contours appear normal. Heart size is normal. Bones and chest wall: No suspicious bony lesions. Overlying soft tissues appear unremarkable. IMPRESSION: Stable interstitial prominence which could represent chronic interstitial lung disease versus recurrent pulmonary edema or atypical pneumonia. Dictated by: Ana Laura Barahona MD, PhD on 04/09/2020 at 13:35 Approved by: Ana Laura Barahona MD, PhD on 04/09/2020 at 13:36
[2020-04-09 12:46] VITALS: BP 132/69; PULSE 78; O2SAT 97
[2020-04-09 12:54] LABS: Add Manual Diff / Slide Review NO; Basophils Absolute Auto 100 /uL (0-100); Basophils Percent Auto 1.1 % (0-2); Eosinophils Absolute Auto 300 /uL (0-450); Eosinophils Percent Auto 4.4 % (2-4); Hematocrit 38.6 % (36-46); Hemoglobin 13.1 g/dL (12.0-16.0); Lymphocytes Absolute Auto 1400 /uL (1100-4500); Lymphocytes Percent Auto 20.7 % (25-40); Mean Corpuscular Volume 88.2 fL (80-100); Monocytes Absolute Auto 700 /uL (0-900); Monocytes Percent Auto 10.9 % (3-14); Neutrophils Absolute Auto 4100 /uL (1500-7000); Neutrophils Percent Auto 62.9 % (50-75); Platelet Count 230 X10^3/uL (150-400); Red Blood Cell Count 4.37 X10^6/uL (4.0-5.2); Red Cell Distribution Width 13.7 % (11.6-14.8); White Blood Cell Count 6.5 X10^3/uL (4.5-11.0)
[2020-04-09 13:00] VITALS: BP 137/70; PULSE 74; O2SAT 96
[2020-04-09 13:07] LABS: INR 1.1 (0.9-1.3); Prothrombin Time 12.1 SECONDS (10.1-12.7)
[2020-04-09 13:10] LABS: PTT Partial Thromboplastin Tim 29 SECONDS (26.4-36.2)
[2020-04-09 13:12] LABS: Alanine Aminotransferase 19 IU/L (<35); Albumin 4.5 g/dL (3.5-5.0); Albumin Globulin Ratio 1.3 (1.0-2.8); Alkaline Phosphatase 94 U/L (38-126); Aspartate Aminotransferase 27 IU/L (14-36); BUN Creatinine Ratio 19.2 (6-22); Bilirubin Total 0.4 mg/dL (0.2-1.3); Blood Urea Nitrogen 10 mg/dL (7-17); Calcium 9.2 mg/dL (8.4-10.2); Carbon Dioxide 29 mmol/L (22-32); Chloride 103 mmol/L (98-107); Creatine Kinase 48 U/L (30-135); Estimated Glomerular Filt Rate > 60.0 mL/min (>60); Globulin 3.4 g/dL (1.7-4.1); Glucose 108 mg/dL (80-110); HEMOLYSIS < 15 (0-50); Potassium 3.7 mmol/L (3.4-5.1); Sodium 136 mmol/L (137-145); Total Protein 7.9 g/dL (6.3-8.2)
[2020-04-09 13:13] LABS: COVID19 -Nasal RAPID Negative (Negative)
[2020-04-09 13:24] LABS: NT-proBNP (BNP-Adult 18+) 207 pg/mL (<450); Troponin I < 0.012 ng/mL (0.01-0.034)
[2020-04-09 13:30] LABS: Procalcitonin < 0.05 ng/mL (<0.5)
[2020-04-09 13:48] VITALS: BP 138/76; PULSE 79; RESP 17; O2SAT 98
[2020-04-09 14:00] VITALS: BP 131/65; PULSE 74; O2SAT 95
== END 2020-04-09 14:45 | disposition home or self-care (01) ==
PROVIDERS: Emergency Provider Emergency Medicine; PCP Internal Medicine
DX: J06.9 Acute upper respiratory infection, unspecified (principal); R05 Cough; R06.02 Shortness of breath
CPT/HCPCS: 36415; 71045; 80053; 82550; 83735; 83880; 84145; 84484; 85025; 85610; 85730; 87635; 93005; 99281; 99284

== ENCOUNTER → 2020-04-13 11:39 | Outpatient (CLI) | payer MEDICARE, OTHER, SELFPAY ==
--- NOTE | 2020-04-13 | DI.CT.S_ITS ---
PROCEDURE: CT CHEST HIGH RESOLUTION INDICATIONS: Shortness of breath TECHNIQUE: Noncontrast 1.0 and 5.0 mm thick contiguous axial sections from the pulmonary apex to the posterior costophrenic angles, with 7 mm thick coronal and sagittal MIP reformats. 1 mm thick dynamic expiratory images acquired through the upper, mid, and lower lungs. 1.0 mm thick axial sections acquired from the rojelio to the posterior costophrenic angles in the prone end-inspiration position. For radiation dose reduction, the following was used: automated exposure control, adjustment of mA and/or kV according to patient size. COMPARISON: [facility], CR, XR CHEST 1V, 04/09/2020, 13:05. FINDINGS: Image quality: Excellent. Lungs: There is no sign of alveolitis or pulmonary fibrosis. Minimal interstitial prominence, nonspecific. Pleura: No pleural effusions or pneumothorax. Mediastinum: Heart size is normal. No pericardial effusion. Thoracic aorta and central pulmonary arteries are normal in size. Esophagus is normal in caliber. Sternotomy wires, possible prior CABG. [id number] coronary artery calcifications. Bones and chest wall: No suspicious bony lesions. No vertebral body compression fractures. Abdomen: Visualized upper abdominal solid organs and bowel loops appear normal. IMPRESSION: Sternotomy wires, [id number] coronary artery calcifications incidentally noted. Currently there is no sign of alveolitis or focal pneumonia. No pulmonary fibrosis is found. A definite source of reported new shortness of breath is not seen. Dictated by: Dayron Sweeney M.D. on 04/13/2020 at 13:03 Approved by: Dayron Sweeney M.D. on 04/13/2020 at 13:06
== END ==
PROVIDERS: PCP Internal Medicine; Referring Provider Internal Medicine; Visit Provider Internal Medicine
DX: R06.02 Shortness of breath (principal)
CPT/HCPCS: 71250

== ENCOUNTER → 2020-05-29 08:17 | Outpatient (CLI) | payer MEDICARE, OTHER, SELFPAY ==
[2020-05-29 10:31] LABS: BUN Creatinine Ratio 12.5 (6-22); Blood Urea Nitrogen 8 mg/dL (7-17); Carbon Dioxide 29 mmol/L (22-32); Chloride 100 mmol/L (98-107); Estimated Glomerular Filt Rate > 60.0 mL/min (>60); Glucose 100 mg/dL (80-110); HEMOLYSIS < 15 (0-50); Magnesium 2.1 mg/dL (1.6-2.3); Potassium 4.1 mmol/L (3.4-5.1); Sodium 134 mmol/L (137-145)
== END ==
PROVIDERS: PCP Internal Medicine; Referring Provider Internal Medicine; Visit Provider Internal Medicine
DX: E83.42 Hypomagnesemia (principal)
CPT/HCPCS: 36415; 80048; 83735

== ENCOUNTER → 2020-06-04 13:08 | Outpatient (CLI) | payer MEDICARE, OTHER, SELFPAY ==
--- NOTE | 2020-06-04 | DI.RAD.S_ITS ---
PROCEDURE: FL BARIUM SWALLOW W SPEECH INDICATIONS: Other dysphagia COMPARISON: None. TECHNIQUE: Examination was conducted in conjunction with speech pathology per standard protocol. In the lateral projection, filming was performed of the patient swallowing. AP projection filming may also be performed with patient swallowing. COMPARISON: FINDINGS: Function: There is premature spillage of contrast material prior to initiation of swallowing reflex. The subsequent oral propulsive phase, pharyngeal phase, and esophageal phase of swallowing also appear normal with all proffered substances. No laryngotracheal penetration or aspiration. There was pooling of contrast material in the vallecula and piriform sinuses which is not completely cleared with repeat swallows. Morphology: No cricopharyngeal bar is identified. No cervical esophageal webs. No Zenker's diverticulum. No strictures. IMPRESSION: 1. Premature spillage. 2. Bilateral vallecular and piriform sinus pooling. 3. No laryngotracheal aspiration. Dictated by: Ana Laura Barahona MD, PhD on 06/05/2020 at 17:10 Approved by: Ana Laura Barahona MD, PhD on 06/05/2020 at 17:11
--- NOTE | 2020-06-04 15:13 | ST.SWALLOW ---
Visit Care Team Role Provider Type Javier Yung MD Primary Care Provider Physician Specialty: Internal Medicine Address: [address] [place] [address], [id number] Email: [email or web address] Curt Perkins MD Attending Provider Physician Referring Provider Specialty: Ear, Nose, Throat Address: [address] [place] [address], [id number] Email: [email or web address] Modified Barium Swallow Study CEMENT FINISHER Modified Barium Swallow Study Start: 06/04/20 14:52 Freq: Status: Active Protocol: Document 06/04/20 14:53 TLC (Rec: 06/04/20 15:12 TLC [id number]) Modified Barium Swallow Study Total Time Visit Start Time 13:30 Visit Stop Time 14:00 Total Visit Minutes [address] 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 She also has a diagnosis of GERD, hx of laryngospasm and chronic cough with recent onset over the last year. Subjective Observations Patient arrived on time. She was alert, oriented and cooperative during the study. Patient Positioning Position View Lat-A/P Imaging Lateral View Textures Administered Trials Presented Thin Liquid via Spoon,Thin Liquid via Cup,Plain View Liquid via Spoon,Plain View Liquid via Cup,Honey Liquid via Spoon, Pudding Thick Liquid via Spoon ,Regular Textures Oral Phase Source: MBSIMP (TM) (C) Bolus Specific Scoring Grid Lip Closure No Impairment (WNL) Tongue Control During Bolus Hold No Impairment (WNL) Bolus Prep/Mastication Minimal Impairment Bolus Transport/Lingual Motion No Impairment (WNL) Oral Residue Mild Impairment Additional Oral Phase Observations Bolus preparation/mastication was slow and prolonged with complete re-collection. There was a collection of residue on the tongue and palate. Initiation of pharyngeal swallow was delayed with bolus head in pyriforms at time of initiation. Pharyngeal Phase Source: MBSIMP (TM) (C) Bolus Specific Scoring Grid Soft Palate Elevation No Impairment (WNL) Laryngeal Elevation No Impairment (WNL) Anterior Hyoid Movement No Impairment (WNL) Epiglottic Range of Motion No Impairment (WNL) Laryngeal Vestibular Closure No Impairment (WNL) Pharyngeal Stripping Wave Mild Impairment Pharyngeal Contraction No Impairment (WNL) Upper Esophageal Sphincter Opening No Impairment (WNL) Additional Pharyngeal Phase Observations Pharyngeal stripping wave was present, but diminished. There was a collection of pharyngeal residue on the tongue base, valleculae, pharyngeal wall, and pyriform sinuses which cleared with subsequent swallows. Patient performed chin tuck on one occasion without prompting which resulted in clearance pharyngeal residue. A/P View Textures Administered Trials Presented Plain View Liquid via Spoon, Pudding Thick Liquid via Spoon A/P View Observations Pharyngeal Contraction No Impairment (WNL) Additional Observations Complete clearance in limited view. Clinical Impressions Findings Patient's swallow is within functional limits. Mild impairments likely related to age related changes in swallowing. No aspiration or penetration noted during the study. (Score of 1 on the Penetration Aspiration Scale). Patient Appropriate for Therapy No Recommendations Aspiration Precautions Recommended Precautions Small Bites/Sips,Double Swallow Treatment Plan Compensatory Strategies Recommendations Double Swallow
== END ==
PROVIDERS: PCP Internal Medicine; Referring Provider Otolaryngology; Visit Provider Otolaryngology
DX: R13.19 Other dysphagia (principal); J38.01 Paralysis of vocal cords and larynx, unilateral
CPT/HCPCS: 74230; 92611

== ENCOUNTER 2020-06-10 19:23 | Emergency (ER) | payer MEDICARE, OTHER, SELFPAY ==
[2020-06-10 19:26] VITALS: BP 155/72; PULSE 85; RESP 22; TEMP 37; O2SAT 98
--- NOTE | 2020-06-10 19:30 | DI.RAD.S_ITS ---
PROCEDURE: XR CHEST 2V INDICATIONS: shortness of breath TECHNIQUE: 2 views of the chest were acquired. COMPARISON: [facility], CT, CT CHEST HIGH RESOLUTION, 04/13/2020, 11:46. [facility], CR, XR CHEST 1V, 04/09/2020, 13:05. FINDINGS: Surgical changes and devices: Median sternotomy wires are present and appear intact.Surgical clips in right upper quadrant compatible with prior cholecystectomy. Lungs and pleura: Minimal streaky bibasilar opacities likely representing atelectasis. No focal consolidations. No pleural effusions or pneumothorax. Mediastinum: Mediastinal contours are stable. Heart size is normal. Bones and chest wall: No suspicious bony abnormalities. Soft tissues appear unremarkable. IMPRESSION: Minimal streaky bibasilar opacities favored to represent atelectasis. Otherwise, no acute cardiopulmonary abnormalities identified. Dictated by: Uday Davis M.D. on 06/10/2020 at 20:26 Approved by: Uday Davis M.D. on 06/10/2020 at 20:28
[2020-06-10 19:52] VITALS: PULSE 72; RESP 73; O2SAT 96
[2020-06-10 19:54] LABS: Add Manual Diff / Slide Review NO; Basophils Absolute Auto 0 /uL (0-100); Basophils Percent Auto 0.6 % (0-2); Eosinophils Absolute Auto 500 /uL (0-450); Eosinophils Percent Auto 7.4 % (2-4); Hematocrit 36.7 % (36-46); Hemoglobin 12.6 g/dL (12.0-16.0); Lymphocytes Absolute Auto 2300 /uL (1100-4500); Lymphocytes Percent Auto 31.5 % (25-40); Mean Corpuscular HGB Conc 34.3 % (30-36); Mean Corpuscular Hemoglobin 30.2 PG (26-34); Mean Corpuscular Volume 87.9 fL (80-100); Monocytes Absolute Auto 700 /uL (0-900); Monocytes Percent Auto 9.9 % (3-14); Neutrophils Absolute Auto 3700 /uL (1500-7000); Neutrophils Percent Auto 50.6 % (50-75); Platelet Count 230 X10^3/uL (150-400); Red Blood Cell Count 4.18 X10^6/uL (4.0-5.2); Red Cell Distribution Width 13.7 % (11.6-14.8); White Blood Cell Count 7.4 X10^3/uL (4.5-11.0)
[2020-06-10 20:00] VITALS: BP 158/60; PULSE 78; RESP 58; O2SAT 97
[2020-06-10 20:05] LABS: COVID19 -Nasal RAPID Negative (Negative)
[2020-06-10 20:06] LABS: Creatine Kinase 68 U/L (30-135); Lactate (Lactic Acid) 1.1 mmol/L (0.7-2.1)
[2020-06-10 20:07] LABS: Alanine Aminotransferase 21 IU/L (<35); Albumin 4.4 g/dL (3.5-5.0); Albumin Globulin Ratio 1.4 (1.0-2.8); Alkaline Phosphatase 87 U/L (38-126); Aspartate Aminotransferase 33 IU/L (14-36); BUN Creatinine Ratio 19.3 (6-22); Bilirubin Total 0.3 mg/dL (0.2-1.3); Blood Urea Nitrogen 11 mg/dL (7-17); Calcium 8.9 mg/dL (8.4-10.2); Carbon Dioxide 30 mmol/L (22-32); Chloride 98 mmol/L (98-107); Estimated Glomerular Filt Rate > 60.0 mL/min (>60); Globulin 3.1 g/dL (1.7-4.1); Glucose 145 mg/dL (80-110); HEMOLYSIS < 15 (0-50); Potassium 3.6 mmol/L (3.4-5.1); Sodium 133 mmol/L (137-145); Total Protein 7.5 g/dL (6.3-8.2)
[2020-06-10 20:16] LABS: NT-proBNP (BNP-Adult 18+) 137 pg/mL (<450)
[2020-06-10 20:19] LABS: Troponin I < 0.012 ng/mL (0.01-0.034)
[2020-06-10 20:30] VITALS: BP 139/66; PULSE 77; RESP 40; O2SAT 95
--- NOTE | 2020-06-10 20:38 | PC.NURSE ---
Pt states she has no respiratory history. Her property maintenance technician gave her pulmacort however she states I read that can kill you so she did not take it. Able to speak in multiple long sentences w/o difficulty. Very anxious, verbally reassured.
[2020-06-10] MEDS: ALBUTEROL 2.5 MG/3 ML NEB (ADULT) INH (20:58)
[2020-06-10 20:59] VITALS: PULSE 72; RESP 18; O2SAT 96
--- NOTE | 2020-06-10 21:22 | ED.SOB ---
HPI - SOB/Dyspnea General Chief Complaint: Shortness of Breath/Dyspnea Stated Complaint: wheezing Time Seen by Provider: 06/10/20 20:44 Source: patient Mode of arrival: Ambulatory History of Present Illness HPI Narrative: Patient here for dry cough dyspnea wheezing for the past 2 weeks. She canceled her pulmonary office appointment with Dr. Saniya del valle on May 27 because she had started feeling better. However symptoms returned. No chest pain but gets chest tightness with dyspnea. Patient has had multiple visits to offices as well as emergency department in the past 9 months for same complaints. Has been evaluated by bonbon dipper in [place] as well as her credit card analyst. Had barium swallow study as well. Has seen her manager financial systems but not evaluated for sinuses or postnasal drip. Only for her ears. The ENT doctors here locally. Patient was prescribed Symbicort by Dr. Del Valle March 2020 but patient was to for to take it at home. It remains in the Box and packaging, unopened. She states steroids/prednisone has helped her in the past for this. Vital signs reviewed. Patient is anxious. MD Complaint: shortness of breath Related Data Home Medications Medication Instructions Recorded Confirmed aspirin 81 mg PO DAILY #0 02/03/09 03/06/20 clopidogrel 75 mg PO DAILY #0 02/03/09 03/06/20 atorvastatin [Lipitor] 20 mg PO DAILY #0 02/23/13 03/06/20 losartan [Cozaar] 100 mg PO DAILY #0 tab 02/23/13 03/06/20 multivitamin 1 tab PO QDAY #0 tab 02/23/13 03/06/20 Calcium 1 tab PO DAILY 12/14/18 03/06/20 amlodipine 2.5 mg PO BID 12/14/18 03/06/20 Previous Rx's Medication Instructions Recorded cyclobenzaprine 10 mg PO TID PRN #15 tab 08/10/19 naproxen [Naprosyn] 500 mg PO BID PRN #20 tab 08/10/19 ondansetron 4 mg PO Q6H PRN #14 tab 09/14/19 metoprolol succinate 25 mg PO DAILY #14 tab 10/16/19 acebutolol 200 mg PO BID #60 cap 10/19/19 lorazepam 0.5 mg PO BID PRN #10 tab 10/19/19 sucralfate [Carafate] 1 gram PO Q6H #420 ml 11/02/19 benzonatate 100 mg PO TID PRN #20 cap 06/10/20 methylprednisolone [Medrol (Lee)] See Rx Instructions PO .COMPLEX 06/10/20 #21 ea Allergies Allergy/AdvReac Type Severity Reaction Status Date / Time prochlorperazine Allergy Severe Anaphylaxis Verified 06/10/20 19:51 [PROCHLORPERAZINE] erythromycin base Allergy Mild Verified 06/10/20 19:51 [ERYTHROMYCIN BASE] Review of Systems Review of Systems Narrative: GENERAL: Denies chills, fatigue, malaise, fever, sweats. HEENT: Denies sinus pain, ear pain, sore throat, difficulty swallowing RESPIRATORY: Complains of dyspnea, cough CARDIOVASCULAR: Denies chest pain, palpitations, edema, GASTROINTESTINAL: Denies nausea, vomiting, abdominal pain, diarrhea, constipation, melena. : Denies dysuria, frequency, hematuria MUSCULOSKELETAL: denies muscle or bony pain SKIN: Denies rash, skin lesions NEUROLOGIC: Denies weakness, headache, numbness, change in speech, confusion PSYCHIATRIC: No SI or HI or hallucinations ROS Unobtainable: All systems reviewed & are unremarkable except as noted in HPI and below Patient History Medical History (Updated 06/10/20 @ 21:28 by Jere Steele MD) Carotid artery disease Heart disease Hypertension Multinodular thyroid Stroke SVT (supraventricular tachycardia) Surgical History History of cholecystectomy History of eye surgery History of left common carotid artery stent placement History of surgery (05/05/08) Social History Smoking Status: Never smoker Smoking Status: Never smoker alcohol intake frequency: 0-2 drinks per day Substance Use Type: does not use Exam Narrative Exam Narrative: GENERAL: patient appears stated age. Well-nourished, well-developed patient, in no distress, not toxic not dyspneic HEAD: Normocephalic. EYES: Pupils equal round and reactive. No scleral icterus. No injection no discharge ENT: Mucous membranes moist. No drooling no tongue elevation no trismus no malocclusion NECK: Trachea midline. Non tender CARDIOVASCULAR: Regular rate and rhythm without murmurs, gallops, or rubs. RESPIRATORY: Mild diffuse wheezing and by basilar coarse lung sounds. Breath sounds equal bilaterally. No rales, or rhonchi. GASTROINTESTINAL: Abdomen soft, non-tender, nondistended. EXTREMITIES: No gross deformities. Mild 1+ pedal edema bilaterally, no calf tenderness BACK: Nontender without deformity or crepitance. No flank tenderness. NEURO: AOx4. SKIN: Warm and dry PSYCH: Not anxious, is cooperative Initial Vital Signs Initial Vital Signs: Vital Signs Temperature 98.6 F 06/10/20 19:26 Pulse Rate 85 06/10/20 19:26 Respiratory Rate 22 06/10/20 19: Blood Pressure 155/72 H 06/10/20 19: Pulse Oximetry 98 06/10/20 19:26 Course Course Course Narrative: Patient tolerated the Symbicort inhaler without any side effects. Orders Ordered: ED Orders 06/10/20 19:30 XR chest 2V Stat EKG-12 Lead Stat Measure peak expiratory flow ONCE RT Consult Eval and Treat Now 06/10/20 19:46 COVID19 Stat Complete Blood Count AUTO DIFF Stat Comprehensive Metabolic Panel Stat Lactate (Lactic Acid) Stat NT-proBNP (BNP-Adult 18+) Stat Troponin & CK Cardiac Panel Stat Discontinued Medications Albuterol (Albuterol 2.5 Mg/3 Ml Neb (Adult)) 2.5 mg INH NOW ONE Stop: 06/10/20 20:40 Last Admin: 06/10/20 20:58 Dose: 2.5 mg Documented by: DEVON Benzonatate (Benzonatate 100 Mg Capsule) 100 mg PO NOW ONE Stop: 06/10/20 21:22 Last Admin: 06/10/20 22:29 Dose: Not Given Documented by: ABELARDO Prednisone (Prednisone 20 Mg Tablet) 40 mg PO NOW ONE Stop: 06/10/20 21:22 Last Admin: 06/10/20 21:37 Dose: 20 mg Documented by: NAHUN Reevaluation(s) Reevaluation #1: Feeling much better after albuterol nebulizer as well as Symbicort. Also did 20 mg of prednisone, she did not want 40 mg. Feeling better. Coughing controlled. She did not want the Tessalon Perle given here. Time: 22:22 Vital Signs Vital signs: Vital Signs - 8 hr 06/10/20 19:26 06/10/20 19:52 06/10/20 20:00 Temperature 98.6 F Pulse Rate 85 72 78 Respiratory Rate 22 73 H 58 H Blood Pressure 155/72 H 158/60 H Pulse Oximetry 98 96 97 06/10/20 20:30 06/10/20 20:59 Temperature Pulse Rate 77 72 Respiratory Rate 40 H 18 Blood Pressure 139/66 Pulse Oximetry 95 96 MDM - SOB/Dyspnea Differential Diagnosis Differential diagnosis: Likely asthma with exacerbation and other Lab Data Result diagrams: 06/10/20 19:46 06/10/20 19:46 Labs: Lab Results 06/10/20 06/10/20 06/10/20 Range/Units 19:46 19:46 19:46 WBC 7.4 (4.5-11.0) X10^3/uL RBC 4.18 (4.0-5.2) X10^6/uL Hgb 12.6 (12.0-16.0) g/dL Hct 36.7 (36-46) % MCV 87.9 (80-100) fL MCH 30.2 (26-34) PG MCHC 34.3 (30-36) % RDW 13.7 (11.6-14.8) % Plt Count 230 (150-400) X10^3/uL Neut % (Auto) 50.6 (50-75) % Lymph % (Auto) 31.5 (25-40) % [place] % (Auto) 9.9 (3-14) % Eos % (Auto) 7.4 H (2-4) % Baso % (Auto) 0.6 (0-2) % Neut # (Auto) 3700 (8555-6682) /uL Lymph # (Auto) 2300 (8581-5172) /uL [place] # (Auto) 700 (0-900) /uL Eos # (Auto) 500 H (0-450) /uL Baso # (Auto) 0 (0-100) /uL Sodium 133 L (137-145) mmol/L Potassium 3.6 (3.4-5.1) mmol/L Chloride 98 (98-107) mmol/L Carbon Dioxide 30 (22-32) mmol/L BUN 11 (7-17) mg/dL Creatinine 0.57 (0.52-1.04) mg/dL Estimated GFR > 60.0 (>60) mL/min BUN/Creatinine Ratio 19.3 (6-22) Glucose 145 H (80-110) mg/dL Lactate (0.7-2.1) mmol/L Calcium 8.9 (8.4-10.2) mg/dL Total Bilirubin 0.3 (0.2-1.3) mg/dL AST 33 (14-36) IU/L ALT 21 (<35) IU/L Alkaline Phosphatase 87 (38-126) U/L Total Creatine Kinase (30-135) U/L CK-MB (CK-2) CK-MB (CK-2) Rel Index Troponin I (0.01-0.034) ng/mL NT-Pro-B Natriuret Pep 137 (<450) pg/mL Total Protein 7.5 (6.3-8.2) g/dL Albumin 4.4 (3.5-5.0) g/dL Globulin 3.1 (1.7-4.1) g/dL Albumin/Globulin Ratio 1.4 (1.0-2.8) SARS-CoV-2 (PCR) (Negative) 06/10/20 06/10/20 06/10/20 Range/Units 19:46 19:46 19:46 WBC (4.5-11.0) X10^3/uL RBC (4.0-5.2) X10^6/uL Hgb (12.0-16.0) g/dL Hct (36-46) % MCV (80-100) fL MCH (26-34) PG MCHC (30-36) % RDW (11.6-14.8) % Plt Count (150-400) X10^3/uL Neut % (Auto) (50-75) % Lymph % (Auto) (25-40) % [place] % (Auto) (3-14) % Eos % (Auto) (2-4) % Baso % (Auto) (0-2) % Neut # (Auto) (5475-4640) /uL Lymph # (Auto) (8995-7210) /uL [place] # (Auto) (0-900) /uL Eos # (Auto) (0-450) /uL Baso # (Auto) (0-100) /uL Sodium (137-145) mmol/L Potassium (3.4-5.1) mmol/L Chloride (98-107) mmol/L Carbon Dioxide (22-32) mmol/L BUN (7-17) mg/dL Creatinine (0.52-1.04) mg/dL Estimated GFR (>60) mL/min BUN/Creatinine Ratio (6-22) Glucose (80-110) mg/dL Lactate 1.1 (0.7-2.1) mmol/L Calcium (8.4-10.2) mg/dL Total Bilirubin (0.2-1.3) mg/dL AST (14-36) IU/L ALT (<35) IU/L Alkaline Phosphatase (38-126) U/L Total Creatine Kinase 68 (30-135) U/L CK-MB (CK-2) TNP CK-MB (CK-2) Rel Index TNP Troponin I < 0.012 (0.01-0.034) ng/mL NT-Pro-B Natriuret Pep (<450) pg/mL Total Protein (6.3-8.2) g/dL Albumin (3.5-5.0) g/dL Globulin (1.7-4.1) g/dL Albumin/Globulin Ratio (1.0-2.8) SARS-CoV-2 (PCR) Negative (Negative) Imaging Data Chest x-ray: Radiologist's Impression: [address] [id number] ReportSigned Patient: Yi Seay JMR#: [id number]: 5Acct:[id number]/Sex: 74 / FDate of Service: 06/10/20Loc: EDAccession Number: [id number] Procedure: XR chest 2V Ordering Provider: Jere Steele MD PROCEDURE: XR CHEST 2V INDICATIONS: shortness of breath TECHNIQUE: 2 views of the chest were acquired. COMPARISON: [facility], CT, CT CHEST HIGH RESOLUTION, 04/13/2020, 11:46. [facility], CR, XR CHEST 1V, 04/09/2020, 13:05. FINDINGS: Surgical changes and devices: Median sternotomy wires are present and appear intact.Surgical clips in right upper quadrant compatible with prior cholecystectomy. Lungs and pleura: Minimal streaky bibasilar opacities likely representing atelectasis. No focal consolidations. No pleural effusions or pneumothorax. Mediastinum: Mediastinal contours are stable. Heart size is normal. Bones and chest wall: No suspicious bony abnormalities. Soft tissues appear unremarkable. IMPRESSION: Minimal streaky bibasilar opacities favored to represent atelectasis. Otherwise, no acute cardiopulmonary abnormalities identified. Dictated by: Uday Davis M.D. on 06/10/2020 at 20:26 Approved by: Uday Davis M.D. on 06/10/2020 at 20:28 ECG Data Attestation: I personally reviewed and interpreted this ECG as follows: Interpretation: Normal sinus rhythm rate 73 left axis deviation, right bundle branch block. No ST elevation depression MDM Narrative Medical decision making narrative: Appropriate for discharge home. Clinically asthma exacerbation. Patient states never given formal diagnosis of asthma. Patient has been worked up extensively by Gastroenterology cardiology pulmonary in the past year hand especially in the past 4 months for this complaint. Has not seen command post superintendent or been evaluated by her own ENT for these complaints. Symptoms are not new. Not toxic. Not hypoxic. Discharge Plan Departure Patient Disposition: Home Clinical Impression: Asthma with exacerbation Qualifiers: Asthma severity: mild Asthma persistence: unspecified Qualified Code(s): J45.901 - Unspecified asthma with (acute) exacerbation Instructions: DI for Asthma -- Adult Activity Restrictions/Additional Instructions: See family doctor within a week for recheck. See your ENT doctor as well for evaluation for ongoing cough. Continue steroid pack tomorrow. Use Symbicort inhaler as prescribed. Reschedule appointment with your manager university. Prescriptions: New benzonatate 100 mg capsule 100 mg PO TID PRN (Reason: cough) Qty: 20 RF: 0 methylprednisolone [Medrol (Lee)] 4 mg tablets,dose pack See Rx Instructions PO .COMPLEX Qty: 21 RF: 0 No Action clopidogrel 75 mg Tablet 75 mg PO DAILY Qty: 0 RF: 0 aspirin 81 mg Tablet,Delayed Release (Dr/Ec) 81 mg PO DAILY Qty: 0 RF: 0 losartan [Cozaar] 100 MG tablet 100 mg PO DAILY Qty: 0 RF: 0 atorvastatin [Lipitor] 20 MG tablet 20 mg PO DAILY Qty: 0 RF: 0 multivitamin Tablet 1 tab PO QDAY Qty: 0 RF: 0 amlodipine 2.5 mg tablet 2.5 mg PO BID RF: 0 Calcium 1 tab PO DAILY RF: 0 naproxen [Naprosyn] 500 mg tablet 500 mg PO BID PRN (Reason: pain) Qty: 20 RF: 0 cyclobenzaprine 5 mg tablet 10 mg PO TID PRN (Reason: muscle spasm) Qty: 15 RF: 0 ondansetron 4 mg tablet,disintegrating 4 mg PO Q6H PRN (Reason: nausea and vomiting) Qty: 14 RF: 0 metoprolol succinate 25 mg tablet extended release 24 hr 25 mg PO DAILY Qty: 14 RF: 0 lorazepam 0.5 mg tablet 0.5 mg PO BID PRN (Reason: arrythmia) Qty: 10 RF: 0 acebutolol 200 mg capsule 200 mg PO BID Qty: 60 RF: 0 sucralfate [Carafate] 100 mg/mL suspension 1 gram PO Q6H Qty: 420 RF: 0 Referrals: Javier Yung MD [Primary Care Provider] -
[2020-06-10] MEDS: predniSONE 20 MG TABLET 40 MG PO (21:37)
== END 2020-06-10 22:34 | disposition home or self-care (01) ==
PROVIDERS: Emergency Provider Emergency Medicine; PCP Internal Medicine
DX: J45.901 Unspecified asthma with (acute) exacerbation (principal); R05 Cough; F41.9 Anxiety disorder, unspecified; I25.10 Atherosclerotic heart disease of native coronary artery without angina pectoris; I10 Essential (primary) hypertension; I47.1 Supraventricular tachycardia; Z20.822 Contact with and (suspected) exposure to COVID-19
CPT/HCPCS: 36415; 71046; 80053; 82550; 83605; 83880; 84484; 85025; 87635; 93005; 93010; 94640; 99283; 99284; C9803; J7613

== ENCOUNTER 2020-06-14 13:45 | Emergency (ER) | payer MEDICARE, OTHER, SELFPAY ==
[2020-06-14] VITALS (9 sets, daily range): BP systolic 135–182; BP diastolic 66–84; PULSE 77–95; RESP 23–25; TEMP 37.1; O2SAT 96–100
--- NOTE | 2020-06-14 13:55 | ED_ITS ---
HPI - SOB/Dyspnea General Chief Complaint: Shortness of Breath/Dyspnea Stated Complaint: difficulty breathing Time Seen by Provider: 06/14/20 13:52 Source: patient and old records reviewed Mode of arrival: Ambulatory Limitations: no limitations History of Present Illness HPI Narrative: This is a 74-year-old female who comes to the emergency department with complaint of palpitations/cardiac arrhythmia. Patient states she has been short of breath, she has also felt like there was a band around her lower chest/upper abdomen. She states felt this way for several days. She was actually here under emergency department on June 10, 4 days ago. She followed up with her environmental protection forester who informed her that she had cooling on her barium swallow and that she needed to follow-up with ENT. The examination did n ot show any aspiration at that time, but her environmental protection forester suspects that she is having aspiration. Patient had a fever for EMS but denies any fevers herself. She has had a cough which has not resolved. She denies any productive sputum she has a short episode of nausea today but no vomiting. She states she has had some mild constipation. Denies any dysuria, urgency or frequency. She states she does occasionally have swelling in her lower extremities states it has been slightly worse recently. She also states she has had an increase in her weight recently. Patient environmental protection forester put her on Symbicort. She has been taking prednisone daily. Patient states it does make her feel little bit more jittery. Patient also had her albuterol this morning about an hour prior to arrival. She also states that today she felt like she was in bigeminy or trigeminy and then noticed that her pulse felt different. Patient states she called EMS today because of the rhythm change. Patient has a history significant for atrial fibrillation, she had an ablation in 2003, had complications were the septum and right atrium or perforated and had open heart surgery for repair during that event. Patient states she has also had a left carotid stent placed and cholecystectomy. Patient follows with pulmonology, Cardiology, ENT and her primary care is Dr. Yung. She is accompanied by her daughter. Related Data Home Medications Medication Instructions Recorded Confirmed aspirin 81 mg PO DAILY #0 02/03/09 03/06/20 clopidogrel 75 mg PO DAILY #0 02/03/09 03/06/20 atorvastatin [Lipitor] 20 mg PO DAILY #0 02/23/13 03/06/20 losartan [Cozaar] 100 mg PO DAILY #0 tab 02/23/13 03/06/20 multivitamin 1 tab PO QDAY #0 tab 02/23/13 03/06/20 Calcium 1 tab PO DAILY 12/14/18 03/06/20 amlodipine 2.5 mg PO BID 12/14/18 03/06/20 Previous Rx's Medication Instructions Recorded cyclobenzaprine 10 mg PO TID PRN #15 tab 08/10/19 naproxen [Naprosyn] 500 mg PO BID PRN #20 tab 08/10/19 ondansetron 4 mg PO Q6H PRN #14 tab 09/14/19 metoprolol succinate 25 mg PO DAILY #14 tab 10/16/19 acebutolol 200 mg PO BID #60 cap 10/19/19 lorazepam 0.5 mg PO BID PRN #10 tab 10/19/19 sucralfate [Carafate] 1 gram PO Q6H #420 ml 11/02/19 benzonatate 100 mg PO TID PRN #20 cap 06/10/20 methylprednisolone [Medrol (Lee)] See Rx Instructions PO .COMPLEX 06/10/20 #21 ea levalbuterol tartrate [Xopenex HFA] 2 puff INHALATION Q4-6H PRN #15 g 06/14/20 Allergies Allergy/AdvReac Type Severity Reaction Status Date / Time prochlorperazine Allergy Severe Anaphylaxis Verified 06/10/20 19:51 [PROCHLORPERAZINE] erythromycin base Allergy Mild Verified 06/10/20 19:51 [ERYTHROMYCIN BASE] Review of Systems Review of Systems ROS Unobtainable: All systems reviewed & are unremarkable except as noted in HPI and below Patient History Medical History (Updated 06/14/20 @ 16:59 by Syeda Rodriguez DO) Carotid artery disease Heart disease Hypertension Multinodular thyroid Stroke SVT (supraventricular tachycardia) Surgical History History of cholecystectomy History of eye surgery History of left common carotid artery stent placement History of surgery (05/05/08) Social History Smoking Status: Never smoker Smoking Status: Never smoker alcohol intake frequency: 0-2 drinks per day Substance Use Type: does not use Exam Narrative Exam Narrative: GEN: well nourished, well appearing female, alert and oriented x 3, patient appears to be in mild distress. Patient moved to sitting on her bilateral knees during evaluation. HEENT: Atraumatic, pupils are equal round reactive to light, extraocular movements are intact, nares are clear. HEART: Regular rate and rhythm without murmur, clicks, rubs. Pulses are equal in upper and lower extremities LUNGS:Lungs have breath sounds bilaterally, patient has knees in left lower lobe, no rales, crackles, chest moves symmetrically, no tachypnea accessory muscle use. Patient speaks in full sentences. Patient has frequent dry cough in the room. Nonproductive. ABD:bowel sounds normal, soft, non-tender, no guarding, rebound, rigidity, no masses noted, no hepatosplenomegaly :No CVA tenderness MSCL: Non-tender, full range of motion, NEURO:CN 2-12 intact, sensation normal, patient has mild generalized tremor. SKIN: no rash, erythema or skin changes noted. Initial Vital Signs Initial Vital Signs: Vital Signs Pulse Rate 93 H 06/14/20 13:49 Respiratory Rate 24 06/14/20 13:49 Blood Pressure 171/75 H 06/14/20 13:49 Pulse Oximetry 96 06/14/20 13:49 Scores GCS [place] coma scale eye opening: Spontaneous Jr coma scale verbal response: Orientated [place] coma scale motor response: Obey commands [place] coma scale total score: 15 Course Orders Ordered: ED Orders 06/14/20 13:50 COVID19 Stat 06/14/20 13:53 XR chest 1V Stat EKG-12 Lead Stat 06/14/20 13:56 C-Reactive Protein Quant Stat Complete Blood Count AUTO DIFF Stat Comprehensive Metabolic Panel Stat D Dimer Stat Ferritin Stat Influenza A & B (PCR) Stat Lactate Dehydrogenase Stat NT-proBNP (BNP-Adult 18+) Stat Procalcitonin Stat Troponin & CK Cardiac Panel Stat 06/14/20 14:24 Lactate (Lactic Acid) Stat Discontinued Medications Benzonatate (Benzonatate 100 Mg Capsule) 100 mg PO NOW ONE Stop: 06/14/20 13:56 Last Admin: 06/14/20 14:09 Dose: 100 mg Documented by: JOANA Sodium Chloride (Normal Saline 0.9%) 1,000 mls @ 125 mls/hr IV CONT JT Last Infusion: 06/14/20 17:05 Dose: 0 mls/hr Documented by: Admin: 06/14/20 14:10 Dose: 125 mls/hr Documented by: JOANA Vital Signs Vital signs: Vital Signs - 8 hr 06/14/20 13:49 06/14/20 13:55 06/14/20 13:57 Temperature 98.7 F Pulse Rate 93 H 91 H 93 H Respiratory Rate 24 23 25 H Blood Pressure 171/75 H 182/84 H Pulse Oximetry 96 99 100 06/14/20 14:00 06/14/20 14:30 06/14/20 15:00 Temperature Pulse Rate 95 H 83 77 Respiratory Rate 24 Blood Pressure 164/82 H 135/68 137/66 Pulse Oximetry 99 97 99 06/14/20 16:36 06/14/20 16:38 06/14/20 17:00 Temperature Pulse Rate 81 78 81 Respiratory Rate 24 24 Blood Pressure 160/77 H 159/74 H Pulse Oximetry 98 99 MDM - SOB/Dyspnea Lab Data Attestation: I reviewed the patient's lab results. Result diagrams: 06/14/20 13:56 06/14/20 13:56 Labs: Lab Results 06/14/20 06/14/20 06/14/20 Range/Units 13:50 13:56 13:56 WBC (4.5-11.0) X10^3/uL RBC (4.0-5.2) X10^6/uL Hgb (12.0-16.0) g/dL Hct (36-46) % MCV (80-100) fL MCH (26-34) PG MCHC (30-36) % RDW (11.6-14.8) % Plt Count (150-400) X10^3/uL Neut % (Auto) (50-75) % Lymph % (Auto) (25-40) % [place] % (Auto) (3-14) % Eos % (Auto) (2-4) % Baso % (Auto) (0-2) % Neut # (Auto) (4152-1813) /uL Lymph # (Auto) (0530-7122) /uL [place] # (Auto) (0-900) /uL Eos # (Auto) (0-450) /uL Baso # (Auto) (0-100) /uL D-Dimer < 200 (<230) ng/mL Sodium (137-145) mmol/L Potassium (3.4-5.1) mmol/L Chloride (98-107) mmol/L Carbon Dioxide (22-32) mmol/L BUN (7-17) mg/dL Creatinine (0.52-1.04) mg/dL Estimated GFR (>60) mL/min BUN/Creatinine Ratio (6-22) Glucose (80-110) mg/dL Lactate (0.7-2.1) mmol/L Calcium (8.4-10.2) mg/dL Ferritin (11-264) ng/mL Total Bilirubin (0.2-1.3) mg/dL AST (14-36) IU/L ALT (<35) IU/L Alkaline Phosphatase (38-126) U/L Lactate Dehydrogenase (313-618) U/L Total Creatine Kinase (30-135) U/L CK-MB (CK-2) CK-MB (CK-2) Rel Index Troponin I (0.01-0.034) ng/mL C-Reactive Protein (<1.0) mg/dL NT-Pro-B Natriuret Pep (<450) pg/mL Total Protein (6.3-8.2) g/dL Albumin (3.5-5.0) g/dL Globulin (1.7-4.1) g/dL Albumin/Globulin Ratio (1.0-2.8) Procalcitonin < 0.05 (<0.5) ng/mL SARS-CoV-2 (PCR) Negative (Negative) Influenza A (RT-PCR) (NEGATIVE) Influenza B (RT-PCR) (NEGATIVE) 06/14/20 06/14/20 06/14/20 Range/Units 13:56 13:56 13:56 WBC 11.2 H (4.5-11.0) X10^3/uL RBC 4.49 (4.0-5.2) X10^6/uL Hgb 13.4 (12.0-16.0) g/dL Hct 39.8 (36-46) % MCV 88.7 (80-100) fL MCH 29.9 (26-34) PG MCHC 33.8 (30-36) % RDW 13.7 (11.6-14.8) % Plt Count 267 (150-400) X10^3/uL Neut % (Auto) 81.7 H (50-75) % Lymph % (Auto) 13.2 L (25-40) % [place] % (Auto) 4.9 (3-14) % Eos % (Auto) 0.0 L (2-4) % Baso % (Auto) 0.2 (0-2) % Neut # (Auto) 9100 H (7404-4323) /uL Lymph # (Auto) 1500 (8535-3960) /uL [place] # (Auto) 500 (0-900) /uL Eos # (Auto) 0 (0-450) /uL Baso # (Auto) 0 (0-100) /uL D-Dimer (<230) ng/mL Sodium 130 L (137-145) mmol/L Potassium 4.2 (3.4-5.1) mmol/L Chloride 95 L (98-107) mmol/L Carbon Dioxide 24 (22-32) mmol/L BUN 13 (7-17) mg/dL Creatinine 0.55 (0.52-1.04) mg/dL Estimated GFR > 60.0 (>60) mL/min BUN/Creatinine Ratio 23.6 H (6-22) Glucose 187 H (80-110) mg/dL Lactate (0.7-2.1) mmol/L Calcium 9.5 (8.4-10.2) mg/dL Ferritin 46 (11-264) ng/mL Total Bilirubin 0.5 (0.2-1.3) mg/dL AST 32 (14-36) IU/L ALT 25 (<35) IU/L Alkaline Phosphatase 101 (38-126) U/L Lactate Dehydrogenase 457 (313-618) U/L Total Creatine Kinase 58 (30-135) U/L CK-MB (CK-2) TNP CK-MB (CK-2) Rel Index TNP Troponin I < 0.012 (0.01-0.034) ng/mL C-Reactive Protein < 0.5 (<1.0) mg/dL NT-Pro-B Natriuret Pep 318 (<450) pg/mL Total Protein 8.7 H (6.3-8.2) g/dL Albumin 5.0 (3.5-5.0) g/dL Globulin 3.7 (1.7-4.1) g/dL Albumin/Globulin Ratio 1.4 (1.0-2.8) Procalcitonin (<0.5) ng/mL SARS-CoV-2 (PCR) (Negative) Influenza A (RT-PCR) Flu a negative (NEGATIVE) Influenza B (RT-PCR) Flu b negative (NEGATIVE) 06/14/20 06/14/20 Range/Units 14:24 16:30 WBC (4.5-11.0) X10^3/uL RBC (4.0-5.2) X10^6/uL Hgb (12.0-16.0) g/dL Hct (36-46) % MCV (80-100) fL MCH (26-34) PG MCHC (30-36) % RDW (11.6-14.8) % Plt Count (150-400) X10^3/uL Neut % (Auto) (50-75) % Lymph % (Auto) (25-40) % [place] % (Auto) (3-14) % Eos % (Auto) (2-4) % Baso % (Auto) (0-2) % Neut # (Auto) (4994-1202) /uL Lymph # (Auto) (4977-8766) /uL [place] # (Auto) (0-900) /uL Eos # (Auto) (0-450) /uL Baso # (Auto) (0-100) /uL D-Dimer (<230) ng/mL Sodium (137-145) mmol/L Potassium (3.4-5.1) mmol/L Chloride (98-107) mmol/L Carbon Dioxide (22-32) mmol/L BUN (7-17) mg/dL Creatinine (0.52-1.04) mg/dL Estimated GFR (>60) mL/min BUN/Creatinine Ratio (6-22) Glucose (80-110) mg/dL Lactate 2.2 H 1.6 (0.7-2.1) mmol/L Calcium (8.4-10.2) mg/dL Ferritin (11-264) ng/mL Total Bilirubin (0.2-1.3) mg/dL AST (14-36) IU/L ALT (<35) IU/L Alkaline Phosphatase (38-126) U/L Lactate Dehydrogenase (313-618) U/L Total Creatine Kinase (30-135) U/L CK-MB (CK-2) CK-MB (CK-2) Rel Index Troponin I (0.01-0.034) ng/mL C-Reactive Protein (<1.0) mg/dL NT-Pro-B Natriuret Pep (<450) pg/mL Total Protein (6.3-8.2) g/dL Albumin (3.5-5.0) g/dL Globulin (1.7-4.1) g/dL Albumin/Globulin Ratio (1.0-2.8) Procalcitonin (<0.5) ng/mL SARS-CoV-2 (PCR) (Negative) Influenza A (RT-PCR) (NEGATIVE) Influenza B (RT-PCR) (NEGATIVE) Urine Dip Bedside Urine Glucose Negative Bedside Urine Bilirubin - Negative Bedside Urine Ketone - Negative Urine Specific [place] 1.010 Bedside Urine Occult Blood - Negative Bedside Urine pH 6.0 Bedside Urine Protein - Negative Bedside Urine Urobilinogen - Negative Bedside Urine Nitrite - Negative Bedside Urine Leukocytes - Negative Esterase Imaging Data Chest x-ray: Radiologist's Impression: [address] [id number] ReportSigned Patient: Yi Seay JMR#: [id number]: 5Acct:[id number]/Sex: 74 / FDate of Service: 06/14/20Loc: EDAccession Number: [id number] Procedure: XR chest 1V Ordering Provider: Syeda Rodriguez D.O. PROCEDURE: XR CHEST 1V INDICATIONS: cough, sob, hx aspiration, ? covid TECHNIQUE: One view of the chest was acquired. COMPARISON: [facility], , XR CHEST 2V, 06/10/2020, 20:09. FINDINGS: Overlying EKG wires. Surgical changes and devices: Surgical clips overlying the left neck likely status post hemithyroidectomy. Status post median sternotomy. Lungs and pleura: Lungs are clear. No pleural effusions or pneumothorax. Mediastinum: Mediastinal contours appear normal. Heart size is normal. Bones and chest wall: No suspicious bony lesions. Overlying soft tissues appear unremarkable. IMPRESSION: No evidence of an acute cardiopulmonary abnormality. Dictated by: Les Melo D.O. on 06/14/2020 at 13:48 Approved by: Les Melo D.O. on 06/14/2020 at 13:49 ECG Data Attestation: I personally reviewed and interpreted this ECG as follows: Prior ECG tracings: available for review Interpretation: Sinus rhythm with frequent PVCs, rate of 91, DC interval 174, QRS of 128 QTC of 428. No ST elevation appreciated. The seem to vary between every 2-3 beats. Patient has prior EKG from 06/10/2020 which appears similar with right bundle-branch and left axis deviation. Patient has multiple prior EKGs they do not show PVCs as frequently but some show the occasionally. MDM Narrative Medical decision making narrative: This is a 74-year-old female who comes with main complaint of arrhythmia. Patient does have frequent PVCs in a bigeminal sometimes trigeminal pattern. These were not persistent during her stay here. Patient does have a history of atrial fibrillation I do not appreciate this clearly on her EKG. Her labs did show initially an elevated lactate which improved after a small amount of fluids and time. Patient did have some Tessalon Perles here in the department which was very helpful for her cough. She still has this available to her from her most recent ER visit and states she will fill it. We also discussed she has been very hesitant to use her Symbicort or albuterol. She did try her Symbicort today and has been encouraged by her environmental protection forester to use it although the patient is fearful that it will cause her atrial fibrillation to reoccur. We did discuss that Xopenex maybe a alternate option in place of albuterol which is more likely to cause tachycardia than the Symbicort and patient plans to discuss with her environmental protection forester. Patient has a mild leukocytosis, negative dimer. Patient has hyponatremia which has been slowly trending downward. We discussed this could be related to her losartan although unclear if this is the case. Her troponin, BNP and procalcitonin are all negative with negative chest x-ray findings. Patient has stooling that is noted with no clear aspiration on her recent barium swallow study but she still needs to follow up with ENT for recommendations. Encouraged to continue with her inhalers as well as prednisone until completion. Discharge Plan Departure Patient Disposition: Home Clinical Impression: Breath shortness, Hyponatremia, Frequent PVCs Instructions: DI for Shortness of Breath Activity Restrictions/Additional Instructions: Follow up with your physician and ENT. Continue your home medications as prescribed. Discuss with your environmental protection forester if Xopenex may be a good choice for you instead of albuterol particularly and in terms of tachycardia or preventing atrial fibrillation. This can be used instead of albuterol. Prescription was sent to [facility] in [place]. I would recommend taking the Tessalon Perles if you find them helpful. Return to the ER for fevers, lightheadedness or passing out, new or worsening shortness of breath, chest pain or pressure, persistent vomiting, swelling in h er extremities or other new or concerning symptoms. Prescriptions: New levalbuterol tartrate [Xopenex HFA] 45 mcg/actuation HFA aerosol inhaler 2 puff inhalation Q4-6H PRN (Reason: shortness of breath or wheezing) Qty: 15 RF: 0 No Action clopidogrel 75 mg Tablet 75 mg PO DAILY Qty: 0 RF: 0 aspirin 81 mg Tablet,Delayed Release (Dr/Ec) 81 mg PO DAILY Qty: 0 RF: 0 losartan [Cozaar] 100 MG tablet 100 mg PO DAILY Qty: 0 RF: 0 atorvastatin [Lipitor] 20 MG tablet 20 mg PO DAILY Qty: 0 RF: 0 multivitamin Tablet 1 tab PO QDAY Qty: 0 RF: 0 amlodipine 2.5 mg tablet 2.5 mg PO BID RF: 0 Calcium 1 tab PO DAILY RF: 0 naproxen [Naprosyn] 500 mg tablet 500 mg PO BID PRN (Reason: pain) Qty: 20 RF: 0 cyclobenzaprine 5 mg tablet 10 mg PO TID PRN (Reason: muscle spasm) Qty: 15 RF: 0 ondansetron 4 mg tablet,disintegrating 4 mg PO Q6H PRN (Reason: nausea and vomiting) Qty: 14 RF: 0 benzonatate 100 mg capsule 100 mg PO TID PRN (Reason: cough) Qty: 20 RF: 0 methylprednisolone [Medrol (Lee)] 4 mg tablets,dose pack See Rx Instructions PO .COMPLEX Qty: 21 RF: 0 metoprolol succinate 25 mg tablet extended release 24 hr 25 mg PO DAILY Qty: 14 RF: 0 lorazepam 0.5 mg tablet 0.5 mg PO BID PRN (Reason: arrythmia) Qty: 10 RF: 0 acebutolol 200 mg capsule 200 mg PO BID Qty: 60 RF: 0 sucralfate [Carafate] 100 mg/mL suspension 1 gram PO Q6H Qty: 420 RF: 0 Referrals: Javier Yung MD [Primary Care Provider] -
[2020-06-14 14:07] LABS: Add Manual Diff / Slide Review NO; Basophils Absolute Auto 0 /uL (0-100); Basophils Percent Auto 0.2 % (0-2); Eosinophils Absolute Auto 0 /uL (0-450); Hematocrit 39.8 % (36-46); Hemoglobin 13.4 g/dL (12.0-16.0); Lymphocytes Absolute Auto 1500 /uL (1100-4500); Lymphocytes Percent Auto 13.2 % (25-40); Mean Corpuscular HGB Conc 33.8 % (30-36); Mean Corpuscular Hemoglobin 29.9 PG (26-34); Mean Corpuscular Volume 88.7 fL (80-100); Monocytes Absolute Auto 500 /uL (0-900); Monocytes Percent Auto 4.9 % (3-14); Neutrophils Absolute Auto 9100 /uL (1500-7000); Neutrophils Percent Auto 81.7 % (50-75); Platelet Count 267 X10^3/uL (150-400); Red Blood Cell Count 4.49 X10^6/uL (4.0-5.2); Red Cell Distribution Width 13.7 % (11.6-14.8); White Blood Cell Count 11.2 X10^3/uL (4.5-11.0)
[2020-06-14] MEDS: BENZONATATE 100 MG CAPSULE PO (14:09)
[2020-06-14] MEDS: SODIUM CHLORIDE 0.9% 1,000 ML 125 ML IV (14:10)
[2020-06-14 14:24] LABS: D Dimer < 200 ng/mL (<230)
[2020-06-14 14:27] LABS: Alanine Aminotransferase 25 IU/L (<35); Albumin Globulin Ratio 1.4 (1.0-2.8); Alkaline Phosphatase 101 U/L (38-126); Aspartate Aminotransferase 32 IU/L (14-36); BUN Creatinine Ratio 23.6 (6-22); Bilirubin Total 0.5 mg/dL (0.2-1.3); Blood Urea Nitrogen 13 mg/dL (7-17); Calcium 9.5 mg/dL (8.4-10.2); Carbon Dioxide 24 mmol/L (22-32); Chloride 95 mmol/L (98-107); Creatine Kinase 58 U/L (30-135); Estimated Glomerular Filt Rate > 60.0 mL/min (>60); Globulin 3.7 g/dL (1.7-4.1); Glucose 187 mg/dL (80-110); HEMOLYSIS 30 (0-50); Lactate Dehydrogenase 457 U/L (313-618); Potassium 4.2 mmol/L (3.4-5.1); Sodium 130 mmol/L (137-145); Total Protein 8.7 g/dL (6.3-8.2)
[2020-06-14 14:33] LABS: COVID19 -Nasal RAPID Negative (Negative)
[2020-06-14 14:34] LABS: C-Reactive Protein Quant < 0.5 mg/dL (<1.0)
[2020-06-14 14:36] LABS: NT-proBNP (BNP-Adult 18+) 318 pg/mL (<450); Troponin I < 0.012 ng/mL (0.01-0.034)
[2020-06-14 14:43] LABS: Lactate (Lactic Acid) 2.2 mmol/L (0.7-2.1)
[2020-06-14 14:47] LABS: Procalcitonin < 0.05 ng/mL (<0.5)
[2020-06-14 15:11] LABS: Influenza A - CEPHEID Flu A NEGATIVE (NEGATIVE); Influenza B - CEPHEID Flu B NEGATIVE (NEGATIVE)
[2020-06-14 15:18] LABS: Ferritin 46 ng/mL (11-264)
[2020-06-14 16:28] LABS: Reflexed Lactate in 2 Hours Y
[2020-06-14 16:51] LABS: Lactate 2HR (Lactic Acid Rflx) 1.6 mmol/L (0.7-2.1)
== END 2020-06-14 17:11 | disposition home or self-care (01) ==
PROVIDERS: Emergency Provider Emergency Medicine; PCP Internal Medicine
DX: I49.3 Ventricular premature depolarization (principal); E87.1 Hypo-osmolality and hyponatremia; R06.02 Shortness of breath; R07.9 Chest pain, unspecified; R11.0 Nausea; R05 Cough; I48.91 Unspecified atrial fibrillation; Z79.82 Long term (current) use of aspirin; I10 Essential (primary) hypertension; Z20.822 Contact with and (suspected) exposure to COVID-19
CPT/HCPCS: 36415; 71045; 80053; 81003; 82550; 82728; 83605; 83615; 83880; 84145; 84484; 85025; 85379; 86140; 87502; 87635; 93005; 96360; 96361; 99283; 99284; C9803

== ENCOUNTER → 2020-06-19 08:33 | Outpatient (CLI) | payer MEDICARE, OTHER, SELFPAY ==
[2020-06-19 09:06] LABS: COVID19 -Nasal RAPID Negative (Negative)
== END ==
PROVIDERS: PCP Internal Medicine; Visit Provider Nurse Practitioner Family
DX: Z20.822 Contact with and (suspected) exposure to COVID-19 (principal)
CPT/HCPCS: 87635

== ENCOUNTER → 2020-07-07 17:22 | Outpatient (CLI) | payer MEDICARE, OTHER, SELFPAY ==
[2020-07-07 17:41] LABS: Add Manual Diff / Slide Review NO; Basophils Absolute Auto 100 /uL (0-100); Basophils Percent Auto 1.4 % (0-2); Eosinophils Absolute Auto 300 /uL (0-450); Eosinophils Percent Auto 4.7 % (2-4); Hematocrit 34.2 % (36-46); Hemoglobin 11.9 g/dL (12.0-16.0); Lymphocytes Absolute Auto 1700 /uL (1100-4500); Lymphocytes Percent Auto 32.3 % (25-40); Mean Corpuscular HGB Conc 34.8 % (30-36); Mean Corpuscular Hemoglobin 30.7 PG (26-34); Mean Corpuscular Volume 88.2 fL (80-100); Monocytes Absolute Auto 600 /uL (0-900); Monocytes Percent Auto 10.2 % (3-14); Neutrophils Absolute Auto 2800 /uL (1500-7000); Neutrophils Percent Auto 51.4 % (50-75); Platelet Count 226 X10^3/uL (150-400); Red Blood Cell Count 3.88 X10^6/uL (4.0-5.2); Red Cell Distribution Width 13.7 % (11.6-14.8); White Blood Cell Count 5.4 X10^3/uL (4.5-11.0)
[2020-07-07 17:53] LABS: Lactate (Lactic Acid) 1.6 mmol/L (0.7-2.1)
[2020-07-07 17:56] LABS: Alanine Aminotransferase 23 IU/L (<35); Albumin 3.9 g/dL (3.5-5.0); Albumin Globulin Ratio 1.4 (1.0-2.8); Alkaline Phosphatase 80 U/L (38-126); Aspartate Aminotransferase 26 IU/L (14-36); BUN Creatinine Ratio 15.3 (6-22); Bilirubin Total 0.1 mg/dL (0.2-1.3); Blood Urea Nitrogen 9 mg/dL (7-17); Calcium 8.8 mg/dL (8.4-10.2); Carbon Dioxide 28 mmol/L (22-32); Chloride 103 mmol/L (98-107); Estimated Glomerular Filt Rate > 60.0 mL/min (>60); Globulin 2.7 g/dL (1.7-4.1); Glucose 136 mg/dL (80-110); HEMOLYSIS < 15 (0-50); Potassium 3.8 mmol/L (3.4-5.1); Sodium 135 mmol/L (137-145); Total Protein 6.6 g/dL (6.3-8.2)
== END ==
PROVIDERS: Family Provider Internal Medicine; PCP Internal Medicine; Referring Provider Internal Medicine; Visit Provider Internal Medicine
DX: J69.0 Pneumonitis due to inhalation of food and vomit (principal)
CPT/HCPCS: 36415; 80053; 83605; 85025

== ENCOUNTER → 2020-07-10 14:07 | Outpatient (CLI) | payer MEDICARE, OTHER, SELFPAY ==
--- NOTE | 2020-07-10 | DI.CT.S_ITS ---
PROCEDURE: CT CHEST WO CON INDICATIONS: Pneumonitis due to inhalation of food and vomit TECHNIQUE: Noncontrast 5 mm thick sections acquired from the pulmonary apices to the posterior costophrenic angles. 1 mm lung window, 5 mm thick coronal and sagittal and 7 mm axial MIP reformats were then acquired. For radiation dose reduction, the following was used: automated exposure control, adjustment of mA and/or kV according to patient size. COMPARISON: [facility], CT, CT CHEST HIGH RESOLUTION, 04/13/2020, 11:46. [facility], US, US THYROID, 01/12/2018, 8:37. [facility], CR, XR CHEST 1V, 06/14/2020, 14:20. FINDINGS: Image quality: Excellent. Lungs and pleura: No acute air space opacities. No pleural effusions or pneumothorax. Central and peripheral airways are patent and normal in caliber. Mediastinum: Heart size is normal. No pericardial effusion. There is moderate coronary artery calcification. No mediastinal adenopathy by size criteria. Thoracic aorta and central pulmonary arteries are normal in size. Esophagus is normal in caliber. No hiatal hernia. Bones and chest wall: Sternotomy. No suspicious bony lesions. No vertebral body compression fractures. No axillary or supraclavicular adenopathy by size criteria. There is a 1 cm low-density nodule in the posterior aspect of the right thyroid lobe. Abdomen: Visualized upper abdominal solid organs and bowel loops appear normal in the absence of contrast. A 3 cm simple cyst is seen in the left kidney. IMPRESSION: 1. No findings to suggest aspiration pneumonia or inhalation pneumonitis. 2. Moderate coronary artery calcification. Dictated by: Ayana Montanez M.D. on 07/10/2020 at 16:32 Approved by: Ayana Montanez M.D. on 07/10/2020 at 17:21
== END ==
PROVIDERS: Family Provider Internal Medicine; PCP Internal Medicine; Referring Provider Internal Medicine; Visit Provider Internal Medicine
DX: J69.0 Pneumonitis due to inhalation of food and vomit (principal); I25.10 Atherosclerotic heart disease of native coronary artery without angina pectoris
CPT/HCPCS: 71250

== ENCOUNTER → 2020-07-29 17:04 | Outpatient (CLI) | payer MEDICARE, OTHER, SELFPAY ==
[2020-07-29 17:47] LABS: Add Manual Diff / Slide Review NO; Basophils Absolute Auto 100 /uL (0-100); Basophils Percent Auto 1.3 % (0-2); Eosinophils Absolute Auto 300 /uL (0-450); Eosinophils Percent Auto 5.5 % (2-4); Hematocrit 35.7 % (36-46); Hemoglobin 12.4 g/dL (12.0-16.0); Lymphocytes Absolute Auto 1900 /uL (1100-4500); Lymphocytes Percent Auto 29.2 % (25-40); Mean Corpuscular HGB Conc 34.9 % (30-36); Mean Corpuscular Hemoglobin 30.8 PG (26-34); Mean Corpuscular Volume 88.4 fL (80-100); Monocytes Absolute Auto 700 /uL (0-900); Monocytes Percent Auto 11.5 % (3-14); Neutrophils Absolute Auto 3300 /uL (1500-7000); Neutrophils Percent Auto 52.5 % (50-75); Platelet Count 197 X10^3/uL (150-400); Red Blood Cell Count 4.04 X10^6/uL (4.0-5.2); White Blood Cell Count 6.3 X10^3/uL (4.5-11.0)
[2020-07-29 18:04] LABS: BUN Creatinine Ratio 22.7 (6-22); Blood Urea Nitrogen 17 mg/dL (7-17); Carbon Dioxide 26 mmol/L (22-32); Chloride 102 mmol/L (98-107); Estimated Glomerular Filt Rate > 60.0 mL/min (>60); Glucose 145 mg/dL (80-110); HEMOLYSIS < 15 (0-50); Potassium 3.7 mmol/L (3.4-5.1); Sodium 134 mmol/L (137-145)
[2020-07-29 18:11] LABS: Free T4, Direct Thyroxine 1.02 ng/dL (0.78-2.19)
[2020-07-29 18:25] LABS: Thyroid Stimulating Hormone 3.63 uIU/mL (0.47-4.68)
== END ==
PROVIDERS: Family Provider Internal Medicine; PCP Internal Medicine; Referring Provider Internal Medicine; Visit Provider Internal Medicine
DX: D64.9 Anemia, unspecified (principal); I47.1 Supraventricular tachycardia; E83.42 Hypomagnesemia; E78.5 Hyperlipidemia, unspecified
CPT/HCPCS: 36415; 80048; 83735; 84439; 84443; 85025

== ENCOUNTER → 2020-07-30 08:31 | Outpatient (CLI) | payer MEDICARE, OTHER, SELFPAY ==
[2020-07-30 10:46] LABS: Cholesterol 140 mg/dL (140-199); HDL Cholesterol 50 mg/dL (40-60); LDL Cholesterol Calculated 73 mg/dL (<100); Triglycerides 83 mg/dL (35-150)
[2020-07-30 11:14] LABS: Glucose 106 mg/dL (80-110)
[2020-07-30 14:27] LABS: Hemoglobin A1C% w Est Avg Glu 5.6 % (4.0-6.0)
[2020-07-31 17:52] LABS: Fecal Immunochemical Test Negative (Negative)
== END ==
PROVIDERS: Internal Medicine; Family Provider Internal Medicine; PCP Internal Medicine; Referring Provider Internal Medicine; Visit Provider Internal Medicine
DX: E78.5 Hyperlipidemia, unspecified (principal); R73.01 Impaired fasting glucose
CPT/HCPCS: 36415; 80061; 82274; 82947; 83036

== ENCOUNTER → 2020-08-07 10:10 | Outpatient (CLI) | payer MEDICARE, OTHER, SELFPAY ==
--- NOTE | 2020-08-07 10:17 | DI.CT.S_ITS ---
PROCEDURE: CT HEAD/BRAIN WO CON INDICATIONS: TIA TECHNIQUE: Noncontrast 4.5 mm thick angled axial sections acquired from the foramen magnum to the vertex, with coronal and sagittal reformats. For radiation dose reduction, the following was used: automated exposure control, adjustment of mA and/or kV according to patient size. COMPARISON: [facility], CT, CT ANGIO BRAIN AND NECK, 06/19/2015, 11:48. [facility], CT, HEAD WITHOUT CONTRAST, 04/08/2017, 17:05. [facility], CT, CT HEAD/BRAIN WO CON, 12/14/2018, 11:06. [facility], CT, CT HEAD/BRAIN WO CON, 02/28/2020, 10:24. FINDINGS: Image quality: Excellent. CSF spaces: Basal cisterns are patent. No extra-axial fluid collections. The ventricles are symmetric in size and shape. Brain: No intracranial bleeds or masses. There is cerebral volume loss for age, with resultant ventricular and sulcal prominence. There are periventricular and deep white matter chronic small vessel ischemic changes. There is intracranial internal carotid artery atherosclerosis. Skull and face: Calvarium and visualized facial bones appear intact, without suspicious lesions. Sinuses: There is at least moderate mucosal thickening seen within the ethmoid air cells. Kpcy-[id number]-[id number] mucosal thickening is seen within the maxillary sinuses. Mild mucosal thickening is seen elsewhere within the paranasal sinuses. No abnormal fluid is seen within the mastoid air cells. IMPRESSION: No acute CT abnormality is seen. If there is strong clinical suspicion for an acute stroke, please consider an MRI for further evaluation, as it is more sensitive (assuming that there is no contraindication to MRI). Paranasal sinus disease incidentally noted. Dictated by: Mehran Diaz M.D. on 08/07/2020 at 9:44 Approved by: Mehran Diaz M.D. on 08/07/2020 at 10:02
== END ==
PROVIDERS: Family Provider Internal Medicine; PCP Internal Medicine; Referring Provider Physician Assistant; Visit Provider Physician Assistant
DX: G45.9 Transient cerebral ischemic attack, unspecified (principal)
CPT/HCPCS: 70450

== ENCOUNTER 2020-08-19 12:30 | Outpatient (RCR) | payer MEDICARE, OTHER, SELFPAY ==
--- NOTE | 2020-07-15 18:36 | ST.OPIE ---
Visit Care Team Role Provider Type Javier Yung MD Family Provider Physician Primary Care Provider Specialty: Internal Medicine Address: [address] [place] [address], [id number] Email: [email or web address] Curt Perkins MD Attending Provider Physician Referring Provider Specialty: Ear, Nose, Throat Address: [address] [place] [address], [id number] Email: [email or web address] Speech-Language Pathology Initial Evaluation PLAN CHECKER Voice Resonance Evaluation Start: 07/15/20 14:28 Freq: Status: Active Protocol: Document 07/15/20 14:28 DANYA (Rec: 07/15/20 15:39 DANYA [email or web address]) Voice and Resonance Assessment Session Time Visit Start Time 14:30 Visit Stop Time 15:30 Total Visit Minutes 60 Visit Information Visit Number Initial Evaluation Plan of Care Dates 07/15/20 - 10/12/20 Insurance Information Medicare Next Note Type Next Note Type Treatment Note Referral Referring Physician Dr. Curt Perkins Reason for Referral Dysphagia, Paralysis of left VF Setting Setting Outpatient Care Patient History General Information The pt is a 73-yr-old female with hx of left VF paresis and significant GERD/LPR. Videolaryngoscopy revealed excellent glottic closure with a near normal mucosal wave. She does not have complere left VF paralysis but rather a weakness. Pt c/o frequent coughing and throat clearing over the last year, increased difficulty breathing since July 2019. The pt expressed concerned of aspiration of acid reflux. Modified barium swallow study was performed in May 2020, which showed pooling in pyriform sinuses, early spillage of bolus from oral cavity to pyriform sinuses, flash penetration, and no aspiration. PMHx: In Apr 2008, the pt underwent left carotid endarterectomy with bleeding complications that brought her back to surgery the following day. The pt stated that she was told that during surgery, either the VF or nerve was cut , she was not sure which. After surgery, she did experience changes in her voice and laryngospasm, both of which resolved for a time but later returned. Again, the laryngospasm resolved; unclear from pt report if that was with or without PLAN CHECKER intervention. She could not state when her voice again became hoarse, but she has noticed significantly increased impairment over the last year, as well as a development of chronic cough and throat clearing. The pt has a long hx of GERD and belching (since childhood) , gall bladder removal and Fibromuscular Dysplasia (FMD). She sleeps upright as GERD precaution. GERD is currently being treated medicinally; however, the pt does not feel that medication has helped in the past and expressed skepticism of current medication. 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 Oral-Motor Eval Completed No Subjective Subjective The pt arrived on time and provided extensive case history and explanation of concerns. She expressed desire for dysphagia therapy to reduce risk of aspiration of acid reflux and for voice therapy. Extensive education was provided today RE PLAN CHECKER services , general MBSS findings, potential impact of GERD/LPR on pharyngeal and laryngeal integrity and related sensations, VFs and quality of voice, and chronic cough/ throat clearing and its potential impact on voice. Clinician and pt perceptual rating forms were completed. Aerodynamic and acoustic testing to be completed at next session. - Laryngeal Performance Voice Handicap Index Function Subtotal 29, Severe Physical Subtotal 16, Mild-Moderate Emotional Subtotal 11, Mild-Moderate Total Score 56 Severity Moderate (31-60) CAPE-V Overall Severity 67% Mod-Severe Roughness 67% Mod-Severe Breathiness 4% Min Strain 46% Moderate Pitch 32% Mildly reduced Loudness WNL in conversation Normal Resonance? Yes Other Features Observed All measurements made from voice in conversation only. Findings Findings Moderate-Severe Impairment Voice/Resonance Assessment Assessment The pt presents with moderate- severe dysphonia secondary to weakened left VF and likely impacted by severe and possibly jail GERD/LPR. Voice therapy is recommended and anticipated to improve vocal quality and integrity of left VF. However, if GERD/LPR is a large contributing factor and is not well managed , progress with voice therapy may be limited. The pt was educated on these findings and potential limitations and verbalized understanding and desire to proceed with voice therapy. She also expressed desire for dysphagia therapy and training in alternative cough techniques. She was trained in the latter today (i .e., hard swallow and silent cough techniques) and demonstrated ability to perform. Instructions were provided orally with demonstration and in writing for home practice. - Recommendations Treatment Recommended Yes: In addition to dysphagia therapy Treatment Frequency/Duration 1x/wk for 12 wks Therapy Recommendations GERD/LPR education; voice therapy targeting vocal hygiene and exercises to improve left VF movement and normalize quality of voice; dysphagia therapy targeting exercises to improve posterior oral containment, pharyngeal clearance, and airway protection to reduce risk of aspiration. Short Term Goals 1. The pt will participate in further voice and swallow evaluations to guide POC. Further goals to be established pending findings. 2. The pt will use alternative cough techniques with min prompts in 80% of opportunities to reduce trauma to VFs, improve quality of voice, and increase pt comfort . 3. The pt will perform ab/ adduction exercises with min cues and 80% accuracy to improve vocal quality. 4. The pt will perform pitch range exercises to increase range with good quality of voice and to increase laryngeal elevation/depression to improve airway protection during swallow. Usp Goals 1. The pt exhibit no greater than mild s/sx of dysphonia in order to improve quality of voice and of life. 2. The pt will use alternative cough techniques independently in 75% of opportunities to reduce trauma to VFs, improve quality of voice, and increase pt comfort . Patient/Caregiver Education Patient/Family Education Described results of evaluation,Patient Understanding,Patient Needs More Info
--- NOTE | 2020-07-28 17:42 | ST.OPTN ---
Visit Care Team Role Provider Type Javier Yung MD Family Provider Physician Primary Care Provider Address: [address] [place] [address], [id number] Curt Perkins MD Attending Provider Physician Referring Provider Address: [address] [place] [address], [id number] COLD WORK OPERATOR Treatment Note COLD WORK OPERATOR Treatment Note Start: 07/15/20 14:28 Freq: Status: Active Protocol: Document 07/28/20 17:33 DANYA (Rec: 07/28/20 17:34 DANYA [email or web address]) Speech Pathology Treatment Note Session Time Visit Start Time 14:30 Visit Stop Time 15:20 Total Visit Minutes 50 Visit Information Visit Number 05/31 Plan of Care Dates 07/15/20 - 10/12/20 Insurance Information Medicare Setting Treatment Setting Outpatient Care Visit Type Note Type Treatment Note Next Note Type Next Note Type Treatment Note General Information General Information The pt is a 73-yr-old female with hx of left VF paresis and significant GERD/LPR. Videolaryngoscopy revealed excellent glottic closure with a near normal mucosal wave. She does not have complere left VF paralysis but rather a weakness. Pt c/o frequent coughing and throat clearing over the last year, increased difficulty breathing since July 2019. The pt expressed concerned of aspiration of acid reflux. Modified barium swallow study was performed in May 2020, which showed pooling in pyriform sinuses, early spillage of bolus from oral cavity to pyriform sinuses, flash penetration, and no aspiration. PMHx: In Apr 2008, the pt underwent left carotid endarterectomy with bleeding complications that brought her back to surgery the following day. The pt stated that she was told that during surgery, either the VF or nerve was cut , she was not sure which. After surgery, she did experience changes in her voice and laryngospasm, both of which resolved for a time but later returned. Again, the laryngospasm resolved; unclear from pt report if that was with or without COLD WORK OPERATOR intervention. She could not state when her voice again became hoarse, but she has noticed significantly increased impairment over the last year, as well as a development of chronic cough and throat clearing. The pt has a long hx of GERD and belching (since childhood) , gall bladder removal and Fibromuscular Dysplasia (FMD). She sleeps upright as GERD precaution. GERD is currently being treated medicinally; however, the pt does not feel that medication has helped in the past and expressed skepticism of current medication. Objective Short Term Goals . The pt will participate in further voice and swallow evaluations to guide POC. Further goals to be established pending findings. 2. The pt will use alternative cough techniques with min prompts in 80% of opportunities to reduce trauma to VFs, improve quality of voice, and increase pt comfort . 3. The pt will perform ab/ adduction exercises with min cues and 80% accuracy to improve vocal quality. 4. The pt will perform pitch range exercises to increase range with good quality of voice and to increase laryngeal elevation/depression to improve airway protection during swallow. Custodial Goals 1. The pt exhibit no greater than mild s/sx of dysphonia in order to improve quality of voice and of life. 2. The pt will use alternative cough techniques independently in 75% of opportunities to reduce trauma to VFs, improve quality of voice, and increase pt comfort . [ End ] Treatment Activities Extensive ongoing education provided to pt RE potential impacts of GERD/LPR, surgery, and long-term coughing on voice and swallow safety. Discussed mechanics of swallow briefly; will f/u in more detail at next session. Voice continues to be severely rough sounding and strained. Initiated education on subsystems of voice, specifically powering the voice from breath, not straining at VFs. Trained pt in swallow and voice exercises. Instructions provided orally with demonstration and in writing. Pt verbalized understanding; needs reinforcement. Assessment Rehab Potential Good Impairments Identified Dysphagia,Vocal Quality Assessment of Improvement The pt had many questions and provided further extensive explanations of her medical history and concerns related to voice and swallow. She was receptive to education and answers to questions, appreciative of care. She verbalized understanding of exercises and returned demonstration. Strongly instructed pt to discontinue voice exercises if she felt any discomfort or vocal quality worsened or tired with the effort. She verbalized understanding and agreement. Will continue education and training at next session. Reviewed with Patient Goals,Progress Being Made,Home Exercise Program Patient/Caregiver Understanding Good Plan Therapeutic Contents Client Education,Home Exercise Program,Swallowing/Feeding, Voice Training Provided Patient/Caregiver Instruction Home Exercise Program,Plan of Care,Questions/Concerns Therapy Recommendations Continue with Current Program
--- NOTE | 2020-08-19 15:19 | ST.OPDS ---
Visit Care Team Role Provider Type Javier Yung MD Family Provider Physician Primary Care Provider Address: [address] [place] [address], [id number] Curt Perkins MD Attending Provider Physician Referring Provider Address: [address] [place] [address], [id number] CUSTOMER SUCCESS ASSOCIATE Treatment Note CUSTOMER SUCCESS ASSOCIATE Treatment Note Start: 07/15/20 14:28 Freq: Status: Active Protocol: Document 08/19/20 13:12 DANYA (Rec: 08/19/20 13:27 DANYA [email or web address]) Speech Pathology Treatment Note Session Time Visit Start Time 14:30 Visit Stop Time 15:20 Total Visit Minutes 50 Visit Information Visit Number 07/01 Plan of Care Dates 07/15/20 - 10/12/20 Insurance Information Medicare Setting Treatment Setting Outpatient Care Visit Type Note Type Discharge Summary General Information General Information The pt is a 73-yr-old female with hx of left VF paresis and significant GERD/LPR. Videolaryngoscopy revealed excellent glottic closure with a near normal mucosal wave. She does not have complete left VF paralysis but rather a weakness. Pt c/o frequent coughing and throat clearing over the last year, increased difficulty breathing since July 2019. The pt expressed concerned of aspiration of acid reflux. Modified barium swallow study was performed in May 2020, which showed pooling in pyriform sinuses, early spillage of bolus from oral cavity to pyriform sinuses, flash penetration, and no aspiration. PMHx: In Apr 2008, the pt underwent left carotid endarterectomy with bleeding complications that brought her back to surgery the following day. The pt stated that she was told that during surgery, either the VF or nerve was cut , she was not sure which. After surgery, she did experience changes in her voice and laryngospasm, both of which resolved for a time but later returned. Again, the laryngospasm resolved; unclear from pt report if that was with or without CUSTOMER SUCCESS ASSOCIATE intervention. She could not state when her voice again became hoarse, but she has noticed significantly increased impairment over the last year, as well as a development of chronic cough and throat clearing. The pt has a long hx of GERD and belching (since childhood) , gall bladder removal and Fibromuscular Dysplasia (FMD). She sleeps upright as GERD precaution. GERD is currently being treated medicinally; however, the pt does not feel that medication has helped in the past and expressed skepticism of current medication. Subjective Identification Type Name,ID Card Observations/Patient Presentation The pt arrived on time. She reported having had a neuro event that lasted only a minute or two about 3 wks ago . She did not provide more details but stated that it worried her, and she has many doctors appointments and a lot going on right now. She requested stopping Speech Therapy for now until these other priorities were addressed and then returning for more voice therapy. CUSTOMER SUCCESS ASSOCIATE agreed to this. Chief Complaint(s) Swallowing,Voice Patient Knowledge/Awareness of CUSTOMER SUCCESS ASSOCIATE Role Good in Treatment Objective Short Term Goals 1. The pt will use alternative cough techniques with min prompts in 80% of opportunities to reduce trauma to VFs, improve quality of voice, and increase pt comfort . 2. The pt will perform ab/ adduction exercises with min cues and 80% accuracy to improve vocal quality. Goal not met 3. The pt will perform pitch range exercises to increase range with good quality of voice and to increase laryngeal elevation/depression to improve airway protection during swallow. Not yet targeted Orthopedic Shoe Fitter Goals 1. The pt exhibit no greater than mild s/sx of dysphonia in order to improve quality of voice and of life. Goal not met 2. The pt will use alternative cough techniques independently in 75% of opportunities to reduce trauma to VFs, improve quality of voice, and increase pt comfort . Making progress [ End ] Treatment Activities Consulted with pt RE POC. Agreed to discharge for now. When pt is ready to return, she will request new orders from her doctor, and therapy will be resumed. Reviewed HEP tasks assigned in previous sessions and assessed pt's understanding and ability to perform. The pt performed cough alternatives independently. She had questions related to swallowing and voice exercises , which were answered with demonstration. The pt performed swallow exercises appropriately, demonstrating understanding and proper form. During performance of 2 of 4 assigned voice exercises, the pt's voice was noted to be severely strained. Without further education and training , there is a risk the pt could worsen her voice from such performance. Those tasks were discontinued for now and will be re-addressed if/when the pt resumes voice therapy. With training, the pt was able to perform tight breath holding and staccato vowel adduction exercises without risk of further damage. HEP written instructions were revised to reflect changes, and the pt was instructed to perform these exercises as able until therapy can be resumed. Pt was in agreement. Assessment Patient Response to Treatment Fair Rehab Potential Good Impairments Identified Dysphagia,Vocal Quality Assessment of Overall Progress Unchanged Assessment of Improvement The pt continues with moderate -severe strained vocal quality in conversation and in structured vocal tasks. Significant improvement of voice will require further education and training; however, the pt was able to appropriately perform VF adduction exercises with minimal or no actual voice production required. She was receptive to education provided RE importance of using breath vs laryngeal tension to support and power the voice; however, this, too , requires further training. She performed swallow exercises appropriately, and it is anticipated that by following HEP as instructed today, the pt will have improvement in swallow function and safety and may experience minimal, but not complete, improvement of vocal quality. The pt will be discharged from therapy at this time per her request so she can address other health priorities. Return to voice and dysphagia therapy when able is highly recommended to improve function and ease for the pt and improve overall QoL. Reviewed with Patient Goals,Progress Being Made,Home Exercise Program Patient/Caregiver Understanding Good Plan Therapeutic Contents Client Education,Home Exercise Program,Swallowing/Feeding, Voice Training Provided Patient/Caregiver Instruction Home Exercise Program,Plan of Care,Questions/Concerns Therapy Recommendations Discharge to Home Exercise Program
== END 2020-08-27 07:31 | disposition home or self-care (01) ==
LOC: SP 12:30
PROVIDERS: Family Provider Internal Medicine; PCP Internal Medicine; Referring Provider Otolaryngology; Visit Provider Otolaryngology
DX: R13.19 Other dysphagia (principal); J38.01 Paralysis of vocal cords and larynx, unilateral; R05 Cough
CPT/HCPCS: 92507; 92524; 92526

== ENCOUNTER → 2020-08-28 11:02 | Outpatient (CLI) | payer MEDICARE, OTHER, SELFPAY ==
--- NOTE | 2020-08-28 11:04 | DI.RAD.S_ITS ---
PROCEDURE: XR LUMBAR SPINE 2-3V INDICATIONS: LOWER BACK PAIN TECHNIQUE: 3 views of the lumbar spine were acquired. COMPARISON: None. FINDINGS: Bones: 5 fum-eny-zbbbjga vertebrae are present. There is normal bony alignment. No vertebral body compression fractures. No suspicious bony lesions. Soft tissues: Overlying bowel gas pattern is normal. No suspicious soft tissue calcifications. IMPRESSION: Mild degenerative changes along the thoracolumbar junction and upper lumbar spine, with facet osteoarthritis mild from L3 inferiorly. No compression fracture found. Dictated by: Dayron Sweeney M.D. on 08/28/2020 at 12:08 Approved by: Dayron Sweeney M.D. on 08/28/2020 at 12:08
== END ==
PROVIDERS: Family Provider Internal Medicine; PCP Internal Medicine; Referring Provider Internal Medicine; Visit Provider Internal Medicine
DX: M54.5 Low back pain (principal); M47.816 Spondylosis without myelopathy or radiculopathy, lumbar region
CPT/HCPCS: 72100

== ENCOUNTER → 2020-09-30 14:04 | Outpatient (CLI) | payer MEDICARE, OTHER, SELFPAY ==
[2020-09-30 16:49] LABS: BUN Creatinine Ratio 21.9 (6-22); Blood Urea Nitrogen 16 mg/dL (7-17); Calcium 9.1 mg/dL (8.4-10.2); Carbon Dioxide 30 mmol/L (22-32); Chloride 98 mmol/L (98-107); Estimated Glomerular Filt Rate > 60.0 mL/min (>60); Glucose 116 mg/dL (80-110); HEMOLYSIS < 15 (0-50); Magnesium 2.1 mg/dL (1.6-2.3); Potassium 4.1 mmol/L (3.4-5.1); Sodium 134 mmol/L (137-145)
== END ==
PROVIDERS: Family Provider Internal Medicine; PCP Internal Medicine; Referring Provider Internal Medicine; Visit Provider Internal Medicine
DX: I49.3 Ventricular premature depolarization (principal)
CPT/HCPCS: 36415; 80048; 83735

== ENCOUNTER → 2021-01-07 09:14 | Outpatient (CLI) | payer MEDICARE, OTHER, SELFPAY ==
[2021-01-07 11:11] LABS: Blood Urea Nitrogen 11 mg/dL (7-17); Calcium 9.2 mg/dL (8.4-10.2); Carbon Dioxide 28 mmol/L (22-32); Chloride 103 mmol/L (98-107); Cholesterol 141 mg/dL (140-199); Estimated Glomerular Filt Rate > 60.0 mL/min (>60); Glucose 98 mg/dL (80-110); HDL Cholesterol 46 mg/dL (40-60); HEMOLYSIS < 15 (0-50); LDL Cholesterol Calculated 73 mg/dL (<100); Magnesium 2.1 mg/dL (1.6-2.3); Potassium 4.4 mmol/L (3.4-5.1); Sodium 137 mmol/L (137-145); Triglycerides 112 mg/dL (35-150)
== END ==
PROVIDERS: Family Provider Internal Medicine; PCP Internal Medicine; Referring Provider Internal Medicine; Visit Provider Internal Medicine
DX: E78.5 Hyperlipidemia, unspecified (principal); E83.42 Hypomagnesemia
CPT/HCPCS: 36415; 80048; 80061; 83735

== ENCOUNTER → 2021-02-05 09:13 | Outpatient (CLI) | payer MEDICARE, OTHER, SELFPAY ==
--- NOTE | 2021-02-05 09:16 | DI.RAD.S_ITS ---
PROCEDURE: XR CHEST 2V INDICATIONS: COUGH TECHNIQUE: 2 views of the chest were acquired. COMPARISON: [facility], CR, XR CHEST 1V, 06/14/2020, 14:20. FINDINGS: Surgical changes and devices: Median sternotomy. Lungs and pleura: Lungs are clear. No pleural effusions or pneumothorax. Mediastinum: Mediastinal contours are normal. Heart size is normal. Bones and chest wall: No suspicious bony abnormalities. Soft tissues appear unremarkable. IMPRESSION: No acute process. Dictated by: Cherie Ernst M.D. on 02/05/2021 at 10:47 Approved by: Cherie Ernst M.D. on 02/05/2021 at 10:47
--- NOTE | 2021-02-05 09:16 | DI.RAD.S_ITS ---
PROCEDURE: XR DEXA AXIAL SKELETON INDICATIONS: ENCOUNTER FOR SCREENING OSTEOPOROSIS COMPARISON: None. FINDINGS: This blank DEXA report has been sent in error by the PACS system. The correct and complete report will be forthcoming in 1-2 days. Thank you for your patience and understanding. Dictated by: Sylvester Ospina M.D. on 02/05/2021 at 10:57 Approved by: Sylvester Ospina M.D. on 02/05/2021 at 10:57
== END ==
PROVIDERS: Family Provider Internal Medicine; PCP Internal Medicine; Referring Provider Internal Medicine; Visit Provider Internal Medicine
DX: R05 Cough (principal); Z78.0 Asymptomatic menopausal state; Z13.820 Encounter for screening for osteoporosis; J42 Unspecified chronic bronchitis
CPT/HCPCS: 71046; 77080

== ENCOUNTER → 2021-04-14 09:56 | Outpatient (CLI) | payer MEDICARE, OTHER, SELFPAY ==
[2021-04-14 11:47] LABS: BUN Creatinine Ratio 22.6 (6-22); Blood Urea Nitrogen 14 mg/dL (7-17); Calcium 9.2 mg/dL (8.4-10.2); Carbon Dioxide 26 mmol/L (22-32); Chloride 102 mmol/L (98-107); Estimated Glomerular Filt Rate > 60.0 mL/min (>60); Glucose 103 mg/dL (80-110); HEMOLYSIS < 15 (0-50); Magnesium 2.1 mg/dL (1.6-2.3); Sodium 137 mmol/L (137-145)
== END ==
PROVIDERS: Family Provider Internal Medicine; PCP Internal Medicine; Referring Provider Internal Medicine; Visit Provider Internal Medicine
DX: E83.42 Hypomagnesemia (principal); R00.2 Palpitations
CPT/HCPCS: 36415; 80048; 83735

== ENCOUNTER → 2021-05-05 11:55 | Outpatient (CLI) | payer MEDICARE, OTHER, SELFPAY ==
--- NOTE | 2021-05-05 | DI.CT.S_ITS ---
PROCEDURE: CT CHEST WO CON INDICATIONS: Chest pain, unspecified TECHNIQUE: Noncontrast 5 mm thick sections acquired from the pulmonary apices to the posterior costophrenic angles. 1 mm lung window, 5 mm thick coronal and sagittal and 7 mm axial MIP reformats were then acquired. For radiation dose reduction, the following was used: automated exposure control, adjustment of mA and/or kV according to patient size. COMPARISON: US, THYROID, 10/15/2015, 14:32. [facility], CT, CT CHEST WO CON, 07/10/2020, 14:13. FINDINGS: Image quality: Excellent. Lungs and pleura: Biapical scars. Cluster nodules or mild nodular infiltrates in the posterior right apex (series 3, image 44). No focal consolidation. No pleural effusions or pneumothorax. Central and peripheral airways are patent and normal in caliber. Mediastinum: Heart size is normal. There is moderate coronary artery calcification. No pericardial effusion. No mediastinal adenopathy by size criteria. Calcified lymph nodes in mediastinum and right kelsey are compatible with remote granulomatous disease. Thoracic aorta and central pulmonary arteries are normal in size. Esophagus is normal in caliber. No hiatal hernia. Bones and chest wall: Sternotomy. No suspicious bony lesions. No vertebral body compression fractures. No axillary or supraclavicular adenopathy by size criteria. Note is made of a 1.3 cm nodule in the posterior inferior right thyroid lobe. Abdomen: There is a 3 cm cyst in the superior pole of the left kidney. Visualized upper abdominal solid organs and bowel loops appear normal in the absence of contrast. IMPRESSION: 1. Cluster nodules or mild nodular infiltrates in the posterior right apex, most likely infectious or inflammatory in etiology. A short-term follow-up CT is suggested in 3 months. 2. Moderate coronary artery calcification. 3. Calcified granulomas in mediastinum and kelsey. 4. A 1.3 cm nodule in the right thyroid lobe. Thyroid ultrasound is recommended for follow-up. Dictated by: Ayana Montanez M.D. on 05/05/2021 at 13:18 Approved by: Ayana Montanez M.D. on 05/05/2021 at 17:24
== END ==
PROVIDERS: Family Provider Internal Medicine; PCP Internal Medicine; Referring Provider Internal Medicine; Visit Provider Internal Medicine
DX: R07.9 Chest pain, unspecified (principal); R91.8 Other nonspecific abnormal finding of lung field; J98.4 Other disorders of lung; I25.10 Atherosclerotic heart disease of native coronary artery without angina pectoris; N28.1 Cyst of kidney, acquired
CPT/HCPCS: 71250

== ENCOUNTER → 2021-08-06 14:36 | Outpatient (CLI) | payer MEDICARE, OTHER, SELFPAY ==
--- NOTE | 2021-08-06 | DI.CT.S_ITS ---
PROCEDURE: CT CHEST WO CON INDICATIONS: ABNORMAL CT SCAN,LUNG TECHNIQUE: Noncontrast 5 mm thick sections acquired from the pulmonary apices to the posterior costophrenic angles. 1 mm lung window, 5 mm thick coronal and sagittal and 7 mm axial MIP reformats were then acquired. For radiation dose reduction, the following was used: automated exposure control, adjustment of mA and/or kV according to patient size. COMPARISON: [facility], CT, CT CHEST WO [facility], 05/05/2021, 12:04. FINDINGS: Image quality: Excellent. Lungs and pleura: No acute air space opacities. Biapical scarring is present, as before. No pleural effusions or pneumothorax. Central and peripheral airways are patent and normal in caliber. Mediastinum: Heart size is normal. Moderate calcification of the coronary vasculature. Mild bibasilar pulmonary scarring. No pericardial effusion. No mediastinal adenopathy by size criteria. Thoracic aorta and central pulmonary arteries are normal in size. Esophagus is normal in caliber. No hiatal hernia. Bones and chest wall: Median sternotomy. No suspicious bony lesions. No vertebral body compression fractures. No axillary or supraclavicular adenopathy by size criteria. Thyroid gland demonstrates bilateral nodules, largest of which is in the right lobe posteriorly measuring 14 mm. . Abdomen: Visualized upper abdominal solid organs and bowel loops appear normal in the absence of contrast. IMPRESSION: 1. No change in biapical scarring. 2. Coronary artery disease. 3. No change in bilateral thyroid nodules. Dictated by: Cherie Ernst M.D. on 08/06/2021 at 16:52 Approved by: Cherie Ernst M.D. on 08/06/2021 at 16:54
== END ==
PROVIDERS: Family Provider Internal Medicine; PCP Internal Medicine; Referring Provider Specialist; Visit Provider Specialist
DX: R91.8 Other nonspecific abnormal finding of lung field (principal); I25.10 Atherosclerotic heart disease of native coronary artery without angina pectoris; E04.2 Nontoxic multinodular goiter
CPT/HCPCS: 71250

== ENCOUNTER → 2021-08-09 13:22 | Outpatient (CLI) | payer MEDICARE, OTHER, SELFPAY | PROVIDERS: Family Provider Internal Medicine; PCP Internal Medicine; Visit Provider Physician Assistant | DX: J02.9 Acute pharyngitis, unspecified (principal) | CPT/HCPCS: 87070 ==

== ENCOUNTER → 2021-08-20 12:11 | Outpatient (CLI) | payer MEDICARE, OTHER, SELFPAY ==
--- NOTE | 2021-08-20 12:15 | DI.MRI.S_ITS ---
PROCEDURE: MR HEAD/BRAIN WO/W CON INDICATIONS: Headache, unspecified TECHNIQUE: Noncontrast axial T1 spin echo, axial T2 fast spin echo, sagittal and axial FLAIR, coronal T2 fast spin echo, axial gradient echo, axial diffusion and ADC through the brain. After the administration of contrast, axial and coronal 3D VIBE or T1 spin echo with fat saturation through the brain. COMPARISON: None. FINDINGS: Image quality: Excellent. CSF Spaces: Basal cisterns are patent. No extra-axial fluid collections. Ventricles are normal in size and shape. Brain: Moderate chronic microvascular ischemic changes. Small left centrum semiovale lacunar infarct. No restricted diffusion to indicate recent ischemia. Mild global cerebral volume loss. No abnormal intracranial susceptibility or enhancement. No mass effect or midline shift. Skull and face: Calvarial marrow is normal in signal. Orbits appear normal. Sinuses: Small fluid levels in the sphenoid and maxillary sinuses with mild diffuse paranasal sinus mucosal thickening. There are also aerated secretions with fluid level in the left frontal sinus. IMPRESSION: No acute intracranial abnormality. Inflammatory changes throughout the paranasal sinuses which raise concern for acute sinusitis. Dictated by: Alexander Garcia M.D. on 08/20/2021 at 15:10 Approved by: Alexander Garcia M.D. on 08/20/2021 at 15:12
== END ==
PROVIDERS: Family Provider Internal Medicine; PCP Internal Medicine; Referring Provider Otolaryngology; Visit Provider Otolaryngology
DX: R51.9 Headache, unspecified (principal); H92.01 Otalgia, right ear; K13.79 Other lesions of oral mucosa; R07.0 Pain in throat; K14.6 Glossodynia
CPT/HCPCS: 70553

== ENCOUNTER 2021-08-24 16:04 | Emergency (ER) | payer MEDICARE, OTHER, SELFPAY ==
[2021-08-24] VITALS (10 sets, daily range): BP systolic 131–182; BP diastolic 58–81; PULSE 73–101; RESP 16–20; O2SAT 96–99; BMI 22.8
--- NOTE | 2021-08-24 | DI.CT.S_ITS ---
PROCEDURE: CT STROKE INDICATIONS: N TECHNIQUE: Noncontrast 4.5 mm thick angled axial sections acquired from the foramen magnum to the vertex, with coronal reformats. For radiation dose reduction, the following was used: automated exposure control, adjustment of mA and/or kV according to patient size. COMPARISON: [facility], MR, MR HEAD/BRAIN WO/W CON, 08/20/2021, 13:31. FINDINGS: Image quality: Excellent. CSF spaces: Basal cisterns are patent. No extra-axial fluid collections. The ventricles are symmetric in size and shape. Brain: No intracranial bleeds or masses. There is cerebral volume loss for age, with resultant ventricular and sulcal prominence. There are periventricular and deep white matter chronic small vessel ischemic changes. There is intracranial internal carotid artery atherosclerosis. Skull and face: Calvarium and visualized facial bones appear intact, without suspicious lesions. High cervical left carotid stent. Sinuses: Bilateral maxillary sinus air-fluid levels as well as sphenoid sinus air-fluid levels. Subtotal bilateral ethmoid opacification. IMPRESSION: 1. Acute on chronic sinusitis. 2. No evidence of acute stroke, hemorrhage, or mass. 3. Small vessel ischemic change. Comment: Findings were discussed with Dr. Rodriguez on 08/24/2021 at 1615 hours This study fulfills neurological imaging criteria for inclusion or exclusion of acute stroke therapies based on available published neurological guidelines. Dictated by: Daniel Pollard M.D. on 08/24/2021 at 16:12 Approved by: Daniel Pollard M.D. on 08/24/2021 at 16:16
--- NOTE | 2021-08-24 16:09 | ED_ITS ---
HPI - Neuro Symptoms/Deficit General Chief Complaint: Neuro Symptoms/Deficit Stated Complaint: Suspected Stroke Time Seen by Provider: 08/24/21 16:08 Source: patient, EMS, RN notes reviewed and old records reviewed Mode of arrival: EMS Limitations: no limitations History of Present Illness HPI Narrative: This is a 75-year-old female who comes for concern for stroke. Patient has a history of AFib with ablation in 2003 with significant complications with perforation of the septum and right atrium resulting in open heart surgery for repair. She has also had a left carotid stent placed and cholecystectomy. Alta becerril has had 3 weeks of right-sided facial pain starting at the ear, TMJ region radiating down her face with numbness sensation of the face, right side of tongue and in her mouth. Patient states today at the symptoms became more intense and the numbness inside her mouth seem to have spread. It did not cross the midline. Patient states that this made her quite anxious so she contacted 911. She did check her blood pressure she states it was quite elevated and was worried she had had a stroke. She denies headache. She denies vision changes. She has not had any other changes to the numbness sensation and has not affected the right side of her body otherwise. She denies any weakness or difficulty with gait, no balance issues. No dizziness or vertigo symptoms. Patient has not had any hearing changes. She feels like her tongue deviates a little bit to the left. Patient did have an MRI of the 20 of August, 4 days ago and had attended and is it did not have any mention of findings regarding cranial nerves. This was ordered by ENT because numbness of her face. Patient has had a stent placed in her left carotid artery in the past. She denies no chest pain, shortness of breath, no nausea or vomiting, no other GI or urinary symptoms. Patient has follow-up with ENT this for recheck. She has not been started on any medications for her symptoms. Related Data Home Medications Medication Instructions Recorded Confirmed aspirin 81 mg tablet,delayed 81 mg PO DAILY #0 02/03/09 03/06/20 release clopidogrel 75 mg tablet 75 mg PO DAILY #0 02/03/09 03/06/20 atorvastatin 20 mg tablet (Lipitor) 20 mg PO DAILY #0 02/23/13 03/06/20 losartan 100 mg tablet (Cozaar) 100 mg PO DAILY #0 tab 02/23/13 03/06/20 multivitamin 1 tab PO QDAY #0 tab 02/23/13 03/06/20 Calcium 1 tab PO DAILY 12/14/18 03/06/20 amlodipine 2.5 mg tablet 2.5 mg PO BID 12/14/18 03/06/20 Previous Rx's Medication Instructions Recorded cyclobenzaprine 5 mg tablet 10 mg PO TID PRN #15 tab 08/10/19 naproxen 500 mg tablet (Naprosyn) 500 mg PO BID PRN #20 tab 08/10/19 ondansetron 4 mg disintegrating 4 mg PO Q6H PRN #14 tab 09/14/19 tablet metoprolol succinate 25 mg 25 mg PO DAILY #14 tab 10/16/19 tablet,extended release 24 hr acebutolol 200 mg capsule 200 mg PO BID #60 cap 10/19/19 lorazepam 0.5 mg tablet 0.5 mg PO BID PRN #10 tab 10/19/19 sucralfate 100 mg/mL oral 1 gram (10 mL) PO Q6H #420 ml 11/02/19 suspension (Carafate) benzonatate 100 mg capsule 100 mg PO TID PRN #20 cap 06/10/20 methylprednisolone 4 mg tablets in See Rx Instructions PO .COMPLEX 06/10/20 a dose pack (Medrol (Lee)) #21 ea levalbuterol tartrate 45 2 puff INHALATION Q4-6H PRN #15 g 06/14/20 mcg/actuation aerosol inhaler (Xopenex HFA) Allergies Allergy/AdvReac Type Severity Reaction Status Date / Time prochlorperazine Allergy Severe Anaphylaxis Verified 08/09/21 13:42 [PROCHLORPERAZINE] erythromycin base Allergy Mild Verified 08/09/21 13:42 [ERYTHROMYCIN BASE] Review of Systems Review of Systems ROS Unobtainable: All systems reviewed & are unremarkable except as noted in HPI and below Patient History Medical History (Updated 08/24/21 @ 17:52 by Syeda Rodriguez DO) Carotid artery disease Heart disease Hypertension Multinodular thyroid Stroke SVT (supraventricular tachycardia) Surgical History History of cholecystectomy History of eye surgery History of left common carotid artery stent placement History of surgery (05/05/08) Social History Smoking Status: Never smoker Smoking Status: Never smoker alcohol intake frequency: 0-2 drinks per day Substance Use Type: does not use Exam Narrative Exam Narrative: GEN: well nourished, well appearing female, alert and oriented x 3, patient appears to be in mild distress. HEENT: Atraumatic, pupils are equal round reactive to light, extraocular mov ements are intact, nares are clear, TMs are clear with no fluid, there is no conjunctival pallor. Throat is clear without any exudates, erythema, tonsillar enlargement or uvular deviation, no facial droop. No deviation of the tongue appreciated. HEART: Regular rate and rhythm without murmur, clicks, rubs. No carotid bruits, pulses are equal in upper and lower extremities LUNGS:Lungs clear to auscultation, no wheezes, rales, crackles, chest moves symmetrically ABD:bowel sounds normal, soft, non-tender, no guarding, rebound, rigidity, no masses noted, no hepatosplenomegaly :No CVA tenderness MSCL: Non-tender, no muscle atrophy, muscles strength 5/5 upper and lower extremities, full range of motion, normal gait, patient is overall tremulous. NEURO:CN 2-12 intact, sensation normal, reflexes 2/4 upper and lower extremities. finger nose finger test normal, heel joe test normal, romberg n ormal SKIN: No rash, erythema or other skin changes noted. Initial Vital Signs Initial Vital Signs: Vital Signs Pulse Rate 101 H 08/24/21 16:11 Respiratory Rate 20 08/24/21 16:11 Blood Pressure 170/81 H 08/24/21 16:11 Pulse Oximetry 98 08/24/21 16:11 Scores NIH Stroke Scale Level of Conciousness: Alert, keenly responsive Ask month/age: Answers both questions correctly. Open/close eyes, close hand: Performs both tasks correctly Best gaze horizontal: Normal Visual soler: No visual loss Facial palsy: Normal symetrical movement Left arm drift: No drift for full 10 sec Right arm drift: No drift for full 10 sec Left leg drift: No drift for full 5 sec Right leg drift: No drift for full 5 sec Limb ataxia: Absent Sensory on face/arms/legs: Normal, no sensory loss Best language: No aphasia, normal Dysarthria: Normal Extinction or inattention: No abnormality Total NIH Stroke scale score: 0 Course Orders Ordered: ED Orders 08/24/21 16:15 Basic Metabolic Panel Stat Complete Blood Count AUTO DIFF Stat Partial Thromboplastin Time Stat Prothrombin Time INR Stat Troponin & CK Cardiac Panel Stat 08/24/21 16:28 CT angio head and neck Stat Urine Drug Screen, Rapid Stat EKG-12 Lead Stat Discontinued Medications Sodium Chloride (Normal Saline 0.9%) 1,000 mls @ 150 mls/hr IV CONT JT Last Admin: 08/24/21 16:39 Dose: 150 mls/hr Documented by: ALFREDOM Ondansetron HCl (Ondansetron 4 Mg/2 Ml Inj) 4 mg IV NOW ONE Stop: 08/24/21 16:20 Last Admin: 08/24/21 16:21 Dose: Not Given Documented by: BTONER Reevaluation(s) Reevaluation #1: On recheck patient's symptoms have been persistent with no new changes she feels like the numbness might not be quite as intense but is still present. She still has occasional pain at the site. We reviewed her MRI findings from 4 days ago, head CT and angiography which do not show any new or acute changes, lab work. Discussed with patient I suspect she may have a trigeminal neuralgia or neuropathy she has follow-up this week with ENT. We discussed that she has noted some changes to which she feels like her tongue being deviated. She was quite tremulous when she arrived but that resolved she attributed this to anxiety but discussed would be appropriate to follow-up with neurology she has persistent symptoms and ENT has not found a clear cause of her symptoms. We did review her MRI reports which did not show any changes to the cranial nerves or brain at that time and she has not had any new change in the location of her symptoms only the intensity. We also did discuss she has never had a rash or skin changes knee area otherwise no facial droop for muscular changes. Vital Signs Vital signs: Vital Signs - 8 hr 08/24/21 16:11 08/24/21 16:20 08/24/21 16:30 Pulse Rate 101 H 100 H 94 H Respiratory Rate 20 Blood Pressure 170/81 H Pulse Oximetry 98 98 97 08/24/21 16:46 08/24/21 17:00 08/24/21 17:22 Pulse Rate 85 84 82 Respiratory Rate 16 19 16 Blood Pressure 182/75 H 165/58 H 133/62 Pulse Oximetry 97 96 97 08/24/21 17:30 08/24/21 18:00 08/24/21 18:32 Pulse Rate 84 73 73 Respiratory Rate 16 Blood Pressure 132/70 131/60 Pulse Oximetry 97 96 99 08/24/21 18:33 Pulse Rate 74 Respiratory Rate Blood Pressure 142/66 H Pulse Oximetry 99 MDM - Neuro Symptoms/Deficit Lab Data Result diagrams: 08/24/21 16:15 08/24/21 16:15 Labs: Lab Results 08/24/21 08/24/21 08/24/21 Range/Units 16:15 16:15 16:15 WBC 6.9 (4.5-11.0) X10^3/uL RBC 3.95 L (4.0-5.2) X10^6/uL Hgb 12.0 (12.0-16.0) g/dL Hct 34.3 L (36-46) % MCV 86.9 (80-100) fL MCH 30.4 (26-34) PG MCHC 35.0 (30-36) % RDW 13.5 (11.6-14.8) % Plt Count 231 (150-400) X10^3/uL Neut % (Auto) 56.7 (50-75) % Lymph % (Auto) 30.5 (25-40) % Tyrrell % (Auto) 8.7 (3-14) % Eos % (Auto) 2.9 (2-4) % Baso % (Auto) 1.2 (0-2) % Neut # (Auto) 3900 (2108-5847) /uL Lymph # (Auto) 2100 (8724-6108) /uL Tyrrell # (Auto) 600 (0-900) /uL Eos # (Auto) 200 (0-450) /uL Baso # (Auto) 100 (0-100) /uL PT 11.9 (10.1-12.7) SECONDS INR 1.1 (0.9-1.3) APTT 28 (26.4-36.2) SECONDS Sodium 134 L (137-145) mmol/L Potassium 3.6 (3.4-5.1) mmol/L Chloride 99 (98-107) mmol/L Carbon Dioxide 23 (22-32) mmol/L BUN 15 (7-17) mg/dL Creatinine 0.81 (0.52-1.04) mg/dL Estimated GFR > 60.0 (>60) mL/min BUN/Creatinine Ratio 18.5 (6-22) Glucose 177 H (80-110) mg/dL Calcium 8.8 (8.4-10.2) mg/dL Total Creatine Kinase 77 (30-135) U/L CK-MB (CK-2) TNP CK-MB (CK-2) Rel Index TNP Troponin I < 0.012 (0.01-0.034) ng/mL Urine Dip Bedside Urine Glucose Negative Bedside Urine Bilirubin - Negative Bedside Urine Ketone - Negative Urine Specific [place] 6.5 Bedside Urine Occult Blood - Negative Bedside Urine pH 6.5 Bedside Urine Protein - Negative Bedside Urine Urobilinogen - Negative Bedside Urine Nitrite - Negative Bedside Urine Leukocytes - Negative Esterase Imaging Data CTA - brain/neck: Radiologist's Impression: Yi Seay??75??F??1945 ? Allergy/Adv: prochlorperazine, erythromycin base (More??) Close Head/Neck CTA (Signed) Toribio Shipley - 08/24/[address] (Signed) Daniel Pollard - 08/24/21 Brain MRI (Addendum) Alexander Garcia - 08/20/[address] (Signed) Cherie Ernst - 08/06/[address] (Signed) Amira Montanez - 05/05/21 Chest X-Ray (Signed) Cherie Ernst - 02/05/21 Bone Densitometry (Signed) Sylvester Ospina - 02/05/21 Lumbar Spine X-Ray (Signed) Dayron Sweeney - 08/28/[address] (Signed) Mehran Diaz - 08/07/[address] (Signed) Amira Montanez - 07/10/20 Chest X-Ray (Signed) Les Melo - 06/14/20 Chest X-Ray (Signed) Uday Davis - 06/10/20 Modified Barium Swallow (Signed) Ana Laura Barahona - 06/04/[address] (Signed) Dayron Sweeney - 04/13/20 Chest X-Ray (Signed) BrooklynStevieAna Laura - 04/09/20 Chest X-Ray (Signed) AtulDaniel - 03/06/[address] (Signed) Noah Downey - 02/28/[address] (Signed) Noah Downey - 02/28/20 Chest X-Ray (Signed) Mehran Diaz - 01/04/20 Chest X-Ray (Signed) JoeMehran - 11/02/19 Chest X-Ray (Signed) AtulDaniel - 10/31/19 Chest X-Ray (Signed) BrooklynAna Laura - 10/19/19 Chest X-Ray (Signed) Dayron Sweeney - 10/16/19 Chest X-Ray (Signed) Uday Davis - 08/09/19 Chest X-Ray (Signed) AtulDaniel - 05/23/[address] (Signed) Ana Laura Barahona - 12/14/18 Chest X-Ray (Signed) Dayron Sweeney - 12/14/18 Head/Neck Ultrasound (Signed) Amira Montanez - 10/26/18 Knee X-Ray (Signed) Noah Downey - 07/16/18 Knee X-Ray (Signed) Noah Downey - 07/16/18 [place] [address] CT Scan Report Signed Patient: Yi Seay MR#: [id number] : 1945 Acct:[id number] Age/Sex: 75 / F Date of Service: 08/24/21 Loc: Accession Number: [id number] ?? Procedure: CT angio head and neck Ordering Provider: Syeda Rodriguez D.O. PROCEDURE:? CT ANGIO HEAD AND NECK ? INDICATIONS:? facial tingling/numbness x 3 weeks. worsening ? TECHNIQUE:? Helical axial CT of the head and neck was obtained after intravenous contrast injection utilizing an angiographic technique and reformatted in multiple planes.? Radiation dose reduction was achieved utilizing automated exposure control and/or parameter adjustment according to patient's size. ? COMPARISON:? None. ? FINDINGS: ? Cerebral CT Angiogram: ? Internal carotid arteries:? No acute findings.? Intracranial ICA are patent with no significant stenosis.? No occlusion.? No aneurysm. Anterior cerebral arteries:? Right A1 FLEX is hypoplastic.? No significant stenosis.? No occlusion.? No aneurysm. Middle cerebral arteries:? Unremarkable.? No significant stenosis.? No occlusion.? No aneurysm. Posterior cerebral arteries:? Unremarkable.? No significant stenosis.? No occlusion.? No aneurysm. Basilar artery:? Unremarkable.? No significant stenosis.? No occlusion.? No aneurysm. Vertebral arteries:? Unremarkable as visualized.? Left vertebral artery dominance Dural venous sinuses:? Unremarkable given phase of enhancement. Other:? Arterial phase brain parenchyma is unremarkable.? Mucosal thickening and debris noted in the ethmoid, left frontal, both maxillary and sphenoid sinuses. ? Neck CT Angiogram: ? Internal carotid arteries:? Left ICA vascular stent is widely patent without stenosis.? Adjacent surgical clip noted Common carotid arteries:? Unremarkable.? No significant stenosis.? No dissection or occlusion. External carotid arteries:? Unremarkable.? No occlusion. Vertebral arteries:? Left vertebral artery dominance.? No significant stenosis.? No dissection or occlusion. Other:? Apically pulmonary scarring noted.? Midline sternal wires present.? Multiple thyroid nodules noted, largest in the right lobe measures 1.6 cm. ? Aortic Arch and Mediastinum:? Partially visualized aortic arch unremarkable without evidence of aneurysm. Origins of the great vessels unremarkable. ? IMPRESSION: ? 1. No intracranial large vessel occlusion, aneurysm or vascular malformation.? ? 2. No ICA stenosis.? Left ICA vascular stent widely patent.? ? 3. Santacruz mucosal paranasal sinus disease with air-fluid levels.? ? 4. Multiple thyroid nodules.? Consider follow-up ultrasound thyroid ? ? Any quantitative measurements of stenosis were performed using NASCET criteria.? Approved by: Toribio Shipley M.D. on 08/24/2021 at 16:34? CT scan - head: Radiologist's Impression: Close Head/Neck CTA (Signed) Toribio Shipley - 08/24/[address] (Signed) Daniel Pollard - 08/24/21 Brain MRI (Addendum) Alexander Garcia - 08/20/[address] (Signed) Cherie Ernst - 08/06/[address] (Signed) Amira Montanez - 05/05/21 Chest X-Ray (Signed) Cherie Ernst - 02/05/21 Bone Densitometry (Signed) Sylvester Ospina - 02/05/21 Lumbar Spine X-Ray (Signed) Dayron Sweeney - 08/28/[address] (Signed) Mehran Diaz - 08/07/[address] (Signed) Amira Montanez - 07/10/20 Chest X-Ray (Signed) LorieLes - 06/14/20 Chest X-Ray (Signed) Uday Davis - 06/10/20 Modified Barium Swallow (Signed) Aan Laura Barahona - 06/04/[address] (Signed) Dayron Sweeney - 04/13/20 Chest X-Ray (Signed) Ana Laura Barahona - 04/09/20 Chest X-Ray (Signed) Daniel Pollard - 03/06/[address] (Signed) Noah Downey - 02/28/[address] (Signed) Noah Downey - 02/28/20 Chest X-Ray (Signed) Mehran Diaz - 01/04/20 Chest X-Ray (Signed) Mehran Diaz - 11/02/19 Chest X-Ray (Signed) Daniel Pollard - 10/31/19 Chest X-Ray (Signed) Ana Laura Barahona - 10/19/19 Chest X-Ray (Signed) Dayron Sweeney - 10/16/19 Chest X-Ray (Signed) Uday Davis - 08/09/19 Chest X-Ray (Signed) Daniel Pollard - 05/23/[address] (Signed) Ana Laura Barahona - 12/14/18 Chest X-Ray (Signed) Dayron Sweeney - 12/14/18 Head/Neck Ultrasound (Signed) Amira Montanez - 10/26/18 Knee X-Ray (Signed) Noah Downey - 07/16/18 Knee X-Ray (Signed) Noah Downey - 07/16/[address] [address] [address] Scan Report Signed Patient: Yi Seay MR#: [id number] : 1945 Acct:[id number] Age/Sex: 75 / F Date of Service: 08/24/21 Loc: ED Accession Number: [id number] ?? Procedure: CT Stroke Ordering Provider: *Obip,ED*? PROCEDURE:? CT STROKE ? INDICATIONS:? N ? TECHNIQUE:? Noncontrast 4.5 mm thick angled axial sections acquired from the foramen magnum to the vertex, with coronal reformats.? For radiation dose reduction, the following was used:? automated exposure control, adjustment of mA and/or kV according to patient size.? ? COMPARISON:? [facility], MR, MR HEAD/BRAIN WO/W CON, 08/20/2021, 13:31. ? FINDINGS:? Image quality:? Excellent.? ? CSF spaces:? Basal cisterns are patent.? No extra-axial fluid collections.? The ventricles are symmetric in size and shape.? ? Brain:? No intracranial bleeds or masses.? There is cerebral volume loss for age, with resultant ventricular and sulcal prominence.? There are periventricular and deep white matter chronic small vessel ischemic changes.? There is intracranial internal carotid artery atherosclerosis.? ? Skull and face:? Calvarium and visualized facial bones appear intact, without suspicious lesions.? High cervical left carotid stent. ? Sinuses:? Bilateral maxillary sinus air-fluid levels as well as sphenoid sinus air-fluid levels.? Subtotal bilateral ethmoid opacification.? ? IMPRESSION:? ? 1. Acute on chronic sinusitis. ? 2. No evidence of acute stroke, hemorrhage, or mass. ? 3. Small vessel ischemic change. ? Comment: Findings were discussed with Dr. Rodriguez on? 08/24/2021 at 1615 hours ? ? This study fulfills neurological imaging criteria for inclusion or exclusion of acute stroke therapies based on available published neurological guidelines.? ? ? Dictated by: Daniel Pollard M.D. on 08/24/2021 at 16:12 ? ? Approved by: Daniel Pollard M.D. on 08/24/2021 at 16:16?? ECG Data Attestation: I personally reviewed and interpreted this ECG as follows: Prior ECG tracings: available for review Interpretation: Wide QRS rhythm, right bundle-branch block, left anterior fascicular block. Rate of 95 QRS of 122 QTC of 517. Patient has prior EKG from 06/14/2020 which appears fairly similar. MDM Narrative Medical decision making narrative: This is a 75-year-old female with known numbness and pain of her right face which became more intense but did not change in location. Patient had an MRI recently which was negative and she had addendum noted because they had not, and cranial nerves which states that is normal. We repeated imaging today including head and CTA as she has had right ICA stenting in the past. This is negative. Patient's labs do not show acute changes. Her NIH is 0 including sensation on exam. Reviewed with patient she has follow-up with ENT and I do not suspect she is having an acute stroke or neurologic emergency today. We discussed potential causes such as trigeminal neuropathy or neuralgia, possible infection of different cranial nerve, or other potential neurologic causes of her symptoms and asked to follow-up with neurology if there is not an appropriate diagnosis made with ENT. Return precautions were discussed with patient and family. She does occasionally have pain with her symptoms we discussed options are available for pain control and that she could discuss this with her physicians she defers anything at this time. Stroke Core Measures Exclusion Criteria TPA in CVA: Symptom Onset >3 or 4.5 Hours (3 weeks) Discharge Plan Departure Patient Disposition: Home Clinical Impression: Facial paresthesia Instructions: DI for Numbness/Tingling Activity Restrictions/Additional Instructions: Follow up with ENT for recheck. There are multiple potential causes of your symptoms but the pattern is consistent with trigeminal neuropathy or neuralgia. Your MRI report with addendum was included. If you are not finding appropriate answer to your symptoms following up with Neurology would be the next appropriate potential step. There are medications that may be helpful such as gabapentin or Neurontin for symptoms particularly for pain. Please return for new facial droop, inability to swallow liquids, sudden vision changes, inability to walk, move her arms or legs are ambulate properly, passing, severe headaches or other new or concerning symptoms. Prescriptions: No Action clopidogrel 75 mg Tablet 75 mg PO DAILY Qty: 0 0RF aspirin 81 mg Tablet,Delayed Release (Dr/Ec) 81 mg PO DAILY Qty: 0 0RF losartan [Cozaar] 100 MG tablet 100 mg PO DAILY Qty: 0 0RF atorvastatin [Lipitor] 20 MG tablet 20 mg PO DAILY Qty: 0 0RF multivitamin Tablet 1 tab PO QDAY Qty: 0 0RF amlodipine 2.5 mg tablet 2.5 mg PO BID 0RF Label Comments: TK 1 T PO BID FOR HIGH BLOOD PRESSURE Calcium 1 tab PO DAILY 0RF naproxen [Naprosyn] 500 mg tablet 500 mg PO BID PRN (Reason: pain) Qty: 20 0RF cyclobenzaprine 5 mg tablet 10 mg PO TID PRN (Reason: muscle spasm) Qty: 15 0RF ondansetron 4 mg tablet,disintegrating 4 mg PO Q6H PRN (Reason: nausea and vomiting) Qty: 14 0RF benzonatate 100 mg capsule 100 mg PO TID PRN (Reason: cough) Qty: 20 0RF methylprednisolone [Medrol (Lee)] 4 mg tablets,dose pack See Rx Instructions PO .COMPLEX Qty: 21 0RF Rx Instructions: orally per package directions metoprolol succinate 25 mg tablet extended release 24 hr 25 mg PO DAILY Qty: 14 0RF lorazepam 0.5 mg tablet 0.5 mg PO BID PRN (Reason: arrythmia) Qty: 10 0RF acebutolol 200 mg capsule 200 mg PO BID Qty: 60 0RF sucralfate [Carafate] 100 mg/mL suspension 1 gram PO Q6H Qty: 420 0RF levalbuterol tartrate [Xopenex HFA] 45 mcg/actuation HFA aerosol inhaler 2 puff inhalation Q4-6H PRN (Reason: shortness of breath or wheezing) Qty: 15 0RF Referrals: Dillon Delgado MD [Non-Staff] - Jess Peters MD [Primary Care Provider] -
[2021-08-24] MEDS: ONDANSETRON 4 MG/2 ML INJ (16:22)
--- NOTE | 2021-08-24 16:28 | DI.CT.S_ITS ---
PROCEDURE: CT ANGIO HEAD AND NECK INDICATIONS: facial tingling/numbness x 3 weeks. worsening TECHNIQUE: Helical axial CT of the head and neck was obtained after intravenous contrast injection utilizing an angiographic technique and reformatted in multiple planes. Radiation dose reduction was achieved utilizing automated exposure control and/or parameter adjustment according to patient's size. COMPARISON: None. FINDINGS: Cerebral CT Angiogram: Internal carotid arteries: No acute findings. Intracranial ICA are patent with no significant stenosis. No occlusion. No aneurysm. Anterior cerebral arteries: Right A1 FLEX is hypoplastic. No significant stenosis. No occlusion. No aneurysm. Middle cerebral arteries: Unremarkable. No significant stenosis. No occlusion. No aneurysm. Posterior cerebral arteries: Unremarkable. No significant stenosis. No occlusion. No aneurysm. Basilar artery: Unremarkable. No significant stenosis. No occlusion. No aneurysm. Vertebral arteries: Unremarkable as visualized. Left vertebral artery dominance Dural venous sinuses: Unremarkable given phase of enhancement. Other: Arterial phase brain parenchyma is unremarkable. Mucosal thickening and debris noted in the ethmoid, left frontal, both maxillary and sphenoid sinuses. Neck CT Angiogram: Internal carotid arteries: Left ICA vascular stent is widely patent without stenosis. Adjacent surgical clip noted Common carotid arteries: Unremarkable. No significant stenosis. No dissection or occlusion. External carotid arteries: Unremarkable. No occlusion. Vertebral arteries: Left vertebral artery dominance. No significant stenosis. No dissection or occlusion. Other: Apically pulmonary scarring noted. Midline sternal wires present. Multiple thyroid nodules noted, largest in the right lobe measures 1.6 cm. Aortic Arch and Mediastinum: Partially visualized aortic arch unremarkable without evidence of aneurysm. Origins of the great vessels unremarkable. IMPRESSION: 1. No intracranial large vessel occlusion, aneurysm or vascular malformation. 2. No ICA stenosis. Left ICA vascular stent widely patent. 3. Santcaruz mucosal paranasal sinus disease with air-fluid levels. 4. Multiple thyroid nodules. Consider follow-up ultrasound thyroid Any quantitative measurements of stenosis were performed using NASCET criteria. Approved by: Toribio Shipley M.D. on 08/24/2021 at 16:34
[2021-08-24] MEDS: SODIUM CHLORIDE 0.9% 1,000 ML 150 ML IV (16:39)
[2021-08-24 16:43] LABS: Add Manual Diff / Slide Review NO; Basophils Absolute Auto 100 /uL (0-100); Basophils Percent Auto 1.2 % (0-2); Eosinophils Absolute Auto 200 /uL (0-450); Eosinophils Percent Auto 2.9 % (2-4); Hematocrit 34.3 % (36-46); Lymphocytes Absolute Auto 2100 /uL (1100-4500); Lymphocytes Percent Auto 30.5 % (25-40); Mean Corpuscular Hemoglobin 30.4 PG (26-34); Mean Corpuscular Volume 86.9 fL (80-100); Monocytes Absolute Auto 600 /uL (0-900); Monocytes Percent Auto 8.7 % (3-14); Neutrophils Absolute Auto 3900 /uL (1500-7000); Neutrophils Percent Auto 56.7 % (50-75); Platelet Count 231 X10^3/uL (150-400); Red Blood Cell Count 3.95 X10^6/uL (4.0-5.2); Red Cell Distribution Width 13.5 % (11.6-14.8); White Blood Cell Count 6.9 X10^3/uL (4.5-11.0)
[2021-08-24 16:45] LABS: INR 1.1 (0.9-1.3); Prothrombin Time 11.9 SECONDS (10.1-12.7)
[2021-08-24 16:47] LABS: PTT Partial Thromboplastin Tim 28 SECONDS (26.4-36.2)
[2021-08-24 16:52] LABS: BUN Creatinine Ratio 18.5 (6-22); Blood Urea Nitrogen 15 mg/dL (7-17); Calcium 8.8 mg/dL (8.4-10.2); Carbon Dioxide 23 mmol/L (22-32); Chloride 99 mmol/L (98-107); Creatine Kinase 77 U/L (30-135); Estimated Glomerular Filt Rate > 60.0 mL/min (>60); Glucose 177 mg/dL (80-110); HEMOLYSIS < 15 (0-50); Potassium 3.6 mmol/L (3.4-5.1); Sodium 134 mmol/L (137-145)
[2021-08-24 17:04] LABS: Troponin I < 0.012 ng/mL (0.01-0.034)
== END 2021-08-24 18:50 | disposition home or self-care (01) ==
PROVIDERS: Emergency Provider Emergency Medicine; Family Provider Internal Medicine; PCP Internal Medicine
DX: R20.2 Paresthesia of skin (principal); I10 Essential (primary) hypertension; Z86.79 Personal history of other diseases of the circulatory system; I45.10 Unspecified right bundle-branch block
CPT/HCPCS: 36415; 70450; 70496; 70498; 80048; 81003; 82550; 84484; 85025; 85610; 85730; 93005; 93010; 96360; 96361; 99284; 99285; J2405; Q9967

== ENCOUNTER → 2021-09-14 09:32 | Outpatient (CLI) | payer MEDICARE, OTHER, SELFPAY ==
[2021-09-14 12:00] LABS: BUN Creatinine Ratio 13.4 (6-22); Blood Urea Nitrogen 9 mg/dL (7-17); Calcium 8.8 mg/dL (8.4-10.2); Carbon Dioxide 30 mmol/L (22-32); Chloride 104 mmol/L (98-107); Estimated Glomerular Filt Rate > 60 mL/min (>60); Glucose 103 mg/dL (80-110); HEMOLYSIS < 15 (0-50); Potassium 3.8 mmol/L (3.4-5.1); Sodium 140 mmol/L (137-145)
== END ==
PROVIDERS: Family Provider Internal Medicine; PCP Internal Medicine; Referring Provider Internal Medicine; Visit Provider Internal Medicine
DX: R00.2 Palpitations (principal)
CPT/HCPCS: 36415; 80048

== ENCOUNTER → 2021-11-12 09:58 | Outpatient (CLI) | payer MEDICARE, OTHER, SELFPAY ==
[2021-11-13 09:49] LABS: Parathyroid Hormone, Intact 27 pg/mL (15-65)
== END ==
PROVIDERS: Family Provider Internal Medicine; PCP Internal Medicine; Referring Provider Psychiatry & Neurology Neurology; Visit Provider Psychiatry & Neurology Neurology
DX: R20.0 Anesthesia of skin (principal)
CPT/HCPCS: 36415; 82310; 83970

== ENCOUNTER → 2022-03-09 10:39 | Outpatient (CLI) | payer MEDICARE, OTHER, SELFPAY ==
--- NOTE | 2022-03-09 | DI.CT.S_ITS ---
PROCEDURE: CT SINUS SCREEN WO CON INDICATIONS: Chronic pansinusitis TECHNIQUE: Noncontrast 3.0 mm axial images acquired from the frontal sinuses to the mid-sella, with coronal and sagittal reformats. For radiation dose reduction, the following was used: automated exposure control, adjustment of mA and/or kV according to patient size. COMPARISON: [facility], CT, CT FACIAL BONES WO CON, 02/28/2020, 10:24. [facility] Ul[facility]ound, US, US CAROTID BILATERAL, 10/12/2021, 10:19. [facility], CT, CT STROKE, 08/24/2021, 16:09. [facility], CT, CT ANGIO HEAD AND NECK, 08/24/2021, 16:35. [facility], MR, MR IAC WITH/WITHOUT CONTRAST, 09/24/2021, 12:12. FINDINGS: Image quality: Excellent. Maxillary Sinuses: There is moderate mucosal thickening seen within the maxillary sinuses. The medial eddy of the maxillary sinuses are demineralized. Mild dependently layering fluid can be seen within the maxillary sinuses Ethmoid Air Cells: Moderate to prominent mucosal thickening is seen within the ethmoid air cells. There is demineralization of the ethmoid air cell septations. Sphenoid Sinuses: Moderate mucosal thickening is seen within the sphenoid sinuses, with dependently layering fluid. No definite bony changes are seen. Frontal Sinuses: There is moderate left-sided and mild right-sided inferomedial mucosal thickening seen. No definite bony changes are seen. Ostiomeatal Complexes: The ostiomeatal complexes are constitutionally narrowed and are further narrowed by soft tissue thickening, right worse than left. The uncinate processes are demineralized. Miscellaneous: Visualized intra-orbital contents are normal. There is a right-sided yuli bullosa is seen, with mild S shaped nasal septal deviation. A distal left internal carotid artery stent is partially seen. IMPRESSION: Multiple areas of paranasal sinus disease can be seen, which are worst within the maxillary sinuses and the ethmoid air cells. Areas of bony demineralization are seen, which are consistent with chronic sinusitis. Constitutionally narrowed ostiomeatal complexes are seen, which are further narrowed by soft tissue thickening. A left-sided internal carotid artery stent is partially seen. Dictated by: Mehran Diaz M.D. on 03/09/2022 at 10:40 Approved by: Mehran Diaz M.D. on 03/09/2022 at 10:44
== END ==
PROVIDERS: Family Provider Internal Medicine; PCP Internal Medicine; Referring Provider Otolaryngology; Visit Provider Otolaryngology
DX: J32.4 Chronic pansinusitis (principal); R09.82 Postnasal drip
CPT/HCPCS: 70486

== ENCOUNTER → 2022-03-11 08:34 | Outpatient (CLI) | payer MEDICARE, OTHER, SELFPAY ==
[2022-03-11 09:10] LABS: Add Manual Diff / Slide Review NO; Basophils Absolute Auto 100 /uL (0-100); Eosinophils Absolute Auto 300 /uL (0-450); Eosinophils Percent Auto 5.7 % (2-4); Hematocrit 35.9 % (36-46); Hemoglobin 12.2 g/dL (12.0-16.0); Lymphocytes Absolute Auto 1400 /uL (1100-4500); Lymphocytes Percent Auto 26.8 % (25-40); Mean Corpuscular HGB Conc 34.2 % (30-36); Mean Corpuscular Hemoglobin 30.1 PG (26-34); Monocytes Absolute Auto 400 /uL (0-900); Neutrophils Absolute Auto 3100 /uL (1500-7000); Neutrophils Percent Auto 57.5 % (50-75); Platelet Count 220 X10^3/uL (150-400); Red Blood Cell Count 4.07 X10^6/uL (4.0-5.2); Red Cell Distribution Width 13.9 % (11.6-14.8); White Blood Cell Count 5.4 X10^3/uL (4.5-11.0)
[2022-03-11 09:24] LABS: Alanine Aminotransferase 21 IU/L (<35); Albumin 4.1 g/dL (3.5-5.0); Albumin Globulin Ratio 1.3 (1.0-2.8); Alkaline Phosphatase 74 U/L (38-126); Aspartate Aminotransferase 23 IU/L (14-36); BUN Creatinine Ratio 16.2 (6-22); Bilirubin Total 0.5 mg/dL (0.2-1.3); Blood Urea Nitrogen 11 mg/dL (7-17); Calcium 8.7 mg/dL (8.4-10.2); Carbon Dioxide 28 mmol/L (22-32); Chloride 104 mmol/L (98-107); Cholesterol 138 mg/dL (140-199); Estimated Glomerular Filt Rate > 60 mL/min (>60); Globulin 3.1 g/dL (1.7-4.1); Glucose 103 mg/dL (80-110); HDL Cholesterol 39 mg/dL (40-60); HEMOLYSIS < 15 (0-50); LDL Cholesterol Calculated 69 mg/dL (<100); Sodium 139 mmol/L (137-145); Total Protein 7.2 g/dL (6.3-8.2); Triglycerides 148 mg/dL (35-150)
[2022-03-11 10:16] LABS: Free T4, Direct Thyroxine 1.01 ng/dL (0.78-2.19)
[2022-03-11 10:30] LABS: Thyroid Stimulating Hormone 1.17 uIU/mL (0.47-4.68)
== END ==
PROVIDERS: Family Provider Internal Medicine; PCP Internal Medicine; Referring Provider Internal Medicine; Visit Provider Internal Medicine
DX: R00.2 Palpitations (principal); E78.5 Hyperlipidemia, unspecified; E04.1 Nontoxic single thyroid nodule
CPT/HCPCS: 36415; 80053; 80061; 84439; 84443; 85025

== ENCOUNTER → 2022-03-24 09:49 | Outpatient (CLI) | payer MEDICARE, OTHER, SELFPAY ==
--- NOTE | 2022-03-24 | DI.RAD.S_ITS ---
PROCEDURE: FL BARIUM SWALLOW W SPEECH INDICATIONS: Other dysphagia COMPARISON: TECHNIQUE: Examination was conducted in conjunction with speech pathology per standard protocol. In the lateral projection, filming was performed of the patient swallowing. AP projection filming may also be performed with patient swallowing. COMPARISON: [facility], CT, CT SINUS SCREEN WO CON, 03/09/2022, 10:58. FINDINGS: Function: The oral preparatory phase appears normal, with proper containment. The subsequent oral propulsive phase, pharyngeal phase, and esophageal phase of swallowing also appear normal with all proffered substances. No laryngotracheal penetration or aspiration. No pathologic vallecular pooling. Morphology: No cricopharyngeal bar is identified. No cervical esophageal webs. No Zenker's diverticulum. No strictures. IMPRESSION: No cynthia laryngeal penetration or aspiration. Please see separate speech pathologist's report for detail. Dictated by: Ayana Montanez M.D. on 03/24/2022 at 12:54 Approved by: Ayana Montanez M.D. on 03/24/2022 at 12:55
--- NOTE | 2022-03-24 16:44 | ST.SWALLOW ---
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 Sahni ENT. According to records reviewed and interviewing the pt, she is bothered by a persistent cough. Pt had a prior MBSS in early 2020 that demonstrated premature spillage to the pyriform sinuses, but no penetration or aspiration was observed. Pooling was noted at that time in the valeculla and the pyriform sinuses. Swallow therapy was not recommended. Lateral View Textures Administered Trials Presented Thin Liquid via Spoon,Thin Liquid via Cup,[place]ford Liquid via Spoon,Pudding Thick Liquid via Spoon,Regular Textures, Barium Tablet Oral Phase Source: MBSIMP (TM) (C) Bolus Specific Scoring Grid Lip Closure No Impairment (WNL) Tongue Control During Bolus Hold No Impairment (WNL) Bolus Prep/Mastication No Impairment (WNL) Bolus Transport/Lingual Motion No Impairment (WNL) A/P Lingual Propulsion Delay Yes: Premature spillage of the bolus head to the pyriform sinuses Oral Residue No Impairment (WNL) Nasal Regurgitation No Additional Oral Phase Observations Informal observation indicated OM structures and function to be WFL. Missing upper molars. Pt has partial upper denture Pharyngeal Phase Source: MBSIMP (TM) (C) Bolus Specific Scoring Grid Delayed Initiation of Pharyngeal Swallow Yes: Swallow initiated after bolus head in pyriform sinuses Soft Palate Elevation No Impairment (WNL) Tongue Base Strength/Range of Motion Mild Impairment Residue Along the Tongue Base Yes: minimal Clearance of Residue Along Tongue Base WFL Laryngeal Elevation Mild Impairment Anterior Hyoid Movement Mild Impairment Epiglottic Range of Motion Mild Impairment Vallecular Residue Yes Clearance of Vallecular Residue Minimal Impairment Laryngeal Vestibular Closure WFL Pharyngeal Stripping Wave No Impairment (WNL) Posterior Pharyngeal Wall Residue No Upper Esophageal Sphincter Opening No Impairment (WNL) Residue in the Pyriform Sinuses No Esophageal Clearance Upright Position WFL Pharyngoesophageal Backflow Observed No Additional Pharyngeal Phase Observations Pt presented with mild weakness of the tongue base and reduced elevation of the larynx. Hyoid movement was WNL . Epiglottis did not invert for small bolus trials; for cup sip, consecutive swallows and solids, the epiglottis inversion was WNL. No penetration/aspiration was observed. Premature spillage did not result in penetration/ aspiration. Mild pooling was observed in the valeculla across all trials. A/P View Textures Administered Trials Presented Thin Liquid via Spoon,Regular Textures A/P View Observations Pharyngeal Contraction No Impairment (WNL) Vocal Fold Function Good Esophageal Function No Impairment (WNL) Esophageal Clearance Upright Position No Impairment (WNL) Additional Observations Pt presented with mild weakness of the tongue base and reduced elevation of the larynx. Hyoid movement was WNL . Epiglottis did not invert for small bolus trials; for cup sip, consecutive swallows and solids, the epiglottis inversion was WNL. No penetration/aspiration was observed. Premature spillage did not result in penetration/ aspiration. Mild pooling was observed in the valeculla across all trials. Esophageal Observations Esophageal Function Esophagus was observed to be WFL. Clinical Impressions Dysphagia Type Swallow WFL. Findings Pt presented with swallowing WFL. Some premature spillage and pooling within the pharynx occurred during the MBSS without penetration/ aspiration. During the MBSS the pt did not cough. Dr. Sahni's notes indicated there is left vocal fold weakness, but complete glottal closure on phonation. On the AP view, the vocal folds were noted to be closing adequately with sips of water. Pt's swallowing does not appear to contribute to pts chronic cough. Pt has a PMH of GERD, which can trigger a cough. There may also be an element of LPR present triggering a cough. Patient Appropriate for Therapy No Recommendations Diet Liquids Order Thin Diet Order Mechanical Soft Treatment Plan Therapy Recommendations Base of Tongue Exercises Additional Therapy Recommendations glottal adduction exercises may benefit left vocal fold strength
== END ==
PROVIDERS: Family Provider Internal Medicine; PCP Internal Medicine; Referring Provider Otolaryngology; Visit Provider Otolaryngology
DX: R13.19 Other dysphagia (principal); J38.6 Stenosis of larynx; J98.8 Other specified respiratory disorders
CPT/HCPCS: 74230; 92611

== ENCOUNTER → 2022-04-18 08:23 | Outpatient (CLI) | payer MEDICARE, OTHER, SELFPAY ==
--- NOTE | 2022-04-18 08:26 | DI.RAD.S_ITS ---
PROCEDURE: XR RIBS RT MIN 3V W CXR 1V INDICATIONS: rib pain TECHNIQUE: 2 views of the right ribs were acquired, along with a single view chest. COMPARISON: [facility], CT, CT CHEST WO [facility], 08/06/2021, 14:48. FINDINGS: Surgical changes and devices: Median sternotomy wires. Metal clips projecting over the right upper quadrant of the abdomen could be from prior cholecystectomy. Bones and chest wall: No fractures or dislocations. No suspicious bony lesions. Overlying soft tissues appear unremarkable. Lungs and pleura: No pleural effusions or pneumothorax. No suspicious focal airspace opacity. Minimal linear/platelike bibasilar opacities, likely scarring and/or atelectasis. Mediastinum: Mediastinal contours appear normal. Heart size is normal. IMPRESSION: No acute displaced rib fracture visualized. CT of the chest could be obtained if clinically indicated. Dictated by: Sylvester Renee M.D. on 04/18/2022 at 13:00 Approved by: Sylvester Renee M.D. on 04/18/2022 at 13:08
== END ==
PROVIDERS: Family Provider Internal Medicine; PCP Internal Medicine; Referring Provider Nurse Practitioner Family; Visit Provider Nurse Practitioner Family
DX: S29.9XXA Unspecified injury of thorax, initial encounter (principal); X58.XXXA Exposure to other specified factors, initial encounter
CPT/HCPCS: 71101

== ENCOUNTER → 2022-09-05 08:07 | Outpatient (CLI) | payer MEDICARE, OTHER, SELFPAY ==
[2022-09-05 08:46] LABS: Add Manual Diff / Slide Review NO; Basophils Absolute Auto 100 /uL (0-100); Basophils Percent Auto 1.4 % (0-2); Eosinophils Absolute Auto 400 /uL (0-450); Hemoglobin 13.1 g/dL (12.0-16.0); Lymphocytes Absolute Auto 1600 /uL (1100-4500); Lymphocytes Percent Auto 29.7 % (25-40); Mean Corpuscular HGB Conc 34.6 % (30-36); Mean Corpuscular Hemoglobin 30.2 PG (26-34); Mean Corpuscular Volume 87.2 fL (80-100); Monocytes Absolute Auto 500 /uL (0-900); Monocytes Percent Auto 9.7 % (3-14); Neutrophils Absolute Auto 2900 /uL (1500-7000); Neutrophils Percent Auto 52.2 % (50-75); Platelet Count 241 X10^3/uL (150-400); Red Blood Cell Count 4.35 X10^6/uL (4.0-5.2); Red Cell Distribution Width 14.2 % (11.6-14.8); White Blood Cell Count 5.5 X10^3/uL (4.5-11.0)
[2022-09-05 09:09] LABS: Alanine Aminotransferase 23 IU/L (<35); Albumin 3.9 g/dL (3.5-5.0); Albumin Globulin Ratio 1.1 (1.0-2.8); Alkaline Phosphatase 94 U/L (38-126); Aspartate Aminotransferase 25 IU/L (14-36); BUN Creatinine Ratio 19.7 (6-22); Bilirubin Total 0.5 mg/dL (0.2-1.3); Blood Urea Nitrogen 13 mg/dL (7-17); Calcium 8.8 mg/dL (8.4-10.2); Carbon Dioxide 29 mmol/L (22-32); Chloride 102 mmol/L (98-107); Estimated Glomerular Filt Rate > 60 mL/min (>60); Globulin 3.4 g/dL (1.7-4.1); Glucose 103 mg/dL (80-110); HEMOLYSIS < 15 (0-50); Potassium 3.8 mmol/L (3.4-5.1); Sodium 137 mmol/L (137-145); Total Protein 7.3 g/dL (6.3-8.2)
[2022-09-05 09:27] LABS: Free T4, Direct Thyroxine 0.91 ng/dL (0.78-2.19)
[2022-09-05 09:41] LABS: Thyroid Stimulating Hormone 2.36 uIU/mL (0.47-4.68)
== END ==
PROVIDERS: Family Provider Internal Medicine; PCP Internal Medicine; Referring Provider Internal Medicine; Visit Provider Internal Medicine
DX: I65.22 Occlusion and stenosis of left carotid artery (principal); E78.5 Hyperlipidemia, unspecified; R06.9 Unspecified abnormalities of breathing
CPT/HCPCS: 36415; 80053; 84439; 84443; 85025

== ENCOUNTER 2023-02-23 11:26 | Emergency (ER) | payer MEDICARE, OTHER, SELFPAY ==
[2023-02-23] VITALS (17 sets, daily range): BP systolic 136–208; BP diastolic 63–88; PULSE 72–96; RESP 16–18; TEMP 36.8; O2SAT 96–100; BMI 22.8
--- NOTE | 2023-02-23 11:37 | DI.RAD.S_ITS ---
PROCEDURE: XR CHEST 1V INDICATIONS: chest pain TECHNIQUE: One view of the chest was acquired. COMPARISON: [facility], CR, XR CHEST 2V, 02/05/2021, 9:35. FINDINGS: Surgical changes and devices: Sternal wires and cholecystectomy clips. Lungs and pleura: Lungs are clear. No pleural effusions or pneumothorax. Mild increased vascularity. Mediastinum: Mediastinal contours appear normal. Heart size is normal. Bones and chest wall: No suspicious bony lesions. Overlying soft tissues appear unremarkable. IMPRESSION: Mild increased vascularity suggestive of possible edema. Dictated by: Tavia Carlos M.D. on 02/23/2023 at 12:34 Approved by: Tavia Carlos M.D. on 02/23/2023 at 12:35
[2023-02-23 11:56] LABS: Add Manual Diff / Slide Review NO; Basophils Absolute Auto 100 /uL (0-100); Basophils Percent Auto 1.2 % (0-2); Eosinophils Absolute Auto 300 /uL (0-450); Eosinophils Percent Auto 4.1 % (2-4); Hematocrit 37.5 % (36-46); Hemoglobin 13.1 g/dL (12.0-16.0); Lymphocytes Absolute Auto 2100 /uL (1100-4500); Lymphocytes Percent Auto 33.9 % (25-40); Mean Corpuscular Hemoglobin 30.8 PG (26-34); Monocytes Absolute Auto 600 /uL (0-900); Monocytes Percent Auto 9.9 % (3-14); Neutrophils Absolute Auto 3100 /uL (1500-7000); Neutrophils Percent Auto 50.9 % (50-75); Platelet Count 212 X10^3/uL (150-400); Red Blood Cell Count 4.26 X10^6/uL (4.0-5.2); Red Cell Distribution Width 13.7 % (11.6-14.8); White Blood Cell Count 6.1 X10^3/uL (4.5-11.0)
[2023-02-23 12:05] LABS: INR 1.1 (0.9-1.3); Prothrombin Time 12.4 SECONDS (10.1-12.7)
[2023-02-23 12:08] LABS: PTT Partial Thromboplastin Tim 28 SECONDS (26-36)
[2023-02-23 12:16] LABS: Alanine Aminotransferase 24 IU/L (<35); Albumin 4.2 g/dL (3.5-5.0); Albumin Globulin Ratio 1.3 (1.0-2.8); Alkaline Phosphatase 86 U/L (38-126); Aspartate Aminotransferase 27 IU/L (14-36); BUN Creatinine Ratio 20.7 (6-22); Bilirubin Total 0.4 mg/dL (0.2-1.3); Blood Urea Nitrogen 12 mg/dL (7-17); Calcium 9.3 mg/dL (8.4-10.2); Carbon Dioxide 25 mmol/L (22-32); Chloride 100 mmol/L (98-107); Creatine Kinase 37 U/L (30-135); Estimated Glomerular Filt Rate > 60 mL/min (>60); Globulin 3.2 g/dL (1.7-4.1); Glucose 144 mg/dL (80-110); HEMOLYSIS < 15 (0-50); Lipase 106 U/L (23-300); Magnesium 1.9 mg/dL (1.6-2.3); Potassium 3.7 mmol/L (3.4-5.1); Sodium 134 mmol/L (137-145); Total Protein 7.4 g/dL (6.3-8.2)
[2023-02-23 12:26] LABS: Troponin I < 0.012 ng/mL (0.01-0.034)
--- NOTE | 2023-02-23 12:51 | ED.GENADULT ---
HPI - General Adult General Chief complaint: Dizziness Stated complaint: bad pain in right side of neck has stint high bp Time Seen by Provider: 02/23/23 11:44 Source: patient Mode of arrival: Ambulatory History of Present Illness HPI narrative: Patient is a 77-year-old female. She is here for evaluation of a fairly sudden onset of pain on the right side of her neck. She also states that her blood pressure was high and she also felt like her heart was beating fast. At the time of my evaluation her symptoms have all completely resolved. She states she does have a stent in her left carotid artery and is followed by Cardiology and also vascular surgery for this. She denies chest pain. She would no other CVA symptoms to include headache, vision changes or tingling in upper or lower extremities. No trauma. No problems swallowing. Related Data Home Medications Medication Instructions Recorded Confirmed aspirin 81 mg tablet,delayed 81 mg PO DAILY ##0 02/03/09 04/18/22 release clopidogrel 75 mg tablet 75 mg PO DAILY ##0 02/03/09 04/18/22 atorvastatin 20 mg tablet (Lipitor) 20 mg PO DAILY ##0 02/23/13 04/18/22 losartan 100 mg tablet (Cozaar) 100 mg PO DAILY #0 tabs 02/23/13 04/18/22 multivitamin 1 tab PO QDAY #0 tabs 02/23/13 04/18/22 Calcium 1 tab PO DAILY 12/14/18 04/18/22 amlodipine 2.5 mg tablet 2.5 mg PO BID 12/14/18 04/18/22 Previous Rx's Medication Instructions Recorded cyclobenzaprine 5 mg tablet 10 mg (2 x 5 mg) PO TID PRN muscle 08/10/19 spasm #15 tabs naproxen 500 mg tablet (Naprosyn) 500 mg PO BID PRN pain #20 tabs 08/10/19 ondansetron 4 mg disintegrating 4 mg PO Q6H PRN nausea and 09/14/19 tablet vomiting #14 tabs metoprolol succinate 25 mg 25 mg PO DAILY #14 tabs 10/16/19 tablet,extended release 24 hr acebutolol 200 mg capsule 200 mg PO BID #60 caps 10/19/19 lorazepam 0.5 mg tablet 0.5 mg PO BID PRN arrythmia #10 05/30/20 tabs sucralfate 100 mg/mL oral 1 gram (10 mL) PO Q6H GERD, 11/02/19 suspension (Carafate) coughing #420 mL benzonatate 100 mg capsule 100 mg PO TID PRN cough #20 caps 06/10/20 methylprednisolone 4 mg tablets in See Rx Instructions PO .COMPLEX 06/10/20 a dose pack (Medrol (Lee)) #21 ea levalbuterol tartrate 45 2 puff inhalation Q4-6H PRN 06/14/20 mcg/actuation aerosol inhaler shortness of breath or wheezing (Xopenex HFA) #15 grams Allergies Allergy/AdvReac Type Severity Reaction Status Date / Time prochlorperazine Allergy Severe Anaphylaxis Verified 04/18/22 07:56 [PROCHLORPERAZINE] erythromycin base Allergy Mild Verified 04/18/22 07:56 [ERYTHROMYCIN BASE] Review of Systems Review of Systems ROS Unobtainable: All systems reviewed & are unremarkable except as noted in HPI and below Patient History Medical History (Updated 02/23/23 @ 14:39 by Lucas Powell DO) Carotid artery disease Multinodular thyroid SVT (supraventricular tachycardia) Heart disease Hypertension Stroke Surgical History History of surgery (05/05/08) History of eye surgery History of cholecystectomy History of left common carotid artery stent placement Social History Smoking Status: Never smoker Smoking Status: Never smoker alcohol intake frequency: 0-2 drinks per day Substance Use Type: does not use Exam Initial Vital Signs Initial Vital Signs: Vital Signs Temperature 98.2 F 02/23/23 11:29 Pulse Rate 96 H 02/23/23 11:29 Respiratory Rate 18 02/23/23 11:29 Blood Pressure 208/88 H 02/23/23 11:29 Pulse Oximetry 100 02/23/23 11:29 Oxygen Delivery Method Room Air 02/23/23 11:29 Const General: cooperative, comfortable and No ill appearing HENWV Head: normal to inspection and normocephalic Resp Effort & Inspection: normal respiratory effort Auscultation: clear to auscultation bilaterally Cardio Rate: regular rate Rhythm: regular rhythm GI Inspection: normal to inspection and non-distended Back/Spine/Pelvis Back: normal to inspection Skin General: no rashes or lesions noted Neuro General: patient alert, patient awake, patient oriented x3 and moves all extremities Cognition: normal cognition Speech: speech normal Extrem General: normal to inspection and capillary refill normal Scores GCS [place] coma scale eye opening: Spontaneous [place] coma scale verbal response: Orientated Jr coma scale motor response: Obey commands Jr coma scale total score: 15 Course Orders Ordered: ED Orders 02/23/23 11:37 XR chest 1V Stat 02/23/23 11:45 Complete Blood Count AUTO DIFF Stat Comprehensive Metabolic Panel Stat Lipase Stat Magnesium Stat PTT Partial Thromboplastin Jignesh Stat Prothrombin Time INR Stat Troponin & CK Cardiac Panel Stat 02/23/23 11:46 EKG-12 Lead Stat Vital Signs Vital signs: Vital Signs - 8 hr 02/23/23 11:29 02/23/23 11:38 02/23/23 11:39 Temperature 98.2 F Pulse Rate 96 H 79 Respiratory Rate 18 Blood Pressure 208/88 H 176/81 H Pulse Oximetry 100 99 Oxygen Delivery Method Room Air 02/23/23 11:39 02/23/23 11:49 02/23/23 11:49 Temperature Pulse Rate 83 75 Respiratory Rate Blood Pressure 153/70 H Pulse Oximetry 99 99 Oxygen Delivery Method 02/23/23 12:00 02/23/23 12:01 02/23/23 12:01 Temperature Pulse Rate 76 85 Respiratory Rate Blood Pressure 155/73 H Pulse Oximetry 98 99 Oxygen Delivery Method 02/23/23 12:15 02/23/23 12:15 02/23/23 12:30 Temperature Pulse Rate 75 76 Respiratory Rate Blood Pressure 147/69 H Pulse Oximetry 98 98 Oxygen Delivery Method 02/23/23 12:30 02/23/23 12:46 02/23/23 12:46 Temperature Pulse Rate 82 Respiratory Rate Blood Pressure 148/66 H 170/75 H Pulse Oximetry 99 Oxygen Delivery Method 02/23/23 13:03 02/23/23 13:05 02/23/23 13:05 Temperature Pulse Rate 86 76 Respiratory Rate Blood Pressure 151/70 H Pulse Oximetry 98 99 Oxygen Delivery Method 02/23/23 13:15 02/23/23 13:15 02/23/23 13:30 Temperature Pulse Rate 72 Respiratory Rate Blood Pressure 151/67 H 155/79 H Pulse Oximetry 96 Oxygen Delivery Method Heated High Flow Heated High Flow 02/23/23 13:30 02/23/23 13:45 02/23/23 13:45 Temperature Pulse Rate 78 79 Respiratory Rate Blood Pressure 154/77 H Pulse Oximetry 96 96 Oxygen Delivery Method 02/23/23 14:00 02/23/23 14:00 02/23/23 14:15 Temperature Pulse Rate 76 Respiratory Rate Blood Pressure 138/63 136/70 Pulse Oximetry 97 Oxygen Delivery Method Heated High Flow 02/23/23 14:15 Temperature Pulse Rate 77 Respiratory Rate Blood Pressure Pulse Oximetry 98 Oxygen Delivery Method Heated High Flow Medical Decision Making Medical Records Medical records reviewed: Yes I reviewed the patient's medical records. Lab Data Lab results reviewed: Yes I reviewed the patient's lab results. 02/23/23 11:45 02/23/23 11:45 Labs: Lab Results 02/23/23 Range/Units 11:45 WBC 6.1 (4.5-11.0) X10^3/uL RBC 4.26 (4.0-5.2) X10^6/uL Hgb 13.1 (12.0-16.0) g/dL Hct 37.5 (36-46) % MCV 88.0 (80-100) fL MCH 30.8 (26-34) PG MCHC 35.0 (30-36) % RDW 13.7 (11.6-14.8) % Plt Count 212 (150-400) X10^3/uL Neut % (Auto) 50.9 (50-75) % Lymph % (Auto) 33.9 (25-40) % [place] % (Auto) 9.9 (3-14) % Eos % (Auto) 4.1 H (2-4) % Baso % (Auto) 1.2 (0-2) % Neut # (Auto) 3100 (9128-8663) /uL Lymph # (Auto) 2100 (4935-9080) /uL [place] # (Auto) 600 (0-900) /uL Eos # (Auto) 300 (0-450) /uL Baso # (Auto) 100 (0-100) /uL PT 12.4 (10.1-12.7) SECONDS INR 1.1 (0.9-1.3) APTT 28 (26-36) SECONDS Sodium 134 L (137-145) mmol/L Potassium 3.7 (3.4-5.1) mmol/L Chloride 100 (98-107) mmol/L Carbon Dioxide 25 (22-32) mmol/L BUN 12 (7-17) mg/dL Creatinine 0.58 (0.52-1.04) mg/dL Estimated GFR > 60 (>60) mL/min BUN/Creatinine Ratio 20.7 (6-22) Glucose 144 H (80-110) mg/dL Calcium 9.3 (8.4-10.2) mg/dL Magnesium 1.9 (1.6-2.3) mg/dL Total Bilirubin 0.4 (0.2-1.3) mg/dL AST 27 (14-36) IU/L ALT 24 (<35) IU/L Alkaline Phosphatase 86 (38-126) U/L Total Creatine Kinase 37 (30-135) U/L Troponin I < 0.012 (0.01-0.034) ng/mL Total Protein 7.4 (6.3-8.2) g/dL Albumin 4.2 (3.5-5.0) g/dL Globulin 3.2 (1.7-4.1) g/dL Albumin/Globulin Ratio 1.3 (1.0-2.8) Lipase 106 (23-300) U/L Imaging Data Chest x-ray: Radiologist's Impression: PROCEDURE: XR CHEST 1V INDICATIONS: chest pain TECHNIQUE: One view of the chest was acquired. COMPARISON: [facility], , XR CHEST 2V, 02/05/2021, 9:35. FINDINGS: Surgical changes and devices: Sternal wires and cholecystectomy clips. Lungs and pleura: Lungs are clear. No pleural effusions or pneumothorax. Mild increased vascularity. Mediastinum: Mediastinal contours appear normal. Heart size is normal. Bones and chest wall: No suspicious bony lesions. Overlying soft tissues appear unremarkable. IMPRESSION: Mild increased vascularity suggestive of possible edema. ECG Data Attestation: I personally reviewed and interpreted this ECG as follows: Interpretation: Sinus rhythm Ventricular rate is 79 Left axis deviation Right bundle-branch block QRS 1-[address] T wave changes MDM Narrative Medical decision making narrative: Patient has a normal heart rate and rhythm. She is no findings on her history and physical today that would be concerning for CVA or TIA. We did discuss the potential for a transient arrhythmia but I think the patient disagrees with this. She recently did have carotid Doppler ultrasounds at her vascular surgeon's office that were reported to be unremarkable and I feel that developing a clinically significant carotid stenosis that would present as a sudden onset and then resolve on its own is very unlikely. No indication for further radiologic studies today. We will have the patient follow-up with her cuff knitter at her scheduled appointment next week. Discharge Plan Departure Patient Disposition: Home Clinical Impression: Neck pain Activity Restrictions/Additional Instructions: I do recommend that you continue to take all of your medications as directed. Keep all of your scheduled medical appointments. Contact your primary doctor for a follow-up. I would recommend that you talk with your cuff knitter about a Holter monitor based on your symptoms today. Prescriptions: No Action clopidogrel 75 mg Tablet 75 mg PO DAILY Qty: 0 aspirin 81 mg Tablet,Delayed Release (Dr/Ec) 81 mg PO DAILY Qty: 0 losartan [Cozaar] 100 MG tablet 100 mg PO DAILY Qty: 0 atorvastatin [Lipitor] 20 MG tablet 20 mg PO DAILY Qty: 0 multivitamin Tablet 1 tab PO QDAY Qty: 0 amlodipine 2.5 mg tablet 2.5 mg PO BID Patient Comments: TK 1 T PO BID FOR HIGH BLOOD PRESSURE Calcium 1 tab PO DAILY naproxen [Naprosyn] 500 mg tablet 500 mg PO BID PRN (Reason: pain) Qty: 20 0RF cyclobenzaprine 5 mg tablet 10 mg PO TID PRN (Reason: muscle spasm) Qty: 15 0RF ondansetron 4 mg tablet,disintegrating 4 mg PO Q6H PRN (Reason: nausea and vomiting) Qty: 14 0RF benzonatate 100 mg capsule 100 mg PO TID PRN (Reason: cough) Qty: 20 0RF methylprednisolone [Medrol (Lee)] 4 mg tablets,dose pack See Rx Instructions PO .COMPLEX Qty: 21 0RF Rx Instructions: orally per package directions metoprolol succinate 25 mg tablet extended release 24 hr 25 mg PO DAILY Qty: 14 0RF lorazepam 0.5 mg tablet 0.5 mg PO BID PRN (Reason: arrythmia) Qty: 10 0RF acebutolol 200 mg capsule 200 mg PO BID Qty: 60 0RF sucralfate [Carafate] 100 mg/mL suspension 1 gram PO Q6H Qty: 420 0RF levalbuterol tartrate [Xopenex HFA] 45 mcg/actuation HFA aerosol inhaler 2 puff inhalation Q4-6H PRN (Reason: shortness of breath or wheezing) Qty: 15 0RF Referrals: Jess Peters MD [Primary Care Provider] - Stand Alone Forms: Patient Portal/API
--- NOTE | 2023-02-23 14:18 | PC.NURSE ---
RT at bedside.
== END 2023-02-23 15:12 | disposition home or self-care (01) ==
PROVIDERS: Emergency Provider Emergency Medicine; PCP Internal Medicine
DX: M54.2 Cervicalgia (principal); R07.9 Chest pain, unspecified; Z79.899 Other long term (current) drug therapy
CPT/HCPCS: 36415; 71045; 80053; 82550; 83690; 83735; 84484; 85025; 85610; 85730; 93005; 99283; 99284

== ENCOUNTER → 2023-03-10 12:37 | Outpatient (CLI) | payer MEDICARE, OTHER, SELFPAY ==
--- NOTE | 2023-03-10 | DI.US.S_ITS ---
PROCEDURE: US CAROTID DOPPLER BI INDICATIONS: Occlusion and stenosis of left carotid artery TECHNIQUE: Color and pulse Doppler interrogation was performed of both carotid systems, with image documentation and velocity measurements. COMPARISON: , , US CAROTID DOPPLER BI, 02/22/2018, 14:13. FINDINGS: Stenosis calculations are based on SRU (Society of Radiologists in Ultrasound) criteria. Right side: Brachial blood pressure: 152/74 mm Hg. Common carotid artery peak systolic velocity: 81 cm/sec. Internal carotid artery peak systolic velocity: 58 cm/sec. Internal carotid artery end diastolic velocity: 12 cm/sec. External carotid artery peak systolic velocity: 88 cm/sec. ICA/CCA peak systolic ratio: 0.7 . Carlson scale imaging description: Mild atheromatous plaque Percent internal carotid artery stenosis: Less than 50% stenosis. Vertebral artery: Flow direction is antegrade. Left side: Brachial blood pressure: 147/71 mm Hg. Common carotid artery peak systolic velocity: 67 cm/sec. Internal carotid artery peak systolic velocity: 146 cm/sec. Internal carotid artery end diastolic velocity: 33 cm/sec. External carotid artery peak systolic velocity: 72 cm/sec. ICA/CCA peak systolic ratio: 2.1 . Carlson scale imaging description: The left ICA stent is patent. Percent internal carotid artery stenosis: 50-69%. Vertebral artery: Flow direction is antegrade. IMPRESSION: 1. Less than 50% stenosis of the right internal carotid artery. 2. 50-69% stenosis of the left internal carotid artery. The internal carotid artery stent is patent. Dictated by: Shiela Rider M.D. on 03/10/2023 at 14:55 Approved by: Shiela Rider M.D. on 03/10/2023 at 14:57
== END ==
PROVIDERS: PCP Internal Medicine; Referring Provider Internal Medicine; Visit Provider Internal Medicine
DX: I65.23 Occlusion and stenosis of bilateral carotid arteries (principal)
CPT/HCPCS: 93880

== ENCOUNTER → 2023-03-20 10:58 | Outpatient (CLI) | payer MEDICARE, OTHER, SELFPAY ==
--- NOTE | 2023-03-20 | DI.CT.S_ITS ---
PROCEDURE: CT ABDOMEN PELVIS W CON INDICATIONS: right lower quadrant pain TECHNIQUE: After the administration of oral and intravenous contrast, axial sections were acquired from the lung bases to the pubic symphysis. Coronal and sagittal reformats were performed. For radiation dose reduction, the following was used: automated exposure control, adjustment of mA and/or kV according to patient size. COMPARISON:None. FINDINGS: Image quality: Excellent. Lung bases: Small hiatal hernia. Heart: No significant findings. ABDOMEN: Liver: No solid mass. Gallbladder and biliary tree: Cholecystectomy. No biliary dilation. Spleen: Subcentimeter hypoattenuating lesions, benign. Pancreas: No ductal dilation. Adrenal glands: No adrenal nodules. Kidneys: No hydronephrosis. No solid mass. No complex renal cysts which requires follow-up. Stomach and Bowel: Colonic diverticulosis without evidence of diverticulitis. Normal appendix. Peritoneum: No abnormal intraperitoneal fluid. No free air. Ventral Wall: No hernia. Abdominal Nodes: No retroperitoneal or mesenteric adenopathy by size criteria. Vessels: Aorta and inferior vena cava are normal in size. PELVIS: Pelvic Organs: Unremarkable. Bladder: Unremarkable. Pelvic Nodes: No enlarged lymph nodes. Miscellaneous: No inguinal hernias are seen. Bones: Unremarkable. IMPRESSION: No findings to explain the patient's lower abdominal pain. Colonic diverticulosis without evidence of diverticulitis. Dictated by: Gonzalo Phillips M.D. on 03/20/2023 at 13:15 Approved by: Gonzalo Phillips M.D. on 03/20/2023 at 13:25
== END ==
PROVIDERS: PCP Internal Medicine; Referring Provider Internal Medicine; Visit Provider Internal Medicine
DX: K57.90 Diverticulosis of intestine, part unspecified, without perforation or abscess without bleeding (principal); R10.31 Right lower quadrant pain
CPT/HCPCS: 74177; Q9967

== ENCOUNTER → 2023-06-14 09:02 | Outpatient (CLI) | payer MEDICARE, OTHER, SELFPAY ==
--- NOTE | 2023-06-14 09:04 | DI.RAD.S_ITS ---
PROCEDURE: XR CHEST 2V INDICATIONS: COUGH TECHNIQUE: 2 views of the chest were acquired. COMPARISON: [facility], CR, XR CHEST 1V, 02/23/2023, 11:43. [facility], CR, XR CHEST 2V, 02/05/2021, 9:35. FINDINGS: Surgical changes and devices: Surgical clips project over the left neck, right upper quadrant. 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 Lungs and pleura: Lungs are clear. No pleural effusions or pneumothorax. 5 mm density projecting over lower thoracic vertebral body on the lateral view appears unchanged on prior study from 2020. Mediastinum: Mediastinal contours are normal. Heart size is normal. Bones and chest wall: No suspicious bony abnormalities. Soft tissues appear unremarkable. IMPRESSION: No acute cardiopulmonary abnormality seen. Dictated by: Atlu Bolaños M.D. on 06/14/2023 at 17:43 Approved by: Atul Bolaños M.D. on 06/14/2023 at 17:47
--- NOTE | 2023-06-14 09:04 | DI.RAD.S_ITS ---
PROCEDURE: XR THORACIC SPINE 3V INDICATIONS: BACK PAIN TECHNIQUE: 3 views of the thoracic spine were acquired. COMPARISON: None. FINDINGS: Bones: Minimal dextroscoliosis of the thoracolumbar seen is seen with its apex at T11. Mild kyphotic deformity of the thoracic spine is also noted on the lateral view. No fractures or dislocations. No suspicious bony lesions. 12 pairs of ribs are noted, and appear intact where visualized. Soft tissues/other: Soft tissues otherwise appear unremarkable. Note is made of medial sternotomy wires, surgical clips projecting over the left neck and right upper quadrant surgical clips. IMPRESSION: No acute abnormality of the T-spine seen . Mild kyphosis and scoliosis noted. Dictated by: Atul Bolaños M.D. on 06/14/2023 at 17:47 Approved by: Atul Bolaños M.D. on 06/14/2023 at 17:51
== END ==
LOC: RAD 09:03
PROVIDERS: PCP Internal Medicine; Referring Provider Internal Medicine; Visit Provider Internal Medicine
DX: R05.9 Cough, unspecified (principal); M54.6 Pain in thoracic spine; M40.204 Unspecified kyphosis, thoracic region
CPT/HCPCS: 71046; 72072

== ENCOUNTER → 2023-08-24 12:08 | Outpatient (CLI) | payer MEDICARE, OTHER, SELFPAY ==
--- NOTE | 2023-08-24 | DI.US.S_ITS ---
PROCEDURE: US CAROTID DOPPLER BI INDICATIONS: STENOSIS OF L CAROTIID ARTERY TECHNIQUE: Color and pulse Doppler interrogation was performed of both carotid systems, with image documentation and velocity measurements. COMPARISON: [facility], CT, CT ANGIO HEAD AND NECK, 08/24/2021, 16:35. [facility], US, US CAROTID DOPPLER BI, 03/10/2023, 12:52. [facility], US, US CAROTID BILATERAL, 10/12/2021, 10:19. FINDINGS: Stenosis calculations are based on SRU (Society of Radiologists in Ultrasound) criteria. The flow velocities and the arterial waveforms are normal within both carotid arterial systems. Atherosclerotic plaque is seen on both sides, left worse than right. The estimated degree of internal carotid artery stenosis is less than 50%. Antegrade flow is confirmed within both vertebral arteries. There is a patent left internal carotid artery stent. IMPRESSION: No hemodynamically significant stenosis is seen. Stable patent left internal carotid artery stent. Study similar to the prior. Dictated by: Mehran Diaz M.D. on 08/24/2023 at 13:42 Approved by: Mehran Diaz M.D. on 08/24/2023 at 13:45
[2023-08-24 13:32] LABS: BUN Creatinine Ratio 17.6 (6-22); Blood Urea Nitrogen 12 mg/dL (7-17); Carbon Dioxide 24 mmol/L (22-32); Chloride 103 mmol/L (98-107); Estimated Glomerular Filt Rate > 60 mL/min (>60); Glucose 110 mg/dL (80-110); HEMOLYSIS < 15 (0-50); Potassium 3.8 mmol/L (3.4-5.1); Sodium 134 mmol/L (137-145)
== END ==
PROVIDERS: PCP Internal Medicine; Referring Provider Internal Medicine; Visit Provider Internal Medicine
DX: I65.22 Occlusion and stenosis of left carotid artery (principal); E78.5 Hyperlipidemia, unspecified; Z96.89 Presence of other specified functional implants
CPT/HCPCS: 36415; 80048; 93880

== ENCOUNTER → 2023-09-01 06:28 | Outpatient (CLI) | payer MEDICARE, OTHER, SELFPAY ==
--- NOTE | 2023-09-01 06:30 | DI.ECHO.S_ITS ---
[facility] +---------+ : : [address] : [place] : : : : [id number] : : : : Phone: [phone] Echocardiogram Report + + :Name: MAYA MORENO Study Date: 09/01/2023 Height: 62 in : :[facility] ReadingLocation: Weight: 127 lb : : Gender: Female BSA: 1.6 m2 : :: 1945 Age: 77 yrs BP: 137/74 mmHg: :Reason For Study: LABILE HYPERTENSION : :Ordering Physician: ARLEEN, : :PEPE Performed By: Mya Grant : :Referring: PEPE BACON : + + Interpretation Summary Normal sinus rhythm. Normal LV size and wall thickness; normal wall motion and LV systolic function. EF is 60-65% Normal chamber sizes. No significant valvular abnormalities. Compared to prior study 11/28/2019, LA volume index is down from 49 to 22 ml/m2. Procedure: A two-dimensional transthoracic echocardiogram with color flow and Doppler was performed. The study quality was technically adequate. Comparison is made with the echocardiogram of 11/28/2019. The patient was in sinus rhythm with heart rates between 55-66 bpm during the exam. Left Ventricle: The left ventricle is normal in size and wall thickness. The ejection fraction is estimated to be 60-65%. Right Ventricle: The right ventricle is normal in size and function. Atria: The left atrial size is normal. Right atrial size is normal. There is no Doppler evidence for an interatrial shunt. Mitral Valve: The mitral valve is normal in structure and function. There is mild mitral regurgitation. Aortic Valve: The aortic valve is trileaflet. The aortic valve opens well. There is no aortic valve stenosis. There is trace aortic regurgitation. Tricuspid Valve: The tricuspid valve is normal in structure and function. There is mild tricuspid regurgitation. The right ventricular systolic pressure is estimated to be at least 24 mmHg based on an estimated right atrial pressure of 3 mm Hg. Pulmonic Valve: The pulmonic valve leaflets are thin and pliable; valve motion is normal. There is trace pulmonic regurgitation. Great Vessels: The aortic root is normal size. The dimensions of the ascending aorta are normal. The IVC is of normal diameter and collapses greater than 50% with a sniff. This suggests a low right atrial pressure of 3 mm Hg. Pericardium/ Pleura There is no pericardial effusion. There is no pleural effusion. MMode/2D Measurements & Calculations LVIDd: 4.7 cm LVOT diam: 2.0 cm LVIDs: 3.0 cm Ao root diam: 3.1 cm FS: 36.7 % asc Aorta Diam: 2.7 cm IVSd: 0.86 cm LVPWd: 0.77 cm LV milton. diameter/BSA (cm/m^2): 3.0 LV sys. diameter/BSA (cm/m^2): 1.9 LA A2 area: 13.6 cm2 RA long axis: 4.2 cm LA A4 area: 13.2 cm2 RA area: 12.7 cm2 LA length (vol): 4.4 cm RA vol: 32.2 ml LA vol: 34.7 ml RA : 20.5 ml/m2 LA vol index: 22.0 ml/m2 IVC diam: 1.4 cm RVD1 (basal): 3.2 cm TAPSE: 1.7 cm Doppler Measurements & Calculations Ao V2 max: 139.8 cm/sec LVOT Max Tj: 117.3 cm/sec Ao V2 mean: 101.9 cm/sec LV V1 max P.5 mmHg Ao max P.8 mmHg LV V1 VTI: 24.4 cm Ao mean P.5 mmHg MAKI(I,D): 2.6 cm2 Ao V2 VTI: 29.1 cm MAKI(V,D): 2.6 cm2 sev ratio: 0.84 MAKI indexed to BSA (cm^2/m^2): 1.6 MV E max tj: 54.3 cm/sec TR max tj: 231.3 cm/sec MV A max tj: 85.6 cm/sec TR max P.4 mmHg MV E/A: 0.63 PA V2 max: 94.0 cm/sec Med Peak E' Tj: 6.0 cm/sec PA V2 mean: 66.7 cm/sec E/E' med: 9.0 PA mean P.9 mmHg Lat Peak E' Tj: 9.6 cm/sec PA pr(Accel): 37.9 mmHg E/E' lat: 5.6 E/e' average: 7.3 MV dec time: 0.25 sec SV(LVOT): 75.1 ml Electronically signed by: Pepe Bacon M.D. on Reading Physician:09/02/2023 01:11 AM
== END ==
LOC: ECHO 06:30
PROVIDERS: PCP Internal Medicine; Referring Provider Internal Medicine; Visit Provider Internal Medicine
DX: I08.1 Rheumatic disorders of both mitral and tricuspid valves (principal); R09.89 Other specified symptoms and signs involving the circulatory and respiratory systems
CPT/HCPCS: 93306

== ENCOUNTER → 2023-09-08 10:29 | Outpatient (CLI) | payer MEDICARE, OTHER, SELFPAY ==
--- NOTE | 2023-09-08 10:31 | DI.RAD.S_ITS ---
PROCEDURE: XR RIBS LT MIN 3V W CXR1V INDICATIONS: Left rib pain TECHNIQUE: To views of the ribs were acquired, along with a single view chest. COMPARISON: None. FINDINGS: Surgical changes and devices: Median sternotomy wires and surgical clips are seen. Bones and chest wall: No fractures or dislocations. No suspicious bony lesions. Overlying soft tissues appear unremarkable. Lungs and pleura: No pleural effusions or pneumothorax. Lungs appear clear. Mediastinum: Mediastinal contours appear normal. Heart size is normal. IMPRESSION: No displaced rib fracture or pneumothorax. Dictated by: Lam Ann M.D. on 09/08/2023 at 13:27 Approved by: Lam Ann M.D. on 09/08/2023 at 13:32
== END ==
PROVIDERS: PCP Internal Medicine; Referring Provider Nurse Practitioner Family; Visit Provider Nurse Practitioner Family
DX: R07.81 Pleurodynia (principal)
CPT/HCPCS: 71101

== ENCOUNTER 2023-09-10 19:00 | Emergency (ER) | payer MEDICARE, OTHER, SELFPAY ==
[2023-09-10 19:06] VITALS: BP 140/67; PULSE 89; RESP 19; TEMP 36.4; O2SAT 97; BMI 23.3
[2023-09-10 20:07] LABS: Add Manual Diff / Slide Review NO; Basophils Absolute Auto 100 /uL (0-100); Basophils Percent Auto 1.1 % (0-2); Eosinophils Absolute Auto 300 /uL (0-450); Eosinophils Percent Auto 4.1 % (2-4); Hematocrit 35.9 % (36-46); Hemoglobin 12.4 g/dL (12.0-16.0); Lymphocytes Absolute Auto 1500 /uL (1100-4500); Lymphocytes Percent Auto 22.1 % (25-40); Mean Corpuscular HGB Conc 34.6 % (30-36); Mean Corpuscular Hemoglobin 30.1 PG (26-34); Mean Corpuscular Volume 86.9 fL (80-100); Monocytes Absolute Auto 800 /uL (0-900); Monocytes Percent Auto 11.6 % (3-14); Neutrophils Absolute Auto 4100 /uL (1500-7000); Neutrophils Percent Auto 61.1 % (50-75); Platelet Count 216 X10^3/uL (150-400); Red Blood Cell Count 4.13 X10^6/uL (4.0-5.2); Red Cell Distribution Width 13.9 % (11.6-14.8); White Blood Cell Count 6.7 X10^3/uL (4.5-11.0)
[2023-09-10 20:16] LABS: Alanine Aminotransferase 20 IU/L (<35); Albumin 4.4 g/dL (3.5-5.0); Albumin Globulin Ratio 1.7 (1.0-2.8); Alkaline Phosphatase 98 U/L (38-126); Aspartate Aminotransferase 27 IU/L (14-36); BUN Creatinine Ratio 23.4 (6-22); Bilirubin Total 0.4 mg/dL (0.2-1.3); Blood Urea Nitrogen 15 mg/dL (7-17); Carbon Dioxide 26 mmol/L (22-32); Chloride 102 mmol/L (98-107); Estimated Glomerular Filt Rate > 60 mL/min (>60); Globulin 2.6 g/dL (1.7-4.1); Glucose 169 mg/dL (80-110); HEMOLYSIS < 15 (0-50); Potassium 3.7 mmol/L (3.4-5.1); Sodium 134 mmol/L (137-145)
--- NOTE | 2023-09-10 21:10 | ED_ITS ---
HPI - Neck Pain/Injury General Chief Complaint: Neck Pain/Injury Stated Complaint: worried about carotid stent. 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 Patient presents with complaint of sensation of pain in her left neck and tingling that felt like pins and needles that started about 615 this evening. She sits sort of spontaneously occurred. She states she has had some neck discomfort in the past on and off. She denies any chest pain, no shortness of breath, no diaphoresis. No nausea or vomiting or other GI or urinary symptoms. No radiation down her arm. Patient was concerned that had to do with her carotid stent. Patient has not had any other symptoms no redness swelling or other skin changes. Symptoms have resolved. She called her superintendent container terminal who recommended she come for cardiac enzymes. Related Data Home Medications Medication Instructions Recorded Confirmed aspirin 81 mg tablet,delayed 81 mg PO DAILY ##0 02/03/09 09/08/23 release clopidogrel 75 mg tablet 75 mg PO DAILY ##0 02/03/09 09/08/23 atorvastatin 20 mg tablet (Lipitor) 20 mg PO DAILY ##0 02/23/13 09/08/23 losartan 100 mg tablet (Cozaar) 100 mg PO DAILY #0 tabs 02/23/13 09/08/23 multivitamin 1 tab PO QDAY #0 tabs 02/23/13 09/08/23 Calcium 1 tab PO DAILY 12/14/18 09/08/23 amlodipine 2.5 mg tablet 2.5 mg PO BID 12/14/18 09/08/23 Previous Rx's Medication Instructions Recorded cyclobenzaprine 5 mg tablet 10 mg (2 x 5 mg) PO TID PRN muscle 08/10/19 spasm #15 tabs naproxen 500 mg tablet (Naprosyn) 500 mg PO BID PRN pain #20 tabs 08/10/19 ondansetron 4 mg disintegrating 4 mg PO Q6H PRN nausea and 09/14/19 tablet vomiting #14 tabs metoprolol succinate 25 mg 25 mg PO DAILY #14 tabs 10/16/19 tablet,extended release 24 hr acebutolol 200 mg capsule 200 mg PO BID #60 caps 10/19/19 lorazepam 0.5 mg tablet 0.5 mg PO BID PRN arrythmia #10 10/19/19 tabs sucralfate 100 mg/mL oral 1 gram (10 mL) PO Q6H GERD, 11/02/19 suspension (Carafate) coughing #420 mL benzonatate 100 mg capsule 100 mg PO TID PRN cough #20 caps 06/10/20 methylprednisolone 4 mg tablets in See Rx Instructions PO .COMPLEX 06/10/20 a dose pack (Medrol (Lee)) #21 ea levalbuterol tartrate 45 2 puff inhalation Q4-6H PRN 06/14/20 mcg/actuation aerosol inhaler shortness of breath or wheezing (Xopenex HFA) #15 grams Allergies Allergy/AdvReac Type Severity Reaction Status Date / Time prochlorperazine Allergy Severe Anaphylaxis Verified 04/18/22 07:56 [PROCHLORPERAZINE] erythromycin base Allergy Mild Verified 04/18/22 07:56 [ERYTHROMYCIN BASE] Review of Systems Review of Systems ROS Unobtainable: All systems reviewed & are unremarkable except as noted in HPI and below Patient History Medical History (Updated 09/10/23 @ 21:32 by Syeda Rodriguez DO) Carotid artery disease Multinodular thyroid SVT (supraventricular tachycardia) Heart disease Hypertension Stroke Surgical History History of surgery (05/05/08) History of eye surgery History of cholecystectomy History of left common carotid artery stent placement Social History Smoking Status: Never smoker Smoking Status: Never smoker alcohol intake frequency: 0-2 drinks per day Substance Use Type: does not use Exam Narrative Exam Narrative: GEN: well nourished, well appearing female, alert and oriented x 3, patient appears to be in mild distress. HEENT: Atraumatic, pupils are equal round reactive to light, extraocular movements are intact, nares are clear, there is no conjunctival pallor. Throat is clear without any exudates, erythema, tonsillar enlargement or uvular deviation, HEART: Regular rate and rhythm without murmur, clicks, rubs. Pulses are equal in upper and lower extremities LUNGS:Lungs clear to auscultation, no wheezes, rales, crackles, chest moves symmetrically ABD:bowel sounds normal, soft, non-tender, no guarding, rebound, rigidity, no masses noted, no hepatosplenomegaly :No CVA tenderness MSCL: Non-tender, no muscle atrophy, muscles strength 5/5 upper and lower extremities, full range of motion, normal gait NEURO:CN 2-12 intact, sensation normal SKIN: No rash, erythema or other skin changes noted. Initial Vital Signs Initial Vital Signs: Vital Signs Temperature 97.6 F 09/10/23 19:06 Pulse Rate 89 09/10/23 19:06 Respiratory Rate 19 09/10/23 19:06 Blood Pressure 140/67 09/10/23 19:06 Pulse Oximetry 97 09/10/23 19:06 Oxygen Delivery Method Room Air 09/10/23 19:06 Course Orders Ordered: ED Orders 09/10/23 19:20 Troponin & CK Cardiac Panel Stat 09/10/23 19:24 CBC Auto Diff [Complete Blood Count AUTO DIFF] Stat CMP [Comprehensive Metabolic Panel] Stat 09/10/23 19:46 EKG-12 Lead Stat Vital Signs Vital signs: Vital Signs - 8 hr 09/10/23 19:06 Temperature 97.6 F Pulse Rate 89 Respiratory Rate 19 Blood Pressure 140/67 Pulse Oximetry 97 Oxygen Delivery Method Room Air MDM - Neck Pain/Injury Lab Data 09/10/23 19:24 09/10/23 19:24 Labs: Lab Results 09/10/23 09/10/23 Range/Units 19:20 19:24 WBC 6.7 (4.5-11.0) X10^3/uL RBC 4.13 (4.0-5.2) X10^6/uL Hgb 12.4 (12.0-16.0) g/dL Hct 35.9 L (36-46) % MCV 86.9 (80-100) fL MCH 30.1 (26-34) PG MCHC 34.6 (30-36) % RDW 13.9 (11.6-14.8) % Plt Count 216 (150-400) X10^3/uL Neut % (Auto) 61.1 (50-75) % Lymph % (Auto) 22.1 L (25-40) % [place] % (Auto) 11.6 (3-14) % Eos % (Auto) 4.1 H (2-4) % Baso % (Auto) 1.1 (0-2) % Neut # (Auto) 4100 (2883-1611) /uL Lymph # (Auto) 1500 (8065-0565) /uL [place] # (Auto) 800 (0-900) /uL Eos # (Auto) 300 (0-450) /uL Baso # (Auto) 100 (0-100) /uL Sodium 134 L (137-145) mmol/L Potassium 3.7 (3.4-5.1) mmol/L Chloride 102 (98-107) mmol/L Carbon Dioxide 26 (22-32) mmol/L BUN 15 (7-17) mg/dL Creatinine 0.64 (0.52-1.04) mg/dL Estimated GFR > 60 (>60) mL/min BUN/Creatinine Ratio 23.4 H (6-22) Glucose 169 H (80-110) mg/dL Calcium 9.0 (8.4-10.2) mg/dL Total Bilirubin 0.4 (0.2-1.3) mg/dL AST 27 (14-36) IU/L ALT 20 (<35) IU/L Alkaline Phosphatase 98 (38-126) U/L Total Creatine Kinase 51 (30-135) U/L Troponin I < 0.012 (0.01-0.034) ng/mL Total Protein 7.0 (6.3-8.2) g/dL Albumin 4.4 (3.5-5.0) g/dL Globulin 2.6 (1.7-4.1) g/dL Albumin/Globulin Ratio 1.7 (1.0-2.8) Imaging Data 08/24/2023 Carotid US: Radiologist's Impression: Close Ribs X-Ray (Signed) Lam Ann - 09/08/23 Echocardiogram Ultrasound (Signed) Daja Martell - 09/01/23 Carotid Doppler Study (Signed) Mehran Diaz - 08/24/23 Thoracic Spine X-Ray (Signed) Atul Bolaños - 06/14/23 Chest X-Ray (Signed) Atul Bolaños - 06/14/23 Abdomen/Pelvis CT (Signed) Gonzalo Phillips - 03/20/23 Carotid Doppler Study (Signed) Shiela Rider - 03/10/23 Ultrasound Report 03/06/23 Chest X-Ray (Signed) Tavia Carlos - 02/23/23 Ribs X-Ray (Signed) Sylvester Renee - 04/18/22 Modified Barium Swallow (Signed) Ayana Montanez - 03/24/[address] (Signed) Mehran Diaz - 03/09/22 Head/Neck CTA (Signed) Toribio Shipley - 08/24/21 Telemetry Strips 08/24/[address] (Signed) Daniel Pollard - 08/24/21 Brain MRI (Addendum) Alexander Garcia - 08/20/[address] (Signed) Cherie Ernst - 08/06/[address] (Signed) Amira Montanez - 05/05/21 Chest X-Ray (Signed) Cherie Ernst - 02/05/21 Bone Densitometry (Signed) Sylvester Ospina - 02/05/21 Lumbar Spine X-Ray (Signed) Dayron Sweeney - 08/28/[address] (Signed) Mehran Diaz - 08/07/[address] (Signed) Amira Montanez - 07/10/20 Chest X-Ray (Signed) Les Melo - 06/14/20 Chest X-Ray (Signed) Uday Davis - 06/10/20 Modified Barium Swallow (Signed) Ana Laura Barahona - 06/04/[address] (Signed) Dayron Sweeney - 04/13/20 Chest X-Ray (Signed) Ana Laura Barahona - 04/09/20 Chest X-Ray (Signed) Daniel Pollard - 03/06/[address] (Signed) Noah Downey - 02/28/[address] (Signed) Noah Downey - 02/28/20 Chest X-Ray (Signed) Mehran Diaz - 01/04/20 PFT Result 12/27/19 Chest X-Ray (Signed) Mehran Diaz - 11/02/19 Chest X-Ray (Signed) Daniel Pollard - 10/31/19 Chest X-Ray (Signed) Ana Laura Barahona - 10/19/19 Chest X-Ray (Signed) Dayron Sweeney - 10/16/19 Chest X-Ray (Signed) Uday Davis - 08/09/19 Chest X-Ray (Signed) Daniel Pollard - 05/23/[address] (Signed) Ana Laura Barahona - 12/14/18 Chest X-Ray (Signed) Dayron Sweeney - 12/14/18 Head/Neck Ultrasound (Signed) Amira Montanez - 10/26/18 Knee X-Ray (Signed) Noah Downey - 07/16/18 Knee X-Ray (Signed) Noah Downey - 07/16/18 Chest CTA (Signed) Ana Laura Barahona - 02/22/18 Carotid Doppler Study (Signed) Mehran Diaz - 02/22/18 Chest X-Ray (Signed) Esau Lewis - 02/22/18 Echocardiogram Ultrasound (Addendum) Wilmar Jackson - 02/01/18 Thyroid Ultrasound (Signed) Lam Ann - 01/12/18 Chest X-Ray (Signed) Dayron Sweeney - 11/24/17 Launch?[place] [address] Ultrasound Report Signed Patient: Yi Seay MR#: [id number] : 1945 Acct:[id number] Age/Sex: 77 / F Date of Service: 08/24/23 Loc: US Accession Number: [id number] Procedure: US carotid doppler BI Ordering Provider: Daja Martell MD PROCEDURE: US CAROTID DOPPLER BI INDICATIONS: STENOSIS OF L CAROTIID ARTERY TECHNIQUE: Color and pulse Doppler interrogation was performed of both carotid systems, with image documentation and velocity measurements. COMPARISON: [facility], CT, CT ANGIO HEAD AND NECK, 08/24/2021, 16:35. [facility], US, US CAROTID DOPPLER BI, 03/10/2023, 12:52. [facility], US, US CAROTID BILATERAL, 10/12/2021, 10:19. FINDINGS: Stenosis calculations are based on SRU (Society of Radiologists in Ultrasound) criteria. The flow velocities and the arterial waveforms are normal within both carotid arterial systems. Atherosclerotic plaque is seen on both sides, left worse than right. The estimated degree of internal carotid artery stenosis is less than 50%. Antegrade flow is confirmed within both vertebral arteries. There is a patent left internal carotid artery stent. IMPRESSION: No hemodynamically significant stenosis is seen. Stable patent left internal carotid artery stent. Study similar to the prior. Dictated by: Mehran Diaz M.D. on 08/24/2023 at 13:42 Approved by: Mehran Diaz M.D. on 08/24/2023 at 13:45 ECG Data Attestation: I personally reviewed and interpreted this ECG as follows: Interpretation: Sinus rhythm rate of 72 [place] 184 QRS of 126 QTC of 483. No acute changes. Patient has right bundle with left axis deviation. Does have what appears to be some out his artifact and V6 otherwise nonspecific change. MDM Narrative Medical decision making narrative: 77-year-old female with complaint of pain in her left neck with some needles tingling sensation that resolved. No other symptoms associated. She does have a carotid stent had an ultrasound that showed it in place without any occlusion or issues on 08/24/2023. Patient states she reached out her superintendent container terminal who recommends comfort cardiac enzymes/cardiac workup. Labs show white count of 6.7 hemoglobin 12, platelets of 216. Sodium 134, otherwise normal electrolytes glucose of 196 normal renal function LFTs are negative. Troponin was added on and is negative patient left before it was resulted. EKG shows no acute changes. Patient does not wish to stay for 2nd set of enzymes, we did discuss that initial troponin does not rule out a cardiac source. She expresses understanding she does not have any other symptoms or findings that make me significant concern for occlusion or significant changes to her carotid with a recent appropriate ultrasound. Patient did not wish to wait for her initial troponin, states she is willing to stay until 10pm and then leave. She is alert, compentent and appropriate to make this choice. Discharge Plan Departure Patient Disposition: Left Against Medical Advice Clinical Impression: Neck pain Activity Restrictions/Additional Instructions: Please follow-up with your physician. Your heart enzyme or troponin is pending, this has not resulted yet. Please call to follow up your result. Your workup today does not rule out a source of cardiac symptoms. Please continue if new or worsening symptoms, new neck pain, chest pain or shortness of breath, numbness tingling or weakness, difficulty with speech or other new or concerning changes. Prescriptions: No Action clopidogrel 75 mg Tablet 75 mg PO DAILY Qty: 0 aspirin 81 mg Tablet,Delayed Release (Dr/Ec) 81 mg PO DAILY Qty: 0 losartan [Cozaar] 100 MG tablet 100 mg PO DAILY Qty: 0 atorvastatin [Lipitor] 20 MG tablet 20 mg PO DAILY Qty: 0 multivitamin Tablet 1 tab PO QDAY Qty: 0 amlodipine 2.5 mg tablet 2.5 mg PO BID Patient Comments: TK 1 T PO BID FOR HIGH BLOOD PRESSURE Calcium 1 tab PO DAILY naproxen [Naprosyn] 500 mg tablet 500 mg PO BID PRN (Reason: pain) Qty: 20 0RF cyclobenzaprine 5 mg tablet 10 mg PO TID PRN (Reason: muscle spasm) Qty: 15 0RF ondansetron 4 mg tablet,disintegrating 4 mg PO Q6H PRN (Reason: nausea and vomiting) Qty: 14 0RF benzonatate 100 mg capsule 100 mg PO TID PRN (Reason: cough) Qty: 20 0RF methylprednisolone [Medrol (Lee)] 4 mg tablets,dose pack See Rx Instructions PO .COMPLEX Qty: 21 0RF Rx Instructions: orally per package directions metoprolol succinate 25 mg tablet extended release 24 hr 25 mg PO DAILY Qty: 14 0RF lorazepam 0.5 mg tablet 0.5 mg PO BID PRN (Reason: arrythmia) Qty: 10 0RF acebutolol 200 mg capsule 200 mg PO BID Qty: 60 0RF sucralfate [Carafate] 100 mg/mL suspension 1 gram PO Q6H Qty: 420 0RF levalbuterol tartrate [Xopenex HFA] 45 mcg/actuation HFA aerosol inhaler 2 puff inhalation Q4-6H PRN (Reason: shortness of breath or wheezing) Qty: 15 0RF Referrals: Jess Peters MD [Primary Care Provider] - Stand Alone Forms: Patient Portal/API, Against Medical Advice
[2023-09-10 21:37] LABS: Creatine Kinase 51 U/L (30-135)
[2023-09-10 21:50] LABS: Troponin I < 0.012 ng/mL (0.01-0.034)
--- NOTE | 2023-09-10 22:19 | PC.NURSE ---
went into room to discharge patient with AMA paperwork and write up from provider. Patient states she is not going to sign this paperwork as she does not want her insurance to think she left against medical advice. Spoke with patient further about this, she states the provider informed her that her results should be back around 2200 and requested she stay until then. patient states when provider came back into room, she stated results were not finished yet and still pending. patient states she wants to go home, she said she would stay till 2200. Patient states she is not leaving against medical advice but leaving when she was told she could leave. Explained to patient that if these results were to come back positive we would need to do further work up on her and she would have to stay later, which is why we are requesting she stay later than the original estimated time of 2200. patient refused. conversation witnessed by Enrique Pearson RN. patient left with discharge paperwork and copy of AMA form
--- NOTE | 2023-09-10 22:19 | PC.NURSE ---
THis RN and Lluvia RN to bedside to speak with pt regarding AMA. Pt states that she does not wish to sign AMA paperwork because the EMD told her that she would be able to leave at 2200. Pt states that the EMD forgot to add on a troponin to her testing and stated that the EMD advised her that the test will be done by 2200. Pt advised that lab results can take longer in some instances. Pt states that she wants to leave the ER and will not sign the paperwork. Pt advised that she will not be forced to sign the paperwork but that this conversation will be noted by both RNs present.
== END 2023-09-10 22:24 | disposition left against medical advice (07) ==
PROVIDERS: Emergency Provider Emergency Medicine; PCP Internal Medicine
DX: M54.2 Cervicalgia (principal); R20.2 Paresthesia of skin; Z53.29 Procedure and treatment not carried out because of patient's decision for other reasons; Z95.820 Peripheral vascular angioplasty status with implants and grafts; R94.31 Abnormal electrocardiogram [ECG] [EKG]
CPT/HCPCS: 36415; 80053; 82550; 84484; 85025; 93005; 99283

== ENCOUNTER → 2023-09-13 07:40 | Outpatient (CLI) | payer MEDICARE, OTHER, SELFPAY ==
[2023-09-13 08:52] LABS: BUN Creatinine Ratio 26.8 (6-22); Blood Urea Nitrogen 15 mg/dL (7-17); Carbon Dioxide 27 mmol/L (22-32); Chloride 104 mmol/L (98-107); Estimated Glomerular Filt Rate > 60 mL/min (>60); Glucose 109 mg/dL (80-110); HEMOLYSIS < 15 (0-50); Sodium 138 mmol/L (137-145)
== END ==
LOC: LAB 07:41
PROVIDERS: PCP Internal Medicine; Referring Provider Internal Medicine; Visit Provider Internal Medicine
DX: R09.89 Other specified symptoms and signs involving the circulatory and respiratory systems (principal)
CPT/HCPCS: 36415; 80048

== ENCOUNTER → 2023-10-02 08:12 | Outpatient (CLI) | payer MEDICARE, OTHER, SELFPAY ==
[2023-10-02 09:27] LABS: Cholesterol 129 mg/dL (140-199); HDL Cholesterol 48 mg/dL (40-60); LDL Cholesterol Calculated 59 mg/dL (<100); Triglycerides 108 mg/dL (35-150)
== END ==
PROVIDERS: PCP Internal Medicine; Referring Provider Internal Medicine; Visit Provider Internal Medicine
DX: E78.5 Hyperlipidemia, unspecified (principal)
CPT/HCPCS: 36415; 80061

== ENCOUNTER → 2024-01-08 07:18 | Outpatient (CLI) | payer MEDICARE, OTHER, SELFPAY ==
--- NOTE | 2024-01-08 07:21 | DI.RAD.S_ITS ---
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 COMPARISON: None. FINDINGS: Bones: No fractures or dislocations. Carpal bones are normally aligned. No suspicious bony lesions. Scattered mild to moderate IP and 1st CMC degenerative narrowing. No definitive erosions. Minimal periarticular osteophytes. Soft tissues: No suspicious soft tissue calcifications. 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 Dictated by: Tavia Carlos M.D. on 01/08/2024 at 13:26 Approved by: Tavia Carlos M.D. on 01/08/2024 at 13:26
--- NOTE | 2024-01-08 07:21 | DI.US.S_ITS ---
PROCEDURE: US THYROID INDICATIONS: FU ON THYROID NODULES TECHNIQUE: Real-time scanning was performed of the thyroid gland, with image documentation. COMPARISON: None. FINDINGS: Thyroid: Right lobe measures 3.9 x 1.2 x 1.7 cm. Left lobe measures 3.6 x 1.7 x 1.3 cm. Isthmus is not well seen.. Echotexture is homogeneous. Nodule number: 1 Location: Right superior Size: 1.6 x 1.0 x 1.4 cm. Composition: Predominantly cystic Echogenicity: Anechoic/isoechoic Shape: wider than tall. Margins: Smooth Echogenic foci: Punctate Total points: 3 ACR TI-RADS category: 3 IMPRESSION: Category 3 lesion as described above. Secondary to size recommend interval follow-up in 1 year. ACR TI-RADS definitions and recommendations: TI-RADS 1 (benign): 0 points. FNA not needed. TI-RADS 2 (not suspicious): 2 points. FNA not needed. TI-RADS 3 (mildly suspicious): 3 points. * FNA if 2.5 cm or larger, follow up if 1.5 cm or larger (at 1, 3, and 5 years). TI-RADS 4 (moderately suspicious): 4-6 points. * FNA if 1.5 cm or larger, follow up if 1 cm or larger (at 1, 2, 3, and 5 years). TI-RADS 5 (highly suspicious): 7 points or more. * FNA if 1 cm or larger, follow up if 0.5 cm or larger (every year for 5 years). Dictated by: Tavia Carlos M.D. on 01/08/2024 at 19:27 Approved by: Tavia Carlos M.D. on 01/08/2024 at 19:30
== END ==
PROVIDERS: PCP Internal Medicine; Referring Provider Internal Medicine; Visit Provider Internal Medicine
DX: M79.642 Pain in left hand (principal); E04.1 Nontoxic single thyroid nodule
CPT/HCPCS: 73130; 76536

== ENCOUNTER 2024-01-13 17:45 | Observation (INO) | payer MEDICARE, OTHER, SELFPAY ==
[2024-01-13] VITALS (10 sets, daily range): BP systolic 112–184; BP diastolic 59–86; PULSE 80–100; RESP 17–32; TEMP 36.6–37.4; O2SAT 93–98; BMI 23.3; BMI 22.4
--- NOTE | 2024-01-13 17:55 | DI.CT.S_ITS ---
PROCEDURE: CT ANGIO HEAD AND NECK INDICATIONS: known carotid stent, transient tia symptoms, now resolved TECHNIQUE: After the administration of intravenous contrast, 1 mm thick sections acquired from the aortic arch through the [place] of [place]. 3-dimensional jruhmsd-cbuhnsjnn-kytxiqszgr (MIP) and/or volume rendering reformats were acquired of the central intracranial vasculature and neck separately. For radiation dose reduction, the following was used: automated exposure control, adjustment of mA and/or kV according to patient size. COMPARISON: [facility], US, US THYROID, 01/08/2024, 7:52. [facility], CT, CT HEAD/BRAIN WO CON, 01/13/2024, 17:59. [facility], US, US CAROTID DOPPLER BI, 08/24/2023, 12:56. [facility], US, US CAROTID BILATERAL, 10/12/2021, 10:19. [facility], CT, CT ANGIO HEAD AND NECK, 08/24/2021, 16:35. FINDINGS: Image quality: Limited by bolus timing, with venous contamination. There is streak artifact seen through the level of the shoulders. BRAIN: CSF spaces: Ventricles are normal in size and shape. Basal cisterns are patent. No extra-axial fluid collections. Brain: No significant abnormality of the brain can be seen. Skull and face: Calvarium and facial bones appear intact, without suspicious lesions. Orbits appear normal. Sinuses: Paranasal sinus disease can be seen, which is worst within the ethmoid air cells. There is a left maxillary sinus mucous retention cyst seen. HEAD CT ANGIOGRAPHY: Anterior circulation: Intracranial internal carotid arteries are normal in size and flow. The flow within the paired anterior cerebral arteries is normal and symmetric. The flow within the middle cerebral arteries is normal and symmetric. The anterior communicating artery is seen. No aneurysms are seen. Posterior circulation: Visualized portions of the vertebral arteries demonstrate normal caliber, and join to form a normal appearing basilar artery. Flow within the posterior cerebral arteries is normal and symmetric. No aneurysms are seen. NECK CT ANGIOGRAPHY: Carotid system: The great vessels demonstrate a conventional anatomy as they arise from the aortic arch. The origins of the common carotid arteries appear patent. The common carotid arteries demonstrate normal caliber and courses. The bifurcation regions are both widely patent. The internal carotid arteries demonstrate normal calibers and courses. A widely patent left ICA stent can be seen. Posterior circulation: The origins of the vertebral arteries both appear widely patent. The more superior extracranial portions of both vertebral arteries also demonstrate normal courses and calibers. The left vertebral artery is dominant to the right. Soft tissues: Visualized neck soft tissues demonstrate no suspicious abnormalities. A 1.8 cm right thyroid nodule can be seen. Left upper chest postoperative clips can be seen. Bones: No suspicious bony lesions. Visualized cervical spine appears normally aligned. Cervical spine degenerative change can be seen, with at least moderate disc space narrowing seen at C5-C6. Milder degenerative changes are seen elsewhere. Sternotomy wires are seen. IMPRESSION: No significant intracranial arterial abnormality is seen. No significant abnormality is seen within the arteries of the neck. There is a widely patent left ICA stent again seen. Additional findings: Paranasal sinus disease Cervical spine degenerative change Right thyroid lesion, previously documented Postoperative change, with sternotomy Any quantitative measurements of stenosis were performed using NASCET criteria. Dictated by: Mehran Diaz M.D. on 01/13/2024 at 17:36 Approved by: Mehran Diaz M.D. on 01/13/2024 at 17:41
--- NOTE | 2024-01-13 17:55 | DI.RAD.S_ITS ---
PROCEDURE: XR CHEST 1V INDICATIONS: Possible stroke TECHNIQUE: One view of the chest was acquired. COMPARISON: [facility], CR, XR CHEST 1V, 02/23/2023, 11:43. [facility], CT, CT ANGIO HEAD AND NECK, 01/13/2024, 17:59. [facility], CT, CT HEAD/BRAIN WO CON, 01/13/2024, 17:59. [facility], CR, XR CHEST 2V, 06/14/2023, 9:08. FINDINGS: Surgical changes and devices: Sternotomy wires and mediastinal clips are seen. Lungs and pleura: On this semiupright portable chest examination, no large pneumothorax or large pleural effusions are seen. No focal infiltrates are seen. Mediastinum: Mediastinal contours appear normal. Heart size is normal. Bones and chest wall: No suspicious bony lesions. Age-appropriate bony degenerative changes are seen. Overlying soft tissues appear unremarkable. IMPRESSION: Portable chest within normal limits for age. Postoperative and degenerative changes are seen. Dictated by: Mehran Diaz M.D. on 01/13/2024 at 17:31 Approved by: Mehran Diaz M.D. on 01/13/2024 at 17:31
--- NOTE | 2024-01-13 17:55 | DI.CT.S_ITS ---
PROCEDURE: CT HEAD/BRAIN WO CON INDICATIONS: known carotid stent, transient tia symptoms, now resolved TECHNIQUE: Noncontrast 4.5 mm thick angled axial sections acquired from the foramen magnum to the vertex, with coronal and sagittal reformats. For radiation dose reduction, the following was used: automated exposure control, adjustment of mA and/or kV according to patient size. COMPARISON: [facility], CT, CT ANGIO HEAD AND NECK, 01/13/2024, 17:59. [facility], US, US CAROTID DOPPLER BI, 08/24/2023, 12:56. [facility], MR, MR IAC WITH/WITHOUT CONTRAST, 09/24/2021, 12:12. [facility], CT, CT ANGIO HEAD AND NECK, 08/24/2021, 16:35. [facility], CT, CT HEAD/BRAIN WO CON, 08/07/2020, 10:17. FINDINGS: Image quality: Mild streak artifact can be seen through the skull base. CSF spaces: Basal cisterns are patent. No extra-axial fluid collections. The ventricles are symmetric in size and shape. Brain: No intracranial bleeds or masses. There is cerebral volume loss for age, with resultant ventricular and sulcal prominence. There are periventricular and deep white matter chronic small vessel ischemic changes. There is intracranial internal carotid artery atherosclerosis. Skull and face: Calvarium and visualized facial bones appear intact, without suspicious lesions. Sinuses: Mild mucosal thickening can be seen within the ethmoid air cells. Milder mucosal thickening can be seen elsewhere within the paranasal sinuses. There is a mucous retention cyst within the left maxillary sinus. No abnormal fluid is seen within the mastoid air cells. IMPRESSION: No acute intracranial hemorrhage is seen. No acute intracranial pathology. If there is strong clinical suspicion for an acute stroke, please consider a brain MRI for further evaluation, as it is more sensitive (assuming that there is no contraindication to MRI). Additional findings: Paranasal sinus disease Dictated by: Mehran Diaz M.D. on 01/13/2024 at 17:34 Approved by: Mehran Diaz M.D. on 01/13/2024 at 17:36
--- NOTE | 2024-01-13 17:58 | EKG_ITS ---
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
--- NOTE | 2024-01-13 18:01 | ED_ITS ---
HPI - Neuro Symptoms/Deficit General Chief Complaint: Neuro Symptoms/Deficit Stated Complaint: Stroke like symptoms Time Seen by Provider: 01/13/24 17:56 History of Present Illness HPI Narrative: 78-year-old female with history of fibromuscular dysplasia, carotid artery stenosis status post stent placement, hypertension, hyperlipidemia presents by EMS from home for stroke-like symptoms that began approximately 30 minutes prior to arrival. Patient states that she came downstairs to talk to her family about an ongoing situation with astronauts in space, but found that she was unable to articulate anything that she was attempting to say. She tried to calm herself down but her symptoms persisted and so family called 911. By the time of arrival to the emergency department patient had resolution of her symptoms and stated that she felt back to her baseline. She takes aspirin, Plavix, Lipitor daily. Related Data Home Medications Medication Instructions Recorded Confirmed aspirin 81 mg tablet,delayed 81 mg PO DAILY ##0 02/03/09 01/13/24 release clopidogrel 75 mg tablet 75 mg PO DAILY ##0 02/03/09 01/13/24 atorvastatin 20 mg tablet (Lipitor) 20 mg PO DAILY ##0 02/23/13 01/13/24 losartan 100 mg tablet (Cozaar) 50 mg PO DAILY #0 tabs 02/23/13 01/13/24 multivitamin 1 tab PO QDAY #0 tabs 02/23/13 01/13/24 Calcium 1 tab PO DAILY 12/14/18 01/13/24 amlodipine 2.5 mg tablet 5 mg PO DAILY 12/14/18 01/13/24 fluticasone propionate 230 2 puff inhalation BID 01/14/24 01/14/24 mcg-salmeterol 21 mcg/actuation HFA inhaler (Advair HFA) potassium chloride 20 mEq 20 meq PO DAILY 01/14/24 01/14/24 tablet,extended release Previous Rx's Medication Instructions Recorded levalbuterol tartrate 45 2 puff inhalation Q4-6H PRN 06/14/20 mcg/actuation aerosol inhaler shortness of breath or wheezing (Xopenex HFA) #15 grams Allergies Allergy/AdvReac Type Severity Reaction Status Date / Time prochlorperazine Allergy Severe Anaphylaxis Verified 01/13/24 18:01 [PROCHLORPERAZINE] erythromycin base Allergy Mild Verified 01/13/24 18:01 [ERYTHROMYCIN BASE] Patient History Medical History (Updated 01/13/24 @ 19:45 by Syeda Heredia MD) Carotid artery disease Multinodular thyroid SVT (supraventricular tachycardia) Heart disease Hypertension Stroke Surgical History History of surgery (05/05/08) History of eye surgery History of cholecystectomy History of left common carotid artery stent placement Social History household members: children Smoking Status: Never smoker alcohol intake: never Smoking Status: Never smoker alcohol intake frequency: 0-2 drinks per day Substance Use Type: does not use Exam Initial Vital Signs Initial Vital Signs: Vital Signs Temperature 99.3 F 01/13/24 17:46 Pulse Rate 99 H 01/13/24 17:46 Respiratory Rate 22 01/13/24 17:46 Blood Pressure 184/86 H 01/13/24 17:46 Pulse Oximetry 97 01/13/24 17:46 Oxygen Delivery Method Room Air 01/13/24 17:46 Const: Awake, alert, no acute distress, nontoxic appearing Cardiac: regular rate, regular rhythm RESP: unlabored, clear bilaterally, no wheezing GI: Soft, nontender, nondistended, no rebound, no guarding MSK: Atraumatic, full range of motion, pulses equal Skin: Warm, Dry, intact, no rashes Neuro: AO x3, CN II-XII grossly intact, no upper or lower extremity motor drift, sensation equal bilaterally, no ataxia Course Orders Ordered: ED Orders 01/13/24 17:53 Complete Blood Count AUTO DIFF Stat Comprehensive Metabolic Panel Stat Magnesium Stat PTT Partial Thromboplastin Jignesh Stat Prothrombin Time INR Stat Troponin & CK Cardiac Panel Stat 01/13/24 17:55 CT angio head and neck Stat CT head/brain wo con Stat XR chest 1V Stat EKG-12 Lead Stat 01/13/24 18:54 Urine Drug Screen, Rapid Stat Acetaminophen (Acetaminophen 325 Mg Tablet) 650 mg PO Q6H PRN PRN Reason: Fever/Mild Pain (1-3) Last Admin: 01/13/24 22:41 Dose: 650 mg Documented By: SH Albuterol (Albuterol 2.5 Mg/3 Ml Neb (Adult)) 2.5 mg INH Q4H PRN PRN Reason: SHORTNESS OF BREATH Amlodipine Besylate (Amlodipine 5 Mg Tablet) 5 mg PO DAILY [facility] Aspirin (Aspirin Ec 81 Mg Tablet) 81 mg PO DAILY [facility] Calcium Carbonate (Calcium Carbonate 500 Mg Tab) 500 mg PO DAILY [facility] Clopidogrel Bisulfate (Clopidogrel 75 Mg Tablet) 75 mg PO DAILY [facility] Enoxaparin Sodium (Enoxaparin 40 Mg/0.4 Ml Syringe) 40 mg SUBCUT DAILY [facility] Dextrose (D10w) 100 mls @ 999 mls/hr IV PRN PRN PRN Reason: Hypoglycemia Insulin Human Lispro (Insulin Lispro 100 Unit/Ml 3ml Vial) 0 unit SUBCUT ACHS JT; Protocol Losartan Potassium (Losartan 50 Mg Tablet) 50 mg PO DAILY [facility] Ondansetron HCl (Ondansetron 4 Mg/2 Ml Inj) 4 mg IV NOW PRN PRN Reason: Nausea And Vomiting Last Admin: 01/13/24 18:43 Dose: 4 mg Documented By: Ondansetron HCl (Ondansetron 4 Mg Odt) 4 mg SL NOW PRN PRN Reason: Nausea And Vomiting Ondansetron HCl (Ondansetron 4 Mg/2 Ml Inj) 4 mg IV Q8HR PRN PRN Reason: Nausea And Vomiting Discontinued Medications Lorazepam (Lorazepam 2 Mg/Ml Inj) 0.5 mg IV NOW ONE Stop: 01/13/24 18:32 Last Admin: 01/13/24 18:43 Dose: 0.5 mg Documented By: Non-Formulary Medication (Amlodipine) 5 mg PO DAILY [facility] Non-Formulary Medication (Calcium) 1 tab PO DAILY [facility] Non-Formulary Medication (Levalbuterol Tartrate [Xopenex Hfa]) 2 puff INHALATION Q4-6H PRN PRN Reason: shortness of breath or wheezing Vital Signs Vital signs: Vital Signs - 8 hr 01/13/24 17:46 01/13/24 17:53 01/13/24 18:00 Temperature 99.3 F Pulse Rate 99 H 96 H 92 H Respiratory Rate 22 24 Blood Pressure 184/86 H Pulse Oximetry 97 98 98 Oxygen Delivery Method Room Air 01/13/24 18:00 01/13/24 18:43 01/13/24 18:56 Temperature Pulse Rate 100 H 96 H Respiratory Rate 32 H 17 Blood Pressure 169/71 H 160/76 H 165/77 H Pulse Oximetry 97 98 Oxygen Delivery Method 01/13/24 19:00 01/13/24 19:30 Temperature Pulse Rate 96 H 86 Respiratory Rate 20 18 Blood Pressure 135/82 112/59 L Pulse Oximetry 97 93 Oxygen Delivery Method Room Air MDM - Neuro Symptoms/Deficit Lab Data 01/13/24 17:53 01/13/24 17:53 Labs: Lab Results 01/13/24 01/13/24 Range/Units 17:53 18:54 WBC 9.0 (4.5-11.0) X10^3/uL RBC 4.45 (4.0-5.2) X10^6/uL Hgb 13.6 (12.0-16.0) g/dL Hct 39.4 (36-46) % MCV 88.7 (80-100) fL MCH 30.7 (26-34) PG MCHC 34.6 (30-36) % RDW 13.4 (11.6-14.8) % Plt Count 224 (150-400) X10^3/uL Neut % (Auto) 52.7 (50-75) % Lymph % (Auto) 34.2 (25-40) % Gage % (Auto) 8.8 (3-14) % Eos % (Auto) 3.5 (2-4) % Baso % (Auto) 0.8 (0-2) % Neut # (Auto) 4800 (3085-2359) /uL Lymph # (Auto) 3100 (1136-2823) /uL Gage # (Auto) 800 (0-900) /uL Eos # (Auto) 300 (0-450) /uL Baso # (Auto) 100 (0-100) /uL PT 12.6 H (9.4-12.5) SECONDS INR 1.1 (0.9-1.3) APTT 32 (25.1-36.5) SECONDS Sodium 131 L (137-145) mmol/L Potassium 3.8 (3.4-5.1) mmol/L Chloride 95 L (98-107) mmol/L Carbon Dioxide 22 (22-32) mmol/L BUN 13 (7-17) mg/dL Creatinine 0.73 (0.52-1.04) mg/dL Estimated GFR > 60 (>60) mL/min BUN/Creatinine Ratio 17.8 (6-22) Glucose 200 H (80-110) mg/dL Calcium 9.2 (8.4-10.2) mg/dL Magnesium 2.0 (1.6-2.3) mg/dL Total Bilirubin 0.7 (0.2-1.3) mg/dL AST 30 (14-36) IU/L ALT 25 (<35) IU/L Alkaline Phosphatase 118 (38-126) U/L Total Creatine Kinase 60 (30-135) U/L Troponin I < 0.012 (0.01-0.034) ng/mL Total Protein 7.8 (6.3-8.2) g/dL Albumin 4.8 (3.5-5.0) g/dL Globulin 3.0 (1.7-4.1) g/dL Albumin/Globulin Ratio 1.6 (1.0-2.8) U Opiates 300ng/mL cut Negative (Negative) Ur Oxycodone Screen Negative (Negative) Urine Methadone Screen Negative (Negative) Ur Barbiturates Screen Negative (Negative) U Tricyclic Antidepress Negative (Negative) Ur Phencyclidine Scrn Negative (Negative) Ur Amphetamines Screen Negative (Negative) U Methamphetamines Scrn Negative (Negative) Ur MDMA Scrn (Ecstasy) Negative (Negative) U Benzodiazepines Scrn Negative (Negative) Urine Cocaine Screen Negative (Negative) U Marijuana (THC) Screen Negative (Negative) Urine pH Normal (Normal) Urine Specific [place] Normal (Normal) Ur Creatinine Normal (Normal) Urine Dip Bedside Urine Glucose 100 mg/dl Bedside Urine Bilirubin - Negative Bedside Urine Ketone - Negative Urine Specific [place] 1.005 Bedside Urine Occult Blood - Negative Bedside Urine pH 6.0 Bedside Urine Protein - Negative Bedside Urine Urobilinogen - Negative Bedside Urine Nitrite - Negative Bedside Urine Leukocytes - Negative Esterase Imaging Data CT scan - head: Radiologist's Impression: PROCEDURE: CT HEAD/BRAIN WO CON INDICATIONS: known carotid stent, transient tia symptoms, now resolved TECHNIQUE: Noncontrast 4.5 mm thick angled axial sections acquired from the foramen magnum to the vertex, with coronal and sagittal reformats. For radiation dose reduction, the following was used: automated exposure control, adjustment of mA and/or kV according to patient size. COMPARISON: [facility], CT, CT ANGIO HEAD AND NECK, 01/13/2024, 17:59. [facility], US, US CAROTID DOPPLER BI, 08/24/2023, 12:56. [facility], MR, MR IAC WITH/WITHOUT CONTRAST, 09/24/2021, 12:12. [facility], CT, CT ANGIO HEAD AND NECK, 08/24/2021, 16:35. [facility], CT, CT HEAD/BRAIN WO CON, 08/07/2020, 10:17. FINDINGS: Image quality: Mild streak artifact can be seen through the skull base. CSF spaces: Basal cisterns are patent. No extra-axial fluid collections. The ventricles are symmetric in size and shape. Brain: No intracranial bleeds or masses. There is cerebral volume loss for age, with resultant ventricular and sulcal prominence. There are periventricular and deep white matter chronic small vessel ischemic changes. There is intracranial internal carotid artery atherosclerosis. Skull and face: Calvarium and visualized facial bones appear intact, without suspicious lesions. Sinuses: Mild mucosal thickening can be seen within the ethmoid air cells. Milder mucosal thickening can be seen elsewhere within the paranasal sinuses. There is a mucous retention cyst within the left maxillary sinus. No abnormal fluid is seen within the mastoid air cells. IMPRESSION: No acute intracranial hemorrhage is seen. No acute intracranial pathology. If there is strong clinical suspicion for an acute stroke, please consider a brain MRI for further evaluation, as it is more sensitive (assuming that there is no contraindication to MRI). Additional findings: Paranasal sinus disease Dictated by: Mehran Diaz M.D. on 01/13/2024 at 17:34 Approved by: Mehran Diaz M.D. on 01/13/2024 at 17:36 CTA - brain/neck: Radiologist's Impression: PROCEDURE: CT ANGIO HEAD AND NECK INDICATIONS: known carotid stent, transient tia symptoms, now resolved TECHNIQUE: After the administration of intravenous contrast, 1 mm thick sections acquired from the aortic arch through the [place]. 3-dimensional backhrh-thamqlgam-zkaahiarzq (MIP) and/or volume rendering reformats were acquired of the central intracranial vasculature and neck separately. For radiation dose reduction, the following was used: automated exposure control, adjustment of mA and/or kV according to patient size. COMPARISON: [facility], US, US THYROID, 01/08/2024, 7:52. [facility], CT, CT HEAD/BRAIN WO CON, 01/13/2024, 17:59. [facility], US, US CAROTID DOPPLER BI, 08/24/2023, 12:56. [facility], US, US CAROTID BILATERAL, 10/12/2021, 10:19. [facility], CT, CT ANGIO HEAD AND NECK, 08/24/2021, 16:35. FINDINGS: Image quality: Limited by bolus timing, with venous contamination. There is streak artifact seen through the level of the shoulders. BRAIN: CSF spaces: Ventricles are normal in size and shape. Basal cisterns are patent. No extra-axial fluid collections. Brain: No significant abnormality of the brain can be seen. Skull and face: Calvarium and facial bones appear intact, without suspicious lesions. Orbits appear normal. Sinuses: Paranasal sinus disease can be seen, which is worst within the ethmoid air cells. There is a left maxillary sinus mucous retention cyst seen. HEAD CT ANGIOGRAPHY: Anterior circulation: Intracranial internal carotid arteries are normal in size and flow. The flow within the paired anterior cerebral arteries is normal and symmetric. The flow within the middle cerebral arteries is normal and symmetric. The anterior communicating artery is seen. No aneurysms are seen. Posterior circulation: Visualized portions of the vertebral arteries demonstrate normal caliber, and join to form a normal appearing basilar artery. Flow within the posterior cerebral arteries is normal and symmetric. No aneurysms are seen. NECK CT ANGIOGRAPHY: Carotid system: The great vessels demonstrate a conventional anatomy as they arise from the aortic arch. The origins of the common carotid arteries appear patent. The common carotid arteries demonstrate normal caliber and courses. The bifurcation regions are both widely patent. The internal carotid arteries demonstrate normal calibers and courses. A widely patent left ICA stent can be seen. Posterior circulation: The origins of the vertebral arteries both appear widely patent. The more superior extracranial portions of both vertebral arteries also demonstrate normal courses and calibers. The left vertebral artery is dominant to the right. Soft tissues: Visualized neck soft tissues demonstrate no suspicious abnormalities. A 1.8 cm right thyroid nodule can be seen. Left upper chest postoperative clips can be seen. Bones: No suspicious bony lesions. Visualized cervical spine appears normally aligned. Cervical spine degenerative change can be seen, with at least moderate disc space narrowing seen at C5-C6. Milder degenerative changes are seen elsewhere. Sternotomy wires are seen. IMPRESSION: No significant intracranial arterial abnormality is seen. No significant abnormality is seen within the arteries of the neck. There is a widely patent left ICA stent again seen. Additional findings: Paranasal sinus disease Cervical spine degenerative change Right thyroid lesion, previously documented Postoperative change, with sternotomy Any quantitative measurements of stenosis were performed using NASCET criteria. Dictated by: Mehran Diaz M.D. on 01/13/2024 at 17:36 Approved by: Mehran Diaz M.D. on 01/13/2024 at 17:41 MDM Narrative Medical decision making narrative: Well appearing patient with brief inability to speak, resolved prior to time of arrival to ED. NIH 0 in ED. Due to brief duration of symtpoms and now-resolution not candidate for tPA and stroke alert not initiated. Patient already takes ASA, plavix, lipitor daily. CT brain, CTA head/neck do not reveal any significant abnormalities. Patient has patent carotid stent on L hand side. No return of symptoms since arrival to ED. Patient to be admitted for stroke eval and further treatment. Discharge Plan Departure Patient Disposition: Admitted as Observation Clinical Impression: Expressive aphasia Admit Date/Time: 01/13/24 19:44 Admit Provider: Kameron Gomez
[2024-01-13 18:05] LABS: Add Manual Diff / Slide Review NO; Basophils Absolute Auto 100 /uL (0-100); Basophils Percent Auto 0.8 % (0-2); Eosinophils Absolute Auto 300 /uL (0-450); Eosinophils Percent Auto 3.5 % (2-4); Hematocrit 39.4 % (36-46); Hemoglobin 13.6 g/dL (12.0-16.0); Lymphocytes Absolute Auto 3100 /uL (1100-4500); Lymphocytes Percent Auto 34.2 % (25-40); Mean Corpuscular HGB Conc 34.6 % (30-36); Mean Corpuscular Hemoglobin 30.7 PG (26-34); Mean Corpuscular Volume 88.7 fL (80-100); Monocytes Absolute Auto 800 /uL (0-900); Monocytes Percent Auto 8.8 % (3-14); Neutrophils Absolute Auto 4800 /uL (1500-7000); Neutrophils Percent Auto 52.7 % (50-75); Platelet Count 224 X10^3/uL (150-400); Red Blood Cell Count 4.45 X10^6/uL (4.0-5.2); Red Cell Distribution Width 13.4 % (11.6-14.8)
[2024-01-13 18:11] LABS: INR 1.1 (0.9-1.3); Prothrombin Time 12.6 SECONDS (9.4-12.5)
[2024-01-13 18:13] LABS: Alanine Aminotransferase 25 IU/L (<35); Albumin 4.8 g/dL (3.5-5.0); Albumin Globulin Ratio 1.6 (1.0-2.8); Alkaline Phosphatase 118 U/L (38-126); Aspartate Aminotransferase 30 IU/L (14-36); BUN Creatinine Ratio 17.8 (6-22); Bilirubin Total 0.7 mg/dL (0.2-1.3); Blood Urea Nitrogen 13 mg/dL (7-17); Calcium 9.2 mg/dL (8.4-10.2); Carbon Dioxide 22 mmol/L (22-32); Chloride 95 mmol/L (98-107); Creatine Kinase 60 U/L (30-135); Estimated Glomerular Filt Rate > 60 mL/min (>60); Glucose 200 mg/dL (80-110); HEMOLYSIS < 15 (0-50); Potassium 3.8 mmol/L (3.4-5.1); Sodium 131 mmol/L (137-145); Total Protein 7.8 g/dL (6.3-8.2)
[2024-01-13 18:14] LABS: PTT Partial Thromboplastin Tim 32 SECONDS (25.1-36.5)
[2024-01-13 18:24] LABS: Troponin I < 0.012 ng/mL (0.01-0.034)
[2024-01-13] MEDS: LORazepam 2 MG/ML INJ 0.5 MG IV (18:43)
[2024-01-13] MEDS: ONDANSETRON 4 MG/2 ML INJ IV (18:43)
[2024-01-13 19:25] LABS: Ur Creatinine Normal (Normal); Ur Specific Gravity Normal (Normal); Urine pH Normal (Normal)
[2024-01-13 19:26] LABS: UR Morphine/Opiate cutoff 300 Negative (Negative); Urine Amphetamines Negative (Negative); Urine Barbiturates Negative (Negative); Urine Benzodiazepines Negative (Negative); Urine Cocaine Negative (Negative); Urine MDMA Negative (Negative); Urine Methadone Negative (Negative); Urine Methamphetamines Negative (Negative); Urine Oxycodone Negative (Negative); Urine Phencyclidine Negative (Negative); Urine Tetrahydrocannabinol Negative (Negative); Urine Tricyclic Antidepressant Negative (Negative)
[2024-01-13] MEDS: ACETAMINOPHEN 325 MG TABLET 650 MG PO (22:41)
[2024-01-14 04:47] VITALS: BP 136/71; PULSE 68; RESP 16; TEMP 36.6; O2SAT 99
[2024-01-14 06:13] LABS: Add Manual Diff / Slide Review NO; Basophils Absolute Auto 100 /uL (0-100); Basophils Percent Auto 1.1 % (0-2); Eosinophils Absolute Auto 300 /uL (0-450); Eosinophils Percent Auto 6.2 % (2-4); Hematocrit 35.9 % (36-46); Hemoglobin 12.4 g/dL (12.0-16.0); Lymphocytes Absolute Auto 1800 /uL (1100-4500); Lymphocytes Percent Auto 32.7 % (25-40); Mean Corpuscular HGB Conc 34.4 % (30-36); Mean Corpuscular Hemoglobin 30.4 PG (26-34); Mean Corpuscular Volume 88.3 fL (80-100); Monocytes Absolute Auto 600 /uL (0-900); Monocytes Percent Auto 9.9 % (3-14); Neutrophils Absolute Auto 2800 /uL (1500-7000); Neutrophils Percent Auto 50.1 % (50-75); Platelet Count 202 X10^3/uL (150-400); Red Blood Cell Count 4.06 X10^6/uL (4.0-5.2); Red Cell Distribution Width 13.4 % (11.6-14.8); White Blood Cell Count 5.6 X10^3/uL (4.5-11.0)
[2024-01-14 06:33] LABS: Magnesium 2.3 mg/dL (1.6-2.3); Phosphorous 3.8 mg/dL (2.8-4.1)
[2024-01-14 06:40] LABS: NT-proBNP (BNP-Adult 18+) 387 pg/mL (<450)
--- NOTE | 2024-01-14 07:06 | DI.MRI.S_ITS ---
PROCEDURE: MR HEAD/BRAIN WO CON INDICATIONS: tia TECHNIQUE: Non-contrast axial T1 spin echo, axial T2 fast spin echo, sagittal and axial FLAIR, coronal T2 fast spin echo, axial gradient echo, axial diffusion and ADC through the brain. COMPARISON: [facility], MR, MR HEAD/BRAIN WO/W CON, 08/20/2021, 13:31. [facility], MR, MR IAC WITH/WITHOUT CONTRAST, 09/24/2021, 12:12. [facility], CT, CT HEAD/BRAIN WO CON, 01/13/2024, 17:59. [facility], CT, CT ANGIO HEAD AND NECK, 01/13/2024, 17:59. FINDINGS: Image quality: This examination is limited by involuntary motion artifact. Secondary to claustrophobia, a vast protocol was run, with associated compromise in image quality. CSF spaces: Ventricles appear symmetric in size and shape. Basal cisterns are patent. There is a stable arachnoid cyst seen along the posterior aspect of the posterior fossa. Brain: No intracranial bleeds or mass effects. There is cerebral volume loss for age. There are periventricular and deep white matter chronic small vessel ischemic changes. Brainstem appears normal. Diffusion-weighted images show no acute infarct. No chronic ischemic insults. Normal intravascular flow voids are present. Skull and face: Calvarial bone marrow is normal in signal. Orbits are normal. Sinuses: Multifocal paranasal sinus disease can be seen. IMPRESSION: No findings of acute or subacute infarction can be seen. Note is made of age-appropriate brain parenchymal volume loss and chronic small vessel ischemic changes. Additional findings: Paranasal sinus disease Posterior fossa arachnoid cyst Dictated by: Mehran Diaz M.D. on 01/14/2024 at 7:25 Approved by: Mehran Diaz M.D. on 01/14/2024 at 7:28
--- NOTE | 2024-01-14 07:11 | P.HP_ITS ---
History of Present Illness History of Present Illness Date Patient Seen: 01/14/24 Time Patient Seen: 00:45 Chief complaint: Stroke like symptoms Narrative: 78 years old female with a history of carotid artery stenosis status post stent placement in 2007, fibromuscular dysplasia, hypertension, dyslipidemia, diet-controlled diabetes and other medical issues was brought to the emergency room for difficulty with speech. Apparently she was watching the news about astronaut stuck in space and came downstairs to talk to family. Had difficulty in expressing herself and subsequently ended up calling 911. Denies any headache blurred vision diplopia. Denies any upper or lower extremity tingling numbness or weakness. Denies any chest pain or shortness of breath. Denies any nasal congestion runny nose or ringing sensation in the ears. Denies any sore throat. Denies any nausea vomiting or abdominal pain. Denies any dysuria or bowel issues. By the time of arrival to the emergency room, her symptoms had improved back to baseline. In the ED was able to give a decent history. Vitals showed a systolic in the 180s. Labs were fairly unremarkable CBC and electrolytes except for a blood sugar of 200. Urine tox screen is negative. Urinalysis negative for leukocyte esterase. CT of the head shows no acute process and CT angio of the head and neck shows no significant stenosis/left ICA is widely patent. Patient was admitted for potential TIA [facility] Medical History (Updated 01/13/24 @ 19:45 by Syeda Heredia MD) Carotid artery disease Multinodular thyroid SVT (supraventricular tachycardia) Heart disease Hypertension Stroke Surgical History History of surgery (05/05/08) History of eye surgery History of cholecystectomy History of left common carotid artery stent placement Social History household members: children Smoking Status: Never smoker alcohol intake: never Meds Home Medications and Allergies Home Medications Medication Instructions Recorded Confirmed Type aspirin 81 mg tablet,delayed 81 mg PO DAILY ##0 02/03/09 01/13/24 History release clopidogrel 75 mg tablet 75 mg PO DAILY ##0 02/03/09 01/13/24 History atorvastatin 20 mg tablet (Lipitor) 20 mg PO DAILY ##0 02/23/13 01/13/24 History losartan 100 mg tablet (Cozaar) 50 mg PO DAILY #0 tabs 02/23/13 01/13/24 History multivitamin 1 tab PO QDAY #0 tabs 02/23/13 01/13/24 History Calcium 1 tab PO DAILY 12/14/18 01/13/24 History amlodipine 2.5 mg tablet 5 mg PO DAILY 12/14/18 01/13/24 History levalbuterol tartrate 45 2 puff inhalation Q4-6H PRN 06/14/20 01/13/24 Rx mcg/actuation aerosol inhaler shortness of breath or wheezing (Xopenex HFA) #15 grams fluticasone propionate 230 2 puff inhalation BID 01/14/24 01/14/24 History mcg-salmeterol 21 mcg/actuation HFA inhaler (Advair HFA) potassium chloride 20 mEq 20 meq PO DAILY 01/14/24 01/14/24 History tablet,extended release Allergies Allergy/AdvReac Type Severity Reaction Status Date / Time prochlorperazine Allergy Severe Anaphylaxis Verified 01/13/24 18:01 [PROCHLORPERAZINE] erythromycin base Allergy Mild Verified 01/13/24 18:01 [ERYTHROMYCIN BASE] Review of Systems Review of Systems Narrative: A 12 point review of systems negative unless otherwise stated in history of present illness Exam Vital Signs (past 8 hours): - 01/14/24 04:47 Temperature 98 F Pulse Rate 68 Respiratory Rate 16 Blood Pressure 136/71 Pulse Oximetry 99 Oxygen Flow Rate 0 Oxygen Delivery Method Room Air Oxygen Flow Rate 0 Narrative Exam Narrative: Patient is awake and able to give a good history. Central system. No focal neurodeficits noted Respiration air entry clear bilaterally no additional crackles Abdomen soft nontender no organomegaly per nursing exam Objective Labs 01/14/24 05:49 01/13/24 17:53 Labs: Laboratory Results - last 24 hr 01/13/24 01/13/24 01/14/24 17:53 18:54 05:49 WBC 9.0 5.6 RBC 4.45 4.06 Hgb 13.6 12.4 Hct 39.4 35.9 L MCV 88.7 88.3 MCH 30.7 30.4 MCHC 34.6 34.4 RDW 13.4 13.4 Plt Count 224 202 Neut % (Auto) 52.7 50.1 Lymph % (Auto) 34.2 32.7 [place] % (Auto) 8.8 9.9 Eos % (Auto) 3.5 6.2 H Baso % (Auto) 0.8 1.1 Neut # (Auto) 4800 2800 Lymph # (Auto) 3100 1800 [place] # (Auto) 800 600 Eos # (Auto) 300 300 Baso # (Auto) 100 100 PT 12.6 H INR 1.1 APTT 32 Sodium 131 L Potassium 3.8 Chloride 95 L Carbon Dioxide 22 BUN 13 Creatinine 0.73 Estimated GFR > 60 BUN/Creatinine Ratio 17.8 Glucose 200 H Calcium 9.2 Phosphorus 3.8 Magnesium 2.0 2.3 Total Bilirubin 0.7 AST 30 ALT 25 Alkaline Phosphatase 118 Total Creatine Kinase 60 Troponin I < 0.012 NT-Pro-B Natriuret Pep 387 Total Protein 7.8 Albumin 4.8 Globulin 3.0 Albumin/Globulin Ratio 1.6 U Opiates 300ng/mL cut Negative Ur Oxycodone Screen Negative Urine Methadone Screen Negative Ur Barbiturates Screen Negative U Tricyclic Antidepress Negative Ur Phencyclidine Scrn Negative Ur Amphetamines Screen Negative U Methamphetamines Scrn Negative Ur MDMA Scrn (Ecstasy) Negative U Benzodiazepines Scrn Negative Urine Cocaine Screen Negative U Marijuana (THC) Screen Negative Urine pH Normal Urine Specific [place] Normal Ur Creatinine Normal Assessment & Plan Assessment & Plan narrative: 78 years old female with a history of carotid artery stenosis status post stent placement in 2007, fibromuscular dysplasia, hypertension, dyslipidemia, diet- controlled diabetes and other medical issues was brought to the emergency room for difficulty with speech. Apparently she was watching the news about astronaut stuck in space and came downstairs to talk to family. Had difficulty in expressing herself and subsequently ended up calling 911. Denies any headache blurred vision diplopia. Denies any upper or lower extremity tingling numbness or weakness. Denies any chest pain or shortness of breath. Denies any nasal congestion runny nose or ringing sensation in the ears. Denies any sore throat. Denies any nausea vomiting or abdominal pain. Denies any dysuria or bowel issues. By the time of arrival to the emergency room, her symptoms had improved back to baseline. In the ED was able to give a decent history. Vitals showed a systolic in the 180s. Labs were fairly unremarkable CBC and electrolytes except for a blood sugar of 200. Urine tox screen is negative. Urinalysis negative for leukocyte esterase. CT of the head shows no acute process and CT angio of the head and neck shows no significant stenosis/left ICA is widely patent. Patient was admitted for potential TIA 1 expressive aphasia with concerns for TIA the patient has a history of multiple risk factors including carotid artery stenosis/diabetes and hypertension. For now resume the home aspirin/Plavix/statin. Get an MRI of the brain in the morning include an echo while watching on the telemetry. Risk factor reduction including better blood pressure control for now 2 dyslipidemia resume the home statin and check lipid panel in the morning 3 diabetes mellitus type 2 diet controlled. Blood sugar is in the 200s. Watch blood sugar ACHS with sliding scale 4. Hypertension resume the home amlodipine/Cozaar and watch the blood pressures closely is gradual reduction in the blood pressure 5 DVT prophylaxis will be Lovenox Patient will be admitted under observation status Patient was evaluated with the help of a video communication device. Location the patient is [facility] Time-Based Coding :: [TOTAL MINUTES] spent with patient and on the chart (including review of chart, obtaining history, exam, reviewing outside data, placing orders, documenting exam and treatment plan, and counseling patient) on [DATE].
--- NOTE | 2024-01-14 07:17 | DI.ECHO.S_ITS ---
[facility] [place] +---------+ Hospital : : [address] : : [place] : : [id number] : : Phone: [phone] Echocardiogram Report + + :Name: MAYA MORENO Study Date: 01/14/2024 Height: 62 in : :[facility] ReadingLocation: Weight: 122 lb : : Gender: Female BSA: 1.5 m2 : :: 1945 Age: 78 yrs BP: 115/72 mmHg: :Reason For Study: TIA : :Ordering Physician: LORY, : :SASHA TANNER Performed By: Alexander Russell : :Referring: UNSPECIFIED : + + Interpretation Summary The ejection fraction is estimated to be 60-65%. Diastolic parameters suggest probable normal left ventricular diastolic function and normal filling pressures. The right ventricle is normal in size and function. There is trace aortic regurgitation. There is mild tricuspid regurgitation. The right ventricular systolic pressure is estimated to be at least 24 mmHg based on an estimated right atrial pressure of 3 mm Hg. Compared to the prior study dated 09/01/2023, no change. Procedure: A two-dimensional transthoracic echocardiogram with color flow and Doppler was performed. The study quality was technically adequate. Comparison is made with the echocardiogram of 09/01/2023. The patient was in normal sinus rhythm during the exam. The heart rate ranged between 59-73 bpm during the study. The patient had occasional PVCs during the exam. Left Ventricle: The left ventricle is normal in size. There is normal left ventricular wall thickness. The ejection fraction is estimated to be 60-65%. Diastolic parameters suggest probable normal left ventricular diastolic function and normal filling pressures. Right Ventricle: The right ventricle is normal in size and function. Atria: The left atrial size is normal. Right atrial size is normal. The interatrial septum grossly appears intact with no obvious evidence for an atrial septal defect. There is no Doppler evidence for an interatrial shunt. Mitral Valve: The mitral valve is normal. There is no mitral valve stenosis. There is no mitral regurgitation noted. Aortic Valve: The aortic valve is trileaflet. There is no aortic valve stenosis. There is trace aortic regurgitation. Tricuspid Valve: The tricuspid valve is normal. There is no tricuspid stenosis. There is mild tricuspid regurgitation. The right ventricular systolic pressure is estimated to be at least 24 mmHg based on an estimated right atrial pressure of 3 mm Hg. Pulmonic Valve: The pulmonic valve is not well visualized. There is no pulmonic valvular stenosis. There is no pulmonic valvular regurgitation. Great Vessels: The aortic root is normal size. The dimensions of the ascending aorta are normal. The IVC is of normal diameter and collapses greater than 50% with a sniff. This suggests a low right atrial pressure of 3 mm Hg. Pericardium/ Pleura There is no pericardial effusion. There is no pleural effusion. MMode/2D Measurements & Calculations LVIDd: 4.1 cm LVOT diam: 2.0 cm LVIDs: 2.6 cm Ao root diam: 3.0 cm FS: 36.0 % asc Aorta Diam: 3.3 cm IVSd: 1.1 cm LVPWd: 1.0 cm LV milton. diameter/BSA (cm/m^2): 2.7 LV sys. diameter/BSA (cm/m^2): 1.7 LA A2 area: 15.8 cm2 RA long axis: 4.7 cm LA A4 area: 22.2 cm2 RA area: 14.3 cm2 LA length (vol): 5.9 cm RA vol: 37.2 ml LA vol: 51.0 ml RA : 24.0 ml/m2 LA vol index: 32.9 ml/m2 IVC diam: 1.6 cm RVD1 (basal): 3.7 cm RVD2 (mid): 2.9 cm TAPSE: 2.0 cm Doppler Measurements & Calculations Ao V2 max: 150.8 cm/sec LVOT Max Tj: 114.9 cm/sec Ao V2 mean: 106.7 cm/sec LV V1 max P.3 mmHg Ao max P.1 mmHg LV V1 VTI: 25.1 cm Ao mean P.0 mmHg MAKI(I,D): 2.4 cm2 Ao V2 VTI: 32.1 cm MAKI(V,D): 2.3 cm2 sev ratio: 0.78 MAKI indexed to BSA (cm^2/m^2): 1.6 MV E max tj: 42.9 cm/sec TR max tj: 226.6 cm/sec MV A max tj: 69.0 cm/sec TR max P.5 mmHg MV E/A: 0.62 PA V2 max: 57.6 cm/sec Med Peak E' Tj: 6.0 cm/sec PA V2 mean: 39.6 cm/sec E/E' med: 7.2 PA mean P.71 mmHg Lat Peak E' Tj: 7.8 cm/sec PA pr(Accel): 43.0 mmHg E/E' lat: 5.5 E/e' average: 6.3 MV dec time: 0.15 sec SV(LVOT): 77.3 ml Reading Physician:01:26 PM
[2024-01-14 08:00] VITALS: BP 115/72; PULSE 70; RESP 12; TEMP 36.9; O2SAT 100
[2024-01-14 08:07] LABS: Alanine Aminotransferase 21 IU/L (<35); Albumin 3.8 g/dL (3.5-5.0); Albumin Globulin Ratio 1.5 (1.0-2.8); Alkaline Phosphatase 98 U/L (38-126); Aspartate Aminotransferase 28 IU/L (14-36); BUN Creatinine Ratio 16.7 (6-22); Bilirubin Total 0.5 mg/dL (0.2-1.3); Blood Urea Nitrogen 10 mg/dL (7-17); Calcium 8.9 mg/dL (8.4-10.2); Carbon Dioxide 24 mmol/L (22-32); Chloride 103 mmol/L (98-107); Cholesterol 118 mg/dL (140-199); Estimated Glomerular Filt Rate > 60 mL/min (>60); Globulin 2.6 g/dL (1.7-4.1); Glucose 98 mg/dL (80-110); HDL Cholesterol 36 mg/dL (40-60); HEMOLYSIS < 15 (0-50); LDL Cholesterol Calculated 59 mg/dL (<100); Potassium 3.6 mmol/L (3.4-5.1); Sodium 135 mmol/L (137-145); Total Protein 6.4 g/dL (6.3-8.2); Triglycerides 116 mg/dL (35-150)
[2024-01-14 08:09] LABS: Hemoglobin A1C% w Est Avg Glu 5.5 % (4.0-6.0)
[2024-01-14 08:37] LABS: TSH w/ Reflex to FT4 1.53 uIU/mL (0.47-4.68)
[2024-01-14 08:44] LABS: Add Manual Diff / Slide Review NO; Basophils Absolute Auto 100 /uL (0-100); Basophils Percent Auto 1.1 % (0-2); Eosinophils Absolute Auto 300 /uL (0-450); Eosinophils Percent Auto 4.8 % (2-4); Hematocrit 37.9 % (36-46); Hemoglobin 12.9 g/dL (12.0-16.0); Lymphocytes Absolute Auto 1700 /uL (1100-4500); Lymphocytes Percent Auto 30.3 % (25-40); Mean Corpuscular HGB Conc 33.9 % (30-36); Mean Corpuscular Volume 88.5 fL (80-100); Monocytes Absolute Auto 600 /uL (0-900); Monocytes Percent Auto 9.8 % (3-14); Neutrophils Absolute Auto 3100 /uL (1500-7000); Platelet Count 217 X10^3/uL (150-400); Red Blood Cell Count 4.28 X10^6/uL (4.0-5.2); Red Cell Distribution Width 13.6 % (11.6-14.8); White Blood Cell Count 5.7 X10^3/uL (4.5-11.0)
[2024-01-14 08:53] VITALS: BP 115/72; PULSE 70
[2024-01-14] MEDS: LOSARTAN 50 MG TABLET PO (08:53)
[2024-01-14] MEDS: CLOPIDOGREL 75 MG TABLET PO (08:53)
[2024-01-14] MEDS: CALCIUM CARBONATE 500 MG TAB PO (08:54)
[2024-01-14] MEDS: ASPIRIN EC 81 MG TABLET PO (08:54)
[2024-01-14] MEDS: ATORVASTATIN 20 MG TABLET PO ×2 (08:54→14:41)
[2024-01-14] MEDS: MULTIVITAMIN 1 TABLET 1 TAB PO (08:54)
[2024-01-14] MEDS: BUDESONIDE 0.5 MG/2 ML NEB INH (08:55)
[2024-01-14] MEDS: ALBUTEROL 2.5 MG/3 ML NEB (ADULT) INH ×2 (08:56→11:00)
--- NOTE | 2024-01-14 10:29 | CM.DANOTE ---
Initial DCP Assessment Visit Note Reviewed EMR and team rounds for status updates. Met with pt and her daughter at bedside to introduce self and role. Pt was found to be alert/oriented, and able to express that she is now back to her baseline and is ready for home d/c after her ECHO later this today. Pt lives independently with her dtr and dtr's family here in [place]. Her dtr will be transporting her home once she's medically cleared for d/c. Pt/dtr deny any assistance/resource needs from DCP at this time. Payor: Medicare PCP: Dr. Jess Peters Pt is a 78 year-old F who presented to the ED last evening with c/o stroke-like symptoms. She went to talk with family about something at home and found that she was unable to express herself or speak due to sudden onset expressive aphasia. By the time she arri tita to the ED her symptoms had resolved and she was back to her baseline. CT dangio head/neck in the ED did not show any abnormalities. She was placed in OBS for continued monitoring, ECHO is pending. DCP will continue to follow closely for any further evolving needs prior to discharge. Discharge Planning/Care Management CM Discharge Assessment Start: 01/14/24 10:26 Freq: Status: Active Protocol: Document 01/14/24 10:26 DPL (Rec: 01/14/24 10:29 DPL [id number]) Discharge Planning Assessment Assigned [employer]ather [employer] [address] Advance Directives? Yes Advance Directives on File No History Provided By Patient,Significant Other, Medical Record Has Patient been admitted in last 30 No days? Prior Living Arrangements House Household Members children Type of transporation used prior to Drives own vehicle admit Independent with ADL's Yes Is patient alert and oriented? Yes Caregiver for Another No Comment N/A Comment No identified home d/c needs at this time. Barriers to Discharge No Discharge Plan Home Transportation Arrangement Daughter Referrals Initiated None needed Whiteboard Updated in Patient Room with Yes name and ext. # of [employer]ather [employer]ener Review Status In Process Please Provide Date Initial DC 01/14/24 Assessment Was Performed
[2024-01-14 12:00] VITALS: BP 119/62; PULSE 65; RESP 12; TEMP 37.3; O2SAT 96
--- NOTE | 2024-01-14 14:40 | P.DS_ITS ---
History of Present Illness History of Present Illness Date Patient Seen: 01/14/24 Time Patient Seen: 09:05 Date of Onset of Symptoms: 01/13/24 Chief complaint: Stroke like symptoms Narrative: 78 years old female with a history of carotid artery stenosis status post stent placement in 2007, fibromuscular dysplasia, hypertension, dyslipidemia, diet- controlled diabetes and other medical issues was brought to the emergency room for difficulty with speech. Apparently she was watching the news about astronaut stuck in space and came downstairs to talk to family. Had difficulty in expressing herself and subsequently ended up calling 911. Denies any headache blurred vision diplopia. Denies any upper or lower extremity tingling numbness or weakness. Denies any chest pain or shortness of breath. Denies any nasal congestion runny nose or ringing sensation in the ears. Denies any sore throat. Denies any nausea vomiting or abdominal pain. Denies any dysuria or bowel issues. By the time of arrival to the emergency room, her symptoms had improved back to baseline. In the ED was able to give a decent history. Vitals showed a systolic in the 180s. Labs were fairly unremarkable CBC and electrolytes except for a blood sugar of 200. Urine tox screen is negative. Urinalysis negative for leukocyte esterase. CT of the head shows no acute process and CT angio of the head and neck shows no significant stenosis/left ICA is widely patent. Patient was admitted for potential TIA Discharge Providers Provider Date of admission: 01/13/24 19:44 Discharge Date: 01/14/24 Primary care physician: Jess Peters MD Discharge provider: Bimal Dyer MD Summary Hospital Course Discharge Diagnosis: 1. Transient ischemic attack 2. Diabetes mellitus, type 2, diet controlled 3. Hypertension 4. Hyperlipidemia 5. History of carotid vascular disease due to fibromuscular dysplasia, status post left carotid stenting 6. Supraventricular tachycardia 7. Premature ventricular contractions Hospital Course: The patient was admitted and monitored on telemetry. She remained asymptomatic throughout her hospitalization. Telemetry remained in sinus rhythm with frequent PVCs. She underwent evaluation including brain MRI which showed no evidence of stroke and echocardiography which was normal and unchanged from August. Medical management was advised with aspirin 325 mg daily for 3 weeks, then resume 81 mg daily, and increase of atorvastatin from 20 mg to 40 mg daily. Outpatient cardiac event monitoring advised to rule out occult atrial fibrillation as a risk factor. Consider further evaluation for atypical seizure disorder if recurrent stereotyped events should occur. The patient acknowledged understanding, agreement and appreciation of this plan of care, and agreed to call back with any questions or concerns. Status at Discharge Cognitive/behavioral status at discharge: oriented Functional status at discharge: independent ambulation Overall status at discharge: patient is back to baseline Time Spent with Patient Time spent: Greater than 30 minutes Exam Vital Signs (past 8 hours): - 01/14/24 08:00 01/14/24 08:53 01/14/24 12:00 Temperature 98.4 F 99.1 F Pulse Rate 70 70 65 Respiratory Rate 12 12 Blood Pressure 115/72 115/72 119/62 Pulse Oximetry 100 96 Oxygen Flow Rate 0 0 Oxygen Delivery Method Room Air Oxygen Flow Rate 0 Narrative Exam Narrative: GENERAL: This is a well-nourished, well-developed patient, in no apparent distress. HEAD: Atraumatic. Normocephalic. No temporal or scalp tenderness. EYES: Pupils equal round and reactive. Extraocular motions intact. No scleral icterus. No injection or drainage. ENT: Mucous membranes pink and moist. NECK: Trachea midline. No JVD, bruits or lymphadenopathy. Supple, nontender, no meningeal signs. CARDIOVASCULAR: Regular rate and rhythm without murmurs, gallops, or rubs. RESPIRATORY: Clear to auscultation. GASTROINTESTINAL: Abdomen soft, non-tender, nondistended. EXTREMITIES: No clubbing, cyanosis, or edema. BACK: Nontender without deformity or crepitance. No flank tenderness. NEUROLOGIC: Alert, oriented, speech fluent, full upper and lower motor strength, no focal deficits evident. DERMATOLOGIC: No rashes or skin lesions. Objective Imaging Multiple:: Radiologist's impression: Chest x-ray 01/13/2024: Portable chest within normal limits for age. Postoperative and degenerative changes are seen. Head CT 01/13/2024: No acute intracranial hemorrhage is seen. No acute intracranial pathology. Head/neck CT angiography 01/13/2024: No significant intracranial arterial abnormality is seen. No significant abnormality is seen within the arteries of the neck. There is a widely patent left ICA stent again seen. Brain MRI 01/14/2024: No findings of acute or subacute infarction can be seen. Note is made of age-appropriate brain parenchymal volume loss and chronic small vessel ischemic changes. Additional findings: Paranasal sinus disease Posterior fossa arachnoid cyst Echocardiogram 01/14/2024: The ejection fraction is estimated to be 60-65%. Diastolic parameters suggest probable normal left ventricular diastolic function and normal filling pressures. The right ventricle is normal in size and function. There is trace aortic regurgitation. There is mild tricuspid regurgitation. The right ventricular systolic pressure is estimated to be at least 24 mmHg based on an estimated right atrial pressure of 3 mm Hg. Compared to the prior study dated 09/01/2023, no change. Labs 01/14/24 08:35 01/14/24 05:49 Labs: Laboratory Results - last 24 hr 01/13/24 01/13/24 01/14/24 17:53 18:54 05:49 WBC 9.0 5.6 RBC 4.45 4.06 Hgb 13.6 12.4 Hct 39.4 35.9 L MCV 88.7 88.3 MCH 30.7 30.4 MCHC 34.6 34.4 RDW 13.4 13.4 Plt Count 224 202 Neut % (Auto) 52.7 50.1 Lymph % (Auto) 34.2 32.7 [place] % (Auto) 8.8 9.9 Eos % (Auto) 3.5 6.2 H Baso % (Auto) 0.8 1.1 Neut # (Auto) 4800 2800 Lymph # (Auto) 3100 1800 [place] # (Auto) 800 600 Eos # (Auto) 300 300 Baso # (Auto) 100 100 PT 12.6 H INR 1.1 APTT 32 Sodium 131 L 135 L Potassium 3.8 3.6 Chloride 95 L 103 Carbon Dioxide 22 24 BUN 13 10 Creatinine 0.73 0.60 Estimated GFR > 60 > 60 BUN/Creatinine Ratio 17.8 16.7 Glucose 200 H 98 D Hemoglobin A1c 5.5 Calcium 9.2 8.9 Phosphorus 3.8 Magnesium 2.0 2.3 Total Bilirubin 0.7 0.5 AST 30 28 ALT 25 21 Alkaline Phosphatase 118 98 Total Creatine Kinase 60 Troponin I < 0.012 NT-Pro-B Natriuret Pep 387 Total Protein 7.8 6.4 Albumin 4.8 3.8 Globulin 3.0 2.6 Albumin/Globulin Ratio 1.6 1.5 Triglycerides 116 Cholesterol 118 L LDL Cholesterol, Calc 59 HDL Cholesterol 36 L TSH 1.53 U Opiates 300ng/mL cut Negative Ur Oxycodone Screen Negative Urine Methadone Screen Negative Ur Barbiturates Screen Negative U Tricyclic Antidepress Negative Ur Phencyclidine Scrn Negative Ur Amphetamines Screen Negative U Methamphetamines Scrn Negative Ur MDMA Scrn (Ecstasy) Negative U Benzodiazepines Scrn Negative Urine Cocaine Screen Negative U Marijuana (THC) Screen Negative Urine pH Normal Urine Specific [place] Normal Ur Creatinine Normal 01/14/24 08:35 WBC 5.7 RBC 4.28 Hgb 12.9 Hct 37.9 MCV 88.5 MCH 30.0 MCHC 33.9 RDW 13.6 Plt Count 217 Neut % (Auto) 54.0 Lymph % (Auto) 30.3 [place] % (Auto) 9.8 Eos % (Auto) 4.8 H Baso % (Auto) 1.1 Neut # (Auto) 3100 Lymph # (Auto) 1700 [place] # (Auto) 600 Eos # (Auto) 300 Baso # (Auto) 100 PT INR APTT Sodium Potassium Chloride Carbon Dioxide BUN Creatinine Estimated GFR BUN/Creatinine Ratio Glucose Hemoglobin A1c Calcium Phosphorus Magnesium Total Bilirubin AST ALT Alkaline Phosphatase Total Creatine Kinase Troponin I NT-Pro-B Natriuret Pep Total Protein Albumin Globulin Albumin/Globulin Ratio Triglycerides Cholesterol LDL Cholesterol, Calc HDL Cholesterol TSH U Opiates 300ng/mL cut Ur Oxycodone Screen Urine Methadone Screen Ur Barbiturates Screen U Tricyclic Antidepress Ur Phencyclidine Scrn Ur Amphetamines Screen U Methamphetamines Scrn Ur MDMA Scrn (Ecstasy) U Benzodiazepines Scrn Urine Cocaine Screen U Marijuana (THC) Screen Urine pH Urine Specific [place] Ur Creatinine PFSH Medical History (Updated 01/13/24 @ 19:45 by Syeda Heredia MD) Carotid artery disease Multinodular thyroid SVT (supraventricular tachycardia) Heart disease Hypertension Stroke Surgical History History of surgery (05/05/08) History of eye surgery History of cholecystectomy History of left common carotid artery stent placement Social History household members: children Smoking Status: Never smoker alcohol intake: never Discharge Plan Discharge Plan Patient Disposition: Home Provider Discharge Comment: Followup with Dr. Peters/Jayshree 1 week Discharge orders & Medications Prescriptions: New aspirin 325 mg tablet,delayed release (DR/EC) 325 mg PO DAILY Qty: 20 0RF atorvastatin 40 mg tablet 40 mg PO DAILY Qty: 30 0RF Continued clopidogrel 75 mg Tablet 75 mg PO DAILY Qty: 0 losartan [Cozaar] 100 MG tablet 50 mg PO DAILY Qty: 0 multivitamin Tablet 1 tab PO QDAY Qty: 0 amlodipine 2.5 mg tablet 5 mg PO DAILY Patient Comments: TK 1 T PO BID FOR HIGH BLOOD PRESSURE Calcium 600 mg tablet 1 tab PO DAILY levalbuterol tartrate [Xopenex HFA] 45 mcg/actuation HFA aerosol inhaler 2 puff inhalation Q4-6H PRN (Reason: shortness of breath or wheezing) Qty: 15 0RF potassium chloride 20 mEq tablet extended release 20 meq PO DAILY fluticasone propion-salmeterol [Advair HFA] 230-21 mcg/actuation HFA aerosol inhaler 2 puff INHALATION BID Discontinued aspirin 81 mg Tablet,Delayed Release (Dr/Ec) 81 mg PO DAILY Qty: 0 atorvastatin [Lipitor] 20 MG tablet 20 mg PO DAILY Qty: 0 Follow up/Referrals: Jess Peters MD [Primary Care Provider] - Visit Report/Discharge Packet Stand Alone Forms: Patient Portal/API, Stroke Signs & Symptoms Discharge Data Primary Care Provider: Jess Peters Attending Provider: Kameron Gomez Admit Date/Time: 01/13/24 19:44 Quality VTE Deep Vein Thrombosis/Pulmonary Embolism Present on Admission: No MIPS - Admit I confirm the patient?s Advance Care Plan is present, Code status is documented, Surrogate decision maker is in patient?s record [If Yes, STOP here]: Yes MIPS - Meds 'Current medications' to include all prescriptions, mset-per-krrdhea products, herbals, cannabis/cannabidiol products, and vitamin/mineral/dietary (nutritional) supplements. I have utilized all available resources to obtain, update, or review the patient?s current medications. [If Yes, STOP here]: Yes MIPS - DC The patient has a history of heart transplant or Left Ventricular Assist Device (LVAD). If yes, STOP here.: No The patient has current or prior documentation of left ventricular ejection fraction (LVEF) less than or equal to 40%, or moderate or severely depressed left ventricular systolic function.: No A. The patient was prescribed or already taking an Angiotensin-Converting Enzyme (KINDRA) Inhibitor, or Angiotensin Receptor Kaylene (ARB).: Yes B. The patient was prescribed or already taking a beta-kaylene. [If Yes to Both A & B, STOP here]: No Patient not prescribed/taking KINDRA or ARB, no reason given.: No Patient not prescribed/taking beta-kaylene, no reason given.: No PROFEE Charge Codes Discharge inpatient/observation: [id number]
[2024-01-14] MEDS: ASPIRIN EC 325 MG TABLET PO (14:41)
== END 2024-01-14 15:20 | disposition home or self-care (01) ==
LOC: ED 19:45 → AC 19:45
PROVIDERS: Admitting Provider Internal Medicine; Emergency Provider Emergency Medicine; PCP Internal Medicine; Referring Provider Emergency Medicine; Visit Provider Internal Medicine
DX: G45.9 Transient cerebral ischemic attack, unspecified (principal); R29.700 NIHSS score 0; E11.9 Type 2 diabetes mellitus without complications; I10 Essential (primary) hypertension; Z95.818 Presence of other cardiac implants and grafts; E78.5 Hyperlipidemia, unspecified
CPT/HCPCS: 36415; 70450; 70496; 70498; 70551; 71045; 80053; 80061; 80305; 81003; 82550; 82962; 83036; 83735; 83880; 84100; 84443; 84484; 85025; 85610; 85730; 93306; 96374; 96375; 99284; 99285; G0378; J2060; J2405; J7613; Q9967

== ENCOUNTER 2024-01-22 20:31 | Emergency (ER) | payer MEDICARE, OTHER, SELFPAY ==
[2024-01-13 20:23] VITALS: BMI 22.4
[2024-01-22 20:33] VITALS: BP 174/78; PULSE 87; RESP 16; TEMP 36.8; O2SAT 97; BMI 22.3
--- NOTE | 2024-01-22 20:56 | ED.FEMALEGU ---
HPI - Female Genitourinary General Chief complaint: Vaginal Bleeding Stated complaint: vaginal bleeding Time Seen by Provider: 01/22/24 20:40 History of Present Illness HPI Narrative: 78-year-old female with history of TIA, known vaginal prolapse presents for bleeding from her vagina. Patient states that she he was getting out of the shower this evening when she saw blood on her towel. She examined her prolapse in the mirror NSAID that there seem to be a bruised and bluish color to the prolapse and a thumbnail sized area of bleeding. She was very concerned at the site of blood and decided to present for evaluation. She has been evaluated by OBGYN for this prolapse previously, and initially was in the process of discussing surgical candidacy, but deferred surgery due to other medical issues. Related Data Home Medications Medication Instructions Recorded Confirmed clopidogrel 75 mg tablet 75 mg PO DAILY ##0 02/03/09 01/13/24 losartan 100 mg tablet (Cozaar) 50 mg PO DAILY #0 tabs 02/23/13 01/13/24 multivitamin 1 tab PO QDAY #0 tabs 02/23/13 01/13/24 Calcium 1 tab PO DAILY 12/14/18 01/13/24 amlodipine 2.5 mg tablet 5 mg PO DAILY 12/14/18 01/13/24 fluticasone propionate 230 2 puff inhalation BID 01/14/24 01/14/24 mcg-salmeterol 21 mcg/actuation HFA inhaler (Advair HFA) potassium chloride 20 mEq 20 meq PO DAILY 01/14/24 01/14/24 tablet,extended release Previous Rx's Medication Instructions Recorded levalbuterol tartrate 45 2 puff inhalation Q4-6H PRN 06/14/20 mcg/actuation aerosol inhaler shortness of breath or wheezing (Xopenex HFA) #15 grams aspirin 325 mg tablet,delayed 325 mg PO DAILY #20 tabs 01/14/24 release atorvastatin 40 mg tablet 40 mg PO DAILY #30 tabs 01/14/24 Allergies Allergy/AdvReac Type Severity Reaction Status Date / Time prochlorperazine Allergy Severe Anaphylaxis Verified 01/22/24 20:56 [PROCHLORPERAZINE] erythromycin base Allergy Mild Verified 01/22/24 20:56 [ERYTHROMYCIN BASE] Patient History Medical History Carotid artery disease Multinodular thyroid SVT (supraventricular tachycardia) Heart disease Hypertension Stroke Surgical History History of surgery (05/05/08) History of eye surgery History of cholecystectomy History of left common carotid artery stent placement alcohol intake frequency: 0-2 drinks per day Substance Use Type: does not use Exam Initial Vital Signs Initial Vital Signs: Vital Signs Temperature 98.2 F 01/22/24 20:33 Pulse Rate 87 01/22/24 20:33 Respiratory Rate 16 01/22/24 20:33 Blood Pressure 174/78 H 01/22/24 20:33 Pulse Oximetry 97 01/22/24 20:33 Oxygen Delivery Method Room Air 01/22/24 20:33 Const: Awake, alert, no acute distress, nontoxic appearing GI: Soft, nontender, nondistended, no rebound, no guarding : police commissioner present. Full prolapse of vagina. No active bleeding. No lesions. Prolapse nontender, easily reproducible manually and with speculum. No blood on fingers or speculum. No gross blood per rectum Skin: Warm, Dry, intact, no rashes Neuro: AO x3, CN II-XII grossly intact, moves all extremities Course Vital Signs Vital signs: Vital Signs - 8 hr 01/22/24 20:33 Temperature 98.2 F Pulse Rate 87 Respiratory Rate 16 Blood Pressure 174/78 H Pulse Oximetry 97 Oxygen Delivery Method Room Air MDM - Female Genitourinary MDM Narrative Medical decision making narrative: Well-appearing patient with concerns that her prolapse was blue, bruised, and bleeding. On my evaluation patient does have complete prolapse of her vaginal fall, however it was pink, perfused, there was no bleeding noted anywhere in or around the patient's vagina. I offered labs and ultrasound of the pelvis for further assessment of patient's reported bleeding, however she declined, stating that she has an appointment already scheduled with an OBGYN in 4 days to discuss her prolapse. Discharge Plan Departure Patient Disposition: Home Clinical Impression: Complete prolapse of vaginal vault Instructions: DI for Vaginal Prolapse Activity Restrictions/Additional Instructions: I was able to view the prolapse you described. The tissue is pink, it was easily reducible, I do not see any blood either on my hands or on the speculum during exam. There was no blood around your rectum or your urethra. We discussed the possibility of ultrasound today, however you declined at this time. I would recommend talking to your OBGYN this Monday about whether an ultrasound [place] needed in your situation. Prescriptions: No Action clopidogrel 75 mg Tablet 75 mg PO DAILY Qty: 0 losartan [Cozaar] 100 MG tablet 50 mg PO DAILY Qty: 0 multivitamin Tablet 1 tab PO QDAY Qty: 0 amlodipine 2.5 mg tablet 5 mg PO DAILY Patient Comments: TK 1 T PO BID FOR HIGH BLOOD PRESSURE Calcium 600 mg tablet 1 tab PO DAILY levalbuterol tartrate [Xopenex HFA] 45 mcg/actuation HFA aerosol inhaler 2 puff inhalation Q4-6H PRN (Reason: shortness of breath or wheezing) Qty: 15 0RF potassium chloride 20 mEq tablet extended release 20 meq PO DAILY fluticasone propion-salmeterol [Advair HFA] 230-21 mcg/actuation HFA aerosol inhaler 2 puff INHALATION BID aspirin 325 mg tablet,delayed release (DR/EC) 325 mg PO DAILY Qty: 20 0RF atorvastatin 40 mg tablet 40 mg PO DAILY Qty: 30 0RF Referrals: Jess Peters MD [Primary Care Provider] - Stand Alone Forms: Patient Portal/API
== END 2024-01-22 21:37 | disposition home or self-care (01) ==
PROVIDERS: Emergency Provider Emergency Medicine; PCP Internal Medicine
DX: N99.3 Prolapse of vaginal vault after hysterectomy (principal)
CPT/HCPCS: 99281

== ENCOUNTER → 2024-01-26 15:10 | Outpatient (CLI) | payer MEDICARE, OTHER, SELFPAY ==
[2024-01-13 20:23] VITALS: BMI 22.4
== END ==
PROVIDERS: PCP Internal Medicine; Visit Provider Student in an Organized Health Care Education/Training Program
DX: N99.3 Prolapse of vaginal vault after hysterectomy (principal)
CPT/HCPCS: 87086

== ENCOUNTER 2024-03-03 12:18 | Emergency (ER) | payer MEDICARE, OTHER, SELFPAY ==
[2024-01-13 20:23] VITALS: BMI 22.4
[2024-03-03 12:22] VITALS: BP 188/85; PULSE 90; O2SAT 99
[2024-03-03 12:25] VITALS: BP 188/85; PULSE 93; RESP 18; TEMP 36.9; O2SAT 99; BMI 22.6
--- NOTE | 2024-03-03 12:28 | ED_ITS ---
HPI - Arrhythmia/Palpitations General Chief Complaint: Chest Pain Stated Complaint: Irregular Heart Rate Trigeminal all morning Time Seen by Provider: 03/03/24 12:27 History of Present Illness HPI narrative: Patient is a 78 year old female history of hypertension hyperlipidemia SVT status post ablation. Patient does follow up with Dr. Martell, roll tester. She presents today complaining of a arrhythmia with a sense of trigeminy., which she states she has a history of. Review of records show that patient is extraordinarily asymptomatic and anxious with any form of arrhythmia despite being physically asymptomatic. She denies any other symptoms at this time. Review of records show that patient has refused pacemaker placement in the past, patient was also trialed on acebutolol for decreasing PVCs. However when discussing this patient states that she does not remember doing this has not been taking this medication, has not followed up with her roll tester and ?a long time. She states she did not want to come here but the palpitations were lasting longer than normal therefore presented to the ER for further evaluation treatment. He denies any chest pain shortness of breath or any other symptoms at this time. No syncopal or presyncopal symptoms. Related Data Home Medications Medication Instructions Recorded Confirmed clopidogrel 75 mg tablet 75 mg PO DAILY ##0 02/03/09 01/26/24 losartan 100 mg tablet (Cozaar) 50 mg PO DAILY #0 tabs 02/23/13 01/26/24 multivitamin 1 tab PO QDAY #0 tabs 02/23/13 01/26/24 Calcium 1 tab PO DAILY 12/14/18 01/26/24 amlodipine 2.5 mg tablet 5 mg PO DAILY 12/14/18 01/26/24 fluticasone propionate 230 2 puff inhalation BID 01/14/24 01/26/24 mcg-salmeterol 21 mcg/actuation HFA inhaler (Advair HFA) potassium chloride 20 mEq 20 meq PO DAILY 01/14/24 01/26/24 tablet,extended release Previous Rx's Medication Instructions Recorded levalbuterol tartrate 45 2 puff inhalation Q4-6H PRN 06/14/ mcg/actuation aerosol inhaler shortness of breath or wheezing (Xopenex HFA) #15 grams aspirin 325 mg tablet,delayed 325 mg PO DAILY #20 tabs 01/14/24 release atorvastatin 40 mg tablet 40 mg PO DAILY #30 tabs 01/14/24 Allergies Allergy/AdvReac Type Severity Reaction Status Date / Time prochlorperazine Allergy Severe Anaphylaxis Verified 01/26/24 14:27 [PROCHLORPERAZINE] erythromycin base Allergy Mild Verified 01/26/24 14:27 [ERYTHROMYCIN BASE] Review of Systems Review of Systems Narrative: General: Denies fever, chills, weight loss HEENT: Denies headache, eye drainage, eye irritation, head trauma, sore throat, voice change Cardiovascular: Positive palpitations, Denies any chest pain,shortness of breath, tachycardia Respiratory: Denies any shortness of breath, cough, wheeze, stridor GI/: Denies any abdominal pain, nausea, vomiting, diarrhea, bright red blood per rectum, melanotic stools, urinary frequency, urinary retention, dysuria, hematuria MSK: Denies any joint pain, muscle pains, swelling Skin: Denies any rashes, lesions, discoloration Neuro: Denies any headache, lightheadedness, dizziness, fainting, weakness Psych: Denies SI/HI Patient History Medical History History of fourth degree perineal laceration TIA (transient ischemic attack) Carotid artery disease Multinodular thyroid SVT (supraventricular tachycardia) Heart disease Hypertension Stroke Surgical History History of surgery (05/05/08) History of eye surgery History of cholecystectomy History of left common carotid artery stent placement Social History household members: children Smoking Status: Never smoker alcohol intake: never Smoking Status: Never smoker alcohol intake frequency: 0-2 drinks per day Substance Use Type: does not use Exam Narrative Exam Narrative: General: Cooperative, comfortable, well-developed, not in acute distress HEENT: Normocephalic, atraumatic, PERRLA, normal sclera, eyelids normal, Neck: Active full range of motion, atraumatic Chest: Normal to inspection, negative crepitus, no overlying erythema ecchymosis Respiratory: Normal respiratory effort, not in acute respiratory distress, clear to auscultation bilaterally negative cough, wheeze, tachypnea, rhonchi, rales Cardiology: Regular rate rhythm negative gallop, murmur, rubs GI/: Normal to inspection, soft, nonrigid, no tenderness to palpation, exam deferred MSK: Full range of active range of motion of all 4 extremities, atraumatic Skin: No rashes lesions noted Neuro: Alert awake oriented x3, moves all 4 extremities spontaneously, cranial nerves intact, able to answer all questions appropriately follows commands appropriately Psych: Cooperative, negative suicidal or homicidal ideations Initial Vital Signs Initial Vital Signs: Vital Signs Pulse Rate 90 03/03/24 12:22 Blood Pressure 188/85 H 03/03/24 12:22 Pulse Oximetry 99 03/03/24 12:22 Course Orders Ordered: ED Orders 03/03/24 12:31 XR chest 1V Stat EKG-12 Lead Stat 03/03/24 12:44 Complete Blood Count AUTO DIFF Stat Comprehensive Metabolic Panel Stat Lipase Stat Magnesium Stat NT-proBNP (BNP-Adult 18+) Stat PTT Partial Thromboplastin Jignesh Stat Prothrombin Time INR Stat Troponin & CK Cardiac Panel Stat Discontinued Medications Aspirin (Aspirin 81 Mg Chew Tab) 324 mg PO NOW ONE Stop: 03/03/24 12:32 Magnesium Sulfate (Magnesium Sulfate) 2 gm in 50 mls @ 150 mls/hr IV NOW ONE Stop: 03/03/24 12:59 Last Infusion: 03/03/24 13:22 Dose: 0 mls/hr Documented By: LISA Co-signed By: GILBERTO Admin: 03/03/24 12:54 Dose: 150 mls/hr Documented By: LISA Co-signed By: PETER Vital Signs Vital signs: Vital Signs - 8 hr 03/03/24 12:22 03/03/24 12:22 03/03/24 12:25 Temperature 98.4 F Pulse Rate 90 93 H Respiratory Rate 18 Blood Pressure 188/85 H 188/85 H Pulse Oximetry 99 99 Oxygen Delivery Method Room Air 03/03/24 12:30 03/03/24 12:30 03/03/24 12:45 Temperature Pulse Rate 80 86 Respiratory Rate 22 24 Blood Pressure 157/77 H Pulse Oximetry 99 99 Oxygen Delivery Method 03/03/24 12:45 03/03/24 13:00 03/03/24 13:00 Temperature Pulse Rate 69 Respiratory Rate 22 Blood Pressure 173/81 H 145/67 H Pulse Oximetry 94 Oxygen Delivery Method MDM - Arrhythmia/Palpitations Differential Diagnosis Differential diagnosis: Likely palpitations, anxiety, ventricular premature beats and other (Electrolyte abnormality, ACS) Lab Data 03/03/24 12:44 03/03/24 12:44 Labs: Lab Results 03/03/24 Range/Units 12:44 WBC 6.4 (4.5-11.0) X10^3/uL RBC 4.39 (4.0-5.2) X10^6/uL Hgb 13.3 (12.0-16.0) g/dL Hct 39.2 (36-46) % MCV 89.4 (80-100) fL MCH 30.3 (26-34) PG MCHC 33.9 (30-36) % RDW 13.6 (11.6-14.8) % Plt Count 221 (150-400) X10^3/uL Neut % (Auto) 57.0 (50-75) % Lymph % (Auto) 22.3 L (25-40) % Waldo % (Auto) 15.4 H (3-14) % Eos % (Auto) 4.3 H (2-4) % Baso % (Auto) 1.0 (0-2) % Neut # (Auto) 3700 (4677-5519) /uL Lymph # (Auto) 1400 (4682-3466) /uL Waldo # (Auto) 1000 H (0-900) /uL Eos # (Auto) 300 (0-450) /uL Baso # (Auto) 100 (0-100) /uL PT 11.8 (9.4-12.5) SECONDS INR 1.0 (0.9-1.3) APTT 31 (25.1-36.5) SECONDS Sodium 132 L (137-145) mmol/L Potassium 3.8 (3.4-5.1) mmol/L Chloride 101 (98-107) mmol/L Carbon Dioxide 25 (22-32) mmol/L BUN 20 H (7-17) mg/dL Creatinine 0.58 (0.52-1.04) mg/dL Estimated GFR > 60 (>60) mL/min BUN/Creatinine Ratio 34.5 H (6-22) Glucose 142 H (80-110) mg/dL Calcium 8.8 (8.4-10.2) mg/dL Magnesium 2.0 (1.6-2.3) mg/dL Total Bilirubin 0.5 (0.2-1.3) mg/dL AST 25 (14-36) IU/L ALT 22 (<35) IU/L Alkaline Phosphatase 88 (38-126) U/L Total Creatine Kinase 29 L (30-135) U/L Troponin I < 0.012 (0.01-0.034) ng/mL NT-Pro-B Natriuret Pep 231 (<450) pg/mL Total Protein 6.8 (6.3-8.2) g/dL Albumin 4.0 (3.5-5.0) g/dL Globulin 2.8 (1.7-4.1) g/dL Albumin/Globulin Ratio 1.4 (1.0-2.8) Lipase 189 (23-300) U/L Imaging Data Chest x-ray: Radiologist's Impresson: [address] [address] XRay Report Signed Patient: Yi Seay MR#: [id number] : 1945 Acct:[id number] Age/Sex: 78 / F Date of Service: 03/03/24 Loc: ED Accession Number: [id number] Procedure: XR chest 1V Ordering Provider: Houston Perez D.O. PROCEDURE: XR CHEST 1V INDICATIONS: chest pain TECHNIQUE: One view of the chest was acquired. COMPARISON: [facility], CR, XR CHEST 2V, 06/14/2023, 9:08. [facility], CR, XR CHEST 1V, 01/13/2024, 17:58. FINDINGS: Surgical changes and devices: Left lower neck clips are seen. Sternotomy wires are seen. Lungs and pleura: An incomplete inspiratory result is noted, causing a crowded appearance to the lung markings. No focal infiltrates are seen. No pneumothorax or significant pleural effusions are seen. Mediastinum: Mediastinal contours appear normal. Heart size is normal. Bones and chest wall: No suspicious bony lesions. Age-appropriate bony degenerative changes are seen. Overlying soft tissues appear unremarkable. IMPRESSION: Portable chest within normal limits for age. ECG Data Attestation: I personally reviewed and interpreted this ECG as follows: Interpretation: EKG interpreted ED physician sinus at 78 beats per minute QTC 492 occasional PVC noted, nonspecific ST changes no STEMI MDM Narrative Medical decision making narrative: Patient is a 78-year-old female with a history of SVT status post ablation, arrhythmia, hypertension, hyperlipidemia, presenting for persistent palpitation. Denying any chest pain shortness of breath syncopal or presyncopal symptoms. Has been seen previously for this by her roll tester, did have a Zio patch placed but took this off prematurely. She has records stating and still currently stating that she does not want to pacemaker there is also records showing that there is a possibility that her symptoms are exacerbated/associated with anxiety but denies wanting any anxiolytics in a long-term/outpatient scenario. Patient was observed for 2 hours in the emergency department, patient stating that she has not feeling the palpitations any longer, did receive magnesium that did improve her PVCs. Patient not in bigeminy or trigeminy. Lab work unremarkable for any acute findings, trop negative patient is still without any chest pain shortness of breath syncopal or presyncopal symptoms. Patient states that she would like to follow up with her roll tester in the outpatient setting, she verbalized strict return precautions and agrees to being discharged home with outpatient follow up. Patient is safe for discharge home Discharge Plan Departure Patient Disposition: Home Clinical Impression: Palpitations Activity Restrictions/Additional Instructions: Please follow-up with your roll tester Please read the discharge instructions sheet carefully and bring all papers to all doctor follow-up visits, as it may contain information that your doctor may want to see. Disease processes change and evolve, if your symptoms worsen or if you develop any new symptoms that are concerning to you please return for evaluation. Your evaluation today does not show any evidence of any life- threatening/serious illnesses requiring admission to the hospital or surgery. Please follow-up with your doctor for re-evaluation in approximately 1 day. Seek immediate medical attention for any worrisome symptoms. Prescriptions: No Action clopidogrel 75 mg Tablet 75 mg PO DAILY Qty: 0 losartan [Cozaar] 100 MG tablet 50 mg PO DAILY Qty: 0 multivitamin Tablet 1 tab PO QDAY Qty: 0 amlodipine 2.5 mg tablet 5 mg PO DAILY Patient Comments: TK 1 T PO BID FOR HIGH BLOOD PRESSURE Calcium 600 mg tablet 1 tab PO DAILY levalbuterol tartrate [Xopenex HFA] 45 mcg/actuation HFA aerosol inhaler 2 puff inhalation Q4-6H PRN (Reason: shortness of breath or wheezing) Qty: 15 0RF potassium chloride 20 mEq tablet extended release 20 meq PO DAILY fluticasone propion-salmeterol [Advair HFA] 230-21 mcg/actuation HFA aerosol inhaler 2 puff INHALATION BID aspirin 325 mg tablet,delayed release (DR/EC) 325 mg PO DAILY Qty: 20 0RF atorvastatin 40 mg tablet 40 mg PO DAILY Qty: 30 0RF Referrals: Jess Peters MD [Primary Care Provider] - Stand Alone Forms: Patient Portal/API
[2024-03-03 12:30] VITALS: BP 157/77; PULSE 80; RESP 22; O2SAT 99
--- NOTE | 2024-03-03 12:31 | DI.RAD.S_ITS ---
PROCEDURE: XR CHEST 1V INDICATIONS: chest pain TECHNIQUE: One view of the chest was acquired. COMPARISON: [facility], CR, XR CHEST 2V, 06/14/2023, 9:08. [facility], CR, XR CHEST 1V, 01/13/2024, 17:58. FINDINGS: Surgical changes and devices: Left lower neck clips are seen. Sternotomy wires are seen. Lungs and pleura: An incomplete inspiratory result is noted, causing a crowded appearance to the lung markings. No focal infiltrates are seen. No pneumothorax or significant pleural effusions are seen. Mediastinum: Mediastinal contours appear normal. Heart size is normal. Bones and chest wall: No suspicious bony lesions. Age-appropriate bony degenerative changes are seen. Overlying soft tissues appear unremarkable. IMPRESSION: Portable chest within normal limits for age. Dictated by: Mehran Diaz M.D. on 03/03/2024 at 12:11 Approved by: Mehran Diaz M.D. on 03/03/2024 at 12:12
--- NOTE | 2024-03-03 12:31 | EKG_ITS ---
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
--- NOTE | 2024-03-03 12:36 | PC.NURSE ---
patient here today for feeling her heart beat to what feels like trigeminy. She states this is similar to other episodes but this time is not able to get herself out of it. She denies dizziness, SOB, lightheadedness, chest pain, chest pressure or any other symptoms other than noticing her heart rhythm that makes her feel concerned for the rhythm. She has high blood pressure but is not is taking medication for it.
[2024-03-03 12:45] VITALS: BP 173/81; PULSE 86; RESP 24; O2SAT 99
[2024-03-03 12:51] LABS: Add Manual Diff / Slide Review NO; Basophils Absolute Auto 100 /uL (0-100); Eosinophils Absolute Auto 300 /uL (0-450); Eosinophils Percent Auto 4.3 % (2-4); Hematocrit 39.2 % (36-46); Hemoglobin 13.3 g/dL (12.0-16.0); Lymphocytes Absolute Auto 1400 /uL (1100-4500); Lymphocytes Percent Auto 22.3 % (25-40); Mean Corpuscular HGB Conc 33.9 % (30-36); Mean Corpuscular Hemoglobin 30.3 PG (26-34); Mean Corpuscular Volume 89.4 fL (80-100); Monocytes Absolute Auto 1000 /uL (0-900); Monocytes Percent Auto 15.4 % (3-14); Neutrophils Absolute Auto 3700 /uL (1500-7000); Platelet Count 221 X10^3/uL (150-400); Red Blood Cell Count 4.39 X10^6/uL (4.0-5.2); Red Cell Distribution Width 13.6 % (11.6-14.8); White Blood Cell Count 6.4 X10^3/uL (4.5-11.0)
[2024-03-03] MEDS: MAGNESIUM SULFATE 2 GM/50 ML PIGGYBACK IV (12:54)
[2024-03-03 12:59] LABS: Prothrombin Time 11.8 SECONDS (9.4-12.5)
[2024-03-03 13:00] VITALS: BP 145/67; PULSE 69; RESP 22; O2SAT 94
[2024-03-03 13:02] LABS: PTT Partial Thromboplastin Tim 31 SECONDS (25.1-36.5)
[2024-03-03 13:03] LABS: Alanine Aminotransferase 22 IU/L (<35); Albumin Globulin Ratio 1.4 (1.0-2.8); Alkaline Phosphatase 88 U/L (38-126); Aspartate Aminotransferase 25 IU/L (14-36); BUN Creatinine Ratio 34.5 (6-22); Bilirubin Total 0.5 mg/dL (0.2-1.3); Blood Urea Nitrogen 20 mg/dL (7-17); Calcium 8.8 mg/dL (8.4-10.2); Carbon Dioxide 25 mmol/L (22-32); Chloride 101 mmol/L (98-107); Creatine Kinase 29 U/L (30-135); Estimated Glomerular Filt Rate > 60 mL/min (>60); Globulin 2.8 g/dL (1.7-4.1); Glucose 142 mg/dL (80-110); HEMOLYSIS 15 (0-50); Lipase 189 U/L (23-300); Potassium 3.8 mmol/L (3.4-5.1); Sodium 132 mmol/L (137-145); Total Protein 6.8 g/dL (6.3-8.2)
[2024-03-03 13:15] LABS: NT-proBNP (BNP-Adult 18+) 231 pg/mL (<450); Troponin I < 0.012 ng/mL (0.01-0.034)
--- NOTE | 2024-03-03 13:24 | PC.NURSE ---
patient began feeling warm and requested something to cool her down. Her mag infusion was stopped and her temp was taken and found to be 98.2. Provider was notified of her feeling warm and that the mag infusion was stopped. Provider ok with mag being stopped.
[2024-03-03 14:17] VITALS: BP 156/72; PULSE 77; RESP 14; O2SAT 98
== END 2024-03-03 14:19 | disposition home or self-care (01) ==
PROVIDERS: Emergency Provider Student in an Organized Health Care Education/Training Program; PCP Internal Medicine
DX: R00.2 Palpitations (principal); R07.9 Chest pain, unspecified; I45.10 Unspecified right bundle-branch block
CPT/HCPCS: 36415; 71045; 80053; 82550; 83690; 83735; 83880; 84484; 85025; 85610; 85730; 93005; 93010; 99284; J3475

== ENCOUNTER 2024-03-14 17:41 | Emergency (ER) | payer MEDICARE, OTHER, SELFPAY ==
[2024-01-13 20:23] VITALS: BMI 22.4
[2024-03-14] VITALS (9 sets, daily range): BP systolic 123–166; BP diastolic 63–79; PULSE 75–104; RESP 14–19; TEMP 36.4; O2SAT 94–99; BMI 22.4
--- NOTE | 2024-03-14 17:54 | EKG_ITS ---
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
--- NOTE | 2024-03-14 17:54 | DI.RAD.S_ITS ---
PROCEDURE: XR CHEST 1V INDICATIONS: chest pain TECHNIQUE: One view of the chest was acquired. COMPARISON: [facility], CR, XR CHEST 1V, 03/03/2024, 12:32. [facility], CR, XR CHEST 1V, 01/13/2024, 17:58. [facility], CR, XR CHEST 2V, 06/14/2023, 9:08. [facility], CR, XR CHEST 1V, 02/23/2023, 11:43. FINDINGS: Surgical changes and devices: Median sternotomy wires. Right upper quadrant surgical clips. Surgical clips along the left medial supraclavicular region. Lungs and pleura: Lungs are clear. No pleural effusions or pneumothorax. Mediastinum: Mediastinal contours appear normal. Heart size is normal. Bones and chest wall: No suspicious bony lesions. Overlying soft tissues appear unremarkable. IMPRESSION: No acute cardiothoracic process. Dictated by: Marcial Cabral M.D. on 03/14/2024 at 18:19 Approved by: Marcial Cabral M.D. on 03/14/2024 at 18:20
[2024-03-14 18:39] LABS: Add Manual Diff / Slide Review NO; Basophils Absolute Auto 100 /uL (0-100); Eosinophils Absolute Auto 200 /uL (0-450); Eosinophils Percent Auto 2.3 % (2-4); Hematocrit 40.4 % (36-46); Hemoglobin 13.8 g/dL (12.0-16.0); Lymphocytes Absolute Auto 1900 /uL (1100-4500); Lymphocytes Percent Auto 23.9 % (25-40); Mean Corpuscular HGB Conc 34.2 % (30-36); Mean Corpuscular Hemoglobin 30.5 PG (26-34); Mean Corpuscular Volume 89.1 fL (80-100); Monocytes Absolute Auto 700 /uL (0-900); Monocytes Percent Auto 9.5 % (3-14); Neutrophils Absolute Auto 5000 /uL (1500-7000); Neutrophils Percent Auto 63.3 % (50-75); Platelet Count 238 X10^3/uL (150-400); Red Blood Cell Count 4.54 X10^6/uL (4.0-5.2); Red Cell Distribution Width 13.6 % (11.6-14.8); White Blood Cell Count 7.8 X10^3/uL (4.5-11.0)
[2024-03-14 18:51] LABS: PTT Partial Thromboplastin Tim 33 SECONDS (25.1-36.5)
[2024-03-14 18:52] LABS: Alanine Aminotransferase 25 IU/L (<35); Albumin 4.6 g/dL (3.5-5.0); Albumin Globulin Ratio 1.5 (1.0-2.8); Alkaline Phosphatase 130 U/L (38-126); Aspartate Aminotransferase 28 IU/L (14-36); BUN Creatinine Ratio 31.7 (6-22); Bilirubin Total 0.5 mg/dL (0.2-1.3); Blood Urea Nitrogen 19 mg/dL (7-17); Calcium 8.9 mg/dL (8.4-10.2); Carbon Dioxide 22 mmol/L (22-32); Chloride 98 mmol/L (98-107); Creatine Kinase 47 U/L (30-135); Estimated Glomerular Filt Rate > 60 mL/min (>60); Globulin 3.1 g/dL (1.7-4.1); Glucose 132 mg/dL (80-110); HEMOLYSIS < 15 (0-50); Lipase 143 U/L (23-300); Potassium 3.9 mmol/L (3.4-5.1); Sodium 129 mmol/L (137-145); Total Protein 7.7 g/dL (6.3-8.2)
[2024-03-14 19:04] LABS: NT-proBNP (BNP-Adult 18+) 284 pg/mL (<450); Troponin I < 0.012 ng/mL (0.01-0.034)
--- NOTE | 2024-03-14 19:30 | ED.ARRPALP ---
HPI - Arrhythmia/Palpitations General Chief Complaint: Arrhythmia/Palpitations Stated Complaint: irregular heart beat worsening Time Seen by Provider: 03/14/24 18:25 Source: patient Mode of arrival: Ambulatory History of Present Illness HPI narrative: 78-year-old female with history of SVT, had ablation procedure 2014 [facility] that was complicated, having open procedure to retrieve retained catheter, but apparently afterwards did not seem to have SVT events. Reports sensation of intermittent bigeminy and trigeminy, irregular heartbeat sensation, however no heart racing like symptoms. No specific treatments recently for this. No changes in medications recent. She was at [facility] this afternoon, and suddenly did not feel well, felt irregular heartbeat sensation, no shortness of breath, no nausea, no diaphoresis. No syncope or presyncope symptoms. No focal weakness to face arm or leg. No focal numbness to face arm or leg. No shaking or seizure activity. No incontinence of urine or stool. She felt better, here for further evaluation. She denies chest pain then and now. Related Data Home Medications Medication Instructions Recorded Confirmed clopidogrel 75 mg tablet 75 mg PO DAILY ##0 02/03/09 01/26/24 losartan 100 mg tablet (Cozaar) 50 mg PO DAILY #0 tabs 02/23/13 01/26/24 multivitamin 1 tab PO QDAY #0 tabs 02/23/13 01/26/24 Calcium 1 tab PO DAILY 12/14/18 01/26/24 amlodipine 2.5 mg tablet 5 mg PO DAILY 12/14/18 01/26/24 fluticasone propionate 230 2 puff inhalation BID 01/14/24 01/26/24 mcg-salmeterol 21 mcg/actuation HFA inhaler (Advair HFA) potassium chloride 20 mEq 20 meq PO DAILY 01/14/24 01/26/24 tablet,extended release Previous Rx's Medication Instructions Recorded levalbuterol tartrate 45 2 puff inhalation Q4-6H PRN 06/14/20 mcg/actuation aerosol inhaler shortness of breath or wheezing (Xopenex HFA) #15 grams aspirin 325 mg tablet,delayed 325 mg PO DAILY #20 tabs 01/14/24 release atorvastatin 40 mg tablet 40 mg PO DAILY #30 tabs 01/14/24 Allergies Allergy/AdvReac Type Severity Reaction Status Date / Time prochlorperazine Allergy Severe Anaphylaxis Verified 03/14/24 17:53 [PROCHLORPERAZINE] erythromycin base Allergy Mild Verified 03/14/24 17:53 [ERYTHROMYCIN BASE] Review of Systems Review of Systems Narrative: see HPI Patient History Medical History History of fourth degree perineal laceration TIA (transient ischemic attack) Carotid artery disease Multinodular thyroid SVT (supraventricular tachycardia) Heart disease Hypertension Stroke Surgical History History of surgery (05/05/08) History of eye surgery History of cholecystectomy History of left common carotid artery stent placement Social History household members: children Smoking Status: Never smoker alcohol intake: never Smoking Status: Never smoker alcohol intake frequency: 0-2 drinks per day Substance Use Type: does not use Exam Narrative Exam Narrative: GENERAL: Well-developed patient, in mild distress. HEAD: Atraumatic. Normocephalic. EYES: Pupils equal round and reactive. Extraocular motions intact. No scleral icterus. No injection or drainage. ENT: Nose without bleeding, purulent drainage. Throat without erythema, tonsillar hypertrophy or exudate. Airway patent. NECK: Trachea midline. Non tender CARDIOVASCULAR: Regular rate in general with occasional extra beat and pause; no obvious murmurs RESPIRATORY: Clear to auscultation. Breath sounds equal bilaterally. No wheezes, rales, or rhonchi. Small left parasternal scar from SVT open procedure complication catheter retrieval per patient report, well-healed. GASTROINTESTINAL: Abdomen soft, non-tender, nondistended. EXTREMITIES: No edema or joint tenderness. BACK: Nontender without deformity or crepitance. No flank tenderness. NEURO: AOx3. Motor functions grossly nonfocal SKIN: No rash or erythema of visible areas Initial Vital Signs Initial Vital Signs: Vital Signs Temperature 97.6 F 03/14/24 17:49 Pulse Rate 77 03/14/24 17:49 Respiratory Rate 18 03/14/24 17:49 Blood Pressure 166/77 H 03/14/24 17:49 Pulse Oximetry 99 03/14/24 17:49 Oxygen Delivery Method Room Air 03/14/24 17:49 Course Orders Ordered: ED Orders 03/14/24 17:54 XR chest 1V Stat EKG-12 Lead Stat 03/14/24 18:20 Complete Blood Count AUTO DIFF Stat Comprehensive Metabolic Panel Stat Lipase Stat Magnesium Stat NT-proBNP (BNP-Adult 18+) Stat PTT Partial Thromboplastin Jignesh Stat Prothrombin Time INR Stat Troponin & CK Cardiac Panel Stat 03/14/24 20:34 Troponin I Stat Vital Signs Vital signs: Vital Signs - 8 hr 03/14/24 17:49 03/14/24 18:24 03/14/24 18:30 Temperature 97.6 F Pulse Rate 77 104 H 103 H Respiratory Rate 18 19 Blood Pressure 166/77 H Pulse Oximetry 99 99 98 Oxygen Delivery Method Room Air Room Air 03/14/24 18:30 03/14/24 19:00 03/14/24 19:00 Temperature Pulse Rate 84 Respiratory Rate 14 Blood Pressure 154/79 H 139/69 Pulse Oximetry 95 Oxygen Delivery Method 03/14/24 19:30 03/14/24 19:30 03/14/24 20:00 Temperature Pulse Rate 89 Respiratory Rate 16 Blood Pressure 151/70 H 123/63 Pulse Oximetry 95 Oxygen Delivery Method Room Air 03/14/24 20:00 03/14/24 20:30 03/14/24 20:30 Temperature Pulse Rate 85 80 Respiratory Rate 19 18 Blood Pressure 123/73 Pulse Oximetry 94 97 Oxygen Delivery Method Room Air 03/14/24 21:00 03/14/24 21:00 03/14/24 21:43 Temperature Pulse Rate 75 84 Respiratory Rate 19 19 Blood Pressure 125/70 123/76 Pulse Oximetry 94 97 Oxygen Delivery Method MDM - Arrhythmia/Palpitations Lab Data Attestation: I reviewed the patient's lab results. Lab results narrative: White blood cell count 7800, hemoglobin 13.8, platelets adequate. Sodium 129 low with glucose 132. Otherwise CMP unremarkable. Troponin negative. BNP not elevated. Urine dip negative. 03/14/24 18:20 03/14/24 18:20 Labs: Lab Results 03/14/24 03/14/24 Range/Units 18:20 20:34 WBC 7.8 (4.5-11.0) X10^3/uL RBC 4.54 (4.0-5.2) X10^6/uL Hgb 13.8 (12.0-16.0) g/dL Hct 40.4 (36-46) % MCV 89.1 (80-100) fL MCH 30.5 (26-34) PG MCHC 34.2 (30-36) % RDW 13.6 (11.6-14.8) % Plt Count 238 (150-400) X10^3/uL Neut % (Auto) 63.3 (50-75) % Lymph % (Auto) 23.9 L (25-40) % [place] % (Auto) 9.5 (3-14) % Eos % (Auto) 2.3 (2-4) % Baso % (Auto) 1.0 (0-2) % Neut # (Auto) 5000 (0107-3917) /uL Lymph # (Auto) 1900 (6949-7327) /uL [place] # (Auto) 700 (0-900) /uL Eos # (Auto) 200 (0-450) /uL Baso # (Auto) 100 (0-100) /uL PT 12.0 (9.4-12.5) SECONDS INR 1.0 (0.9-1.3) APTT 33 (25.1-36.5) SECONDS Sodium 129 L (137-145) mmol/L Potassium 3.9 (3.4-5.1) mmol/L Chloride 98 (98-107) mmol/L Carbon Dioxide 22 (22-32) mmol/L BUN 19 H (7-17) mg/dL Creatinine 0.60 (0.52-1.04) mg/dL Estimated GFR > 60 (>60) mL/min BUN/Creatinine Ratio 31.7 H (6-22) Glucose 132 H (80-110) mg/dL Calcium 8.9 (8.4-10.2) mg/dL Magnesium 2.0 (1.6-2.3) mg/dL Total Bilirubin 0.5 (0.2-1.3) mg/dL AST 28 (14-36) IU/L ALT 25 (<35) IU/L Alkaline Phosphatase 130 H (38-126) U/L Total Creatine Kinase 47 (30-135) U/L Troponin I < 0.012 < 0.012 (0.01-0.034) ng/mL NT-Pro-B Natriuret Pep 284 (<450) pg/mL Total Protein 7.7 (6.3-8.2) g/dL Albumin 4.6 (3.5-5.0) g/dL Globulin 3.1 (1.7-4.1) g/dL Albumin/Globulin Ratio 1.5 (1.0-2.8) Lipase 143 (23-300) U/L Urine Dip Bedside Urine Glucose Negative Bedside Urine Bilirubin - Negative Bedside Urine Ketone - Negative Urine Specific [place] 1.015 Bedside Urine Occult Blood - Negative Bedside Urine pH 6.0 Bedside Urine Protein - Negative Bedside Urine Urobilinogen - Negative Bedside Urine Nitrite - Negative Bedside Urine Leukocytes - Negative Esterase Imaging Data Chest x-ray: Radiologist's Impresson: [address] [id number] XRay Report Signed Patient: Yi Seay MR#: [id number] : 1945 Acct:[id number] Age/Sex: 78 / F Date of Service: 03/14/24 Loc: ED Accession Number: [id number] Procedure: XR chest 1V Ordering Provider: Tasha Anand MD PROCEDURE: XR CHEST 1V INDICATIONS: chest pain TECHNIQUE: One view of the chest was acquired. COMPARISON: [facility], CR, XR CHEST 1V, 03/03/2024, 12:32. [facility], CR, XR CHEST 1V, 01/13/2024, 17:58. [facility], CR, XR CHEST 2V, 06/14/2023, 9:08. [facility], CR, XR CHEST 1V, 02/23/2023, 11:43. FINDINGS: Surgical changes and devices: Median sternotomy wires. Right upper quadrant surgical clips. Surgical clips along the left medial supraclavicular region. Lungs and pleura: Lungs are clear. No pleural effusions or pneumothorax. Mediastinum: Mediastinal contours appear normal. Heart size is normal. Bones and chest wall: No suspicious bony lesions. Overlying soft tissues appear unremarkable. IMPRESSION: No acute cardiothoracic process. Dictated by: Marcial Cabral M.D. on 03/14/2024 at 18:19 Approved by: Marcial Cabral M.D. on 03/14/2024 at 18:20 ECG Data Attestation: I personally reviewed and interpreted this ECG as follows: Interpretation: Normal sinus rhythm with frequent PVCs, no obvious ST segment elevation or depression changes. Left anterior fascicular block, right bundle branch block. VT 170, QRS 112, QTC 525. MDM Narrative Medical decision making narrative: 78-year-old female with sensation of heart palpitations, no chest discomfort, history of SVT status post remote ablation procedure. On monitor patient in sinus rhythm with occasional monofocal PVC, no bigeminy or trigeminy or sustained V tach noted. Screening EKG with unremarkable intervals, no obvious ischemic changes. Monofocal PVC noted. Screening labs unremarkable. We will repeat troponin. If negative then anticipate discharge with advice for outpatient cardiac monitoring. Interval repeat troponin also negative. No recurrence of symptoms. On monitor has occasional PVC only. Consider outpatient wireworker, advised to follow up with her certified orthotist and/or PCP to facilitate outpatient monitoring. Keep same medication regimen for now. Return precautions discussed. Discharge Plan Departure Patient Disposition: Home Clinical Impression: Palpitations, Premature ventricular contractions, History of supraventricular tachycardia, Hyponatremia Activity Restrictions/Additional Instructions: Palpitation symptoms, brief nonspecific generalized malaise while shopping today. EKG shows PVC pre ventricular contraction, no bigeminy or trigeminy or sustained ectopy. History of SVT with remote ablation procedure. No SVT appreciated while on monitor in the emergency department. Serial blood tests not suggestive of recent heart attack. Labs screening otherwise unremarkable except for mild low sodium 129, that can be rechecked in follow up. Consider cardiac monitoring such as ZIO patch, discussed with your primary care provider or with your certified orthotist. Consider recheck of your sodium level in follow up. Contact your certified orthotist or primary care provider tomorrow to facilitate cardiac monitoring as an outpatient for now. Return earlier to this/nearest emergency department for any change worsening symptoms or any concerns prior Prescriptions: No Action clopidogrel 75 mg Tablet 75 mg PO DAILY Qty: 0 losartan [Cozaar] 100 MG tablet 50 mg PO DAILY Qty: 0 multivitamin Tablet 1 tab PO QDAY Qty: 0 amlodipine 2.5 mg tablet 5 mg PO DAILY Patient Comments: TK 1 T PO BID FOR HIGH BLOOD PRESSURE Calcium 600 mg tablet 1 tab PO DAILY levalbuterol tartrate [Xopenex HFA] 45 mcg/actuation HFA aerosol inhaler 2 puff inhalation Q4-6H PRN (Reason: shortness of breath or wheezing) Qty: 15 0RF potassium chloride 20 mEq tablet extended release 20 meq PO DAILY fluticasone propion-salmeterol [Advair HFA] 230-21 mcg/actuation HFA aerosol inhaler 2 puff INHALATION BID aspirin 325 mg tablet,delayed release (DR/EC) 325 mg PO DAILY Qty: 20 0RF atorvastatin 40 mg tablet 40 mg PO DAILY Qty: 30 0RF Referrals: Daja Martell MD [Physician] - Jess Peters MD [Primary Care Provider] - Stand Alone Forms: Patient Portal/API
[2024-03-14 21:02] LABS: Troponin I < 0.012 ng/mL (0.01-0.034)
== END 2024-03-14 21:53 | disposition home or self-care (01) ==
PROVIDERS: Emergency Medicine; Emergency Provider Emergency Medicine; PCP Internal Medicine
DX: I49.3 Ventricular premature depolarization (principal); R00.2 Palpitations; R07.9 Chest pain, unspecified; I45.2 Bifascicular block; E87.1 Hypo-osmolality and hyponatremia; Z86.79 Personal history of other diseases of the circulatory system
CPT/HCPCS: 36415; 71045; 80053; 81003; 82550; 83690; 83735; 83880; 84484; 85025; 85610; 85730; 93005; 99284

== ENCOUNTER → 2024-06-06 06:16 | Outpatient (CLI) | payer MEDICARE, OTHER, SELFPAY ==
[2024-01-13 20:23] VITALS: BMI 22.4
[2024-06-06 07:30] LABS: Add Manual Diff / Slide Review NO; Basophils Absolute Auto 100 /uL (0-100); Basophils Percent Auto 1.2 % (0-2); Eosinophils Absolute Auto 300 /uL (0-450); Hematocrit 40.1 % (36-46); Hemoglobin 13.6 g/dL (12.0-16.0); Lymphocytes Absolute Auto 1500 /uL (1100-4500); Lymphocytes Percent Auto 26.8 % (25-40); Mean Corpuscular HGB Conc 33.8 % (30-36); Mean Corpuscular Hemoglobin 30.2 PG (26-34); Mean Corpuscular Volume 89.3 fL (80-100); Monocytes Absolute Auto 600 /uL (0-900); Monocytes Percent Auto 9.8 % (3-14); Neutrophils Absolute Auto 3200 /uL (1500-7000); Neutrophils Percent Auto 56.2 % (50-75); Platelet Count 204 X10^3/uL (150-400); Red Blood Cell Count 4.49 X10^6/uL (4.0-5.2); Red Cell Distribution Width 13.8 % (11.6-14.8); White Blood Cell Count 5.7 X10^3/uL (4.5-11.0)
[2024-06-06 08:53] LABS: Alanine Aminotransferase 24 IU/L (<35); Albumin 4.3 g/dL (3.5-5.0); Albumin Globulin Ratio 1.7 (1.0-2.8); Alkaline Phosphatase 85 U/L (38-126); Aspartate Aminotransferase 28 IU/L (14-36); BUN Creatinine Ratio 22.4 (6-22); Bilirubin Total 0.6 mg/dL (0.2-1.3); Blood Urea Nitrogen 13 mg/dL (7-17); Calcium 9.1 mg/dL (8.4-10.2); Carbon Dioxide 25 mmol/L (22-32); Chloride 103 mmol/L (98-107); Cholesterol 139 mg/dL (140-199); Estimated Glomerular Filt Rate > 60 mL/min (>60); Globulin 2.6 g/dL (1.7-4.1); Glucose 105 mg/dL (80-110); HDL Cholesterol 47 mg/dL (40-60); HEMOLYSIS < 15 (0-50); LDL Cholesterol Calculated 72 mg/dL (<100); Potassium 3.8 mmol/L (3.4-5.1); Sodium 135 mmol/L (137-145); Total Protein 6.9 g/dL (6.3-8.2); Triglycerides 99 mg/dL (35-150)
== END ==
PROVIDERS: PCP Internal Medicine; Referring Provider Psychiatry & Neurology Neurology; Visit Provider Psychiatry & Neurology Neurology
DX: Z51.81 Encounter for therapeutic drug level monitoring (principal); E78.5 Hyperlipidemia, unspecified
CPT/HCPCS: 36415; 80053; 80061; 85025

== ENCOUNTER 2024-07-05 06:46 | Emergency (ER) | payer MEDICARE, OTHER, SELFPAY ==
[2024-01-13 20:23] VITALS: BMI 22.4
[2024-07-05] VITALS (8 sets, daily range): BP systolic 123–171; BP diastolic 64–81; PULSE 68–90; RESP 18; TEMP 36.7; O2SAT 95–99; BMI 23.6
--- NOTE | 2024-07-05 08:01 | ED.NECK ---
HPI - Neck Pain/Injury General Chief Complaint: Neck Pain/Injury Stated Complaint: stent in neck and having pain Time Seen by Provider: 07/05/24 07:21 Mode of arrival: Ambulatory History of Present Illness HPI Narrative: Patient is a 78-year-old female history of aneurysms and left carotid stent presenting today with left neck pain. She reports that she was sleeping started having some left neck pain. No numbness tingling or weakness. No speech changes or headache. She said this was atypical for her. She was actually scheduled for vascular ultrasound with a vascular surgeon at [facility] later this afternoon. She was just concerned and wanted to come in. Denies any chest pain or palpitations no other symptoms. Related Data Home Medications Medication Instructions Recorded Confirmed clopidogrel 75 mg tablet 75 mg PO DAILY ##0 02/03/09 01/26/24 losartan 100 mg tablet (Cozaar) 50 mg PO DAILY #0 tabs 02/23/13 01/26/24 multivitamin 1 tab PO QDAY #0 tabs 02/23/13 01/26/24 Calcium 1 tab PO DAILY 12/14/18 01/26/24 amlodipine 2.5 mg tablet 5 mg PO DAILY 12/14/18 01/26/24 fluticasone propionate 230 2 puff inhalation BID 01/14/24 01/26/24 mcg-salmeterol 21 mcg/actuation HFA inhaler (Advair HFA) potassium chloride 20 mEq 20 meq PO DAILY 01/14/24 01/26/24 tablet,extended release Previous Rx's Medication Instructions Recorded levalbuterol tartrate 45 2 puff inhalation Q4-6H PRN 06/14/20 mcg/actuation aerosol inhaler shortness of breath or wheezing (Xopenex HFA) #15 grams aspirin 325 mg tablet,delayed 325 mg PO DAILY #20 tabs 01/14/24 release atorvastatin 40 mg tablet 40 mg PO DAILY #30 tabs 01/14/24 Allergies Allergy/AdvReac Type Severity Reaction Status Date / Time prochlorperazine Allergy Severe Anaphylaxis Verified 03/14/24 17:53 [PROCHLORPERAZINE] erythromycin base Allergy Mild Verified 03/14/24 17:53 [ERYTHROMYCIN BASE] Patient History Medical History History of fourth degree perineal laceration TIA (transient ischemic attack) Carotid artery disease Multinodular thyroid SVT (supraventricular tachycardia) Heart disease Hypertension Stroke Surgical History History of surgery (05/05/08) History of eye surgery History of cholecystectomy History of left common carotid artery stent placement Social History household members: children Smoking Status: Never smoker alcohol intake: never Smoking Status: Never smoker alcohol intake frequency: 0-2 drinks per day Exam Initial Vital Signs Initial Vital Signs: Vital Signs Temperature 98.1 F 07/05/24 07:36 Pulse Rate 85 07/05/24 07:36 Respiratory Rate 18 07/05/24 07:36 Blood Pressure 171/81 H 07/05/24 07:36 Pulse Oximetry 99 07/05/24 07:36 Oxygen Delivery Method Room Air 07/05/24 07:36 GENERAL: Alert anxious 78-year-old female HEENT: Head atraumatic,EOMI, pupils reactive, face symmetric, moist mucous membranes NECK: No vertebral tenderness no step-off CARDIOVASCULAR: Regular rate and rhythm without murmurs, rubs or gallops. RESPIRATORY: Breath sounds equal bilaterally, no wheezes rales or rhonchi. ABDOMEN: Soft, nontender. Normoactive bowel sounds all 4 quadrants. No guarding or rebound. EXTREMITIES: Normal range of motion, no clubbing or edema. Neurovascularly intact NEUROLOGICAL: Alert and oriented x4.Normal gait and speech. Cranial nerves II through XII grossly intact. SKIN: Warm, dry, no laceration, no petechiae, no rashes or lesions. Course Orders Ordered: ED Orders 07/05/24 08:11 CT angio head and neck Stat 07/05/24 08:25 CBC Auto Diff [Complete Blood Count AUTO DIFF] Stat CMP [Comprehensive Metabolic Panel] Stat Vital Signs Vital signs: Vital Signs - 8 hr 07/05/24 07:36 07/05/24 07:56 07/05/24 08:00 Temperature 98.1 F Pulse Rate 85 90 83 Respiratory Rate 18 Blood Pressure 171/81 H Pulse Oximetry 99 99 96 Oxygen Delivery Method Room Air 07/05/24 08:01 07/05/24 08:01 07/05/24 08:30 Temperature Pulse Rate 82 Respiratory Rate Blood Pressure 152/73 H 140/67 Pulse Oximetry 97 Oxygen Delivery Method Room Air 07/05/24 08:30 07/05/24 09:00 07/05/24 09:00 Temperature Pulse Rate 73 70 Respiratory Rate Blood Pressure 123/64 Pulse Oximetry 98 95 Oxygen Delivery Method 07/05/24 09:19 07/05/24 09:19 07/05/24 09:30 Temperature Pulse Rate 68 Respiratory Rate Blood Pressure 141/70 H 134/71 Pulse Oximetry 98 Oxygen Delivery Method Room Air 07/05/24 09:30 Temperature Pulse Rate 68 Respiratory Rate Blood Pressure Pulse Oximetry 95 Oxygen Delivery Method MDM - Neck Pain/Injury Lab Data 07/05/24 08:25 07/05/24 08:25 Labs: Lab Results 07/05/24 Range/Units 08:25 WBC 7.1 (4.5-11.0) X10^3/uL RBC 4.57 (4.0-5.2) X10^6/uL Hgb 13.8 (12.0-16.0) g/dL Hct 40.5 (36-46) % MCV 88.6 (80-100) fL MCH 30.2 (26-34) PG MCHC 34.1 (30-36) % RDW 13.5 (11.6-14.8) % Plt Count 212 (150-400) X10^3/uL Neut % (Auto) 68.0 (50-75) % Lymph % (Auto) 21.0 L (25-40) % [place] % (Auto) 7.9 (3-14) % Eos % (Auto) 2.2 (2-4) % Baso % (Auto) 0.9 (0-2) % Neut # (Auto) 4800 (4866-6180) /uL Lymph # (Auto) 1500 (8441-5807) /uL [place] # (Auto) 600 (0-900) /uL Eos # (Auto) 200 (0-450) /uL Baso # (Auto) 100 (0-100) /uL Sodium 135 L (137-145) mmol/L Potassium 3.8 (3.4-5.1) mmol/L Chloride 102 (98-107) mmol/L Carbon Dioxide 25 (22-32) mmol/L BUN 14 (7-17) mg/dL Creatinine 0.65 (0.52-1.04) mg/dL Estimated GFR > 60 (>60) mL/min BUN/Creatinine Ratio 21.5 (6-22) Glucose 116 H (80-110) mg/dL Calcium 9.1 (8.4-10.2) mg/dL Total Bilirubin 0.5 (0.2-1.3) mg/dL AST 28 (14-36) IU/L ALT 24 (<35) IU/L Alkaline Phosphatase 88 (38-126) U/L Total Protein 7.3 (6.3-8.2) g/dL Albumin 4.4 (3.5-5.0) g/dL Globulin 2.9 (1.7-4.1) g/dL Albumin/Globulin Ratio 1.5 (1.0-2.8) Imaging Data CTA - brain/neck: Radiologist's Impression: PROCEDURE: CT ANGIO HEAD AND NECK INDICATIONS: left side neck pain with stent and hx aneurysms TECHNIQUE: After the administration of intravenous contrast, 1 mm thick sections acquired from the aortic arch through the [place] of [place]. 3-dimensional elampqc-scybqgvni-bzoxotydki (MIP) and/or volume rendering reformats were acquired of the central intracranial vasculature and neck separately. For radiation dose reduction, the following was used: automated exposure control, adjustment of mA and/or kV according to patient size. COMPARISON: [facility], CT, CT ANGIO HEAD AND NECK, 01/13/2024, 17:59. FINDINGS: Image quality: Diagnostic. BRAIN: CSF spaces: Ventricles are normal in size and shape. Basal cisterns are patent. No extra-axial fluid collections. Brain: No significant abnormality of the brain can be seen. Skull and face: Calvarium and facial bones appear intact, without suspicious lesions. Orbits appear normal. Sinuses: Diffuse paranasal sinus disease, most pronounced within the ethmoid air cells. The mastoids are clear. HEAD CT ANGIOGRAPHY: Anterior circulation: Intracranial internal carotid arteries are normal in size and flow. Hypoplastic right A1 segment. Otherwise, the flow within the paired anterior cerebral arteries is normal and symmetric. The flow within the middle cerebral arteries is normal and symmetric. The anterior communicating artery is seen. No aneurysms are seen. Posterior circulation: Visualized portions of the vertebral arteries demonstrate normal caliber, and join to form a normal appearing basilar artery. Flow within the posterior cerebral arteries is normal and symmetric. No aneurysms are seen. NECK CT ANGIOGRAPHY: Carotid system: The great vessels demonstrate a conventional anatomy as they arise from the aortic arch. The origins of the common carotid arteries appear patent. The common carotid arteries demonstrate normal caliber and courses. The bifurcation regions are both widely patent with mild atherosclerotic calcifications in the left. The internal carotid arteries demonstrate normal calibers and courses. Left extracranial internal carotid artery stent which appears patent. Posterior circulation: The origins of the vertebral arteries both appear widely patent. The more superior extracranial portions of both vertebral arteries also demonstrate normal courses and calibers. They join to form a normal appearing basilar artery. Soft tissues: Visualized neck soft tissues demonstrate no suspicious abnormalities. Stable right thyroid nodule measuring up to 1.8 cm. Bones: No suspicious bony lesions. Visualized cervical spine appears normally aligned. Degenerative changes of the spine. IMPRESSION: No significant intracranial arterial abnormality is seen. No significant abnormality is seen within the arteries of the neck. Left extracranial internal carotid artery stent appears patent. Pansinusitis, most pronounced within the ethmoid air cells. Any quantitative measurements of stenosis were performed using NASCET criteria. Dictated by: Parveen Leon M.D. on 07/05/2024 at 9:33 Approved by: Parveen Leon M.D. on 07/05/2024 at 9:[address] [facility] Narrative Medical decision making narrative: [facility] CC: Neck pain Complicating co-morbidities: TIA December 2023, aneurysm, carotid stents in 2007 Medical records reviewed: Admission 01/14/2024 for TIA with expressive aphasia that time the CT angio showed a patent left ICA Differential considered: Carotid dissection musculoskeletal Exam documented above, pertinent findings include: Alert anxious 78-year-old female full range of motion of neck minimal tenderness no weakness or numbness Lab Test results independently reviewed as above. Pertinent findings: CBC does not show any leukocytosis or anemia CMP no electrolyte abnormality or TERRENCE Imaging studies independently reviewed: CT angio does not show any evidence of dissection occlusion she was a patent stents Treatments: None Discussion: Patient 78-year-old female with history of left carotid stent presenting today with left neck pain after sleeping. She has an ultrasound scheduled with her vascular surgeon but has pain which is abnormal for her. She has no focal deficits. She overall appears well but anxious. CT angio ruled out carotid dissection and aneurysms. Shows an overall patent left carotid. Blood work is overall reassuring At this time no further workup Discharge Plan Departure Patient Disposition: Home Clinical Impression: Neck pain Instructions: DI for Neck Pain Activity Restrictions/Additional Instructions: *You have been diagnosed with neck pain *What to do: At this time please follow up with vascular surgery your CT scan today does not show any abnormalities *Continue to take medications as directed *Follow up with your primary care provider in 2-3 days or call [phone] *Return to ER if you should have increasing neck pain numbness tingling weakness or any new, worsening or concerning symptoms Prescriptions: No Action clopidogrel 75 mg Tablet 75 mg PO DAILY Qty: 0 losartan [Cozaar] 100 MG tablet 50 mg PO DAILY Qty: 0 multivitamin Tablet 1 tab PO QDAY Qty: 0 amlodipine 2.5 mg tablet 5 mg PO DAILY Patient Comments: TK 1 T PO BID FOR HIGH BLOOD PRESSURE Calcium 600 mg tablet 1 tab PO DAILY levalbuterol tartrate [Xopenex HFA] 45 mcg/actuation HFA aerosol inhaler 2 puff inhalation Q4-6H PRN (Reason: shortness of breath or wheezing) Qty: 15 0RF potassium chloride 20 mEq tablet extended release 20 meq PO DAILY fluticasone propion-salmeterol [Advair HFA] 230-21 mcg/actuation HFA aerosol inhaler 2 puff INHALATION BID aspirin 325 mg tablet,delayed release (DR/EC) 325 mg PO DAILY Qty: 20 0RF atorvastatin 40 mg tablet 40 mg PO DAILY Qty: 30 0RF Referrals: Jess Peters MD [Primary Care Provider] - Stand Alone Forms: Patient Portal/API/Survey
--- NOTE | 2024-07-05 08:11 | DI.CT.S_ITS ---
PROCEDURE: CT ANGIO HEAD AND NECK INDICATIONS: left side neck pain with stent and hx aneurysms TECHNIQUE: After the administration of intravenous contrast, 1 mm thick sections acquired from the aortic arch through the [place]. 3-dimensional [id number] (MIP) and/or volume rendering reformats were acquired of the central intracranial vasculature and neck separately. For radiation dose reduction, the following was used: automated exposure control, adjustment of mA and/or kV according to patient size. COMPARISON: [facility], CT, CT ANGIO HEAD AND NECK, 01/13/2024, 17:59. FINDINGS: Image quality: Diagnostic. BRAIN: CSF spaces: Ventricles are normal in size and shape. Basal cisterns are patent. No extra-axial fluid collections. Brain: No significant abnormality of the brain can be seen. Skull and face: Calvarium and facial bones appear intact, without suspicious lesions. Orbits appear normal. Sinuses: Diffuse paranasal sinus disease, most pronounced within the ethmoid air cells. The mastoids are clear. HEAD CT ANGIOGRAPHY: Anterior circulation: Intracranial internal carotid arteries are normal in size and flow. Hypoplastic right A1 segment. Otherwise, the flow within the paired anterior cerebral arteries is normal and symmetric. The flow within the middle cerebral arteries is normal and symmetric. The anterior communicating artery is seen. No aneurysms are seen. Posterior circulation: Visualized portions of the vertebral arteries demonstrate normal caliber, and join to form a normal appearing basilar artery. Flow within the posterior cerebral arteries is normal and symmetric. No aneurysms are seen. NECK CT ANGIOGRAPHY: Carotid system: The great vessels demonstrate a conventional anatomy as they arise from the aortic arch. The origins of the common carotid arteries appear patent. The common carotid arteries demonstrate normal caliber and courses. The bifurcation regions are both widely patent with mild atherosclerotic calcifications in the left. The internal carotid arteries demonstrate normal calibers and courses. Left extracranial internal carotid artery stent which appears patent. Posterior circulation: The origins of the vertebral arteries both appear widely patent. The more superior extracranial portions of both vertebral arteries also demonstrate normal courses and calibers. They join to form a normal appearing basilar artery. Soft tissues: Visualized neck soft tissues demonstrate no suspicious abnormalities. Stable right thyroid nodule measuring up to 1.8 cm. Bones: No suspicious bony lesions. Visualized cervical spine appears normally aligned. Degenerative changes of the spine. IMPRESSION: No significant intracranial arterial abnormality is seen. No significant abnormality is seen within the arteries of the neck. Left extracranial internal carotid artery stent appears patent. Pansinusitis, most pronounced within the ethmoid air cells. Any quantitative measurements of stenosis were performed using NASCET criteria. Dictated by: Parveen Leon M.D. on 07/05/2024 at 9:33 Approved by: Parveen Leon M.D. on 07/05/2024 at 9:42
[2024-07-05 08:37] LABS: Add Manual Diff / Slide Review NO; Basophils Absolute Auto 100 /uL (0-100); Basophils Percent Auto 0.9 % (0-2); Eosinophils Absolute Auto 200 /uL (0-450); Eosinophils Percent Auto 2.2 % (2-4); Hematocrit 40.5 % (36-46); Hemoglobin 13.8 g/dL (12.0-16.0); Lymphocytes Absolute Auto 1500 /uL (1100-4500); Mean Corpuscular HGB Conc 34.1 % (30-36); Mean Corpuscular Hemoglobin 30.2 PG (26-34); Mean Corpuscular Volume 88.6 fL (80-100); Monocytes Absolute Auto 600 /uL (0-900); Monocytes Percent Auto 7.9 % (3-14); Neutrophils Absolute Auto 4800 /uL (1500-7000); Platelet Count 212 X10^3/uL (150-400); Red Blood Cell Count 4.57 X10^6/uL (4.0-5.2); Red Cell Distribution Width 13.5 % (11.6-14.8); White Blood Cell Count 7.1 X10^3/uL (4.5-11.0)
[2024-07-05 08:54] LABS: Alanine Aminotransferase 24 IU/L (<35); Albumin 4.4 g/dL (3.5-5.0); Albumin Globulin Ratio 1.5 (1.0-2.8); Alkaline Phosphatase 88 U/L (38-126); Aspartate Aminotransferase 28 IU/L (14-36); BUN Creatinine Ratio 21.5 (6-22); Bilirubin Total 0.5 mg/dL (0.2-1.3); Blood Urea Nitrogen 14 mg/dL (7-17); Calcium 9.1 mg/dL (8.4-10.2); Carbon Dioxide 25 mmol/L (22-32); Chloride 102 mmol/L (98-107); Estimated Glomerular Filt Rate > 60 mL/min (>60); Globulin 2.9 g/dL (1.7-4.1); Glucose 116 mg/dL (80-110); HEMOLYSIS < 15 (0-50); Potassium 3.8 mmol/L (3.4-5.1); Sodium 135 mmol/L (137-145); Total Protein 7.3 g/dL (6.3-8.2)
== END 2024-07-05 09:54 | disposition home or self-care (01) ==
PROVIDERS: Emergency Provider Emergency Medicine; PCP Internal Medicine
DX: M54.2 Cervicalgia (principal); Z86.73 Personal history of transient ischemic attack (TIA), and cerebral infarction without residual deficits; Z95.5 Presence of coronary angioplasty implant and graft
CPT/HCPCS: 36415; 70496; 70498; 80053; 85025; 99283; 99284; Q9967

== ENCOUNTER 2024-08-29 20:25 | Emergency (ER) | payer MEDICARE, OTHER, SELFPAY ==
[2024-01-13 20:23] VITALS: BMI 22.4
[2024-08-29 20:33] VITALS: BP 191/84; PULSE 54; RESP 18; TEMP 36.1; O2SAT 98; BMI 22.8
== END 2024-08-29 21:03 | disposition left against medical advice (07) ==
PROVIDERS: Emergency Provider Student in an Organized Health Care Education/Training Program; PCP Internal Medicine
CPT/HCPCS: 99281